=== PATIENT | female | born 1960 | race Caucasian/White ===

== ENCOUNTER 2017-06-19 00:15 | Inpatient (IN) | payer BC, SELFPAY ==
[2017-06-19] VITALS (19 sets, daily range): BP systolic 136–157; BP diastolic 69–103; PULSE 84–105; RESP 16–22; TEMP 36.6–37.3; O2SAT 89–98; BMI 26.1; BMI 29.7
--- NOTE | 2017-06-19 00:22 | RAD_ITS ---
XR Chest 2 Views INDICATION: COUGH T SOB COMPARISON: December 27, 2016 TECHNIQUE: Portable chest x-ray FINDINGS: Art size and pulmonary vascularity are within normal limits, stable compared to the prior study. Lungs are mildly hyperinflated with coarsened interstitial markings. Bibasilar atelectasis/scarring has slightly increased compared to the prior study. No evidence of pleural effusion. RAD/Chest PA and Lateral IMPRESSION: COPD/emphysema with increased bibasal atelectasis or scarring. at 0051 Reported and signed by: Altagracia Benoit MD Electronically Signed: Altagracia Benoit MD at 23:49 EDT Tel , Service support ,
--- NOTE | 2017-06-19 01:05 | ED.DCSUM_ITS ---
- ER Visit Summary Date of Service: 06/19/17 Chief Complaint: Shortness of breath and wheezing History of Present Illness: The patient is a 57 F 3 of asthma and hypertension. States she had URI symptoms beginning on Monday. Is progressively had worsening shortness of breath and wheezing. No chest pain. No fever. No hemoptysis. No cardiac history. No history of or risk factors for DVT or PE. No hemoptysis. She is currently on prednisone 40 mg a day for the last 3 days. Physical Examination: Middle-aged female vital signs are stable except pulse ox is 89% on 2 L she is hypoxic. HEENT exam unremarkable. TMs normal. Moist wheeze membranes. Neck nontender no lymphadenopathy. Lungs inspiratory expiratory wheezing throughout prolonged expiratory phase. Cough consistent with bronchitis. Exacerbation of asthma. Heart regular rate and rhythm no murmur. Abdomen soft nontender normal bowel sounds no peritoneal signs. Moving all 4 extremities. Calves nontender, no edema or cords. Neurologically she is awake and alert without focal deficits. She is in mild respiratory distress. Test Results: Two-view chest x-ray read by myself the radiologist shows bibasilar atelectasis and chronic changes but no acute process. No infiltrate. Normal cardiac silhouette. BMP unremarkable. Emergency Department Course and Treatment: Patient will be treated with IV Solu- Medrol, DuoNeb and albuterol aerosols and reassess. If she continues to remain hypoxic she will need admission. She did have a prior admission for a similar episode in December 2016. Treatment Plan: Cruz exam after Solu-Medrol of the multiple albuterol and DuoNeb aerosols. Patient is doing better but still wheezing. Still prolonged expiratory phase and we take her off her oxygen her pulse ox drops below 90% sitting in bed. She will need admitted for further aerosols and steroid therapy. I very spoken to Dr. Ahumada the hospitalist is in the ER evaluate the patient is time for admission. Disposition: Admission Impression: Acute viral bronchitis Acute exacerbation of asthma with hypoxia This note was generated with [employer] dictation software. It may contain incorrect words, spelling, and punctuation that were not noted in review of the chart prior to signing ED Disposition - Plan for ED Patient: Chief Complaint: Shortness of Breath Referrals: Jacques Staton DO [Primary Care Provider] -
[2017-06-19] MEDS: Albuterol 2.5 MG/3 ML VIAL.NEB. INHALATION ×2 (01:13)
[2017-06-19] MEDS: MethylPREDNISolone 125 MG/2 ML Vial IV (01:33)
[2017-06-19 01:49] LABS: Absolute Lymphocyte Count 1.34 X10^3/ul (0.83-4.51); Absolute Neutrophil Count 6.3 X10^3/uL (2.0-7.7); Basophil# 0.04 X10^3/uL; Basophil% 0.4 % (0-1); Eosinophil# 0.03 X10^3/uL; Eosinophils% 0.3 % (0-5); Hemoglobin 14.7 g/dl (12.0-15.0); Lymphocyte # 1.34 X10^3/ul (4.0); Mean Corp Hgb Conc 33.4 g/gl (32-36); Mean Corpuscular Volume 89.8 fL (81-99); Mean Platelet Vol. 9.8 fl (6.2-12.0); Monocyte# 1.19 X10^3/uL; Monocyte% 13.3 % (0-10); Neutrophil # 6.29 X10^3/uL (2.7-7.7); Neutrophil % 70.7 % (47-70); Platelet Count 254 K/mm3 (150-450); RBC Distribution Width CV 13.5 % (11.6-14.6); RBC Distribution Width SD 44.3 fl (35.1-43.9); White Blood Count 8.9 K/mm3 (4.4-11.0)
[2017-06-19 01:51] LABS: POSITIVE COUNT NO; POSITIVE DIFFERENTIAL NO; POSITIVE MORPHOLOGY NO
[2017-06-19 02:06] LABS: Anion Gap 11 (5-15); BUN 12 mg/dL (7-18); BUN/Creat Ratio 16.4 RATIO (10-20); Calcium,Total 8.9 mg/dL (8.5-10.1); Chloride 102 mmol/L (98-107); Creatinine, Serum 0.73 mg/dL (0.55-1.02); EST Glomerular Filtration Rate 87 mL/min (>60); Est Glom Filt Rate - Afr Amer 105 mL/min (>60); Estimated Creatinine Clearance 72.54 ml/min; Glucose 108 mg/dL (74-106); Potassium 3.5 mmol/L (3.5-5.1); Sodium Level 140 mmol/L (136-145)
--- NOTE | 2017-06-19 02:49 | HP.PCM_ITS ---
Problem List (1) Asthma exacerbation Status: Acute (2) Acute respiratory failure Status: Acute (3) Asthma Status: Acute (4) Hypokalemia Status: Acute (5) Hypertension Status: Chronic History of Present Illness Date of Admission: 06/19/17 Chief Complaint: Asthma exacerbation The patient is a 57 year old female w/ h/o asthma, tobacco abuse, and HTN admitted for asthma exacerbation. She has been feeling ill since Monday. There are several people at work who are sick the flu. She has been having worsening SOB and productive cough. The intensity and frequency of the cough are worsening. Sputum quantity also increased in the last few days. Her PCP gave her steroid since Monday. However, despite being on steroid, she is unable to do her ADLs. Her SOB is so severe that she required oxygen while in the ED to maintain her saturation. She is admitted for further workup. Past Medical History Past Medical History (Chronic Problems): Chronic Problems Hypertension (Chronic) Allergies Barbiturates Allergy (Verified 06/19/17 00:18) Other Home Medications: Ambulatory Orders Medication Instructions Recorded Aspirin [Aspirin, Baby] 81 mg PO DAILY@0800 05/01/14 Hydrochlorothiazide [Hctz] 12.5 mg PO DAILY 05/01/14 Lisinopril [Zestril] 30 mg PO DAILY 05/01/14 Loratadine [Claritin] 10 mg PO DAILY 05/01/14 Albuterol Inhaler [Ventolin Hfa] 1 - 2 puff INHALATION Q4H PRN PRN 05/02/14 #1 inhaler Albuterol Aerosols [Ventolin 2.5 mg INHALATION Q6HWA.RT 07/02/16 Aerosols] Budesonide/Formoterol 160/4.5 2 puff INHALATION BID 07/02/16 [Symbicort 160/4.5 Mcg Inhaler (SP)] Dicyclomine HCl 20 mg PO TID 12/27/16 Ipratropium/Albuterol Respimat 1 puff INHALATION 4X/DAY 12/27/16 [Combivent Respimat Inhal [place]] Montelukast Sodium [Singulair] 10 mg PO DAILY 12/27/16 Prednisone 40 mg PO DAILY #30 tablet 12/29/16 Cholecalciferol (Vitamin D3) 2,000 unit PO DAILY 06/19/17 [Vitamin D3] Surgical History: - - C-sections cholecystectomy tonsillectomy Psychiatric History: No pertinent psych hx 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 Smoking Status: Former smoker - *Family History Paternal History Items: Heart Disease Review of Systems Constitutional: Denies: Chills, Fever, Weight Change HEENT: Denies: Head Aches, Sinus Congestion, Sinus Drainage Cardiovascular: Denies: Chest Pain, Palpitations Respiratory: Denies: Cough, Shortness of breath at rest, Sputum production Gastrointestinal: Denies: Abdominal Pain, Nausea, Vomiting Genitourinary: Denies: Dysuria Musculoskeletal: Denies: Joint Pain, Joint Tenderness Skin: Denies: Rash, Wounds Neurological: Denies: Numbness, Tingling, Focal weakness Psychiatric: Denies: Anxiety, Depression, Homicidal Ideations, Suicidal Ideations Hematologic/ Lymphatic: Denies: Easy Bruising, Easy Bleeding VTE Information - Inpt Only VTE Present on Admission: No VTE Mechan Device Prophylaxis: SCD's VTE Pharm Prophylaxis ordered?: Yes Patient Problems: Active and Suspected Problems Asthma exacerbation (Acute) Acute respiratory failure (Acute) - Physical Exam General: Alert, Oriented x3, Cooperative HEENT: Atraumatic, PERRLA, EOMI, Normocephalic Neck: Supple, No JVD, Negative Carotid Bruits Lungs: Diminished, Short of Breath, Wheezes Cardiovascular: Regular rate, No murmurs Abdomen: Bowel Sounds Present, Soft, Non Tender Extremities: No edema, Capillary Refill Less than 3 Seconds Skin: No rashes, No breakdown Musculoskeletal: No Tenderness to Palpation of Joints or Extremities Neurological: Cranial nerves II-XII grossly intact Psych/Mental Status: Normal Affect, Appropriate Vital Signs Temp Pulse Resp BP Pulse Ox 99.2 F H 90 18 137/84 H 95 06/19/17 02:13 06/19/17 02:13 06/19/17 02:13 06/19/17 02:13 06/19/17 02:13 Oxygen Flow Rate (L/min) 2 Oxygen Delivery Method Room Air Weight: 68.946 kg Body Mass Index (BMI) 26.1 Laboratory Tests Past 24 Hrs 06/19/17 06/19/17 01:35 01:35 WBC 8.9 RBC 4.90 Hgb 14.7 Hct 44.0 MCV 89.8 MCH 30.0 MCHC 33.4 RDW 13.5 RDW Differential 44.3 H Plt Count 254 MPV 9.8 Immature Gran % (Auto) 0.300 Neut % (Auto) 70.7 H Lymph % (Auto) 15.0 L [place] % (Auto) 13.3 H Eos % (Auto) 0.3 Baso % (Auto) 0.4 Absolute Neuts (auto) 6.3 Absolute Lymphs (auto) 1.34 Total Counted Not Reportable Sodium 140 Potassium 3.5 Chloride 102 Carbon Dioxide 27.0 Anion Gap 11 BUN 12 Creatinine 0.73 Estim Creat Clear Calc 72.54 Est GFR (MDRD) Af Amer 105 Est GFR (MDRD) Non-Af 87 BUN/Creatinine Ratio 16.4 Glucose 108 H Calcium 8.9 Assessment/Plan Active and Suspected Problems Asthma exacerbation (Acute) Acute respiratory failure (Acute) 57 year old female w/ h/o asthma, tobacco abuse, and HTN admitted for asthma exacerbation. 1) Asthma exacerbation: Probably secondary to viral etiology. Cultures pending. No e/o acute bacterial infection, no leukocytosis, no infiltrate on xray, no fever, no chill, etcs. Will start steroid and bronchodilators ATC. Will consider antibiotic if worsening. C/w oxygen. 2) Acute hypoxic respiratory failure: Most likely secondary to asthma / COPD exacerbation. Will consider ABG if worsening. C/w oxygen. Monitor. 3) HTN: Resume home meds. Monitor. 4) Prophylaxis: SCD / heparin.
[2017-06-19] MEDS: 0.9% Normal Saline 1,000 ML 100 ML IV ×2 (03:30→14:19)
[2017-06-19] MEDS: Ipratropium/Albuterol Sulfate 3 ML AMPUL.NEB INHALATION ×5 (03:50→22:31)
[2017-06-19 06:18] LABS: Absolute Lymphocyte Count 0.41 X10^3/ul (0.83-4.51); Absolute Neutrophil Count 8.4 X10^3/uL (2.0-7.7); Basophil# 0.02 X10^3/uL; Basophil% 0.2 % (0-1); Differential Indicated SCAN CRITERIA MET; Hematocrit 44.4 % (37-47); Hemoglobin 14.7 g/dl (12.0-15.0); Lymphocyte # 0.41 X10^3/ul (4.0); Lymphocyte % 4.5 % (19-41); Mean Corp Hgb Conc 33.1 g/gl (32-36); Mean Corpuscular Hgb 29.9 pg (27.0-32.0); Mean Corpuscular Volume 90.4 fL (81-99); Mean Platelet Vol. 9.8 fl (6.2-12.0); Monocyte# 0.32 X10^3/uL; Monocyte% 3.5 % (0-10); Neutrophil # 8.38 X10^3/uL (2.7-7.7); Neutrophil % 91.5 % (47-70); POSITIVE COUNT NO; POSITIVE DIFFERENTIAL YES; POSITIVE MORPHOLOGY NO; Platelet Count 253 K/mm3 (150-450); RBC Distribution Width CV 13.6 % (11.6-14.6); RBC Distribution Width SD 44.8 fl (35.1-43.9); Red Blood Count 4.91 M/mm3 (4.2-5.4); White Blood Count 9.2 K/mm3 (4.4-11.0)
[2017-06-19 06:32] LABS: ALB/GLOB Ratio 1.1 RATIO (0.9-2.4); AST(SGOT) 20 U/L (15-37); Alanine Aminotransfer ALT/SGPT 34 U/L (13-56); Albumin, Serum 3.6 g/dL (3.2-5.0); Alkaline Phosphatase 80 U/L (45-117); Anion Gap 8 (5-15); BUN 11 mg/dL (7-18); BUN/Creat Ratio 13.8 RATIO (10-20); Calcium,Total 9.2 mg/dL (8.5-10.1); Chloride 103 mmol/L (98-107); EST Glomerular Filtration Rate 79 mL/min (>60); Est Glom Filt Rate - Afr Amer 95 mL/min (>60); Estimated Creatinine Clearance 82.16 ml/min; Globulin 3.4 g/dL (2.2-4.2); Glucose 153 mg/dL (74-106); Potassium 3.9 mmol/L (3.5-5.1); Sodium Level 138 mmol/L (136-145)
[2017-06-19] MEDS: Dicyclomine 10 MG Capsule 20 MG PO ×3 (06:32→22:26)
[2017-06-19] MEDS: 0.9% NaCl Peripheral Flush Adult/Peds IV (06:33)
[2017-06-19 06:56] LABS: Differential Comment SCANNED
[2017-06-19] MEDS: Aspirin 81 MG TAB.CHEW PO (09:09)
[2017-06-19] MEDS: Montelukast 10 MG Tablet PO (09:11)
[2017-06-19] MEDS: HYDROCHLOROTHIAZIDE 12.5 MG CAPSULE PO (09:11)
[2017-06-19] MEDS: Loratadine 10 MG Tablet PO (09:11)
[2017-06-19] MEDS: Lisinopril 10 MG Tablet 30 MG PO (09:12)
--- NOTE | 2017-06-19 09:17 | PCM.PN.HOSP ---
Patient Problems: Active and Suspected Problems Asthma exacerbation (Acute) Subjective: Patient is a 57-year-old lady with history of mild persistent asthma presented with progressive shortness of breath and assessment of acute asthma exacerbation was made admitted to regular nursing floor for further management Objective: GENERAL: cooperative HEENT: Clear conjunctiva, NECK; supple, normal thyroid, CHEST: Diminished is to auscultation with bilateral wheezing HEART: Regular S1 S2, no audible murmurs ABDOMEN: soft, non-tender, normoactive bowel sounds, RECTAL: deferred EXTREMITIES: No edema, no clubbing, no cyanosis. PARTS FINISHER: Awake, no lateralizing signs. SKIN: No lesions no erythema, Vitals/I&O's: Vital Signs Temp Pulse Resp BP Pulse Ox 98.6 F 89 18 146/91 H 95 06/19/17 03:21 06/19/17 06:57 06/19/17 06:57 06/19/17 03:21 06/19/17 06:57 Oxygen Flow Rate (L/min) 3 Oxygen Delivery Method Nasal Cannula Weight: 67.9 kg Body Mass Index (BMI) 29.7 Intake and Output for Last 24 Hours 06/17/17 06/18/17 06/19/17 22:59 23:59 23:59 Intake Total 331 / 331 Output Total 100 / 100 Balance 231 / 231 Microbiology Past 72 Hours 06/19/17 03:50 Mucosa - Nose Influenza Types A,B Direct FA (ALTAF) - Final Laboratory Results 06/19/17 05:34: WBC 9.2, RBC 4.91, Hgb 14.7, Hct 44.4, MCV 90.4, MCH 29.9, MCHC 33.1, RDW 13.6, RDW Differential 44.8 H, Plt Count 253, MPV 9.8, Immature Gran % (Auto) 0.300, Neut % (Auto) 91.5 H, Lymph % (Auto) 4.5 L, [place] % (Auto) 3.5, Eos % (Auto) 0.0, Baso % (Auto) 0.2, Absolute Neuts (auto) 8.4 H, Absolute Lymphs (auto) 0.41 L, Total Counted Not Reportable, Differential Comment SCANNED 06/19/17 05:34: Sodium 138, Potassium 3.9, Chloride 103, Carbon Dioxide 27.0, Anion Gap 8, BUN 11, Creatinine 0.80, Estim Creat Clear Calc 82.16, Est GFR (MDRD) Af Amer 95, Est GFR (MDRD) Non-Af 79, BUN/Creatinine Ratio 13.8, Glucose 153 H, Calcium 9.2, Total Bilirubin 0.30, AST 20, ALT 34, Alkaline Phosphatase 80, Total Protein 7.0, Albumin 3.6, Globulin 3.4, Albumin/Globulin Ratio 1.1 Current Medications Albuterol/Ipratropium (Duoneb) 3 ml INHALATION Q4H.RT [facility] Last Admin: 06/19/17 06:57 Dose: 3 ml Aspirin (Aspirin, Baby) 81 mg PO DAILY@0800 [facility] Last Admin: 06/19/17 09:09 Dose: 81 mg Cholecalciferol (Vitamin D) 2,000 unit PO DAILY [facility] Last Admin: 06/19/17 09:11 Dose: 2,000 unit Dicyclomine HCl (Bentyl) 20 mg PO TID [facility] Last Admin: 06/19/17 09:09 Dose: 20 mg Heparin Sodium (Porcine) (Heparin Na) 5,000 unit SC Q8 [facility] Last Admin: 06/19/17 06:33 Dose: 5,000 units Hydrochlorothiazide (Hydrochlorothiazide) 12.5 mg PO DAILY [facility] Last Admin: 06/19/17 09:11 Dose: 12.5 mg Sodium Chloride () 1,000 mls @ 100 mls/hr IV .Q10H [facility] Last Admin: 06/19/17 03:30 Dose: 100 mls/hr Lisinopril (Zestril) 30 mg PO DAILY [facility] Last Admin: 06/19/17 09:12 Dose: 30 mg Loratadine (Claritin) 10 mg PO DAILY [facility] Last Admin: 06/19/17 09:11 Dose: 10 mg Methylprednisolone (Solu-Medrol) 40 mg IV Q8 [facility] Stop: 06/20/17 06:01 Last Admin: 06/19/17 06:33 Dose: 40 mg Montelukast Sodium (Singulair) 10 mg PO DAILY [facility] Last Admin: 06/19/17 09:11 Dose: 10 mg Prednisone (Prednisone) 40 mg PO DAILY@0800 [facility] Sodium Chloride () 5 - 30 ml IV UD PRN PRN Reason: SALINE FLUSH Last Admin: 06/19/17 06:33 Dose: 10 ml Assessment/Plan Active and Suspected Problems Asthma exacerbation (Acute) Patient is a 57-year-old lady with history of mild persistent asthma presented with progressive shortness of breath and assessment of acute asthma exacerbation was made admitted to regular nursing floor for further management 1. Acute respiratory insufficiency secondary to acute asthma exacerbation patient has been admitted to regular nursing floor managed with bronchodilator treatment in addition to systemic steroid. Was also placed on supplemental oxygen titrated to keep oxygen saturation greater than 90. Patient is followed by a book author at [facility] plan is for her to follow-up with her when she is discharged 2. Allergic rhinitis 3. Hypertension-blood pressure controlled, home medications continued with dose adjustment as needed 4. Acute hypoxic respiratory failure ruled out 5. DVT prophylaxis SC heparin Code Visit Procedures: Other Procedure - See Report
--- NOTE | 2017-06-19 09:24 | PN_ITS ---
Patient Problems: Active and Suspected Problems Asthma exacerbation (Acute) Subjective: Patient is a 57-year-old lady with history of mild persistent asthma presented with progressive shortness of breath and assessment of acute asthma exacerbation was made admitted to regular nursing floor for further management Objective: GENERAL: cooperative HEENT: Clear conjunctiva, NECK; supple, normal thyroid, CHEST: Diminished is to auscultation with bilateral wheezing HEART: Regular S1 S2, no audible murmurs ABDOMEN: soft, non-tender, normoactive bowel sounds, RECTAL: deferred EXTREMITIES: No edema, no clubbing, no cyanosis. MORTAR WORKER: Awake, no lateralizing signs. SKIN: No lesions no erythema, Vitals/I&O's: Vital Signs Temp Pulse Resp BP Pulse Ox 98.6 F 89 18 146/91 H 95 06/19/17 03:21 06/19/17 06:57 06/19/17 06:57 06/19/17 03:21 06/19/17 06:57 Oxygen Flow Rate (L/min) 3 Oxygen Delivery Method Nasal Cannula Weight: 67.9 kg Body Mass Index (BMI) 29.7 Intake and Output for Last 24 Hours 06/17/17 06/18/17 06/19/17 22:59 23:59 23:59 Intake Total 331 / 331 Output Total 100 / 100 Balance 231 / 231 Microbiology Past 72 Hours 06/19/17 03:50 Mucosa - Nose Influenza Types A,B Direct FA (ALTAF) - Final Laboratory Results 06/19/17 05:34: WBC 9.2, RBC 4.91, Hgb 14.7, Hct 44.4, MCV 90.4, MCH 29.9, MCHC 33.1, RDW 13.6, RDW Differential 44.8 H, Plt Count 253, MPV 9.8, Immature Gran % (Auto) 0.300, Neut % (Auto) 91.5 H, Lymph % (Auto) 4.5 L, [place] % (Auto) 3.5, Eos % (Auto) 0.0, Baso % (Auto) 0.2, Absolute Neuts (auto) 8.4 H, Absolute Lymphs (auto) 0.41 L, Total Counted Not Reportable, Differential Comment SCANNED 06/19/17 05:34: Sodium 138, Potassium 3.9, Chloride 103, Carbon Dioxide 27.0, Anion Gap 8, BUN 11, Creatinine 0.80, Estim Creat Clear Calc 82.16, Est GFR ( MDRD) Af Amer 95, Est GFR (MDRD) Non-Af 79, BUN/Creatinine Ratio 13.8, Glucose 153 H, Calcium 9.2, Total Bilirubin 0.30, AST 20, ALT 34, Alkaline Phosphatase 80, Total Protein 7.0, Albumin 3.6, Globulin 3.4, Albumin/Globulin Ratio 1.1 Current Medications Albuterol/Ipratropium (Duoneb) 3 ml INHALATION Q4H.RT [facility] Last Admin: 06/19/17 06:57 Dose: 3 ml Aspirin (Aspirin, Baby) 81 mg PO DAILY@0800 [facility] Last Admin: 06/19/17 09:09 Dose: 81 mg Cholecalciferol (Vitamin D) 2,000 unit PO DAILY [facility] Last Admin: 06/19/17 09:11 Dose: 2,000 unit Dicyclomine HCl (Bentyl) 20 mg PO TID [facility] Last Admin: 06/19/17 09:09 Dose: 20 mg Heparin Sodium (Porcine) (Heparin Na) 5,000 unit SC Q8 [facility] Last Admin: 06/19/17 06:33 Dose: 5,000 units Hydrochlorothiazide (Hydrochlorothiazide) 12.5 mg PO DAILY [facility] Last Admin: 06/19/17 09:11 Dose: 12.5 mg Sodium Chloride () 1,000 mls @ 100 mls/hr IV .Q10H [facility] Last Admin: 06/19/17 03:30 Dose: 100 mls/hr Lisinopril (Zestril) 30 mg PO DAILY [facility] Last Admin: 06/19/17 09:12 Dose: 30 mg Loratadine (Claritin) 10 mg PO DAILY [facility] Last Admin: 06/19/17 09:11 Dose: 10 mg Methylprednisolone (Solu-Medrol) 40 mg IV Q8 [facility] Stop: 06/20/17 06:01 Last Admin: 06/19/17 06:33 Dose: 40 mg Montelukast Sodium (Singulair) 10 mg PO DAILY [facility] Last Admin: 06/19/17 09:11 Dose: 10 mg Prednisone (Prednisone) 40 mg PO DAILY@0800 [facility] Sodium Chloride () 5 - 30 ml IV UD PRN PRN Reason: SALINE FLUSH Last Admin: 06/19/17 06:33 Dose: 10 ml Assessment/Plan Active and Suspected Problems Asthma exacerbation (Acute) Patient is a 57-year-old lady with history of mild persistent asthma presented with progressive shortness of breath and assessment of acute asthma exacerbation was made admitted to regular nursing floor for further management 1. Acute respiratory insufficiency secondary to acute asthma exacerbation patient has been admitted to regular nursing floor managed with bronchodilator treatment in addition to systemic steroid. Was also placed on supplemental oxygen titrated to keep oxygen saturation greater than 90. Patient is followed by a leather heel breaster at [facility] plan is for her to follow-up with her when she is discharged 2. Allergic rhinitis 3. Hypertension-blood pressure controlled, home medications continued with dose adjustment as needed 4. Acute hypoxic respiratory failure ruled out 5. DVT prophylaxis SC heparin Code Visit Procedures: Other Procedure - See Report
--- NOTE | 2017-06-19 09:46 | CASEMGMT ---
ESCOBAR MATA Face to Face with patient for initial transition planning/care coordination assessment. ESCOBAR MATA introduced self and role at [facility]. Patient sitting in chair, alert and oriented, family at bedside. Patient willing to participate in assessment and is able to answer all questions appropriately. Care providers, pharmacy, and demographics verified. See link attached. Patient wishes to discharge home, denies need for home health at this time. ESCOBAR MATA discussed with patient the need for follow-up with senior teradata developer and encouraged patient to schedule appt with Dr. Armstrong. Patient voiced understanding. Patient states she has no further needs or concerns at this time. CM to follow for discharge planning needs that may arise. Disposition Plan: Patient to discharge home with family support and follow-up plans in place.
[2017-06-19] MEDS: Ibuprofen 400 MG Tablet PO (17:48)
[2017-06-20] VITALS (19 sets, daily range): BP systolic 123–157; BP diastolic 73–85; PULSE 84–105; RESP 16–20; TEMP 36.6–36.8; O2SAT 96–98
[2017-06-20] MEDS: Ipratropium/Albuterol Sulfate 3 ML AMPUL.NEB INHALATION ×7 (02:45→23:18)
[2017-06-20] MEDS: 0.9% Normal Saline 1,000 ML 100 ML IV (02:56)
[2017-06-20] MEDS: Dicyclomine 10 MG Capsule 20 MG PO ×3 (06:34→22:53)
[2017-06-20] MEDS: Aspirin 81 MG TAB.CHEW PO (08:01)
[2017-06-20] MEDS: Ibuprofen 400 MG Tablet PO (08:14)
--- NOTE | 2017-06-20 09:49 | CT_ITS ---
STUDY: CT CHEST WITHOUT CONTRAST REASON FOR EXAM: Female, 57 years old. Wheezing. RADIATION DOSAGE (If Supplied By Facility): CTDIvol = ( 13.91 ) mGy, DLP = ( 490.11 ) mGycm TECHNIQUE: Transaxial imaging was performed without the administration of intravenous contrast material. Multiplanar coronal and sagittal images were reformatted. Individualized dose optimization techniques were used for this CT. COMPARISON: None. FINDINGS: Cardiac monitoring leads are present. There is hyperinflation of the lungs consistent with chronic obstructive lung disease (COPD). There are large lucencies within both upper lobes that is probably related to severe centrilobular emphysema. There is a left lower lobe pulmonary nodule measuring approximately 6.6 mm. There is bilateral basilar dependent atelectasis. There is groundglass nodularity in right middle lobe measuring 4.5 mm in greatest dimension. There is some reticulonodular interstitial thickening visible within the right lower lobe. There is no demonstrated pleural abnormality. Normal heart and pericardium. There are calcifications of the coronary arteries. There is a prominent precarinal node measuring 1.7 x 1.1 x 0.9 cm in size. Normal hilar regions. Normal unenhanced pulmonary arteries. There is atherosclerotic tortuosity of the aortic arch and descending thoracic aorta. Maximum transverse dimension of ascending thoracic aorta measures 2.9 cm. There are multi-level degenerative changes of the thoracic spine. There is increased thoracic kyphosis. There is no demonstrated abnormality of the visualized upper abdomen. CT/Chest without Contrast IMPRESSION: 1. Left lower lobe pulmonary nodule. Suggest follow-up as per Fleischner's criteria. 2. Moderately severe COPD. 3. Nonspecific mediastinal lymphadenopathy. Electronically Signed: Jyoti Rogers MD at 10:46 EDT , Service support ,
--- NOTE | 2017-06-20 09:53 | PCM.PN.HOSP ---
Patient Problems: Active and Suspected Problems Asthma exacerbation (Acute) Subjective: Patient seen remains significantly dyspneic at rest. Patient was started on doxycycline p.o. prednisone changed to IV Solu-Medrol ordered CT of the chest for subsequent evaluation Objective: GENERAL: cooperative dyspneic at rest HEENT: Clear conjunctiva, NECK; supple, normal thyroid, CHEST: Diminished is to auscultation with bilateral wheezing HEART: Regular S1 S2, no audible murmurs ABDOMEN: soft, non-tender, normoactive bowel sounds, RECTAL: deferred EXTREMITIES: No edema, no clubbing, no cyanosis. BROOM MAKER: Awake, no lateralizing signs. SKIN: No lesions no erythema, Vitals/I&O's: Vital Signs Temp Pulse Resp BP Pulse Ox 98.0 F 91 18 141/74 H 96 06/20/17 08:04 06/20/17 08:04 06/20/17 08:04 06/20/17 08:04 06/20/17 08:04 Oxygen Flow Rate (L/min) 1 Oxygen Delivery Method Nasal Cannula Weight: 67.9 kg Body Mass Index (BMI) 29.7 Intake and Output for Last 24 Hours 06/18/17 06/19/17 06/20/17 23:59 23:59 23:59 Intake Total 331 / 331 Output Total 100 / 100 Balance 231 / 231 Microbiology Past 72 Hours 06/19/17 04:00 Sputum, Expectorated/Coughed Gram Stain - Final 06/19/17 04:00 Sputum, Expectorated/Coughed Respiratory Culture - Preliminary 06/19/17 03:50 Mucosa - Nose Influenza Types A,B Direct FA (ALTAF) - Final Current Medications Albuterol/Ipratropium (Duoneb) 3 ml INHALATION Q4H.RT [facility] Last Admin: 06/20/17 07:17 Dose: 3 ml Aspirin (Aspirin, Baby) 81 mg PO DAILY@0800 [facility] Last Admin: 06/20/17 08:01 Dose: 81 mg Cholecalciferol (Vitamin D) 2,000 unit PO DAILY [facility] Last Admin: 06/19/17 09:11 Dose: 2,000 unit Dicyclomine HCl (Bentyl) 20 mg PO TID [facility] Last Admin: 06/20/17 06:34 Dose: 20 mg Doxycycline Monohydrate (Doxycycline) 100 mg PO BID [facility] Heparin Sodium (Porcine) (Heparin Na) 5,000 unit SC Q8 [facility] Last Admin: 06/20/17 06:34 Dose: 5,000 units Hydrochlorothiazide (Hydrochlorothiazide) 12.5 mg PO DAILY [facility] Last Admin: 06/19/17 09:11 Dose: 12.5 mg Ibuprofen (Motrin) 400 mg PO Q6H PRN PRN PRN Reason: MILD PAIN (1-3/10) Last Admin: 06/20/17 08:14 Dose: 400 mg Lisinopril (Zestril) 30 mg PO DAILY [facility] Last Admin: 06/19/17 09:12 Dose: 30 mg Loratadine (Claritin) 10 mg PO DAILY [facility] Last Admin: 06/19/17 09:11 Dose: 10 mg Methylprednisolone (Solu-Medrol) 40 mg IV Q8 [facility] Montelukast Sodium (Singulair) 10 mg PO DAILY [facility] Last Admin: 06/19/17 09:11 Dose: 10 mg Sodium Chloride () 5 - 30 ml IV UD PRN PRN Reason: SALINE FLUSH Last Admin: 06/19/17 06:33 Dose: 10 ml Assessment/Plan Active and Suspected Problems Asthma exacerbation (Acute) Patient is a 57-year-old lady with history of mild persistent asthma presented with progressive shortness of breath and assessment of acute asthma exacerbation was made admitted to regular nursing floor for further management 1. Acute respiratory insufficiency secondary to acute asthma exacerbation patient has been admitted to regular nursing floor managed with bronchodilator treatment in addition to systemic steroid. Was also placed on supplemental oxygen titrated to keep oxygen saturation greater than 90. Patient is followed by a lockstitch topstitcher at [facility] plan is for her to follow-up with her when she is discharged 2. Allergic rhinitis 3. Hypertension-blood pressure controlled, home medications continued with dose adjustment as needed 4. Acute hypoxic respiratory failure ruled out 5. DVT prophylaxis SC heparin Code Visit Inpatient E&M: 35422 Subs Hosp L3
--- NOTE | 2017-06-20 09:56 | PN_ITS ---
Patient Problems: Active and Suspected Problems Asthma exacerbation (Acute) Subjective: Patient seen remains significantly dyspneic at rest. Patient was started on doxycycline p.o. prednisone changed to IV Solu-Medrol ordered CT of the chest for subsequent evaluation Objective: GENERAL: cooperative dyspneic at rest HEENT: Clear conjunctiva, NECK; supple, normal thyroid, CHEST: Diminished is to auscultation with bilateral wheezing HEART: Regular S1 S2, no audible murmurs ABDOMEN: soft, non-tender, normoactive bowel sounds, RECTAL: deferred EXTREMITIES: No edema, no clubbing, no cyanosis. HISTOLOGY MANAGER: Awake, no lateralizing signs. SKIN: No lesions no erythema, Vitals/I&O's: Vital Signs Temp Pulse Resp BP Pulse Ox 98.0 F 91 18 141/74 H 96 06/20/17 08:04 06/20/17 08:04 06/20/17 08:04 06/20/17 08:04 06/20/17 08:04 Oxygen Flow Rate (L/min) 1 Oxygen Delivery Method Nasal Cannula Weight: 67.9 kg Body Mass Index (BMI) 29.7 Intake and Output for Last 24 Hours 06/18/17 06/19/17 06/20/17 23:59 23:59 23:59 Intake Total 331 / 331 Output Total 100 / 100 Balance 231 / 231 Microbiology Past 72 Hours 06/19/17 04:00 Sputum, Expectorated/Coughed Gram Stain - Final 06/19/17 04:00 Sputum, Expectorated/Coughed Respiratory Culture - Preliminary 06/19/17 03:50 Mucosa - Nose Influenza Types A,B Direct FA (ALTAF) - Final Current Medications Albuterol/Ipratropium (Duoneb) 3 ml INHALATION Q4H.RT [facility] Last Admin: 06/20/17 07:17 Dose: 3 ml Aspirin (Aspirin, Baby) 81 mg PO DAILY@0800 [facility] Last Admin: 06/20/17 08:01 Dose: 81 mg Cholecalciferol (Vitamin D) 2,000 unit PO DAILY [facility] Last Admin: 06/19/17 09:11 Dose: 2,000 unit Dicyclomine HCl (Bentyl) 20 mg PO TID [facility] Last Admin: 06/20/17 06:34 Dose: 20 mg Doxycycline Monohydrate (Doxycycline) 100 mg PO BID [facility] Heparin Sodium (Porcine) (Heparin Na) 5,000 unit SC Q8 [facility] Last Admin: 06/20/17 06:34 Dose: 5,000 units Hydrochlorothiazide (Hydrochlorothiazide) 12.5 mg PO DAILY [facility] Last Admin: 06/19/17 09:11 Dose: 12.5 mg Ibuprofen (Motrin) 400 mg PO Q6H PRN PRN PRN Reason: MILD PAIN (1-3/10) Last Admin: 06/20/17 08:14 Dose: 400 mg Lisinopril (Zestril) 30 mg PO DAILY [facility] Last Admin: 06/19/17 09:12 Dose: 30 mg Loratadine (Claritin) 10 mg PO DAILY [facility] Last Admin: 06/19/17 09:11 Dose: 10 mg Methylprednisolone (Solu-Medrol) 40 mg IV Q8 [facility] Montelukast Sodium (Singulair) 10 mg PO DAILY [facility] Last Admin: 06/19/17 09:11 Dose: 10 mg Sodium Chloride () 5 - 30 ml IV UD PRN PRN Reason: SALINE FLUSH Last Admin: 06/19/17 06:33 Dose: 10 ml Assessment/Plan Active and Suspected Problems Asthma exacerbation (Acute) Patient is a 57-year-old lady with history of mild persistent asthma presented with progressive shortness of breath and assessment of acute asthma exacerbation was made admitted to regular nursing floor for further management 1. Acute respiratory insufficiency secondary to acute asthma exacerbation patient has been admitted to regular nursing floor managed with bronchodilator treatment in addition to systemic steroid. Was also placed on supplemental oxygen titrated to keep oxygen saturation greater than 90. Patient is followed by a scientific research associate at [facility] plan is for her to follow-up with her when she is discharged 2. Allergic rhinitis 3. Hypertension-blood pressure controlled, home medications continued with dose adjustment as needed 4. Acute hypoxic respiratory failure ruled out 5. DVT prophylaxis SC heparin Code Visit Inpatient E&M: 74995 Subs Hosp L3
[2017-06-20] MEDS: Loratadine 10 MG Tablet PO (10:56)
[2017-06-20] MEDS: Lisinopril 10 MG Tablet 30 MG PO (10:56)
[2017-06-20] MEDS: HYDROCHLOROTHIAZIDE 12.5 MG CAPSULE PO (10:56)
[2017-06-20] MEDS: Montelukast 10 MG Tablet PO (10:56)
[2017-06-20] MEDS: Doxycycline 100 MG CAPSULE PO ×2 (13:13→22:46)
[2017-06-20] MEDS: 0.9% NaCl Peripheral Flush Adult/Peds IV ×2 (13:13→22:46)
[2017-06-20] MEDS: ALPRAZolam 0.25 MG Tablet PO ×2 (15:52→23:54)
[2017-06-21] VITALS (19 sets, daily range): BP systolic 135–179; BP diastolic 76–112; PULSE 86–103; RESP 18–24; TEMP 36.4–37.1; O2SAT 84–97
[2017-06-21] MEDS: Ipratropium/Albuterol Sulfate 3 ML AMPUL.NEB INHALATION ×6 (02:43→23:40)
[2017-06-21] MEDS: Dicyclomine 10 MG Capsule 20 MG PO ×3 (05:36→22:19)
[2017-06-21] MEDS: 0.9% NaCl Peripheral Flush Adult/Peds IV ×3 (05:37→22:19)
--- NOTE | 2017-06-21 08:21 | PCM.CONS.GEN ---
Problem List (1) Acute respiratory failure with hypoxia Status: Acute (2) Hypertension Status: Chronic Reason for Consult Date of Consultation: 06/21/17 Reason for Consultation: COPD History of Present Illness: The patient is a 57 year old F with past medical history as below, presented to the emergency room on 06/19/17 with complaints of progressive shortness of breath and wheezing. Patient had URI symptoms starting on Monday. She went to her primary care physician and was placed on 40 mg of prednisone, which she had been taking for 3 days. She felt slightly better, then became more short of breath, even at rest. In the emergency room, patient was hypoxic at 89% on 2 L. Blood pressure 157/103, pulse 99, respirations 18. She was unable to tolerate any activity. Her oxygen requirements increased to 3 L. The patient was admitted for further evaluation and management of presumed asthma exacerbation. She has not had a leukocytosis or fever. She denies any fever or chills at home. She does have somewhat of an increase in her sputum production, clear to yellow. Her cough has been persistent and she has been intermittently wheezing. Her home inhaler regimen includes Symbicort BID, Combivent every 4-5 hours, and PRN albuterol nebulizer and/or inhaler. She reports rare use of her albuterol unless she is sick. Typically, patient does not have trouble with her breathing and does not have a cough. She denies night sweats or hemoptysis. Patient quit smoking after her last admission to the hospital for asthma exacerbation in December 2016 for which she was hospitalized here at [facility]. She has a [id number] history. She has seen Dr. Brewer, ENT in the past and had nasal surgery 2 years ago. She also had a barium swallow May 2014 that showed a small sliding hiatal hernia with gastroesophageal reflux. Patient reports she saw a chronic disease manager and had an EGD as well, which showed esophageal spasms in addition to the hernia. She was placed on Bentyl and omeprazole. Her symptoms have been relatively controlled, except recently she has had more reflux with eating unless she stays completely upright. Patient also had a stress test in April 2014 which was reportedly normal, she had an estimated EF of 77%. She denies any chest pain. Patient was treated with IV steroids and bronchodilators, and was transitioned to Prednisone until she was changed back to Solu-Medrol on 3/13 secondary to persistent dyspnea at rest. She was started on doxycycline and a chest CT was obtained, which showed a left lower lobe pulmonary nodule measuring 6.6 mm, groundglass nodularity in right middle lobe measuring 4.5 mm, moderately severe COPD, and nonspecific mediastinal lymphadenopathy. There was also a large lucencies in both upper lobes, probably related to severe centrilobular emphysema. Patient denies any previous chest imaging except x-rays. She follows with Dr. Armstrong at the [facility]. She last saw him in the spring 2016. Patient states she was actually scheduled to see him this past November, but their office canceled. She was then scheduled to see him a few months ago but they again canceled her appointment. Initial PFTs were done approximately 2 years ago, the patient was told she had asthma. She did have repeat pulmonary function tests in the spring 2016 and is unsure of those results. Past Medical History Past Medical History (Chronic Problems): Chronic Problems Hypertension (Chronic) Allergies Barbiturates Adverse Reaction (Verified 06/19/17 03:44) Other seizure Home Medications: Ambulatory Orders Medication Instructions Recorded Aspirin [Aspirin, Baby] 81 mg PO DAILY@0800 05/01/14 Hydrochlorothiazide [Hctz] 25 mg PO DAILY 05/01/14 Lisinopril [Zestril] 30 mg PO DAILY 05/01/14 Loratadine [Claritin] 10 mg PO DAILY 05/01/14 Albuterol Inhaler [Ventolin Hfa] 1 - 2 puff INHALATION Q4H PRN PRN 05/02/14 #1 inhaler Albuterol Aerosols [Ventolin 2.5 mg INHALATION Q6HWA.RT 07/02/16 Aerosols] Budesonide/Formoterol 160/4.5 2 puff INHALATION BID 07/02/16 [Symbicort 160/4.5 Mcg Inhaler (SP)] Dicyclomine HCl 20 mg PO TID 12/27/16 Ipratropium/Albuterol Respimat 1 puff INHALATION 4X/DAY 12/27/16 [Combivent Respimat Inhal [place]] Montelukast Sodium [Singulair] 10 mg PO DAILY 12/27/16 Prednisone 40 mg PO DAILY #30 tablet 12/29/16 Cholecalciferol (Vitamin D3) 2,000 unit PO DAILY 06/19/17 [Vitamin D3] Fluoxetine [Prozac] 20 mg PO QHS 06/19/17 Omeprazole [Prilosec] 20 mg PO DAILY 06/19/17 Surgical History: - - C-sections cholecystectomy tonsillectomy Psychiatric History: 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 Denies: Anorexia, Chills, Fever, Night Sweats, Malaise, Weakness, Weight Change Eyes: Denies: Vision Change HEENT: Reports: Head Aches, Nasal Congestion, Post Nasal Drip, Sinus Congestion, - - problem with swallowing textured food. Denies: Difficulty Swallowing, Dysphasia, Nasal bleeding, Sinus Drainage Cardiovascular: Reports: Chest Tightness, Orthopnea. Denies: Chest Pain, Chest Pressure, Light Headedness, Palpitations, Paroxysmal Noc. Dyspnea, Syncope Respiratory: Reports: Cough, Shortness of breath at rest, Shortness of breath upon exertion, Sputum production, Wheezing. Denies: Hemoptysis, Pleuritic Pain Gastrointestinal: Reports: Dyspepsia. Denies: Abdominal Pain, Constipation, Diarrhea, Hematemesis, Hematochezia, Nausea, Melena, Vomiting Genitourinary: Denies: Dysuria, Frequency, Hematuria, Retention Gynecological: Denies: Breast symptoms Musculoskeletal: Denies: Back Pain, Muscle pain, Neck Pain Skin: Denies: Pruritis, Rash, Skin Changes Neurological: Denies: Balance problems, Change in Speech, Confusion, Difficulty swallowing, Focal weakness, Numbness, Tingling, Tremor, Seizures Psychiatric: Denies: Anxiety, Depression Endocrine: Denies: Change in Body Habitus, Polydipsia, Polyuria Hematologic/ Lymphatic: Denies: Adenopathy, Anemia, Easy Bruising, Easy Bleeding, Hx of blood clot Patient Problems: Active and Suspected Problems Acute respiratory failure with hypoxia (Acute) Asthma exacerbation (Acute) Subjective: The patient was seen and examined. Her is at the bedside. She has conversational dyspnea and reports a very poor activity tolerance. She is maintaining appropriate saturations on 2 L of oxygen at this time. A room air pulse ox was completed at rest and she was 84%. She complains of intermittent wheezing. She feels improved from yesterday. Objective: Clinical Impression(s) from Imaging Studies Chest X-Ray 06/19/17 00:22 IMPRESSION: COPD/emphysema with increased bibasal atelectasis or scarring. at 0051 Reported and signed by: Altagracia Benoit MD Electronically Signed: Altagracia Benoit MD at 23:49 EDT Tel , Service support , Chest CT 06/20/17 09:49 IMPRESSION: 1. Left lower lobe pulmonary nodule. Suggest follow-up as per Fleischner's criteria. 2. Moderately severe COPD. 3. Nonspecific mediastinal lymphadenopathy. Electronically Signed: Jyoti Rogers MD at 10:46 EDT , Service support , - Physical Exam General: Alert, Oriented x3, Cooperative, No apparent distress, Well developed, Well nourished, - - Conversational dyspnea HEENT: Atraumatic, PERRLA, Normocephalic Oral: Moist Mucosa, No Gingival or Mucosal Lesions/ Ulcerations Neck: Supple, Negative Carotid Bruits, No Nodes, Trachea Midline Lungs: - - Diminished with expiratory wheeze, no rhonchi or rales. No accessory muscle use or tachypnea, symmetric expansion. Cardiovascular: Regular rate, Regular Rhythm, Normal S1, Normal S2, No murmurs, No rub noted, No Gallop Abdomen: Bowel Sounds Present, Soft, Non Tender, Non-Distended, No Hepato-splenomegaly Extremities: No clubbing, No cyanosis, No edema, Peripheral Pulses Normal Skin: No rashes, No breakdown Musculoskeletal: No Tenderness to Palpation of Joints or Extremities, - - mild kyphosis Lymphatic: No Cervical, Supraclavicular, or Inguinal Adenopathy Neurological: Cranial nerves II-XII grossly intact, Neuro grossly intact, Motor Exam 5/5 strength throughout Psych/Mental Status: Alert and oriented to time, place, person, mood and affect Vital Signs Temp Pulse Resp BP Pulse Ox 98.8 F 97 20 H 141/76 H 95 06/21/17 08:00 06/21/17 08:00 06/21/17 08:00 06/21/17 08:00 06/21/17 08:00 Oxygen Flow Rate (L/min) 2 Oxygen Delivery Method Nasal Cannula Weight: 149 lb 11.102 oz Body Mass Index (BMI) 29.7 Intake and Output for Last 24 Hours 06/19/17 06/20/17 06/21/17 23:59 23:59 23:59 Intake Total 331 / 331 1602 / 1602 200 / 200 Output Total 100 / 100 750 / 750 Balance 231 / 231 852 / 852 200 / 200 Microbiology Past 72 Hours 06/19/17 05:34 Blood Culture - Preliminary Blood Culture (Wb) - Anticubital Right No growth in 48 hours. 06/19/17 04:00 Gram Stain - Final Sputum, Expectorated/Coughed Respiratory Culture - Final 06/19/17 03:50 Influenza Types A,B Direct FA (ALTAF) - Final Mucosa - Nose Assessment/Plan Active and Suspected Problems Acute respiratory failure with hypoxia (Acute) Asthma exacerbation (Acute) RECOMMENDATIONS 1. Wean oxygen supplementation to keep saturations 88-92%. 2. Encourage incentive spirometer and Acapella 3. Increase activity as tolerated 4. Continue bronchodilators, add as needed albuterol 5. Obtain respiratory panel 6. Obtain medical records from [facility] pulmonology, Dr. Armstrong 7. Ambulatory pulse ox prior to consideration for discharge 8. Please make follow-up appointment in the pulmonary clinic with [facility] in 2 weeks after discharge IMPRESSIONS 1. Acute hypoxic respiratory failure/presumed asthma and COPD Patient still requiring 2-3 L of oxygen supplementation, no previous home requirements. Sputum and blood culture were negative. Respiratory panel was ordered. She did have recent multiple sick contacts at work and could have a viral etiology causing worsening breathing. She reportedly has asthma per PFTs 2 years ago at [facility], awaiting official records, which were requested. She denies a history of COPD. Chest CT on 06/20 demonstrated a left lower lobe pulmonary nodule measuring 6.6 mm, nonspecific mediastinal lymphadenopathy, and moderately severe COPD. There was also atelectasis and a groundglass nodularity in the right middle lobe measuring 4.5 mm. She does have interstitial thickening. The patient denies any previous CAT scans to compare. She would need a follow up CT in 3 months with these findings. Patient has been maintained on Symbicort, Combivent, and albuterol at home, previously taking Qvar. She also takes Singulair and Claritin. Patient has a hiatal hernia which could be aggravating her asthma, she is on Bentyl and omeprazole at home. Attempt to wean oxygen to keep saturations 88-92%. Encourage incentive spirometer and Acapella and increase activity as tolerated. Patient may require home oxygen temporarily. Would add PRN Albuterol, lungs are very tight with wheezing. She wishes to transfer her pulmonary care to [facility] upon discharge. We have requested her records from [facility]. She can follow-up 2 weeks from discharge, at which time repeat pulmonary function test can be ordered and hopefully patient can be optimized. 2. Hiatal hernia/hypertension/history of tobacco abuse in remission Complicates care, management, recovery, and prognosis. Patient quit smoking in December 2016, [id number] history. Encouraged ongoing cessation. Continue home medications as indicated. Thank you for the opportunity to participate in this patient's care, please do not hesitate contact us with any further questions or concerns. This note was generated with [employer] software. It may contain incorrect words, spelling, and punctuation that were not noted in checking the note before signing.
--- NOTE | 2017-06-21 08:31 | CON.PCM_ITS ---
Problem List (1) Acute respiratory failure with hypoxia Status: Acute (2) Hypertension Status: Chronic Reason for Consult Date of Consultation: 06/21/17 Reason for Consultation: COPD History of Present Illness: The patient is a 57 year old F with past medical history as below, presented to the emergency room on 06/19/17 with complaints of progressive shortness of breath and wheezing. Patient had URI symptoms starting on Monday. She went to her primary care physician and was placed on 40 mg of prednisone, which she had been taking for 3 days. She felt slightly better, then became more short of breath, even at rest. In the emergency room, patient was hypoxic at 89% on 2 L. Blood pressure 157/103, pulse 99, respirations 18. She was unable to tolerate any activity. Her oxygen requirements increased to 3 L. The patient was admitted for further evaluation and management of presumed asthma exacerbation. She has not had a leukocytosis or fever. She denies any fever or chills at home. She does have somewhat of an increase in her sputum production, clear to yellow. Her cough has been persistent and she has been intermittently wheezing. Her home inhaler regimen includes Symbicort BID, Combivent every 4-5 hours, and PRN albuterol nebulizer and/or inhaler. She reports rare use of her albuterol unless she is sick. Typically, patient does not have trouble with her breathing and does not have a cough. She denies night sweats or hemoptysis. Patient quit smoking after her last admission to the hospital for asthma exacerbation in December 2016 for which she was hospitalized here at [facility]. She has a 20-[id number]-dgxr history. She has seen Dr. Brewer, ENT in the past and had nasal surgery 2 years ago. She also had a barium swallow May 2014 that showed a small sliding hiatal hernia with gastroesophageal reflux. Patient reports she saw a rehabilitation case coordinator and had an EGD as well, which showed esophageal spasms in addition to the hernia. She was placed on Bentyl and omeprazole. Her symptoms have been relatively controlled, except recently she has had more reflux with eating unless she stays completely upright. Patient also had a stress test in April 2014 which was reportedly normal, she had an estimated EF of 77%. She denies any chest pain. Patient was treated with IV steroids and bronchodilators, and was transitioned to Prednisone until she was changed back to Solu-Medrol on 3/13 secondary to persistent dyspnea at rest. She was started on doxycycline and a chest CT was obtained, which showed a left lower lobe pulmonary nodule measuring 6.6 mm, groundglass nodularity in right middle lobe measuring 4.5 mm, moderately severe COPD, and nonspecific mediastinal lymphadenopathy. There was also a large lucencies in both upper lobes, probably related to severe centrilobular emphysema. Patient denies any previous chest imaging except x-rays. She follows with Dr. Armstrong at the [facility]. She last saw him in the spring 2016. Patient states she was actually scheduled to see him this past November, but their office canceled. She was then scheduled to see him a few months ago but they again canceled her appointment. Initial PFTs were done approximately 2 years ago, the patient was told she had asthma. She did have repeat pulmonary function tests in the spring 2016 and is unsure of those results. Past Medical History Past Medical History (Chronic Problems): Chronic Problems Hypertension (Chronic) Allergies Barbiturates Adverse Reaction (Verified 06/19/17 03:44) Other seizure Home Medications: Ambulatory Orders Medication Instructions Recorded Aspirin [Aspirin, Baby] 81 mg PO DAILY@0800 05/01/14 Hydrochlorothiazide [Hctz] 25 mg PO DAILY 05/01/14 Lisinopril [Zestril] 30 mg PO DAILY 05/01/14 Loratadine [Claritin] 10 mg PO DAILY 05/01/14 Albuterol Inhaler [Ventolin Hfa] 1 - 2 puff INHALATION Q4H PRN PRN 05/02/14 #1 inhaler Albuterol Aerosols [Ventolin 2.5 mg INHALATION Q6HWA.RT 07/02/16 Aerosols] Budesonide/Formoterol 160/4.5 2 puff INHALATION BID 07/02/16 [Symbicort 160/4.5 Mcg Inhaler (SP)] Dicyclomine HCl 20 mg PO TID 12/27/16 Ipratropium/Albuterol Respimat 1 puff INHALATION 4X/DAY 12/27/16 [Combivent Respimat Inhal [place]] Montelukast Sodium [Singulair] 10 mg PO DAILY 12/27/16 Prednisone 40 mg PO DAILY #30 tablet 12/29/16 Cholecalciferol (Vitamin D3) 2,000 unit PO DAILY 06/19/17 [Vitamin D3] Fluoxetine [Prozac] 20 mg PO QHS 06/19/17 Omeprazole [Prilosec] 20 mg PO DAILY 06/19/17 Surgical History: - - C-sections cholecystectomy tonsillectomy Psychiatric History: No pertinent psych hx 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 Denies: Anorexia, Chills, Fever, Night Sweats , Malaise, Weakness, Weight Change Eyes: Denies: Vision Change HEENT: Reports: Head Aches, Nasal Congestion, Post Nasal Drip, Sinus Congestion , - - problem with swallowing textured food. Denies: Difficulty Swallowing, Dysphasia, Nasal bleeding, Sinus Drainage Cardiovascular: Reports: Chest Tightness, Orthopnea. Denies: Chest Pain, Chest Pressure, Light Headedness, Palpitations, Paroxysmal Noc. Dyspnea, Syncope Respiratory: Reports: Cough, Shortness of breath at rest, Shortness of breath upon exertion, Sputum production, Wheezing. Denies: Hemoptysis, Pleuritic Pain Gastrointestinal: Reports: Dyspepsia. Denies: Abdominal Pain, Constipation, Diarrhea, Hematemesis, Hematochezia, Nausea, Melena, Vomiting Genitourinary: Denies: Dysuria, Frequency, Hematuria, Retention Gynecological: Denies: Breast symptoms Musculoskeletal: Denies: Back Pain, Muscle pain, Neck Pain Skin: Denies: Pruritis, Rash, Skin Changes Neurological: Denies: Balance problems, Change in Speech, Confusion, Difficulty swallowing, Focal weakness, Numbness, Tingling, Tremor, Seizures Psychiatric: Denies: Anxiety, Depression Endocrine: Denies: Change in Body Habitus, Polydipsia, Polyuria Hematologic/ Lymphatic: Denies: Adenopathy, Anemia, Easy Bruising, Easy Bleeding , Hx of blood clot Patient Problems: Active and Suspected Problems Acute respiratory failure with hypoxia (Acute) Asthma exacerbation (Acute) Subjective: The patient was seen and examined. Her is at the bedside. She has conversational dyspnea and reports a very poor activity tolerance. She is maintaining appropriate saturations on 2 L of oxygen at this time. A room air pulse ox was completed at rest and she was 84%. She complains of intermittent wheezing. She feels improved from yesterday. Objective: Clinical Impression(s) from Imaging Studies Chest X-Ray 06/19/17 00:22 IMPRESSION: COPD/emphysema with increased bibasal atelectasis or scarring. at 0051 Reported and signed by: Altagracia Benoit MD Electronically Signed: Altagracia Benoit MD at 23:49 EDT Tel , Service support , Chest CT 06/20/17 09:49 IMPRESSION: 1. Left lower lobe pulmonary nodule. Suggest follow-up as per Fleischner's criteria. 2. Moderately severe COPD. 3. Nonspecific mediastinal lymphadenopathy. Electronically Signed: Jyoti Rogers MD at 10:46 EDT , Service support , - Physical Exam General: Alert, Oriented x3, Cooperative, No apparent distress, Well developed, Well nourished, - - Conversational dyspnea HEENT: Atraumatic, PERRLA, Normocephalic Oral: Moist Mucosa, No Gingival or Mucosal Lesions/ Ulcerations Neck: Supple, Negative Carotid Bruits, No Nodes, Trachea Midline Lungs: - - Diminished with expiratory wheeze, no rhonchi or rales. No accessory muscle use or tachypnea, symmetric expansion. Cardiovascular: Regular rate, Regular Rhythm, Normal S1, Normal S2, No murmurs, No rub noted, No Gallop Abdomen: Bowel Sounds Present, Soft, Non Tender, Non-Distended, No Hepato- splenomegaly Extremities: No clubbing, No cyanosis, No edema, Peripheral Pulses Normal Skin: No rashes, No breakdown Musculoskeletal: No Tenderness to Palpation of Joints or Extremities, - - mild kyphosis Lymphatic: No Cervical, Supraclavicular, or Inguinal Adenopathy Neurological: Cranial nerves II-XII grossly intact, Neuro grossly intact, Motor Exam 5/5 strength throughout Psych/Mental Status: Alert and oriented to time, place, person, mood and affect Vital Signs Temp Pulse Resp BP Pulse Ox 98.8 F 97 20 H 141/76 H 95 06/21/17 08:00 06/21/17 08:00 06/21/17 08:00 06/21/17 08:00 06/21/17 08:00 Oxygen Flow Rate (L/min) 2 Oxygen Delivery Method Nasal Cannula Weight: 149 lb 11.102 oz Body Mass Index (BMI) 29.7 Intake and Output for Last 24 Hours 06/19/17 06/20/17 06/21/17 23:59 23:59 23:59 Intake Total 331 / 331 1602 / 1602 200 / 200 Output Total 100 / 100 750 / 750 Balance 231 / 231 852 / 852 200 / 200 Microbiology Past 72 Hours 06/19/17 05:34 Blood Culture - Preliminary Blood Culture (Wb) - Anticubital Right No growth in 48 hours. 06/19/17 04:00 Gram Stain - Final Sputum, Expectorated/Coughed Respiratory Culture - Final 06/19/17 03:50 Influenza Types A,B Direct FA (ALTAF) - Final Mucosa - Nose Assessment/Plan Active and Suspected Problems Acute respiratory failure with hypoxia (Acute) Asthma exacerbation (Acute) RECOMMENDATIONS 1. Wean oxygen supplementation to keep saturations 88-92%. 2. Encourage incentive spirometer and Acapella 3. Increase activity as tolerated 4. Continue bronchodilators, add as needed albuterol 5. Obtain respiratory panel 6. Obtain medical records from [facility] pulmonology, Dr. Armstrong 7. Ambulatory pulse ox prior to consideration for discharge 8. Please make follow-up appointment in the pulmonary clinic with CELL PREPARER in 2 weeks after discharge IMPRESSIONS 1. Acute hypoxic respiratory failure/presumed asthma and COPD Patient still requiring 2-3 L of oxygen supplementation, no previous home requirements. Sputum and blood culture were negative. Respiratory panel was ordered. She did have recent multiple sick contacts at work and could have a viral etiology causing worsening breathing. She reportedly has asthma per PFTs 2 years ago at [facility], awaiting official records, which were requested. She denies a history of COPD. Chest CT on 06/20 demonstrated a left lower lobe pulmonary nodule measuring 6.6 mm, nonspecific mediastinal lymphadenopathy, and moderately severe COPD. There was also atelectasis and a groundglass nodularity in the right middle lobe measuring 4.5 mm. She does have interstitial thickening. The patient denies any previous CAT scans to compare. She would need a follow up CT in 3 months with these findings. Patient has been maintained on Symbicort, Combivent, and albuterol at home, previously taking Qvar. She also takes Singulair and Claritin. Patient has a hiatal hernia which could be aggravating her asthma, she is on Bentyl and omeprazole at home. Attempt to wean oxygen to keep saturations 88-92%. Encourage incentive spirometer and Acapella and increase activity as tolerated. Patient may require home oxygen temporarily. Would add PRN Albuterol, lungs are very tight with wheezing. She wishes to transfer her pulmonary care to [facility] upon discharge. We have requested her records from [facility]. She can follow-up 2 weeks from discharge, at which time repeat pulmonary function test can be ordered and hopefully patient can be optimized. 2. Hiatal hernia/hypertension/history of tobacco abuse in remission Complicates care, management, recovery, and prognosis. Patient quit smoking in December 2016, [id number] history. Encouraged ongoing cessation. Continue home medications as indicated. Thank you for the opportunity to participate in this patient's care, please do not hesitate contact us with any further questions or concerns. This note was generated with zkipsteration software. It may contain incorrect words, spelling, and punctuation that were not noted in checking the note before signing.
--- NOTE | 2017-06-21 09:22 | PCM.PN.HOSP ---
Patient Problems: Active and Suspected Problems Acute respiratory failure with hypoxia (Acute) Asthma exacerbation (Acute) Subjective: When seen breathing somewhat better however she desaturated with ambulation with oxygen saturation dropping to the low 80s. Objective: GENERAL: cooperative dyspneic at rest HEENT: Clear conjunctiva, NECK; supple, normal thyroid, CHEST: Diminished is to auscultation with bilateral wheezing HEART: Regular S1 S2, no audible murmurs ABDOMEN: soft, non-tender, normoactive bowel sounds, RECTAL: deferred EXTREMITIES: No edema, no clubbing, no cyanosis. OPERATING ROOM MANAGER: Awake, no lateralizing signs. SKIN: No lesions no erythema, Vitals/I&O's: Vital Signs Temp Pulse Resp BP Pulse Ox 98.8 F 97 20 H 141/76 H 95 06/21/17 08:00 06/21/17 08:00 06/21/17 08:00 06/21/17 08:00 06/21/17 08:00 Oxygen Flow Rate (L/min) 2 Oxygen Delivery Method Nasal Cannula Weight: 67.9 kg Body Mass Index (BMI) 29.7 Intake and Output for Last 24 Hours 06/19/17 06/20/17 06/21/17 23:59 23:59 23:59 Intake Total 331 / 331 1602 / 1602 200 / 200 Output Total 100 / 100 750 / 750 Balance 231 / 231 852 / 852 200 / 200 Microbiology Past 72 Hours 06/19/17 05:34 Blood Culture (Wb) - Anticubital Right Blood Culture - Preliminary No growth in 48 hours. 06/19/17 04:00 Sputum, Expectorated/Coughed Gram Stain - Final 06/19/17 04:00 Sputum, Expectorated/Coughed Respiratory Culture - Final 06/19/17 03:50 Mucosa - Nose Influenza Types A,B Direct FA (ALTAF) - Final Current Medications Acetaminophen (Tylenol) 650 mg PO Q4H PRN PRN PRN Reason: fever, pain Albuterol/Ipratropium (Duoneb) 3 ml INHALATION Q4H.RT FIONA Last Admin: 06/21/17 07:10 Dose: 3 ml Alprazolam (Xanax) 0.25 mg PO TID PRN PRN PRN Reason: ANXIETY Last Admin: 06/20/17 23:54 Dose: 0.25 mg Aspirin (Aspirin, Baby) 81 mg PO DAILY@0800 [facility] Last Admin: 06/20/17 08:01 Dose: 81 mg Cholecalciferol (Vitamin D) 2,000 unit PO DAILY [facility] Last Admin: 06/20/17 10:56 Dose: 2,000 unit Dicyclomine HCl (Bentyl) 20 mg PO TID [facility] Last Admin: 06/21/17 05:36 Dose: 20 mg Doxycycline Monohydrate (Doxycycline) 100 mg PO BID [facility] Last Admin: 06/20/17 22:46 Dose: 100 mg Heparin Sodium (Porcine) (Heparin Na) 5,000 unit SC Q8 [facility] Last Admin: 06/21/17 05:36 Dose: 5,000 units Hydrochlorothiazide (Hydrochlorothiazide) 12.5 mg PO DAILY [facility] Last Admin: 06/20/17 10:56 Dose: 12.5 mg Ibuprofen (Motrin) 400 mg PO Q6H PRN PRN PRN Reason: MILD PAIN (1-3/10) Last Admin: 06/20/17 08:14 Dose: 400 mg Lisinopril (Zestril) 30 mg PO DAILY [facility] Last Admin: 06/20/17 10:56 Dose: 30 mg Loratadine (Claritin) 10 mg PO DAILY [facility] Last Admin: 06/20/17 10:56 Dose: 10 mg Methylprednisolone (Solu-Medrol) 40 mg IV Q8 [facility] Last Admin: 06/21/17 05:36 Dose: 40 mg Montelukast Sodium (Singulair) 10 mg PO DAILY [facility] Last Admin: 06/20/17 10:56 Dose: 10 mg Sodium Chloride () 5 - 30 ml IV UD PRN PRN Reason: SALINE FLUSH Last Admin: 06/21/17 05:37 Dose: 10 ml Assessment/Plan Active and Suspected Problems Acute respiratory failure with hypoxia (Acute) Asthma exacerbation (Acute) Patient is a 57-year-old lady with history of mild persistent asthma presented with progressive shortness of breath and assessment of acute asthma exacerbation was made admitted to regular nursing floor for further management 1. Acute hypoxic respiratory failure (as evidenced by oxygen saturation dropping to 84, tachycardia and tachypnea) secondary to acute asthma/COPD exacerbation patient has been admitted to regular nursing floor managed with bronchodilator treatment in addition to systemic steroid. Was also placed on supplemental oxygen titrated to keep oxygen saturation greater than 90. Patient is followed by a washroom operator at [facility] plan is for her to follow-up with her when she is discharged consultation was placed to pulmonary medicine in view of persistent bronchospasm with hypoxia 2. Allergic rhinitis 3. Hypertension-blood pressure controlled, home medications continued with dose adjustment as needed 4. Left lower lobe pulmonary nodule: Patient informed of results instructed to follow-up with her primary washroom operator last PCP for repeat imaging in 3-6 months 5 . DVT prophylaxis SC heparin Clinical Impression(s) from Imaging Studies Chest X-Ray 06/19/17 00:22 IMPRESSION: COPD/emphysema with increased bibasal atelectasis or scarring. at 0051 Reported and signed by: Altagracia Benoit MD Electronically Signed: Altagracia Benoit MD at 23:49 EDT Tel , Service support , Chest CT 06/20/17 09:49 IMPRESSION: 1. Left lower lobe pulmonary nodule. Suggest follow-up as per Fleischner's criteria. 2. Moderately severe COPD. 3. Nonspecific mediastinal lymphadenopathy. Electronically Signed: Jyoti Rogers MD at 10:46 EDT , Service support , Code Visit Inpatient E&M: 92861 Subs Hosp L2
--- NOTE | 2017-06-21 09:26 | PN_ITS ---
Patient Problems: Active and Suspected Problems Acute respiratory failure with hypoxia (Acute) Asthma exacerbation (Acute) Subjective: When seen breathing somewhat better however she desaturated with ambulation with oxygen saturation dropping to the low 80s. Objective: GENERAL: cooperative dyspneic at rest HEENT: Clear conjunctiva, NECK; supple, normal thyroid, CHEST: Diminished is to auscultation with bilateral wheezing HEART: Regular S1 S2, no audible murmurs ABDOMEN: soft, non-tender, normoactive bowel sounds, RECTAL: deferred EXTREMITIES: No edema, no clubbing, no cyanosis. SPARE PERSON: Awake, no lateralizing signs. SKIN: No lesions no erythema, Vitals/I&O's: Vital Signs Temp Pulse Resp BP Pulse Ox 98.8 F 97 20 H 141/76 H 95 06/21/17 08:00 06/21/17 08:00 06/21/17 08:00 06/21/17 08:00 06/21/17 08:00 Oxygen Flow Rate (L/min) 2 Oxygen Delivery Method Nasal Cannula Weight: 67.9 kg Body Mass Index (BMI) 29.7 Intake and Output for Last 24 Hours 06/19/17 06/20/17 06/21/17 23:59 23:59 23:59 Intake Total 331 / 331 1602 / 1602 200 / 200 Output Total 100 / 100 750 / 750 Balance 231 / 231 852 / 852 200 / 200 Microbiology Past 72 Hours 06/19/17 05:34 Blood Culture (Wb) - Anticubital Right Blood Culture - Preliminary No growth in 48 hours. 06/19/17 04:00 Sputum, Expectorated/Coughed Gram Stain - Final 06/19/17 04:00 Sputum, Expectorated/Coughed Respiratory Culture - Final 06/19/17 03:50 Mucosa - Nose Influenza Types A,B Direct FA (ALTAF) - Final Current Medications Acetaminophen (Tylenol) 650 mg PO Q4H PRN PRN PRN Reason: fever, pain Albuterol/Ipratropium (Duoneb) 3 ml INHALATION Q4H.RT FIONA Last Admin: 06/21/17 07:10 Dose: 3 ml Alprazolam (Xanax) 0.25 mg PO TID PRN PRN PRN Reason: ANXIETY Last Admin: 06/20/17 23:54 Dose: 0.25 mg Aspirin (Aspirin, Baby) 81 mg PO DAILY@0800 [facility] Last Admin: 06/20/17 08:01 Dose: 81 mg Cholecalciferol (Vitamin D) 2,000 unit PO DAILY [facility] Last Admin: 06/20/17 10:56 Dose: 2,000 unit Dicyclomine HCl (Bentyl) 20 mg PO TID [facility] Last Admin: 06/21/17 05:36 Dose: 20 mg Doxycycline Monohydrate (Doxycycline) 100 mg PO BID [facility] Last Admin: 06/20/17 22:46 Dose: 100 mg Heparin Sodium (Porcine) (Heparin Na) 5,000 unit SC Q8 [facility] Last Admin: 06/21/17 05:36 Dose: 5,000 units Hydrochlorothiazide (Hydrochlorothiazide) 12.5 mg PO DAILY [facility] Last Admin: 06/20/17 10:56 Dose: 12.5 mg Ibuprofen (Motrin) 400 mg PO Q6H PRN PRN PRN Reason: MILD PAIN (1-3/10) Last Admin: 06/20/17 08:14 Dose: 400 mg Lisinopril (Zestril) 30 mg PO DAILY [facility] Last Admin: 06/20/17 10:56 Dose: 30 mg Loratadine (Claritin) 10 mg PO DAILY [facility] Last Admin: 06/20/17 10:56 Dose: 10 mg Methylprednisolone (Solu-Medrol) 40 mg IV Q8 [facility] Last Admin: 06/21/17 05:36 Dose: 40 mg Montelukast Sodium (Singulair) 10 mg PO DAILY [facility] Last Admin: 06/20/17 10:56 Dose: 10 mg Sodium Chloride () 5 - 30 ml IV UD PRN PRN Reason: SALINE FLUSH Last Admin: 06/21/17 05:37 Dose: 10 ml Assessment/Plan Active and Suspected Problems Acute respiratory failure with hypoxia (Acute) Asthma exacerbation (Acute) Patient is a 57-year-old lady with history of mild persistent asthma presented with progressive shortness of breath and assessment of acute asthma exacerbation was made admitted to regular nursing floor for further management 1. Acute hypoxic respiratory failure (as evidenced by oxygen saturation dropping to 84, tachycardia and tachypnea) secondary to acute asthma/COPD exacerbation patient has been admitted to regular nursing floor managed with bronchodilator treatment in addition to systemic steroid. Was also placed on supplemental oxygen titrated to keep oxygen saturation greater than 90. Patient is followed by a railroad dispatcher at [facility] plan is for her to follow-up with her when she is discharged consultation was placed to pulmonary medicine in view of persistent bronchospasm with hypoxia 2. Allergic rhinitis 3. Hypertension-blood pressure controlled, home medications continued with dose adjustment as needed 4. Left lower lobe pulmonary nodule: Patient informed of results instructed to follow-up with her primary railroad dispatcher last PCP for repeat imaging in 3-6 months 5 . DVT prophylaxis SC heparin Clinical Impression(s) from Imaging Studies Chest X-Ray 06/19/17 00:22 IMPRESSION: COPD/emphysema with increased bibasal atelectasis or scarring. at 0051 Reported and signed by: Altagracia Benoit MD Electronically Signed: Altagracia Benoit MD at 23:49 EDT Tel , Service support , Chest CT 06/20/17 09:49 IMPRESSION: 1. Left lower lobe pulmonary nodule. Suggest follow-up as per Fleischner's criteria. 2. Moderately severe COPD. 3. Nonspecific mediastinal lymphadenopathy. Electronically Signed: Jyoti Rogers MD at 10:46 EDT , Service support , Code Visit Inpatient E&M: 88371 Subs Hosp L2
[2017-06-21] MEDS: Aspirin 81 MG TAB.CHEW PO (09:57)
[2017-06-21] MEDS: Loratadine 10 MG Tablet PO (09:57)
[2017-06-21] MEDS: Lisinopril 10 MG Tablet 30 MG PO (09:58)
[2017-06-21] MEDS: Montelukast 10 MG Tablet PO (09:58)
[2017-06-21] MEDS: Doxycycline 100 MG CAPSULE PO (09:59)
[2017-06-21] MEDS: HYDROCHLOROTHIAZIDE 12.5 MG CAPSULE PO (10:05)
[2017-06-21] MEDS: ALPRAZolam 0.25 MG Tablet PO (22:19)
[2017-06-22] VITALS (8 sets, daily range): BP systolic 119–152; BP diastolic 71–91; PULSE 86–100; RESP 16–18; TEMP 36.6–36.8; O2SAT 87–97
[2017-06-22] MEDS: Ipratropium/Albuterol Sulfate 3 ML AMPUL.NEB INHALATION ×3 (03:30→10:39)
[2017-06-22] MEDS: Dicyclomine 10 MG Capsule 20 MG PO (05:50)
[2017-06-22] MEDS: 0.9% NaCl Peripheral Flush Adult/Peds IV (05:50)
[2017-06-22] MEDS: Montelukast 10 MG Tablet PO (08:32)
[2017-06-22] MEDS: Loratadine 10 MG Tablet PO (08:32)
[2017-06-22] MEDS: HYDROCHLOROTHIAZIDE 12.5 MG CAPSULE PO (08:32)
[2017-06-22] MEDS: Lisinopril 10 MG Tablet 30 MG PO (08:33)
[2017-06-22] MEDS: Aspirin 81 MG TAB.CHEW PO (08:33)
--- NOTE | 2017-06-22 08:44 | PCM.PROGNOTE ---
Patient Problems: Active and Suspected Problems Acute respiratory failure with hypoxia (Acute) Asthma exacerbation (Acute) Subjective: The patient was seen and examined. She is sitting up in the chair in no acute distress. Her daughter is at the bedside. She denies any coughing or significant wheezing. She remains dyspneic on exertion, however this is somewhat improved. Objective: No new lab work or imaging to review. Influenza screening was negative as well as sputum culture. Blood culture showing no growth in 48 hours. Respiratory panel was positive for human metapneumovirus. - Physical Exam General: Alert, Oriented x3, Cooperative, No apparent distress, - - no conversational dyspnea HEENT: Atraumatic, Normocephalic Oral: Moist Mucosa Neck: Supple, No Nodes, Trachea Midline Lungs: - - Diminished with minimal rhonchi, wheeze upon forced expiration. Cardiovascular: Regular rate, Regular Rhythm, Normal S1, Normal S2, No murmurs, No rub noted, No Gallop Abdomen: Bowel Sounds Present, Soft, Non Tender, Non-Distended Extremities: No clubbing, No cyanosis, No edema, Capillary Refill Less than 3 Seconds Skin: No rashes, No breakdown Musculoskeletal: No Tenderness to Palpation of Joints or Extremities Lymphatic: No Cervical, Supraclavicular, or Inguinal Adenopathy Neurological: Neuro grossly intact Psych/Mental Status: Alert and oriented to time, place, person, mood and affect Vital Signs Temp Pulse Resp BP Pulse Ox 98.2 F 94 18 119/71 97 06/22/17 03:10 06/22/17 04:00 06/22/17 03:30 06/22/17 03:10 06/22/17 03:10 Oxygen Flow Rate (L/min) [ 2 AMBULATION with Oxygen] Oxygen Flow Rate (L/min) 1 Oxygen Delivery Method Nasal Cannula Weight: 149 lb 11.102 oz Body Mass Index (BMI) 29.7 Intake and Output for Last 24 Hours 06/20/17 06/21/17 06/22/17 23:59 23:59 23:59 Intake Total 1602 / 1602 1100 / 1100 200 / 200 Output Total 750 / 750 Balance 852 / 852 1100 / 1100 200 / 200 Microbiology Past 72 Hours 06/21/17 09:45 Respiratory Panel (PCR) - Final Mucosa - Nasopharyngeal Human [place] 06/19/17 05:34 Blood Culture - Preliminary Blood Culture (Wb) - Anticubital Right No growth in 48 hours. 06/19/17 04:00 Gram Stain - Final Sputum, Expectorated/Coughed Respiratory Culture - Final Assessment/Plan Active and Suspected Problems Acute respiratory failure with hypoxia (Acute) Asthma exacerbation (Acute) RECOMMENDATIONS 1. Wean oxygen supplementation to keep saturations 88-92%. 2. Encourage incentive spirometer and Acapella 3. Increase activity as tolerated 4. Continue bronchodilators, as needed albuterol 5. Obtain medical records from [facility] pulmonology, Dr. Armstrong 6. Ambulatory pulse ox prior to consideration for discharge 7. Please make follow-up appointment in the pulmonary clinic with [facility] in 2 weeks after discharge 8. Okay to discharge from pulmonary standpoint IMPRESSIONS 1. Acute hypoxic respiratory failure/presumed asthma and COPD Patient still requiring 2-3 L of oxygen supplementation, no previous home requirements. Sputum and blood culture were negative. Respiratory panel was ordered. She did have recent multiple sick contacts at work and could have a viral etiology causing worsening breathing. She reportedly has asthma per PFTs 2 years ago at [facility], awaiting official records, which were requested. She denies a history of COPD. Chest CT on 06/20 demonstrated a left lower lobe pulmonary nodule measuring 6.6 mm, nonspecific mediastinal lymphadenopathy, and moderately severe COPD. There was also atelectasis and a groundglass nodularity in the right middle lobe measuring 4.5 mm. She does have interstitial thickening. The patient denies any previous CAT scans to compare. She would need a follow up CT in 3 months with these findings. Patient has been maintained on Symbicort, Combivent, and albuterol at home, previously taking Qvar. She also takes Singulair and Claritin. Patient has a hiatal hernia which could be aggravating her asthma, she is on Bentyl and omeprazole at home. Attempt to wean oxygen to keep saturations 88-92%. Encourage incentive spirometer and Acapella and increase activity as tolerated. Patient may require home oxygen temporarily. Would add PRN Albuterol, lungs are very tight with wheezing. She wishes to transfer her pulmonary care to [facility] upon discharge. We have requested her records from [facility]. She can follow-up 2 weeks from discharge, at which time repeat pulmonary function test can be ordered and hopefully patient can be optimized. 2. Hiatal hernia/hypertension/history of tobacco abuse in remission Complicates care, management, recovery, and prognosis. Patient quit smoking in December 2016, [id number] history. Encouraged ongoing cessation. Continue home medications as indicated. Thank you for the opportunity to participate in this patient's care, please do not hesitate contact us with any further questions or concerns. This note was generated with [employer] dictation software. It may contain incorrect words, spelling, and punctuation that were not noted in checking the note before signing.
--- NOTE | 2017-06-22 10:26 | PCM.DC ---
- Discharge Diagnoses Current Active Problems: Current Active and Chronic Problems Acute respiratory failure with hypoxia (Acute) Asthma exacerbation (Acute) You will use the following diet at home:: No restrictions Your food should be the consistency of: Regular Discharge Activity: May not drive while taking narcotic pain medications. Allergies/Adverse Reactions: Allergies Barbiturates Adverse Reaction (Verified 06/19/17 03:44) Other seizure Medications to take at Discharge Aspirin [Aspirin, Baby] 81 mg PO DAILY@0800 05/01/14 Hydrochlorothiazide [Hctz] 25 mg PO DAILY 05/01/14 Lisinopril [Zestril] 30 mg PO DAILY 05/01/14 Loratadine [Claritin] 10 mg PO DAILY 05/01/14 Albuterol Inhaler [Ventolin Hfa] 1 - 2 puff INHALATION Q4H PRN PRN #1 inhaler 05/02/14 Albuterol Aerosols [Ventolin Aerosols] 2.5 mg INHALATION Q6HWA.RT 07/02/16 Budesonide/Formoterol 160/4.5 [Symbicort 160/4.5 Mcg Inhaler (SP)] 2 puff INHALATION BID 07/02/16 Dicyclomine HCl 20 mg PO TID 12/27/16 Montelukast Sodium [Singulair] 10 mg PO DAILY 12/27/16 Cholecalciferol (Vitamin D3) [Vitamin D3] 2,000 unit PO DAILY 06/19/17 Fluoxetine [Prozac] 20 mg PO QHS 06/19/17 Omeprazole [Prilosec] 20 mg PO DAILY 06/19/17 ALPRAZolam [Xanax] 0.25 mg PO TID PRN PRN #20 tab 06/22/17 Prednisone 40 mg PO DAILY #30 tab 06/22/17 The following prescriptions were given: ALPRAZolam [Xanax] 0.25 mg PO TID PRN PRN #20 tab PRN Reason: ANXIETY Prednisone 40 mg PO DAILY #30 tab Primary Care Physician: Jacques Staton DO [Primary Care Provider] - Please follow up with your Primary Care Physician in: inn 5-7 days Please Follow Up With: Ciro Norwood DO When: in 1-2 weeks Proposed Discharge Date: 06/22/17
--- NOTE | 2017-06-22 10:28 | PCM.WORK.EX ---
Work/School Excuse Work/School Excuse for:: Patient Please excuse this person from:: Work From: 06/19/17 through: 06/28/17 Restrictions: Light Duty
--- NOTE | 2017-06-22 10:29 | PCM.DC.SUM ---
Discharge Date and Diagnosis - Problem List Patient Problems: Active and Suspected Problems Acute respiratory failure with hypoxia (Acute) Asthma exacerbation (Acute) Date of Admission: 06/19/17 Date of Discharge: 06/22/17 - Primary Discharge Diagnosis Active and Suspected Problems Acute respiratory failure with hypoxia (Acute) Asthma exacerbation (Acute) - Secondary Discharge Diagnosis Chronic Problems Hypertension (Chronic) Hospital Course and Treatment Imaging Results: Clinical Impression(s) from Imaging Studies Chest X-Ray 06/19/17 00:22 IMPRESSION: COPD/emphysema with increased bibasal atelectasis or scarring. at 0051 Reported and signed by: Altagracia Benoit MD Electronically Signed: Altagracia Benoit MD at 23:49 EDT Tel , Service support , Chest CT 06/20/17 09:49 IMPRESSION: 1. Left lower lobe pulmonary nodule. Suggest follow-up as per Fleischner's criteria. 2. Moderately severe COPD. 3. Nonspecific mediastinal lymphadenopathy. Electronically Signed: Jyoti Rogers MD at 10:46 EDT , Service support , Microbiology 06/21/17 09:45 Mucosa - Nasopharyngeal Respiratory Panel (PCR) - Final Human [place] 06/19/17 05:34 Blood Culture (Wb) - Anticubital Right Blood Culture - Preliminary No growth in 48 hours. 06/19/17 04:00 Sputum, Expectorated/Coughed Gram Stain - Final 06/19/17 04:00 Sputum, Expectorated/Coughed Respiratory Culture - Final 06/19/17 03:50 Mucosa - Nose Influenza Types A,B Direct FA (ALTAF) - Final Operations: None Summary of Care Provided: Patient is a 57-year-old lady with history of mild persistent asthma presented with progressive shortness of breath and assessment of acute asthma exacerbation was made admitted to regular nursing floor for further management 1. Acute hypoxic respiratory failure (as evidenced by oxygen saturation dropping to 84, tachycardia and tachypnea) secondary to acute asthma/COPD exacerbation precipitated by human Xiao virus. Patient has been admitted to regular nursing floor managed with bronchodilator treatment in addition to systemic steroid. Was also placed on supplemental oxygen titrated to keep oxygen saturation greater than 90. Consultation was placed to pulmonary medicine in view of persistent bronchospasm with hypoxia and was assessed for home oxygen for which she did qualify the patient requires home oxygen with portability since she is mobile inside the home and in the community. 2. Allergic rhinitis 3. Hypertension-blood pressure controlled, home medications continued with dose adjustment as needed 4. Left lower lobe pulmonary nodule: Patient informed of results instructed to follow-up with her primary collections associate last PCP for repeat imaging in 3-6 months 5 . DVT prophylaxis SC heparin Discharge Diet: No Restrictions Discharge Activity: May not drive while taking narcotic pain medications. Home Medications: Medications to take at Discharge Aspirin [Aspirin, Baby] 81 mg PO DAILY@0800 05/01/14 Hydrochlorothiazide [Hctz] 25 mg PO DAILY 05/01/14 Lisinopril [Zestril] 30 mg PO DAILY 05/01/14 Loratadine [Claritin] 10 mg PO DAILY 05/01/14 Albuterol Inhaler [Ventolin Hfa] 1 - 2 puff INHALATION Q4H PRN PRN #1 inhaler 05/02/14 Albuterol Aerosols [Ventolin Aerosols] 2.5 mg INHALATION Q6HWA.RT 07/02/16 Budesonide/Formoterol 160/4.5 [Symbicort 160/4.5 Mcg Inhaler (SP)] 2 puff INHALATION BID 07/02/16 Dicyclomine HCl 20 mg PO TID 12/27/16 Montelukast Sodium [Singulair] 10 mg PO DAILY 12/27/16 Cholecalciferol (Vitamin D3) [Vitamin D3] 2,000 unit PO DAILY 06/19/17 Fluoxetine [Prozac] 20 mg PO QHS 06/19/17 Omeprazole [Prilosec] 20 mg PO DAILY 06/19/17 ALPRAZolam [Xanax] 0.25 mg PO TID PRN PRN #20 tab 06/22/17 Prednisone 40 mg PO DAILY #30 tab 06/22/17 Following Prescrptions Were Given to Patient: ALPRAZolam [Xanax] 0.25 mg PO TID PRN PRN #20 tab PRN Reason: ANXIETY Prednisone 40 mg PO DAILY #30 tab Primary Care Physician: Jacques Staton DO [Primary Care Provider] - Please follow up with your Primary Care Physician in: inn 5-7 days Please Follow Up With: Ciro Norwood DO When: in 1-2 weeks Disposition: Home Minutes spent on discharge:: 40 Patient Condition:: Stable Meaningful Use Info Meaningful Use Diagnoses (Choose all that apply): None applicable Code Visit Inpatient E&M: 71472 Subs Hosp L3
--- NOTE | 2017-06-22 10:32 | DS.PCM_ITS ---
Discharge Date and Diagnosis - Problem List Patient Problems: Active and Suspected Problems Acute respiratory failure with hypoxia (Acute) Asthma exacerbation (Acute) Date of Admission: 06/19/17 Date of Discharge: 06/22/17 - Primary Discharge Diagnosis Active and Suspected Problems Acute respiratory failure with hypoxia (Acute) Asthma exacerbation (Acute) - Secondary Discharge Diagnosis Chronic Problems Hypertension (Chronic) Hospital Course and Treatment Imaging Results: Clinical Impression(s) from Imaging Studies Chest X-Ray 06/19/17 00:22 IMPRESSION: COPD/emphysema with increased bibasal atelectasis or scarring. at 0051 Reported and signed by: Altagracia Benoit MD Electronically Signed: Altagracia Benoit MD at 23:49 EDT Tel , Service support , Chest CT 06/20/17 09:49 IMPRESSION: 1. Left lower lobe pulmonary nodule. Suggest follow-up as per Fleischner's criteria. 2. Moderately severe COPD. 3. Nonspecific mediastinal lymphadenopathy. Electronically Signed: Jyoti Rogers MD at 10:46 EDT , Service support , Microbiology 06/21/17 09:45 Mucosa - Nasopharyngeal Respiratory Panel (PCR) - Final Human [place] 06/19/17 05:34 Blood Culture (Wb) - Anticubital Right Blood Culture - Preliminary No growth in 48 hours. 06/19/17 04:00 Sputum, Expectorated/Coughed Gram Stain - Final 06/19/17 04:00 Sputum, Expectorated/Coughed Respiratory Culture - Final 06/19/17 03:50 Mucosa - Nose Influenza Types A,B Direct FA (ALTAF) - Final Operations: None Summary of Care Provided: Patient is a 57-year-old lady with history of mild persistent asthma presented with progressive shortness of breath and assessment of acute asthma exacerbation was made admitted to regular nursing floor for further management 1. Acute hypoxic respiratory failure (as evidenced by oxygen saturation dropping to 84, tachycardia and tachypnea) secondary to acute asthma/COPD exacerbation precipitated by human Xiao virus. Patient has been admitted to regular nursing floor managed with bronchodilator treatment in addition to systemic steroid. Was also placed on supplemental oxygen titrated to keep oxygen saturation greater than 90. Consultation was placed to pulmonary medicine in view of persistent bronchospasm with hypoxia and was assessed for home oxygen for which she did qualify the patient requires home oxygen with portability since she is mobile inside the home and in the community. 2. Allergic rhinitis 3. Hypertension-blood pressure controlled, home medications continued with dose adjustment as needed 4. Left lower lobe pulmonary nodule: Patient informed of results instructed to follow-up with her primary scientific informatics leader last PCP for repeat imaging in 3-6 months 5 . DVT prophylaxis SC heparin Discharge Diet: No Restrictions Discharge Activity: May not drive while taking narcotic pain medications. Home Medications: Medications to take at Discharge Aspirin [Aspirin, Baby] 81 mg PO DAILY@0800 05/01/14 Hydrochlorothiazide [Hctz] 25 mg PO DAILY 05/01/14 Lisinopril [Zestril] 30 mg PO DAILY 05/01/14 Loratadine [Claritin] 10 mg PO DAILY 05/01/14 Albuterol Inhaler [Ventolin Hfa] 1 - 2 puff INHALATION Q4H PRN PRN #1 inhaler Albuterol Aerosols [Ventolin Aerosols] 2.5 mg INHALATION Q6HWA.RT 07/02/16 Budesonide/Formoterol 160/4.5 [Symbicort 160/4.5 Mcg Inhaler (SP)] 2 puff INHALATION BID 07/02/16 Dicyclomine HCl 20 mg PO TID 12/27/16 Montelukast Sodium [Singulair] 10 mg PO DAILY 12/27/16 Cholecalciferol (Vitamin D3) [Vitamin D3] 2,000 unit PO DAILY 06/19/17 Fluoxetine [Prozac] 20 mg PO QHS 06/19/17 Omeprazole [Prilosec] 20 mg PO DAILY 06/19/17 ALPRAZolam [Xanax] 0.25 mg PO TID PRN PRN #20 tab 06/22/17 Prednisone 40 mg PO DAILY #30 tab 06/22/17 Following Prescrptions Were Given to Patient: ALPRAZolam [Xanax] 0.25 mg PO TID PRN PRN #20 tab PRN Reason: ANXIETY Prednisone 40 mg PO DAILY #30 tab Primary Care Physician: Jacques Staton DO [Primary Care Provider] - Please follow up with your Primary Care Physician in: inn 5-7 days Please Follow Up With: Ciro Norwood DO When: in 1-2 weeks Disposition: Home Minutes spent on discharge:: 40 Patient Condition:: Stable Meaningful Use Info Meaningful Use Diagnoses (Choose all that apply): None applicable Code Visit Inpatient E&M: 96034 Subs Hosp L3
--- NOTE | 2017-06-22 10:40 | CASEMGMT ---
ESCOBAR MATA received update from nursing that patient qualifies for home oxygen. Patient's preferred DME is [facility]. ESCOBAR MATA obtained script from physician and referral was sent to [facility] requesting portable tank be delivered to hospital. ESCOBAR MATA updated patient and will continue to follow this patient and plan for a safe discharge.
--- NOTE | 2017-06-22 13:40 | CASEMGMT ---
ESCOBAR MATA received update from nurse that patient and family not satified with home portable oxygen tank. ESCOBAR MATA spoke with patient and family. Patient and family are requesting conserving portable tank. ESCOBAR MATA received updated script for conserving home portable oxygen. ESCOBAR MATA called [facility] and updated on new script for conserving portable oxygen. Jad at [facility] stated that RT from [facility] would need to evaluate patient to see if they qualify for conserving device and RT would be back 06/23 and could evaluate patient at home. ESCOBAR MATA updated patient and family regarding need to be evaluated for conserving device.
== END 2017-06-22 13:56 | disposition home or self-care (01) | DRG 189 ==
LOC: ED 00:51 → MS3 02:44
PROVIDERS: Admitting Provider Internal Medicine; Emergency Provider Emergency Medicine; Family Provider Student in an Organized Health Care Education/Training Program; PCP Student in an Organized Health Care Education/Training Program; Visit Provider Internal Medicine
DX: J96.01 Acute respiratory failure with hypoxia (principal); J44.1 Chronic obstructive pulmonary disease with (acute) exacerbation; J45.31 Mild persistent asthma with (acute) exacerbation; I10 Essential (primary) hypertension; R91.1 Solitary pulmonary nodule; Z87.891 Personal history of nicotine dependence; B97.81 Human metapneumovirus as the cause of diseases classified elsewhere
CPT/HCPCS: 36415; 71046; 71250; 80048; 80053; 85025; 87040; 87070; 87205; 87633; 87804; 94640; 94667; 94668; 97802; 99282; J7030; A4216

== ENCOUNTER → 2017-07-12 09:00 | Outpatient (CLI) | payer BC, SELFPAY ==
[2017-07-12 09:42] VITALS: PULSE 102; PULSE 103; PULSE 104; PULSE 81; PULSE 84; PULSE 94; PULSE 97; PULSE 99; O2SAT 84; O2SAT 89; O2SAT 90; O2SAT 91; O2SAT 92; O2SAT 98
--- NOTE | 2017-07-12 10:57 | WT_ITS ---
PSN 6 Minute Walk Test - 6 Minute Walk Test 6 Minute Walk Test: 6 Minute Walk Test PSN:6-Minute Walk Test Start: 07/12/17 09: 41 Freq: Status: Active Protocol: RESP.6MINW Document 07/12/17 09:42 MARIELLE (Rec: 07/12/17 09:44 MARIELLE [id number]) 6 Minute Walk Test Date Performed 07/12/17 Time Performed 09:15 Height 4 ft 11.5 in Weight: 68.039 kg Weight in Pounds 150.[address]: Elenita Lozano Assistive device used: None Pre-test Oxygen Delivery Method Room Air Pulse Ox (%) 92 Pulse Rate (60-100 beats/min) 84 Dyspnea Pamela Scale (0-10) 0.5 Exertion Pamela Scale (6-20) 6 1st minute Oxygen Delivery Method Room Air Pulse Ox (%) 89 Pulse Rate (60-100 beats/min) 97 2nd minute Oxygen Delivery Method Room Air Pulse Ox (%) 84 Pulse Rate (60-100 beats/min) 102 H 3rd minute Oxygen Flow Rate (L/min) (L/min) 2 Oxygen Delivery Method Nasal Cannula Pulse Ox (%) 91 Pulse Rate (60-100 beats/min) 94 4th minute Oxygen Flow Rate (L/min) (L/min) 2 Oxygen Delivery Method Nasal Cannula Pulse Ox (%) 90 Pulse Rate (60-100 beats/min) 99 5th minute Oxygen Flow Rate (L/min) (L/min) 2 Oxygen Delivery Method Nasal Cannula Pulse Ox (%) 90 Pulse Rate (60-100 beats/min) 103 H 6th minute Oxygen Flow Rate (L/min) (L/min) 2 Oxygen Delivery Method Nasal Cannula Pulse Ox (%) 90 Pulse Rate (60-100 beats/min) 104 H Dyspnea Pamela Scale (0-10) 2 Exertion Pamela Scale (6-20) 13 Post-test Oxygen Flow Rate (L/min) (L/min) 2 Oxygen Delivery Method Nasal Cannula Pulse Ox (%) 98 Pulse Rate (60-100 beats/min) 81 Full Laps Walked 16 Partial Lap, Number of Tiles Walked 6 Total Distance Walked (ft) 950 - Interpretation Interpretation: The patient was able to ambulate 950 feet over the course of 6 minutes with no assistive devices or breaks. The patient did have a lower resting oxygen level of 92%. Patient desaturated to 84% in the second minute. 2 L/min of oxygen was applied with improvement to 95%. The patient was unable to complete the testing without complication. These findings are consistent with a respiratory limitation to exercise tolerance. - Recommendations Recommendations: The patient requires no supplemental oxygen at rest, but should be using 2 L/ min nasal cannula oxygen with any exertion.
== END ==
PROVIDERS: Family Provider Student in an Organized Health Care Education/Training Program; PCP Student in an Organized Health Care Education/Training Program; Visit Provider Nurse Practitioner Acute Care
DX: J96.00 Acute respiratory failure, unspecified whether with hypoxia or hypercapnia (principal)
CPT/HCPCS: 94618

== ENCOUNTER → 2017-07-19 19:58 | Outpatient (CLI) | payer BC, SELFPAY | PROVIDERS: Family Provider Student in an Organized Health Care Education/Training Program; PCP Student in an Organized Health Care Education/Training Program; Visit Provider Nurse Practitioner Acute Care | DX: G47.19 Other hypersomnia (principal) | CPT/HCPCS: 95810 ==

== ENCOUNTER → 2017-08-07 07:46 | Outpatient (CLI) | payer BC, SELFPAY ==
--- NOTE | 2017-08-08 10:26 | PFTCOMP ---
COMPLETE PULMONARY FUNCTION TEST INTERPRETATION Brief HPI: Patient is a 57 year old female, currently under the care of Dr. Norwood, who presents to [facility] for complete pulmonary function tests secondary to diagnosis of asthma. Respiratory therapist reports good effort and reproducible results. Interpretation: Forced expiration spirometry shows a severe large airways obstructive ventilatory defect with an FEV1 of 39% predicted. There is a significant bronchodilator response in FVC and FEV1 by ATS criteria. Spirograms are of good quality and plateau slowly, indicating slowly emptying areas of the lungs. The respiratory flow volume loop shows decreased expiratory flow rates at all lung volumes consistent with airway obstruction. Lung volumes by body plethysmography show an elevated total lung capacity at 5.28 L, 132% predicted. FRC and RV are elevated out of proportion. Lung volume measurements are consistent with hyperinflation and air-trapping. Diffusion capacity by carbon monoxide is decreased at 35% predicted. The airway resistance is elevated. No previous pulmonary function tests were available for review. Impression: Partially reversible severe large airways obstructive ventilatory defect with a symmetric reduction diffusing capacity resulting in air trapping with hyperinflation.
== END ==
PROVIDERS: Family Provider Student in an Organized Health Care Education/Training Program; PCP Student in an Organized Health Care Education/Training Program; Visit Provider Nurse Practitioner Acute Care
DX: J45.909 Unspecified asthma, uncomplicated (principal)
CPT/HCPCS: 94060; 94726; 94729

== ENCOUNTER → 2017-08-15 20:00 | Outpatient (CLI) | payer BC, SELFPAY | PROVIDERS: Family Provider Student in an Organized Health Care Education/Training Program; PCP Student in an Organized Health Care Education/Training Program; Visit Provider Nurse Practitioner Acute Care | DX: G47.33 Obstructive sleep apnea (adult) (pediatric) (principal) | CPT/HCPCS: 95811 ==

== ENCOUNTER → 2017-10-02 07:36 | Outpatient (CLI) | payer BC, SELFPAY ==
--- NOTE | 2017-10-02 07:38 | CT_ITS ---
STUDY: CT CHEST WITH CONTRAST REASON FOR EXAM: Female, 57 years old. History of lung nodule. RADIATION DOSAGE (If Supplied By Facility): CTDIvol = ( 10.42 ) mGy, DLP = ( 368.88 ) mGycm TECHNIQUE: Transaxial imaging was performed following intravenous administration of 100 ml of Isovue 300 contrast material. Multiplanar coronal and sagittal images were reformatted. Individualized dose optimization techniques were used for this CT. COMPARISON: Comparison is made with prior study dated June 20, 2017. FINDINGS: Diffuse emphysematous changes with cystic formation involving both lungs more prominent in the upper lobes. Stable appearance of the noncalcified 6.4 mm nodule in the peripheral aspect of the left lower lobe as seen on image #78. Stable appearance of the 7.6 mm noncalcified nodule in the anterior aspect of the left lower lobe adjacent to the major fissure. This is seen on axial image #60. Stable mild degree of increased markings in the right middle lobe suggestive of scarring. There is no demonstrated pleural abnormality. Normal heart and pericardium. Normal mediastinum. Normal hilar regions. Normal enhanced pulmonary arteries. There is atherosclerotic tortuosity of the aortic arch and descending thoracic aorta. There are multi-level degenerative changes of the thoracic spine. Increased thoracic kyphosis. There is no demonstrated abnormality of the visualized upper abdomen. CT/Chest WITH Contrast IMPRESSION: Hyperinflation and diffuse emphysematous changes worse in the upper lobes. Stable appearance of the small left pulmonary nodules. Electronically Signed: Yobany Wood MD at 15:16 EDT Tel [phone], Service support ,
== END ==
PROVIDERS: Family Provider Student in an Organized Health Care Education/Training Program; PCP Student in an Organized Health Care Education/Training Program; Visit Provider Nurse Practitioner Acute Care
DX: R91.1 Solitary pulmonary nodule (principal)
CPT/HCPCS: 71260; Q9967

== ENCOUNTER 2017-10-12 06:46 | Outpatient (RCR) | payer BC, SELFPAY | END 2017-11-07 23:59 | LOC: PR 06:46 | PROVIDERS: Family Provider Student in an Organized Health Care Education/Training Program; PCP Student in an Organized Health Care Education/Training Program; Visit Provider Internal Medicine Critical Care Medicine | DX: J44.9 Chronic obstructive pulmonary disease, unspecified (principal) | CPT/HCPCS: 97150; G0424 ==

== ENCOUNTER 2017-10-25 20:12 | Emergency (ER) | payer BC, SELFPAY ==
[2017-10-25 20:13] VITALS: BP 132/99; PULSE 82; RESP 14; TEMP 36.8; O2SAT 95; BMI 30.9
[2017-10-25 20:55] VITALS: BP 132/80; PULSE 80; RESP 14; O2SAT 99
--- NOTE | 2017-10-25 21:05 | RAD_ITS ---
STUDY: X-RAY - LEFT WRIST REASON FOR EXAM: Female, 57 years old. Trauma TECHNIQUE: 3 view(s) of the wrist were obtained. COMPARISON: None. FINDINGS: Normal visualized distal radius. There appears to be an old unfused ulnar styloid process fracture. Normal radiocarpal articulation. Normal distal radioulnar articulation. Normal carpal bones. There is widening of the scapholunate joint possibly due to injury to the interosseous ligament. This may be better assessed with MRI if clinically warranted Positive ulnar variance of uncertain clinical significance Normal carpometacarpal articulation of the thumb. Normal second through fifth carpometacarpal articulations. Normal visualized metacarpal bones. The soft tissue structures are unremarkable. RAD/Wrist min 3 Views IMPRESSION: No evidence for acute fracture or subluxation Widening of the scapholunate joint possibly due to ligamentous injury. MRI would be helpful for further evaluation if indicated Electronically Signed: Tera Hawk MD at 22:10 EDT , Service support ,
--- NOTE | 2017-10-25 21:25 | RAD_ITS ---
STUDY: X-RAY - LEFT ANKLE REASON FOR EXAM: Female, 57 years old. Trauma TECHNIQUE: 3 view(s) of the ankle. COMPARISON: None. FINDINGS: Normal visualized distal tibia and fibula. Normal medial and lateral malleoli. Normal tibiotalar articulation and ankle mortise. Normal visualized talus and calcaneus. The visualized subtalar, talonavicular, calcaneocuboid and tarsal articulations are normal. Mild soft tissue swelling overlying the lateral malleolus RAD/Ankle min 3 Views IMPRESSION: Mild lateral malleolus sprain. No evidence for acute fracture Electronically Signed: Tera Hawk MD at 22:08 EDT , Service support ,
--- NOTE | 2017-10-25 22:56 | ED.VISSUMM ---
- ER Visit Summary Date of Service: 10/25/17 Chief Complaint: Fall History of Present Illness: The patient is a 57 F who was standing on a small stool reaching over her kitchen sink when she lost her balance and fell, injuring her left ankle and left wrist. Patient denies head injury. She is right-hand dominant. She is not on anticoagulants. Physical Examination: Vital signs are unremarkable. Patient sitting upright in bed no acute distress. Head neck examination was no external sign of trauma. No C-spine tenderness. Heart is regular rate and rhythm. Lung sounds are clear. Abdomen is soft and nontender. Left upper extremity examination reveals mild tenderness diffusely throughout the left wrist. She has increased pain with wrist extension. She is normal cap refill and sensation. There is no tenderness at the elbow or shoulder. Left lower extremity examination reveals mild edema and ecchymosis of the lateral malleolus. There is no tenderness of the proximal fibula. She has strong pulses and normal sensation. She has good range of motion. Test Results: Left ankle x-rays reveal mild left lateral malleolus sprain. Left wrist reveals no acute fracture or subluxation. There is widening of the scapholunate joint which possibly represents ligamentous injury. Emergency Department Course and Treatment: Test results were discussed with the patient. Left wrist is placed in a Ortho-Glass AP splint. She will follow with orthopedics. Left ankle is placed in an Aircast. Treatment Plan: [] Disposition: Discharge Impression: 1. Mechanical fall 2. Left ankle sprain 3. Left wrist sprain This note was generated with [employer] dictation software. It may contain incorrect words, spelling, and punctuation that were not noted in review of the chart prior to signing ED Disposition - Plan for ED Patient: Disposition: Home or Assisted Living Chief Complaint: Fall Instructions: ED Sprain Ankle W X Ray, ED Mechanical Fall, ED Sprain Wrist Referrals: Jacques Staton DO [Primary Care Provider] - Oneal Kan DO [STAFF PHYSICIAN] - 5-7 Days Additional Instructions: Your wrist xray showed mild widening between 2 bones in your wrist. This could indicate a ligament injury. Follow-up with orthopedics as discussed.
--- NOTE | 2017-10-25 23:00 | DCINST.ED_ITS ---
ED Disposition - Plan for ED Patient: Disposition: Home or Assisted Living Chief Complaint: Fall Instructions: ED Mechanical Fall, ED Sprain Ankle W X Ray, ED Sprain Wrist Referrals: Jacques Staton DO [Primary Care Provider] - Oneal Kan DO [STAFF PHYSICIAN] - 5-7 Days Additional Instructions: Your wrist xray showed mild widening between 2 bones in your wrist. This could indicate a ligament injury. Follow-up with orthopedics as discussed.
[2017-10-25 23:04] VITALS: BP 136/80; PULSE 85; RESP 14; O2SAT 98
== END 2017-10-25 23:12 | disposition home or self-care (01) ==
PROVIDERS: Emergency Provider Emergency Medicine; Family Provider Student in an Organized Health Care Education/Training Program; PCP Student in an Organized Health Care Education/Training Program
DX: S93.402A Sprain of unspecified ligament of left ankle, initial encounter (principal); S63.502A Unspecified sprain of left wrist, initial encounter; W17.89XA Other fall from one level to another, initial encounter; Y93.9 Activity, unspecified; Y92.000 Kitchen of unspecified non-institutional (private) residence as the place of occurrence of the external cause; J44.9 Chronic obstructive pulmonary disease, unspecified; I10 Essential (primary) hypertension; G47.33 Obstructive sleep apnea (adult) (pediatric); Z90.49 Acquired absence of other specified parts of digestive tract; Z87.891 Personal history of nicotine dependence; Z79.82 Long term (current) use of aspirin; Z79.899 Other long term (current) drug therapy
CPT/HCPCS: 29125; 73110; 73610; 99283

== ENCOUNTER 2017-12-08 08:00 | Outpatient (RCR) | payer BC, SELFPAY ==
--- NOTE | 2017-11-13 12:57 | PCM.PR.HP ---
History of Present Illness Arrival date:: 11/13/17 Arrival time:: 12:57 Date of Referral:: 10/03/17 Date of Evaluation: 11/13/17 Referring Physician: DR. JUSTIN NORWOOD Primary Diagnosis: COPD GOLD III: severe History of Present Illness: The patient is a 57 yr old female patient who presents to pulmonary rehab today under the care of Dr. Justin Norwood. The patinet is currently on a stable inhaler regimen including symbicort, spireva, and an as needed albuterol inhaler. mMRC Breathless Scale: When is the patient short of breath? Y/N Grade: Description of Breathlessness: 0 I only get breathless with strenuous exercise. 1 I get short of breath when hurrying on level ground or walking up a slight hill. 2 On level ground, I walk slower than people of the same age because of breathless, or have to stop for breath when walking at my own pace. 3 I stop for breath after walking 100 yards or after a few minutes on level ground. 4 I am too breathless to leave the house or I am breathless when dressing. Respiratory Problems: Yes: Fatigue, Wheezing, Able to Speak in Full Sentences, Dyspnea with Activity, Dyspnea Lying Down Flat No: Retain Secretions, Limited Range of Motion, Chest Pain, Dizziness, Ankle Swelling, Hoarseness, Anxiety, Dyspnea at Rest, Cough with Secretions Home Medications: Home Medications Aspirin [Aspirin, Baby] 81 mg PO DAILY@0800 05/01/14 Hydrochlorothiazide [Hctz] 25 mg PO DAILY 05/01/14 Lisinopril [Zestril] 30 mg PO DAILY 05/01/14 Loratadine [Claritin] 10 mg PO DAILY 05/01/14 Albuterol Inhaler [Ventolin Hfa] 1 - 2 puff INHALATION Q4H PRN PRN #1 inhaler 05/02/14 Albuterol Aerosols [Ventolin Aerosols] 2.5 mg INHALATION Q6HWA.RT 07/02/16 Budesonide/Formoterol 160/4.5 [Symbicort 160/4.5 Mcg Inhaler (SP)] 2 puff INHALATION BID 07/02/16 Dicyclomine HCl 20 mg PO TID 12/27/16 Montelukast Sodium [Singulair] 10 mg PO DAILY 12/27/16 Cholecalciferol (Vitamin D3) [Vitamin D3] 2,000 unit PO DAILY 06/19/17 Fluoxetine [Prozac] 20 mg PO QHS 06/19/17 Omeprazole [Prilosec] 20 mg PO DAILY 06/19/17 ALPRAZolam [Xanax] 0.25 mg PO TID PRN PRN #20 tab 06/22/17 potassium chloride PO QDAY 08/16/17 tiotropium bromide 2.5 mcg/actuation mist for inhalation 2 puff INHALATION QDAY #1 ea 08/16/17 Handicap Placcard #1 [id number] 10/03/17 Allergies/Adverse Reactions: Allergies Barbiturates Adverse Reaction (Verified 10/25/17 20:16) Other - spine contracts seizure - Secretions Cough:: No Hx of Sleep Apnea: Yes Do you snore loudly (louder than talking or can be heard through closed doors)?: Yes - Patient is compliant with nocturnal CPAP therapy. Do you often feel tired/ fatigued/ sleepy during daytime?: Yes Has anyone observed you stop breathing during sleep?: No History of Hypertension (for STOP score): Yes STOP Results: Positive Medical Utilization Do you use a peak flow meter at home?: No Do you use a spacer device with your inhalers?: Yes Number of hospital visits in the last year?: 2 - related to COPD hypoxia/respiratory failure Number of emergency room visits in the last year?: 4 - in the last year Do you see your physician on a regular schedule?: Yes How often?: Dr Norwood 6 mo; PCP 3-6 mo Advanced Directives - Advanced Directives Power of Marine Engineer Cpvec: No Living Will: No Advance Directives Information Provided: Yes Advance Directives on File: No DNR Order?:: No - MOLST See MOLST form: No Past Medical History Medical History: Past Medical History (Last Reviewed 10/03/17 @ 07:39 by Jackie Lynne) Acute respiratory failure with hypoxia (Acute) J96.01 Asthma exacerbation (Acute) J45.901 Acute respiratory failure (Acute) J96.00 Requires 2 L/min on exertion Asthma (Acute) J45.909 Hypokalemia (Acute) E87.6 Chest pain (Acute) R07.9 Hypertension (Chronic) I10 Surgical History: Past Surgical History (Last Reviewed 10/03/17 @ 07:39 by Jackie Lynne) History of section (Resolved) Z98.891 History of cholecystectomy (Resolved) Z90.49 Family History: Family History (Last Reviewed 10/03/17 @ 07:39 by Jackie Lynne) Father Diabetes Heart disease Sister Breast cancer - Current/ Previous Services Pulmonary Rehab:: No Social History - Smoking History Smoking Status: Former smoker Years Smokin Packs Smoked per Day: 1 Hx Smoking Cessation Date: 2016 Hx Tobacco Use: Yes Hx Smoking Exposure: Yes - smokes - Alcohol Use Alcohol Usage: No - Substance Abuse Hx Substance Use: No - Occupation Occupation (List type of work in comments):: Employed Hours worked per day:: 8 - 40-48 hours - Hobbies, Recreation, Social Activities Hobbies: Sewing, Exercise - bicycle riding trails of [place] but with slinted left wrist that is on hold., Other - crafts, grandchildren activities, cooking, Recreational Activities: I am able to engage in all my recreational activities Functioning ADL/IADL - Current Ability Current Ability: Independent Self-Care (e.g.,grooming, dressing, & bathing), Independent Ambulation, Independent Transfer, Independent Household tasks (e.g., light meal prep, laundry, shopping) - Pt Functioning Prior to Problem Prior Functioning: Self-Care (e.g.,grooming, dressing, & bathing): Independent, Ambulation: Independent, Transfer: Independent, Household tasks (e.g., light meal prep, laundry, shopping): Independent Social Environment - Status Marital Status: - Current Living Arrangements Living Environment:: Family, Spouse - Children How many children do you have?: 3 Do any of your children live nearby?: Yes - Dru, Smith, one out of state - Safety Do you feel safe in your surroundings?: Yes - Assistance Do you need any assistance at home?: none Review of Systems Review of Systems: Right click = Denies (Slash). Left click = Reports (Sun'Aq) Respiratory: Reports: SOB upon Exertion, Wheezing - few mild upper lobe wheezes, Appetite, Normal - gained some weight since quit smoking., Dizziness/Lightheadedness, Fatigue - all the time. Denies: Cough, Sputum production, Sexual changes Is Patient Pain Free?: Yes Pain Location: none Risk Factor Assessment - Chief Complaint Chief Complaint: Patient is a 57 year old female of Dr. Justin Norwood who presents to pulmonary rehab today for her COPD and enrollment in the pulmonary rehab program. - Vital Signs Temperature: 98.7 F Pulse Rate: 76 Pulse Rhythm: Regular Respiratory Rate: 16 Blood Pressure: 122/80 Nailbeds:: pink - Diabetes Nutrition Referral for Diabetes: No - Obesity Height: 5 ft Weight:: 154 lb Weight in Pounds: 154.0 lbs Weight Source: Standing Scale Body Mass Index (BMI): 30.0 Nutritional Referral for Obesity: Yes - Patient could benefit from a strucutred weight loss program - Physical Activity Physical Inactivity: None - Risk Stratification Risk Guidelines: Lowest Risk: Risk Factor for Smoking, Risk Factor for Dyslipidemia, Risk Factor for Diabetes, Risk Factor for Hypertension, Risk Factor for Sedentary Lifestyle, Risk Factor for Depression, Highest Risk: Risk Factor for Obesity - For Smoking Smoking Risk Guidelines: Smoking Low Risk: None or quit greater than 6 months ago. Smoking Moderate Risk: Smoker or quit 6 months or less ago. Smoking High Risk: Smoker - For Dyslipidemia Dyslipidemia Risk Guidelines: Low Risk: Moderate Risk: High Risk: 15-25% fat 25.1-29% fat >/= 30% fat. <7% sat fat 7-9% sat fat >9% sat fat. <150 mg chol 150-299 mg chol >/= 300 mg chol. LDL <100 LDL 100-129 LDL >/= 130. Chol/HDL ratio <5.0 Chol/HDL ratio 5.0-6.0 Chol/HDL ratio >6.0. Triglycerides <100 Triglycerides 100-149 Triglycerides >/= 150 - For Diabetes Mellitus Diabetes Risk Guidelines: Diabetes Low Risk: HgA1c <6.5% and/or FBG <120. Diabetes Moderate Risk: HgA1c 6.6-7.9% and/or FBG 120-180. Diabetes High Risk: HgA1c >/= 8% and/or FBG >180 - For Obesity/Overweight Obesity/Overweight Risk Guidelines: Obesity Low Risk: BMI <25.0. Obesity Moderate Risk: BMI 25-29.9. Obesity High Risk: BMI >/= 30.0 - For Hypertension Hypertension Risk Guidelines: Hypertension Low Risk: Systolic <120 and Diastolic <80. Hypertension Moderate Risk: Systolic 120-139 and Diastolic 80-89. Hypertension High Risk: Systolic >/= 140 and Diastolic >/= 90 - For Sedentary Lifestyle Sedentary Lifestyle Risk Guidelines: Sedentary Lifestyle Low Risk: >/= 1,500 kcal/week. Sedentary Lifestyle Moderate Risk: 700-1,499 kcal/week. Sedentary Lifestyle High Risk: < 700 kcal/week - For Depression Depression Risk Guidelines: Depression Low Risk: Not clinically depressed. Depression Moderate Risk: Mildly depressed. Depression High Risk: Clinically depressed Motivation - Motivation to Participate On a scale of 1 to 10, how prepared are you to commit to attending program?: 10 - What do you see as barriers to successfully being able to complete the program?: work What do you see as the benefits of succesfully completing the program? In other words, what do you hope to get out of participating in the program?: learn exercise, safety exercise, breathing properly, increased activity exe Are there issues you are dealing with that will interfere with completing the program?: none Do you have a spouse or signficant other, family or friends who will help support you to complete the program?: yes Diagnostic Data Review - 6 Minute Walk Test 6 Minute Walk Test: 950ft 6 min with Spo2 84% room air. - Pulmonary Function Test FEV1:: 0.85 FVC:: 2.24 FEV1/FVC%:: 38 Gold Classification: GOLD class III(severe COPD)with FEV1/FVC<70, 30%</=FEV1< 50% predicted
--- NOTE | 2017-11-13 13:02 | PR.HP_ITS ---
History of Present Illness Arrival date:: 11/13/17 Arrival time:: 12:57 Date of Referral:: 10/03/17 Date of Evaluation: 11/13/17 Referring Physician: DR. JUSTIN NORWOOD Primary Diagnosis: COPD GOLD III: severe History of Present Illness: The patient is a 57 yr old female patient who presents to pulmonary rehab today under the care of Dr. Justin Norwood. The patinet is currently on a stable inhaler regimen including symbicort, spireva, and an as needed albuterol inhaler. mMRC Breathless Scale: When is the patient short of breath? Y/N Grade: Description of Breathlessness: 0 I only get breathless with strenuous exercise. 1 I get short of breath when hurrying on level ground or walking up a slight hill. 2 On level ground, I walk slower than people of the same age because of breathless, or have to stop for breath when walking at my own pace. 3 I stop for breath after walking 100 yards or after a few minutes on level ground. 4 I am too breathless to leave the house or I am breathless when dressing. Respiratory Problems: Yes: Fatigue, Wheezing, Able to Speak in Full Sentences, Dyspnea with Activity, Dyspnea Lying Down Flat No: Retain Secretions, Limited Range of Motion, Chest Pain, Dizziness, Ankle Swelling, Hoarseness, Anxiety, Dyspnea at Rest, Cough with Secretions Home Medications: Home Medications Aspirin [Aspirin, Baby] 81 mg PO DAILY@0800 05/01/14 Hydrochlorothiazide [Hctz] 25 mg PO DAILY 05/01/14 Lisinopril [Zestril] 30 mg PO DAILY 05/01/14 Loratadine [Claritin] 10 mg PO DAILY 05/01/14 Albuterol Inhaler [Ventolin Hfa] 1 - 2 puff INHALATION Q4H PRN PRN #1 inhaler Albuterol Aerosols [Ventolin Aerosols] 2.5 mg INHALATION Q6HWA.RT 07/02/16 Budesonide/Formoterol 160/4.5 [Symbicort 160/4.5 Mcg Inhaler (SP)] 2 puff INHALATION BID 07/02/16 Dicyclomine HCl 20 mg PO TID 12/27/16 Montelukast Sodium [Singulair] 10 mg PO DAILY 12/27/16 Cholecalciferol (Vitamin D3) [Vitamin D3] 2,000 unit PO DAILY 06/19/17 Fluoxetine [Prozac] 20 mg PO QHS 06/19/17 Omeprazole [Prilosec] 20 mg PO DAILY 06/19/17 ALPRAZolam [Xanax] 0.25 mg PO TID PRN PRN #20 tab 06/22/17 potassium chloride PO QDAY 08/16/17 tiotropium bromide 2.5 mcg/actuation mist for inhalation 2 puff INHALATION QDAY #1 ea 08/16/17 Handicap Placcard #1 [id number] 10/03/17 Allergies/Adverse Reactions: Allergies Barbiturates Adverse Reaction (Verified 10/25/17 20:16) Other - spine contracts seizure - Secretions Cough:: No Hx of Sleep Apnea: Yes Do you snore loudly (louder than talking or can be heard through closed doors)? : Yes - Patient is compliant with nocturnal CPAP therapy. Do you often feel tired/ fatigued/ sleepy during daytime?: Yes Has anyone observed you stop breathing during sleep?: No History of Hypertension (for STOP score): Yes STOP Results: Positive Medical Utilization Do you use a peak flow meter at home?: No Do you use a spacer device with your inhalers?: Yes Number of hospital visits in the last year?: 2 - related to COPD hypoxia/ respiratory failure Number of emergency room visits in the last year?: 4 - in the last year Do you see your physician on a regular schedule?: Yes How often?: Dr Norwood 6 mo; PCP 3-6 mo Advanced Directives - Advanced Directives Power of Oliving Machine Operator: No Living Will: No Advance Directives Information Provided: Yes Advance Directives on File: No DNR Order?:: No - MOLST See MOLST form: No Past Medical History Medical History: Past Medical History (Last Reviewed 10/03/17 @ 07:39 by Jackie Lynne) Acute respiratory failure with hypoxia (Acute) J96.01 Asthma exacerbation (Acute) J45.901 Acute respiratory failure (Acute) J96.00 Requires 2 L/min on exertion Asthma (Acute) J45.909 Hypokalemia (Acute) E87.6 Chest pain (Acute) R07.9 Hypertension (Chronic) I10 Surgical History: Past Surgical History (Last Reviewed 10/03/17 @ 07:39 by Jackie Lynne) History of section (Resolved) Z98.891 History of cholecystectomy (Resolved) Z90.49 Family History: Family History (Last Reviewed 10/03/17 @ 07:39 by Jackie Lynne) Father Diabetes Heart disease Sister Breast cancer - Current/ Previous Services Pulmonary Rehab:: No Social History - Smoking History Smoking Status: Former smoker Years Smokin Packs Smoked per Day: 1 Hx Smoking Cessation Date: 2016 Hx Tobacco Use: Yes Hx Smoking Exposure: Yes - smokes - Alcohol Use Alcohol Usage: No - Substance Abuse Hx Substance Use: No - Occupation Occupation (List type of work in comments):: Employed Hours worked per day:: 8 - 40-48 hours - Hobbies, Recreation, Social Activities Hobbies: Sewing, Exercise - bicycle riding trails of [place] but with slinted left wrist that is on hold., Other - crafts, grandchildren activities, cooking, Recreational Activities: I am able to engage in all my recreational activities Functioning ADL/IADL - Current Ability Current Ability: Independent Self-Care (e.g.,grooming, dressing, & bathing), Independent Ambulation, Independent Transfer, Independent Household tasks (e.g. , light meal prep, laundry, shopping) - Pt Functioning Prior to Problem Prior Functioning: Self-Care (e.g.,grooming, dressing, & bathing): Independent, Ambulation: Independent, Transfer: Independent, Household tasks (e.g., light meal prep, laundry, shopping): Independent Social Environment - Status Marital Status: - Current Living Arrangements Living Environment:: Family, Spouse - Children How many children do you have?: 3 Do any of your children live nearby?: Yes - Dru, [place], one out of state - Safety Do you feel safe in your surroundings?: Yes - Assistance Do you need any assistance at home?: none Review of Systems Review of Systems: Right click = Denies (Slash). Left click = Reports (Kenaitze) Respiratory: Reports: SOB upon Exertion, Wheezing - few mild upper lobe wheezes , Appetite, Normal - gained some weight since quit smoking., Dizziness/ Lightheadedness, Fatigue - all the time. Denies: Cough, Sputum production, Sexual changes Is Patient Pain Free?: Yes Pain Location: none Risk Factor Assessment - Chief Complaint Chief Complaint: Patient is a 57 year old female of Dr. Justin Norwood who presents to pulmonary rehab today for her COPD and enrollment in the pulmonary rehab program. - Vital Signs Temperature: 98.7 F Pulse Rate: 76 Pulse Rhythm: Regular Respiratory Rate: 16 Blood Pressure: 122/80 Nailbeds:: pink - Diabetes Nutrition Referral for Diabetes: No - Obesity Height: 5 ft Weight:: 154 lb Weight in Pounds: 154.0 lbs Weight Source: Standing Scale Body Mass Index (BMI): 30.0 Nutritional Referral for Obesity: Yes - Patient could benefit from a strucutred weight loss program - Physical Activity Physical Inactivity: None - Risk Stratification Risk Guidelines: Lowest Risk: Risk Factor for Smoking, Risk Factor for Dyslipidemia, Risk Factor for Diabetes, Risk Factor for Hypertension, Risk Factor for Sedentary Lifestyle, Risk Factor for Depression, Highest Risk: Risk Factor for Obesity - For Smoking Smoking Risk Guidelines: Smoking Low Risk: None or quit greater than 6 months ago. Smoking Moderate Risk: Smoker or quit 6 months or less ago. Smoking High Risk: Smoker - For Dyslipidemia Dyslipidemia Risk Guidelines: Low Risk: Moderate Risk: High Risk: 15-25% fat 25.1-29% fat >/= 30% fat. <7% sat fat 7-9% sat fat >9% sat fat. <150 mg chol 150-299 mg chol >/= 300 mg chol. LDL <100 LDL 100-129 LDL >/= 130. Chol/HDL ratio <5.0 Chol/HDL ratio 5.0-6.0 Chol/HDL ratio >6.0. Triglycerides <100 Triglycerides 100-149 Triglycerides >/= 150 - For Diabetes Mellitus Diabetes Risk Guidelines: Diabetes Low Risk: HgA1c <6.5% and/or FBG <120. Diabetes Moderate Risk: HgA1c 6.6-7.9% and/or FBG 120-180. Diabetes High Risk: HgA1c >/= 8% and/or FBG >180 - For Obesity/Overweight Obesity/Overweight Risk Guidelines: Obesity Low Risk: BMI <25.0. Obesity Moderate Risk: BMI 25-29.9. Obesity High Risk: BMI >/= 30.0 - For Hypertension Hypertension Risk Guidelines: Hypertension Low Risk: Systolic <120 and Diastolic <80. Hypertension Moderate Risk: Systolic 120-139 and Diastolic 80-89. Hypertension High Risk: Systolic >/= 140 and Diastolic >/= 90 - For Sedentary Lifestyle Sedentary Lifestyle Risk Guidelines: Sedentary Lifestyle Low Risk: >/= 1 ,500 kcal/week. Sedentary Lifestyle Moderate Risk: 700-1,499 kcal/week. Sedentary Lifestyle High Risk: < 700 kcal/week - For Depression Depression Risk Guidelines: Depression Low Risk: Not clinically depressed. Depression Moderate Risk: Mildly depressed. Depression High Risk: Clinically depressed Motivation - Motivation to Participate On a scale of 1 to 10, how prepared are you to commit to attending program?: 10 - What do you see as barriers to successfully being able to complete the program? : work What do you see as the benefits of succesfully completing the program? In other words, what do you hope to get out of participating in the program?: learn exercise, safety exercise, breathing properly, increased activity exe Are there issues you are dealing with that will interfere with completing the program?: none Do you have a spouse or signficant other, family or friends who will help support you to complete the program?: yes Diagnostic Data Review - 6 Minute Walk Test 6 Minute Walk Test: 950ft 6 min with Spo2 84% room air. - Pulmonary Function Test FEV1:: 0.85 FVC:: 2.24 FEV1/FVC%:: 38 Gold Classification: GOLD class III(severe COPD)with FEV1/FVC<70, 30%</=FEV1< 50 % predicted
--- NOTE | 2017-11-13 13:06 | PR.ITP_ITS ---
General Information - General Information Admitting Diagnosis: COPD, BEHZAD Gold Classification:: GOLD 3: Severe Oxygen: 2 liters with exertion/activity - PFT FEV1:: 0.85 FVC:: 2.24 FEV1/FVC%:: 38 - Education/Goals Barriers to Learning: Vision Impairment Individual Counseling: Initial Assessment: Dyspnea control techniques at rest, activity, and ADLs, Exacerbation prevention & management, O2, Rx, system, safety , ADL management and pacing, Nutrition & weight management Patient Goals: Breathe better: Initial Assessment, Increase endurance/stamina: Initial Assessment, Return to recreation/hobby: Initial Assessment, Improve diet and nutrition: Initial Assessment, Improve weight: Initial Assessment Exercise - Initial Assessment - Visit Date of Eval: 11/13/17 - Established ITP today; patient is not starting CA until 12/04/2017 due to prescheduled vacation w/family. - Problem/Goals Problems: No regular exercise Goals:: Aerobic exercise 30-60 mins x 9 weeks, Resistance: 2-3x/weekly - Exercise Prescription Mode:: Treadmill, Airdyne, NuStep Frequency (x/week): 3 Duration:: 30 MET LEVEL:: 2.5 HR (bpm):: 121 - 113-121 THRR Exercise Progression: as tolerated per program protocol 0.5METs - Plan Plan and Plan to Review:: Benefits of exercise, Core components of exercise, How to measure dyspnea level, How to monitor dyspnea level, Exercise intensity, Exercise safety guideline, Home exercise guidelines, Pamela: 3-4/11-13 Disease Management - Initial - Problems/Goals-Hypoxemia Hypoxemia Problems:: Hypoxemia, Poor knowledge of O2 use/safety Hypoxemia Goals:: Hypoxemia managed, Using O2 as Rx's safely - Problems/Goals-Medications Medication Goals: Adherence to prescribed medications - Problems/Goals-Bronchial Hygiene Bronchial Hygiene Goals:: Pt demonstrates effective cough, effective secretion clearance., Pt describes signs and symptoms of infection. - Initial Assessment SpO2:: 94 - on room air at rest FiO2:: 21 Does pt report taking home meds as prescribed?: Yes Medications: Yes MDI, Yes DPI, Yes Spacer Patient Reports:: No cough - Plans Hypoxemia Plan:: Monitor SpO2 rest & with exercise, Train appropriate O2 use at rest, Train appropriate O2 use with exercise, Train O2 safety & systems Reviewed prescribed medications:: Purpose, Schedule, Side effects, Importance of compliance Instruct correct technique/timing & care:: MDI, Return demo use of inhaler Bronchial Hygiene Plan: Controlled cough, Vibratory PEP device, Hydration, When to call MD, Signs/symptoms to report: Psychosocial - Initial Assess - Problems/Goals Problems: Impaired Q.O.L. Psychosocial Goals: Improved Q.O.L. - Psychosocial Test Depression:: Impaired QOL Referred to MD for counseling:: No - Plan Reviewed screening results: Yes Instructions given regarding:: Benefits of exercise, Relaxation techniques, Training in coping strategies Stress management: On meds currently - patient takes Xanax 0.5mg as preventative med for anxiety episodes. Tobacco - Initial Assessment - Program Goals Tobacco Program Goals: Complete smoking cessation. Attend education classes. Improve Knowledge Test score - Stage of Change Stages of Change:: Action - Learning Barriers Learning Barriers: Vision, Ready to Learn - Family Support Do you have family support?: Yes - Tobacco Use Tobacco Use: Non-smoker Do you use smokeless tobacco?: No - Intervention Smoking Cessation Referral:: No Individual Education/Counseling:: No Education Schedule Given:: Yes - Education Gave Education Materials For:: Pulmonary Disease, Risk Factors, Breathing Techniques, Medical Compliance, Pulmonary A&P, Exacerbation Signs & Symptoms, Stress & Relaxation Nutrition/Wt Mgmt - Initial - Problems/Goals Problems: Overweight - Weight Management Knowledge Deficit Management of:: Overweight Admit Height:: 5 ft Admit Weight:: 154 lb Admit BMI:: 30.0 - Diabetes Diabetes:: No Insulin: No Do you monitor your blood sugar at home?: No - Intervention Referral to dietitian:: Yes - Patient could benefit from structured weight loss program. Referral to Diabetic Clinic:: No Will attend diet classes:: Yes - Plan Nutrition Plan: Yes Weight control education class:, Yes Education re: Need for ongoing weight monitoring Patient Health Questionnaire Initial Assessment 1. Little interest or pleasure in doing things: Not at all 2. Feeling down, depressed, or hopeless: Several days 3. Trouble falling or staying asleep, or sleeping too much: Nearly every day 4. Feeling tired or having little energy: Nearly every day 5. Poor appetite or overeating: Nearly every day 6. Feeling bad about yourself -- or that you are a failure or have let yourself or your family down: Not at all 7. Trouble concentrating on things, such as reading the newspaper or watching television: Not at all 8. Moving or speaking so slowly that other people could have noticed. Or the opposite - being so fidgety or restless that you have been moving around a lot more than usual: Not at all 9. Thoughts that you would be better off , or of hurting yourself in some way: Not at all How difficult have these problems made it for you to do your work, take care of things at home, or get along with other people?: Somewhat difficult Total Score: 10 COPD Knowledge Test Initial COPD is a lung disease that:: Makes it hard to breathe & gets worse over time In the [place] the term COPD describes 2 main lung conditions:: Emphysema & chronic bronchitis The most common lung irritant that causes COPD is:: Cigarette smoke Common signs and symptoms of COPD include:: A racing heartbeat If you have COPD, what steps can you take?: All of the above Swelling of the ankles is common in COPD:: False Fatigue [tiredness] is common in COPD:: True Wheezing is common in COPD:: True Crushing chest pain is common in COPD:: False Rapid weight loss is common in COPD:: False Breathlessness is a normal response to exercise: False Exercise should be avoided if it makes you short of breath: False All bronchodilators act within 10 minutes: False A spacer device increases the medication to the lungs: True Annual flu vaccine is recommended for pts w/lung disease: True COPD Knowledge Test Total Score:: 13 COPD Assessment Test [CAT] - Questions Never cough = 0, Cough all the time = 5: 1 No phlegm = 0, Chest full of phlegm = 5: 0 No chest tightness = 0, Chest very tight = 5: 0 No breathless w/exertion = 0, Very breathless w/exertion = 5: 5 No limitations w/activity = 0, Very limited w/activity = 5: 2 Confident leaving home = 0, Not at all confident = 5: 0 Sleep soundly = 0, Don't sleep soundly = 5: 5 Lots of energy = 0, No energy at all = 5: 4 Total CAT score:: 17 Self-Efficacy Initial Assessment We would like to know how confident you are in doing certain activities. Please select your confidence level for:: Select your confidence level for the following using the scale 1-10 where 1 is not at all confident and 10 is totally confident. Your score is the average of all 6 responses. Fatigue: How confident are you that you can keep the fatigue caused by your disease from interfering with the things you want to do? Select Number: 4 Physical Discomfort or Pain: How confident are you that you can keep the physical discomfort or pain of your disease from interfering with the things you want to do? Select Number: 4 Emotional Distress: How confident are you that you can keep the emotional distress caused by your disease from interfering with the things you want to do? Select Number: 4 Other Symptoms or Health Problems: How confident are you that you can keep other symptoms or health problems from interfering with the things you want to do? Select Number: 4 Different Tasks and Activities: How confident are you that you can do the different tasks and activities needed to manage your health condition so as to reduce your need to see a doctor? Select Number: 3 Medication: How confident are you that you can do things other than just taking medication to reduce how much your illness affects your everyday life? Select Number: 7 Total Score:: 4 Nutrition Survey - Nutrition Survey Instructions Scoring Instructions: Scoring is as follows: Yes = 1 points. No = 0 point. Patient score that is >/=12 is considered to be at potential nutritional risk and could benefit from a referral to a registered dietitian. - Nutrition Survey Initial Have you lost >10 lbs over the past 2 months without trying?: No Are you following a special diet at home for diabetes, low fat, or low salt?: No Are you interested in meeting with a dietitian for help understanding your diet? : No Do you eat less than 3 meals a day?: Yes Do you eat fatty meats (jerry, sausage, ribs, etc), fried foods, desserts, large amounts of salad dressings, margarine, butter, or cheese most days?: Yes Do you have food allergies? [Enter types in comment field]: No Do you eat in restaurants more than 3 times a week?: No Do you season food with salt, seasoning salt, or garlic salt?: Yes Do you used canned, boxed, frozen meals, or soups, seasoning packets?: No Total Score:: 3
[2017-11-13 13:30] VITALS: BP 122/80; PULSE 76; RESP 16; TEMP 37.1
[2017-11-13 14:11] VITALS: O2SAT 94
--- NOTE | 2017-11-13 14:20 | PCM.PR.DAT ---
Dates of Coverage Times for Dates Of Coverage; All dates of coverage are for physician supervision/medical technologist clinical for during the times of 08:00 AM through 4:30 PM. Effective Dec 09, 2012 our hours will be changing to 8:00 to 4:30 on Monday, Monday and Monday. First Date of the Month: 12/04/17 - eval done 11/13/2017 Last Date of the Month: 12/08/17
== END 2017-12-08 23:59 ==
LOC: PR 08:00
PROVIDERS: Family Provider Student in an Organized Health Care Education/Training Program; PCP Student in an Organized Health Care Education/Training Program; Visit Provider Internal Medicine Critical Care Medicine
DX: J44.9 Chronic obstructive pulmonary disease, unspecified (principal)
CPT/HCPCS: 97150; G0424

== ENCOUNTER 2017-12-18 08:34 | Outpatient (RCR) | payer BC, SELFPAY | END 2018-01-07 23:59 | LOC: NS 08:34 | PROVIDERS: Family Provider Student in an Organized Health Care Education/Training Program; PCP Student in an Organized Health Care Education/Training Program; Visit Provider Internal Medicine Critical Care Medicine | DX: E11.9 Type 2 diabetes mellitus without complications (principal); E66.9 Obesity, unspecified; G47.33 Obstructive sleep apnea (adult) (pediatric); Z68.22 Body mass index [BMI] 22.0-22.9, adult; J44.9 Chronic obstructive pulmonary disease, unspecified; Z71.3 Dietary counseling and surveillance | CPT/HCPCS: 97802 ==

== ENCOUNTER 2018-01-05 08:00 | Outpatient (RCR) | payer BC, SELFPAY ==
[2017-12-09 00:27] VITALS: BP 122/80; PULSE 76; RESP 16; TEMP 37.1
--- NOTE | 2018-01-02 11:57 | PR.DATECOV_ITS ---
Dates of Coverage Times for Dates Of Coverage; All dates of coverage are for physician supervision/medical language specialist for during the times of 08:00 AM through 4:30 PM. Effective Dec 09, 2012 our hours will be changing to 8:00 to 4:30 on Monday, Monday and Monday. First Date of the Month: 01/08/18 Last Date of the Month: 02/07/18
--- NOTE | 2018-01-02 11:57 | PCM.PR.TP ---
Exercise - 30-Day Assessment - Exercise Prescription Mode:: Treadmill, Rower, Airdyne, NuStep, Arm Ergometer Frequency (x/week): 3 Duration:: 30 Aerobic Exercise [30-60 min 3-7x/week]:: Progressing Target heart rate: 113-121 Max HR 114 Pamela-12 MET Level:: 3.5 - Home Exercise Home Exercise:: Yes Frequency:: daily Disease Management - 30-Day - Hypoxemia Reassessment: Demonstrates knowledge of O2 Rx at rest, Demonstrates knowledge of O2 Rx with exercise, Using O2 as prescribed, Has home O2 as prescribed, Uses port O2 as prescribed - Medications Medication list reviewed:: Yes Taking medications 100% of the time:: Met Medication reassessment: Yes Pt demonstrates correct technique timing for MDI, Yes Pt demonstrates correct technique timing for DPI, Yes Pt demonstrates correct technique timing for NEB, Yes Pt demonstrates correct technique timing for spacer - uses MDI /spacer correctly - Bronchial Hygiene Bronchial Hygiene Plan: Yes Pt demonstrates correctly for effective cough - improved techniques, Yes Pt demo correct for device - returned use of PEP therapy device, Yes Pt demo correct for hand hygiene, Yes Pt demo correct for verbalize when to call MD - verbalizes sign symptoms of exacerbation Psychosocial - 30-Day - Assessment Reassessment: Management of stress & depression, Practicing interventions, Demonstrate coping strategies, COPD assessment w/ CAT, Geriatric depression screening, Self efficacy score Tobacco - 30-Day Assessment - Program Goals Tobacco Program Goals: Complete smoking cessation. Attend education classes. Improve Knowledge Test score - Stage of Change Stages of Change:: Action - Learning Barriers Learning Barriers: Participates in education - Family Support Do you have family support?: Yes - Tobacco Use Tobacco Use: Non-smoker Do you use smokeless tobacco?: No - Intervention Education Schedule Given:: Yes - Education Gave Education Materials For:: Pulmonary Disease, Risk Factors, Breathing Techniques, Medical Compliance, Pulmonary A&P, Exacerbation Signs & Symptoms, Stress & Relaxation Nutrition/Wt Mgmt - 30-Day - Weight Management Weight Assessment:: Wt loss 1-2 lbs per week Weight:: 155 lb - down 4 pounds Weight Goals Progress:: Progressing Patient Health Questionnaire 30-Day Re-eval Assessment 1. Little interest or pleasure in doing things: Not at all 2. Feeling down, depressed, or hopeless: Not at all 3. Trouble falling or staying asleep, or sleeping too much: Not at all 4. Feeling tired or having little energy: Not at all 5. Poor appetite or overeating: Not at all 6. Feeling bad about yourself -- or that you are a failure or have let yourself or your family down: Not at all 7. Trouble concentrating on things, such as reading the newspaper or watching television: Not at all 8. Moving or speaking so slowly that other people could have noticed. Or the opposite - being so fidgety or restless that you have been moving around a lot more than usual: Not at all 9. Thoughts that you would be better off , or of hurting yourself in some way: Not at all How difficult have these problems made it for you to do your work, take care of things at home, or get along with other people?: Not difficult at all Total Score: 0 COPD Assessment Test [CAT] - Questions Never cough = 0, Cough all the time = 5: 2 No phlegm = 0, Chest full of phlegm = 5: 1 No chest tightness = 0, Chest very tight = 5: 0 No breathless w/exertion = 0, Very breathless w/exertion = 5: 2 No limitations w/activity = 0, Very limited w/activity = 5: 2 Confident leaving home = 0, Not at all confident = 5: 1 Sleep soundly = 0, Don't sleep soundly = 5: 2 Lots of energy = 0, No energy at all = 5: 1 Total CAT score:: 11 Self-Efficacy 30-Day Re-eval Assessment We would like to know how confident you are in doing certain activities. Please select your confidence level for:: Select your confidence level for the following using the scale 1-10 where 1 is not at all confident and 10 is totally confident. Your score is the average of all 6 responses. Fatigue: How confident are you that you can keep the fatigue caused by your disease from interfering with the things you want to do? Select Number: 9 Physical Discomfort or Pain: How confident are you that you can keep the physical discomfort or pain of your disease from interfering with the things you want to do? Select Number: 9 Emotional Distress: How confident are you that you can keep the emotional distress caused by your disease from interfering with the things you want to do? Select Number: 8 Other Symptoms or Health Problems: How confident are you that you can keep other symptoms or health problems from interfering with the things you want to do? Select Number: 9 Different Tasks and Activities: How confident are you that you can do the different tasks and activities needed to manage your health condition so as to reduce your need to see a doctor? Select Number: 10 Medication: How confident are you that you can do things other than just taking medication to reduce how much your illness affects your everyday life? Select Number: 10 Total Score:: 9
== END 2018-01-07 23:59 ==
LOC: PR 08:00
PROVIDERS: Family Provider Student in an Organized Health Care Education/Training Program; PCP Student in an Organized Health Care Education/Training Program; Visit Provider Internal Medicine Critical Care Medicine
DX: J44.9 Chronic obstructive pulmonary disease, unspecified (principal)
CPT/HCPCS: 97150; G0424

== ENCOUNTER 2018-01-10 08:09 | Outpatient (RCR) | payer BC, SELFPAY | END 2018-01-10 23:59 | LOC: NS 08:09 | PROVIDERS: Family Provider Student in an Organized Health Care Education/Training Program; PCP Student in an Organized Health Care Education/Training Program; Visit Provider Internal Medicine Critical Care Medicine | DX: E11.9 Type 2 diabetes mellitus without complications (principal); E66.9 Obesity, unspecified; G47.33 Obstructive sleep apnea (adult) (pediatric); Z68.22 Body mass index [BMI] 22.0-22.9, adult; J44.9 Chronic obstructive pulmonary disease, unspecified; Z71.3 Dietary counseling and surveillance | CPT/HCPCS: 97803 ==

== ENCOUNTER 2018-01-12 08:00 | Outpatient (RCR) | payer BC, SELFPAY ==
[2018-01-08 00:26] VITALS: BP 122/80; PULSE 76; RESP 16; TEMP 37.1
--- NOTE | 2018-02-02 11:45 | PCM.PR.TP ---
Exercise - 60-Day Assessment - Current Level Mode:: Treadmill, Airdyne, NuStep Frequency (x/week): 3 - Patient has been absent since 01/12/2018 due to wrist surgery Duration:: 35 Aerobic Exercise [30-60 min 3-7x/week]:: Progressing Target heart rate: 113-121 Pamela-12 MET Level:: 4 - Home Exercise Home Exercise:: No Disease Management - 60-Day - Hypoxemia Reassessment: Demonstrates knowledge of O2 Rx at rest, Demonstrates knowledge of O2 Rx with exercise, Using O2 as prescribed, Has home O2 as prescribed, Uses port O2 as prescribed - Medications Medication list reviewed:: Yes Taking medications 100% of the time:: Met Medication reassessment: Yes Pt demonstrates correct technique timing for MDI, Yes Pt demonstrates correct technique timing for DPI, Yes Pt demonstrates correct technique timing for NEB - Bronchial Hygiene Bronchial Hygiene Plan: Yes Pt demonstrates correctly for effective cough, Yes Pt demo correct for improved hydration, Yes Pt demo correct for hand hygiene, Yes Pt demo correct for verbalize when to call MD Psychosocial - 60-Day - Assessment Depression reassess: Management of stress: Progressing, Management of depression: Progressing, Practicing interventions: Progressing Tobacco - 60-Day Assessment - Program Goals Tobacco Program Goals: Complete smoking cessation. Attend education classes. Improve Knowledge Test score - Stage of Change Stages of Change:: Action - Learning Barriers Learning Barriers: Participates in education - Family Support Do you have family support?: Yes - Tobacco Use Tobacco Use: Non-smoker Do you use smokeless tobacco?: No - Intervention Smoking Cessation Referral:: No Individual Education/Counseling:: No Education Schedule Given:: Yes - Education Gave Education Materials For:: Pulmonary Disease, Risk Factors, Breathing Techniques, Medical Compliance, Pulmonary A&P, Exacerbation Signs & Symptoms, Stress & Relaxation Nutrition/Wt Mgmt - 60-Day - Weight Management Weight:: 155 lb Weight Goals Progress:: Progressing Patient Health Questionnaire 60-Day Re-eval Assessment 1. Little interest or pleasure in doing things: Not at all 2. Feeling down, depressed, or hopeless: Not at all 3. Trouble falling or staying asleep, or sleeping too much: Not at all 4. Feeling tired or having little energy: Not at all 5. Poor appetite or overeating: Not at all 6. Feeling bad about yourself -- or that you are a failure or have let yourself or your family down: Not at all 7. Trouble concentrating on things, such as reading the newspaper or watching television: Not at all 8. Moving or speaking so slowly that other people could have noticed. Or the opposite - being so fidgety or restless that you have been moving around a lot more than usual: Not at all 9. Thoughts that you would be better off , or of hurting yourself in some way: Not at all Total Score: 0 COPD Assessment Test [CAT] - Questions Never cough = 0, Cough all the time = 5: 3 No phlegm = 0, Chest full of phlegm = 5: 2 No chest tightness = 0, Chest very tight = 5: 2 No breathless w/exertion = 0, Very breathless w/exertion = 5: 3 No limitations w/activity = 0, Very limited w/activity = 5: 2 Confident leaving home = 0, Not at all confident = 5: 2 Sleep soundly = 0, Don't sleep soundly = 5: 3 Lots of energy = 0, No energy at all = 5: 2 Total CAT score:: 19 Self-Efficacy 60-Day Re-eval Assessment We would like to know how confident you are in doing certain activities. Please select your confidence level for:: Select your confidence level for the following using the scale 1-10 where 1 is not at all confident and 10 is totally confident. Your score is the average of all 6 responses. Fatigue: How confident are you that you can keep the fatigue caused by your disease from interfering with the things you want to do? Select Number: 9 Physical Discomfort or Pain: How confident are you that you can keep the physical discomfort or pain of your disease from interfering with the things you want to do? Select Number: 8 Emotional Distress: How confident are you that you can keep the emotional distress caused by your disease from interfering with the things you want to do? Select Number: 9 Other Symptoms or Health Problems: How confident are you that you can keep other symptoms or health problems from interfering with the things you want to do? Select Number: 8 Different Tasks and Activities: How confident are you that you can do the different tasks and activities needed to manage your health condition so as to reduce your need to see a doctor? Select Number: 8 Medication: How confident are you that you can do things other than just taking medication to reduce how much your illness affects your everyday life? Select Number: 7 Total Score:: 8
--- NOTE | 2018-02-02 11:50 | PR.DATECOV_ITS ---
Dates of Coverage Times for Dates Of Coverage; All dates of coverage are for physician supervision/medical consultant for during the times of 08:00 AM through 4:30 PM. Effective Dec 09, 2012 our hours will be changing to 8:00 to 4:30 on Monday, Monday and Monday. First Date of the Month: 02/08/18 Last Date of the Month: 03/09/18
== END 2018-02-07 23:59 ==
LOC: PR 08:00
PROVIDERS: Family Provider Student in an Organized Health Care Education/Training Program; PCP Student in an Organized Health Care Education/Training Program; Referring Provider Internal Medicine Critical Care Medicine; Visit Provider Internal Medicine Critical Care Medicine
DX: J44.9 Chronic obstructive pulmonary disease, unspecified (principal)
CPT/HCPCS: 97150; G0424

== ENCOUNTER 2018-02-09 08:29 | Outpatient (RCR) | payer BC, SELFPAY ==
[2018-02-08 00:34] VITALS: BP 122/80; PULSE 76; RESP 16; TEMP 37.1
--- NOTE | 2018-02-26 09:06 | PCM.PR.TP ---
Exercise - 90-Day Assessment - Exercise Prescription Frequency (x/week): 0 Duration:: 0 Aerobic Exercise [30-60 min 3-7x/week]:: Not progressing - Patient last attended session was 01/12/2018. She was to be off for 2-weeks for wrist surgery, but has not returned to [facility] since. The patient has had no communication with [facility].
--- NOTE | 2018-02-26 09:12 | PR.ITP_ITS ---
Exercise - 90-Day Assessment - Exercise Prescription Frequency (x/week): 0 Duration:: 0 Aerobic Exercise [30-60 min 3-7x/week]:: Not progressing - Patient last attended session was 01/12/2018. She was to be off for 2-weeks for wrist surgery, but has not returned to [facility] since. The patient has had no communication with [facility].
== END 2018-03-09 23:59 ==
LOC: PR 08:29
PROVIDERS: Family Provider Student in an Organized Health Care Education/Training Program; PCP Student in an Organized Health Care Education/Training Program; Referring Provider Internal Medicine Critical Care Medicine; Visit Provider Internal Medicine Critical Care Medicine
DX: J44.9 Chronic obstructive pulmonary disease, unspecified (principal)

== ENCOUNTER 2018-03-15 15:00 | Outpatient (RCR) | payer BC, SELFPAY ==
--- NOTE | 2018-02-22 11:08 | HP.OTEVAL_ITS ---
Patient's Visit Information MATTHEW BTULER is a 57 year old F, referred to Occupational Therapy by JUSTIN CHI, with a diagnosis of Displaced fx of distal end of radius. Date of Evaluation: 02/21/18 Occupational Therapist: Aretha Davila, KELVIN/Goldie, CHT - Subjective Subjective: patient arrives and states that she had a wrist fracture that occured in the middle of October. [facility] recommended that pt. have an MRI, which indicated that pt. had several fx tendon. Pt. had sx on the forearm, several bones metacarpal bones (replaced with cadaver bones) were removed and a plate was placed in the forearm for stability. Pt. also had carpal tunnel release during the same sx to prevent numbness and tingling. Pt. originally wore a cast and then switched to a soft cast for increased comfort, which pt. wore today. pt. reports that she still has some numbess and tingling at the tips of fingers and dorsal aspect of wrist and shaking of the forearm when pt. tightens mm of the forearm. - Pain L wrist 4 Pain Intensity Range: 4, 5, 6, 7 - Objective Objective/Observation: swelling in the forearm - ROM Forearm: supination: 0/45 of L hand, R WNL Wrist: 15/15 of L hand, R WNL ROM Comments: ROM of L fingers. 4th. MP: 0/63. PIP: 0/100. DIP: 0/69. 5th. MP:0/71. PIP: 0/93. DIP: 0/80. pain in the fingers and dorsal aspect of the hand when measuring ROM - Strength Central Office Operator: 50# in R and 10# in L Lateral Pinch: 16# in R and 5# in L Tripod Pinch: 18# in R and 6# in L Strength Comments: pain in fingers and dorsal aspect of forearm - Edema Other: swelling in forearm and wrist area - Sensation Sensation Comments: decreased sensation, numbess feeling to dorsal aspect of hand, pt. able to feel 4.74 on dorsal aspect of hand near the scarred area over the wrist in L forearm - DASH-Disabilities of Arm, Shoulder& Hand DASH Sum: 71 - Goals Goal:: Patient will increase overall kettle coordinator strength by 20 lbs. by completing strengthening exercises and stretches in order to complete BADL?s and IADL?s. Patient will improve lateral and tripod grasps by 5 lbs. by completing strengthening and stretching exercises in order to complete BADL?s and IADL?s. Goal:: Patient will increase ROM in L hand in order to make a full composite fist by completing strengthening and stretching exercises in order to complete BADL?s and IADL?s. Patient will increase forearm supination by 10 degrees by completeing strengthening and stretching exercises in order to complete BADL's and IADL's. Patient will increase wrist ROM by 15 degrees by completing strengthening and stretching exercises in order to complete BADL's and IADL's. Goal:: Patient will have decreased swelling and report overall decrease in pain of <5 in order to complete BADL?s and IADL?s. Goal:: Patient will demo improved sensation and be able to detect normal sensation of 2.83 monofilament to be able to complete BADL's and IADL's with increased I. Goal:: Patient will report scar/skin care management for decreased scar tissue and increased skin health for increased I with BADL's and IADL's. - Rehabilitation General Assessment: Patient presents with displaced fx of distal end of radius with malunion, tear of L scapholunate lig, S/P carpal tunnel release. These conditions are causing pt. to present with decreased strength, ROM, increased pain, numbess and tingling, decreased sensation, and decreased ability to functionally complete BADL's and IADL's. Pt. will benefit from OT services 2- 3x/wk for 6-8 wks. Today pt. was educated about exercises that can be completed at home, edema management and skin care. Rehabilitation Potential: Good - Anticipated Interventions Anticipated Interventions: A/AAROM/PROM, Strengthening, Triggerpoint Release, Sensory Retraining, Modalities, Joint Protection/Energy Conservation, Ergonomic Education, ADL Training, Home Program - Visit Plan Frequency: 2-3x /Week Duration: 6-8 wks. TEXT: Thank you for the opportunity to evaluate your patient. For Medicare and Medicare HMO plans, please review the plan of care and approve it. It will need to be FAXED BACK to us at [phone] for Medicare purposes. Please let me know if there are questions or concerns regarding this plan of care. Physician Signature: Date:
--- NOTE | 2018-05-08 11:38 | HP.OTDCNRP_ITS ---
HP - Discharge Summary - Patient Information MATTHEW BUTLER was seen in my office for initial evaluation on 02/21/18. The following Plan of Care was established for this patient: Initial Frequency: 2-3x /Week Initial Duration: 6-8 wks. Plan: wound care. ROM. paraffin when wound is healed - Anticipated Interventions Anticipated Interventions: A/AAROM/PROM, Strengthening, Triggerpoint Release, Sensory Retraining, Modalities, Joint Protection/Energy Conservation, Ergonomic Education, ADL Training, Home Program This patient was last seen in our office 03/15/18. Pertinent comments regarding their Occupational therapy will appear below: pt. made good progress throughout POC. pt. ROM increased and pain/swelling decreased. pt. reported decreased difficulty with BADL's and IADL's. pt. reporte d that she is doing good and at this time wants to cancel the rest of her appts. pt. reported no further concerns at this time. pt. d/c at this time with HEP. At this point I will be discontinuing this patient from occupational therapy. I would be happy to see this patient again in the future if found appropriate by the physician. Thank you! Aretha Davila, OTR/L, CHT
== END 2018-03-15 19:00 | disposition home or self-care (01) ==
LOC: OT 15:00
PROVIDERS: Family Provider Student in an Organized Health Care Education/Training Program; PCP Student in an Organized Health Care Education/Training Program
DX: S52.502P Unspecified fracture of the lower end of left radius, subsequent encounter for closed fracture with malunion (principal); S63.8X2D Sprain of other part of left wrist and hand, subsequent encounter; G56.02 Carpal tunnel syndrome, left upper limb; Z98.890 Other specified postprocedural states
CPT/HCPCS: 97110; 97140; 97166; 97530

== ENCOUNTER → 2018-03-27 06:44 | Outpatient (CLI) | payer BC, SELFPAY ==
--- NOTE | 2018-03-27 06:46 | CT_ITS ---
STUDY: CT CHEST WITH CONTRAST REASON FOR EXAM: Female, 57 years old. Follow-up for pulmonary nodule. Previous smoker. Hypertension. RADIATION DOSAGE (If Supplied By Facility): CTDIvol = ( 13.09 ) mGy, DLP = ( 580.51 ) mGycm TECHNIQUE: Transaxial imaging was performed following intravenous administration of 100 ml of Isovue 250 contrast material. Multiplanar coronal and sagittal images were reformatted. Individualized dose optimization techniques were used for this CT. COMPARISON: Comparison is made with prior study dated October 02, 2017. FINDINGS: Stable small bilateral benign appearing axillary lymph nodes. Diffuse emphysematous changes involving both lungs with cystic changes in the upper lobes worse on the right side. This is unchanged. Stable 6.5 mm noncalcified nodule in the peripheral lateral aspect of the left lower lobe as seen on axial image #80. Stable 7.7 mm noncalcified nodule in the anterior aspect of the left lower lobe adjacent to the left major fissure. This is seen on axial image #62. No new nodular densities seen. Mild degree of increased markings with areas of confluence in the anterior medial aspect of the right middle lobe suggestive of scarring. There is no demonstrated pleural abnormality. Normal heart and pericardium. Normal mediastinum. Normal hilar regions. Normal enhanced pulmonary arteries. There is atherosclerotic tortuosity of the aortic arch and descending thoracic aorta. There are multi-level degenerative changes of the thoracic spine. There is no demonstrated abnormality of the visualized upper abdomen. CT/Chest WITH Contrast IMPRESSION: Stable examination. A 12 month follow-up examination is recommended. Diffuse emphysematous changes. Electronically Signed: Yobany Wood MD at 14:57 EST Tel [phone], Service support ,
--- OUTSIDE RECORDS SUMMARY | 2018-06-28 11:23 | XMS RPT_ITS ---
:1960 Author Organization OHIP Support Name Relationship Address Phone Jeremy Butler Unavailable Unavailable + NIRU BENITES Unavailable . + [place] [address] USHA BROS RUBBER Unavailable [address] + [place] [address] JEREMY BUTLER Unavailable [phone] + [place] [address] DELMIS, NIRU Unavailable Unavailable + [place] [address] USHA BROS RUBBER Unavailable [address] + [place] [address] JEREMY BUTLER Unavailable [address] + [place] [address] Jeremy Butler Unavailable Unavailable + BENITES, NIRU Unavailable Unavailable + [place] [address] USHA BROS RUBBER Unavailable [address] + [place] [address] JEREMY BUTLER Unavailable [address] + [place] [address] BENITES, NIRU Unavailable Unavailable + [place] [address] USHA BROS RUBBER Unavailable [address] + [place] [address] JEREMY BUTLER Unavailable [address] + [place] [address] BENITES, NIRU Unavailable Unavailable + [place] [address] USHA BROS RUBBER Unavailable [address] + [place] [address] YERIAN, JEREMY Unavailable [address] + [place] [address] Yerian, Jeremy Unavailable Unavailable + BENITES, NIRU Unavailable Unavailable + [place] [address] USHA BROS RUBBER Unavailable [address] + [place] [address] YERIAN, JEREMY Unavailable [address] + [place] [address] Yerian, Jeremy Unavailable Unavailable + Yerian, Jeremy Unavailable Unavailable + Yerian, Jeremy Unavailable Unavailable + BENITES, NIRU Unavailable Unavailable + [place] [address] USHA BROS RUBBER Unavailable [address] + [place] [address] YERIMATHEW, JEREMY Unavailable [address] + [place] [address] BENITES, NIRU Unavailable Unavailable + [place] [address] USHA BROS RUBBER Unavailable [address] + [place] [address] YERIAN, JEREMY Unavailable [address] + [place] [address] BENITES, NIRU Unavailable Unavailable + [place] [address] USHA BROS RUBBER Unavailable [address] + [place] [address] YERIAN, JEREMY Unavailable [address] + [place] [address] Yerian, Jeremy Unavailable Unavailable + BENITES, NIRU Unavailable Unavailable + [place] [address] USHA BROS RUBBER Unavailable [address] + [place] [address] YERIMATHEW, JEREMY Unavailable [address] + [place] [address] BENITES, NIRU Unavailable Unavailable + [place] [address] USHA BROS RUBBER Unavailable [address] + [place] [address] ULYSSES BUTLERPH Unavailable [address] + [place] [address] BENITES, NIRU Unavailable Unavailable + [place] [address] USHA BROS RUBBER Unavailable [address] + [place] [address] CARRIE JEREMY Unavailable [address] + [place] [address] BENITES, NIRU Unavailable Unavailable + [place] [address] USHA BROS RUBBER Unavailable [address] + [place] [address] ULYSSES BUTLERPH Unavailable [address] + [place] [address] BENITES, NIRU Unavailable . + [place] [address] USHA BROS RUBBER Unavailable [address] + [place] [address] JEREMY BUTLER Unavailable [address] + [place] [address] BENITES, NIRU Unavailable . + [place] [address] USHA BROS RUBBER Unavailable [address] + [place] [address] JEREMY BUTLER Unavailable [address] + [place] [address] BENITES, NIRU Unavailable . + [place] [address] USHA BROS RUBBER Unavailable [address] + [place] [address] CARRIE JEREMY Unavailable [address] + [place] [address] BENITES, NIRU Unavailable . + [place] [address] USHA BROS RUBBER Unavailable [address] + [place] [address] YERIMATHEW JEREMY Unavailable [address] + [place] [address] DELMIS NIRU Unavailable . + [place] [address] USHA BROS RUBBER Unavailable [address] + [place] [address] YECOCO JEREMY Unavailable [address] + [place] [address] BENITES, NIRU Unavailable Unavailable + [place] [address] USHA BROS RUBBER Unavailable [address] + [place] [address] CARRIE JEREMY Unavailable [address] + [place] [address] USHA BROS RUBBER Unavailable [address] + [place] [address] CARRIE JEREMY Unavailable [address] + [place] [address] USHA BROS RUBBER Unavailable [address] + [place] [address] Carrie Jeremy Unavailable . + [place] [address] USHA BROS RUBBER Unavailable [address] + [place] [address] Leonierimathew Jeremy Unavailable [address] + [place] [address] USHA BROS RUBBER Unavailable [address] + [place] [address] YECOCO JEREMY Unavailable [address] + [place] [address] USHA BROS RUBBER Unavailable [address] + [place] [address] LEONIERIMATHEW JEREMY Unavailable [address] + [place] [address] USHA BROS RUBBER Unavailable [address] + [place] [address] Carrie Jeremy Unavailable . + [place] [address] USHA BROS RUBBER Unavailable [address] + [place] [address] CARRIE JEREMY Unavailable [address] + [place] [address] USHA BROS RUBBER Unavailable [address] + [place] [address] CARRIE JEREMY Unavailable [address] + [place] [address] USHA BROS RUBBER Unavailable [address] + [place] [address] CARRIE JEREMY Unavailable [address] + [place] [address] USHA BROS RUBBER Unavailable [address] + [place] [address] ULYSSES BUTLERPH Unavailable [address] + [place] [address] USHA BROS RUBBER Unavailable [address] + [place] [address] CARRIE JEREMY Unavailable [address] + [place] [address] USHA BROS RUBBER Unavailable [address] + [place] [address] CARRIE JEREMY Unavailable [address] + [place] [address] USHA BROS RUBBER Unavailable [address] + [place] [address] CARRIE JEREMY Unavailable [address] + [place] [address] Care Team Providers Name Role Phone JACQUES STATON Attending Unavailable ALETHA CLAYTON (PA) Attending Unavailable JACQUES STATON Referring Unavailable JACQUES STATON Attending Unavailable JACQUES STATON Referring Unavailable Justin Pimentel Attending Unavailable PROVIDER, UNKNOWN Referring Unavailable PROVIDER, UNKNOWN Primary Care Unavailable Justin Pimentel Attending Unavailable PROVIDER, UNKNOWN Referring Unavailable PROVIDER, UNKNOWN Primary Care Unavailable Justin Pimentel Attending Unavailable PROVIDER, UNKNOWN Referring Unavailable PROVIDER, UNKNOWN Primary Care Unavailable JUSTIN PIMENTEL J Attending Unavailable PROVIDER, UNKNOWN Referring Unavailable Staton, Jacques Primary Care Unavailable Alee Enamorado Attending Unavailable PROVIDER, UNKNOWN Referring Unavailable Staton, Jacques Primary Care Unavailable Justin Pimentel Attending Unavailable PROVIDER, UNKNOWN Referring Unavailable PROVIDER, UNKNOWN Primary Care Unavailable Justin Pimentel Attending Unavailable PROVIDER, UNKNOWN Referring Unavailable PROVIDER, UNKNOWN Primary Care Unavailable Justin Acosta D.O. Attending Unavailable Justin Acosta D.O. Referring Unavailable Staton, Jacques Primary Care Unavailable Elenita Lozano Attending Unavailable Staton, Jacques Referring Unavailable Staton, Jacques Primary Care Unavailable Zita, Alexys Admitting Unavailable Phil Sagastume Attending Unavailable Justin Acosta D.O. Consulting Unavailable Zita, Alexys Admitting Unavailable Staton, Jacques Primary Care Unavailable Zita, Alexys Consulting Unavailable Latoya Lyman Attending Unavailable Zita, Alexys Admitting Unavailable Phil Sagastume Attending Unavailable Staton, Jacques Primary Care Unavailable Phil Sagastume Consulting Unavailable Zita, Alexys Admitting Unavailable Phil Sagastume Attending Unavailable Staton, Jacques Primary Care Unavailable Justin Acosta D.O. Consulting Unavailable Phil Sagastume Consulting Unavailable Zita, Alexys Admitting Unavailable Germaine Ford PROSPECTING OBSERVER-C Attending Unavailable Staton, Jacques Primary Care Unavailable Justin Acosta D.O. Consulting Unavailable Phil Sagastume Consulting Unavailable Zita, Alexys Admitting Unavailable Justin Acosta D.O. Attending Unavailable Staton, Jacques Primary Care Unavailable Justin Acosta D.O. Consulting Unavailable Phil Sagastume Consulting Unavailable Zita, Alexys Admitting Unavailable Phil Sagastume Attending Unavailable Staton, Jacques Primary Care Unavailable Justin Acosta D.O. Consulting Unavailable Phil Sagastume Consulting Unavailable Zita, Alexys Admitting Unavailable Germaine Ford PROSPECTING OBSERVER-C Attending Unavailable Staton, Jacques Primary Care Unavailable Justin Acosta D.O. Consulting Unavailable Phil Sagastume Consulting Unavailable Zita, Alexys Admitting Unavailable Justin Acosta D.O. Attending Unavailable Staton, Jacques Primary Care Unavailable Justin Acosta D.O. Consulting Unavailable Phil Sagastume Consulting Unavailable Elenita Lozano Attending Unavailable Staton, Jacques Referring Unavailable Staton, Jacques Primary Care Unavailable Elenita Lozano Attending Unavailable Blake, Elenita Referring Unavailable Staton, Jacques Primary Care Unavailable Lozano, Elenita Attending Unavailable Staton, Dakota Primary Care Unavailable Bryant Deal Attending Unavailable Lozano, Elenita Referring Unavailable Lozano, Elenita Attending Unavailable Lozano, Elenita Referring Unavailable Staton, Dakota Primary Care Unavailable Lozano, Elenita Attending Unavailable Staton, Dakota Primary Care Unavailable Lozano, Elenita Attending Unavailable Staton, Jacques Referring Unavailable Say, Bryant Attending Unavailable Lozano, Elenita Referring Unavailable Lozano, Elenita Attending Unavailable Lozano, Elenita Referring Unavailable Staton, Dakota Primary Care Unavailable Justin Brown, D.O. Attending Unavailable Staton, Jacques Referring Unavailable Justin Brown, D.O. Attending Unavailable Staton, Dakota Primary Care Unavailable Justin Brown, D.O. Referring Unavailable Staton, Dakota Primary Care Unavailable Quita Braswell Attending Unavailable Justin Brown, D.O. Attending Unavailable Justin Brown, D.O. Referring Unavailable Staton, Dakota Primary Care Unavailable Justin Brown, D.O. Attending Unavailable Justin Brown, D.O. Referring Unavailable Staton, Dakota Primary Care Unavailable Justin Brown, D.O. Attending Unavailable Staton, Dakota Primary Care Unavailable Justin Brown, D.O. Attending Unavailable Justin Brown, D.O. Referring Unavailable Staton, Dakota Primary Care Unavailable Justin Brown, D.O. Attending Unavailable Staton, Dakota Primary Care Unavailable Justin Brown, D.O. Attending Unavailable Justin Brown, D.O. Referring Unavailable Staton, Dakota Primary Care Unavailable Justin Brown, D.O. Attending Unavailable Staton, Dakota Primary Care Unavailable FELIX MCCARTNEY Attending Unavailable Staton, Dakota Primary Care Unavailable FELIX MCCARTNEY Consulting Unavailable Justin Brown, D.O. Attending Unavailable Justin Brown, D.O. Referring Unavailable Staton, Dakota Primary Care Unavailable PROBLEMS PROBLEMS DATE TYPE CONDITION / CODE ATTENDING STATUS SOURCE 03/16/2018 Unknown E11.9 - Type 2 Usama Do [place] diabetes mellitus D.O. Community without Hospital complications / Repository E11.9(ICD-10) 03/15/2018 Unknown S52.502P - FELIX MCCARTNEY Active [facility]specified Community fracture of the Hospital lower end of left Repository radius, subsequent encounter for closed fracture with malunion / S52.502P(ICD-10) 03/08/2018 Admitting Unsp physl fx low Justin Pimentel [facility] Diagnosis end rad, l arm, System subs for fx w routn Repository heal / S59.202D(ICD-10) 03/10/2018 Unknown J44.9 - Chronic Justin Acosta, Active [place] obstructive D.O. Community pulmonary disease, [facility] unspecified / Repository J44.9(ICD-10) 02/06/2018 Admitting Oth disrd of bone McGreal, [facility] Diagnosis density and Alee System structure, other Repository site / M85.88(ICD-10) 01/23/2018 Admitting Essential (primary) Justin Pimentel [facility] Diagnosis hypertension / System I10(ICD-10) Repository 01/23/2018 Admitting Chronic obstructive Margarito, Justin [facility] Diagnosis pulmonary disease, System unspecified / Repository J44.9(ICD-10) 01/23/2018 Admitting Gastro-esophageal Margarito, Justin [facility] Diagnosis reflux disease System without esophagitis Repository / K21.9(ICD-10) 01/23/2018 Admitting Anxiety disorder, Margarito, Justin [facility] Diagnosis unspecified / System F41.9(ICD-10) Repository 01/23/2018 Admitting Major depressive Margarito, Justin [facility] Diagnosis disorder, single System episode, Repository unspecified / F32.9(ICD-10) 01/23/2018 Admitting Unsp fx the lower Margarito, Justin [facility] Diagnosis end left rad, subs System for clos fx w Repository malunion / S52.502P(ICD-10) 01/23/2018 Admitting Post-traumatic Margarito, 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, System left wrist / Repository M19.132(ICD-10) 01/23/2018 Admitting Carpal tunnel Margarito, Justin [facility] Diagnosis syndrome, left System upper limb / Repository G56.02(ICD-10) 01/23/2018 Admitting Other instability, Margarito, Justin [facility] Diagnosis left wrist / System M25.332(ICD-10) Repository 01/23/2018 Admitting Obstructive sleep Margarito, Justin [facility] Diagnosis apnea (adult) System (pediatric) / Repository G47.33(ICD-10) 01/23/2018 Admitting Obesity, Margarito, Justin [facility] Diagnosis unspecified / System E66.9(ICD-10) Repository 01/23/2018 Admitting Body mass index Justin Pimentel [facility] Diagnosis (BMI) 30.0-30.9, System adult / Repository Z68.30(ICD-10) 01/23/2018 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 / System Z79.82(ICD-10) Repository 01/23/2018 Admitting Acquired absence of Justin Pimentel [facility] Diagnosis other specified System parts of digestive Repository tract / Z90.49(ICD-10) 01/23/2018 Admitting Acquired absence of Justin 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[facility] Diagnosis both cervix and System uterus / Repository Z90.710(ICD-10) 01/23/2018 Admitting Allergy status to Justin Pimentel [facility] Diagnosis oth drug/meds/biol System subst status / Repository Z88.8(ICD-10) 01/23/2018 Admitting Personal history of Justin Pimentel [facility] Diagnosis nicotine dependence System / Z87.891(ICD-10) Repository 01/16/2018 Admitting Encounter for other Justin Pimentel [facility] Diagnosis preprocedural System examination / Repository Z01.818(ICD-10) 01/16/2018 Admitting Other specified Justin Pimentel [facility] Diagnosis sprain of left System wrist, initial Repository encounter / S63.592A(ICD-10) 10/03/2017 Unknown R91.1 - Solitary Justin Brown, Active [place] pulmonary nodule / D.O. Community R91.1(ICD-10) Hospital Repository 08/15/2017 Unknown G47.33 - Lozano, Active [place] Obstructive sleep Elenita Community apnea (adult) Hospital (pediatric) / Repository G47.33(ICD-10) 08/16/2017 Unknown J45.909 - Bryant Deal Active [place] Unspecified asthma, Community uncomplicated / Hospital J45.909(ICD-10) Repository 07/31/2017 Unknown G47.19 - Other Lozano, Active [place] hypersomnia / Elenita Community G47.19(ICD-10) Hospital Repository 07/06/2017 Unknown J96.00 - Acute Lozano, Active [facility] respiratory [facility], Hospital unspecified whether Repository with hypoxia or hypercapnia / J96.00(ICD-10) PROCEDURES PROCEDURES No Procedure Records FoundRESULTS RESULTS PULMONARY VISIT REPORT Observed: 03/29/2018 Status: F Source: [place] 9:05 AM [facility] [place] REPOSITORY [facility] [place] [address] [place] [address] OFFICE VISIT Date of Service: 03/29/18 MR#: [id number] Acct: [id number] Name: MATTHEW BUTLER Rep #: [id number] : 1960 Provider: Elenita Lozano Age/Sex: 57/F Location: [facility].PMW Status: Signed Assessment AND Plan 1. Stage 3 severe COPD by GOLD classification J44.9 Plan Does not appear to be an exacerbation of COPD today. No need for prednisone or antibiotic. Continue current maintenance medication. No additional testing at this time. Contact the office for any new or worsening symptoms. An acute visit and typically be arranged within 1-2 days. Follow-up in 6 mos. 2. Severe persistent asthma without complication J45.50 Plan No signs of exacerbation of asthma today. No change in maintenance medications. No additional testing at this time. Contact the office with any signs of new or worsening symptoms. Follow-up in 6 mos. 3. BEHZAD (obstructive sleep apnea) G47.33 Plan Patient is using and benefiting from Pap therapy. No indication for titration study at this time. Continue to encourage weight loss. Contact the office for any new or worsening symptoms in the meantime. Follow-up in 6 mos. 4. Lung nodule < 6cm on CT R91.1 Plan Stable imaging, follow-up with Dr. Acosta in 6 months. Plan to repeat CT in at least one year, Dr. Acosta may decide to repeat sooner at his 6-month follow-up. Plan Detail Other Medications Refilled: tiotropium bromide 2.5 mcg/actuation (Spiriva Respimat) 2 puffs Inhalation QDAY 3 ea 3RF administer at approximately the same time(s) each day Additional Comments The patient states that she is overall quite pleased with the improvements that she has made. She states that she has gotten her life back. Follow Up 6 Months (DMB) HPI 6 M FU: Chief Complaint: Shortness of breath on exertion HPI Comments Details: This is a 57 year old F, here to follow up for sleep apnea, chronic respiratory failure and severe asthma. She has not Been seen in the ED or urgent care for any respiratory illnesses since her last office visit. She has not required any antibiotics or prednisone for any breathing problems. She is compliant with Symbicort 2 puffs twice daily. She reports rinsing her mouth out or taken a drink after each use. She denies any medication side effects such as sore throat or thrush. She is also compliant with Spiriva daily, requesting a refill. She continues compliance with Claritin and Singulair also. She does not need to use her oxygen as frequently, continues to check her oxygen saturations randomly. She does report checking them sometimes at rest as well as on exertion. At times her oxygen saturation is below 89% and she does require some supplemental oxygen temporarily. She reports that it is less frequently at this point. She could continues to use the oxygen bleed into her CPAP. Currently she only experiences shortness of breath on exertion. She denies any shortness of breath at rest or with conversation. She denies any cough, sputum production or hemoptysis. She denies any wheezing, chest tightness, chest pain or palpitations. She has not expands any fever, chills or body aches. She states that her annual influenza vaccination is current. Current use of pressure support therapy is on average of 8- 1/2 hours per night with current settings of 9 cmH2O. MATTHEW denies any daytime somnolence, dry mouth in the morning, nocturia, snoring through the mask, morning headaches or difficulty with mask leaks. MATTHEW reports feeling rested in the morning and is benefitting from current therapy. Compliance report was reviewed and shows 100% compliance, AHI is controlled at an average of 2.8 events per hour and leaks appear to be an occasional issue with the patient states it is time for a new cushion. 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 Vendor: [employer] Accompanied by: Self Is patient in pain?: No Allergies Barbiturates Adverse Reaction (Verified 03/29/18 07:27) Other - spine contracts Medications Aspirin [Aspirin, Baby] 81 mg PO DAILY@0800 05/01/14 [History Confirmed 03/29/18] Hydrochlorothiazide [Hctz] 25 mg PO DAILY 05/01/14 [History Confirmed 03/29/18] Lisinopril [Zestril] 30 mg PO DAILY 05/01/14 [History Confirmed 03/29/18] Loratadine [Claritin] 10 mg PO DAILY 05/01/14 [History Confirmed 03/29/18] Albuterol Inhaler [Ventolin Hfa] 1 - 2 puff INHALATION Q4H PRN PRN #1 inhaler 05/02/14 [Rx Confirmed 03/29/18] Albuterol Aerosols [Ventolin Aerosols] 2.5 mg INHALATION Q6HWA.RT 07/02/16 [History Confirmed 03/29/18] Budesonide/Formoterol 160/4.5 [Symbicort 160/4.5 Mcg Inhaler (SP)] 2 puff INHALATION BID 07/02/16 [History Confirmed 03/29/18] Dicyclomine HCl 20 mg PO TID 12/27/16 [History Confirmed 03/29/18] Montelukast Sodium [Singulair] 10 mg PO DAILY 12/27/16 [History Confirmed 03/29/18] Cholecalciferol (Vitamin D3) [Vitamin D3] 2,000 unit PO DAILY 06/19/17 [History Confirmed 03/29/18] Fluoxetine [Prozac] 20 mg PO QHS 06/19/17 [History Confirmed 03/29/18] Omeprazole [Prilosec] 20 mg PO DAILY 06/19/17 [History Confirmed 03/29/18] ALPRAZolam [Xanax] 0.25 mg PO TID PRN PRN #20 tab 06/22/17 [Rx Confirmed 03/29/18] potassium chloride PO QDAY 08/16/17 [History Confirmed 03/29/18] Handicap Placcard #1 [id number] 10/03/17 [Rx Confirmed 03/29/18] tiotropium bromide 2.5 mcg/actuation mist for inhalation 2 puff INHALATION QDAY #3 ea 03/29/18 [Rx Confirmed 03/29/18] PFSH Medical History Acute respiratory failure with hypoxia (Acute) Asthma exacerbation (Acute) Acute respiratory failure (Acute) Asthma (Acute) Hypokalemia (Acute) Chest pain (Acute) Hypertension (Chronic) Surgical History History of section (Resolved) History of cholecystectomy (Resolved) L wrist surgery (Resolved) Family History Father Diabetes Heart disease Sister Breast cancer Social History Smoking Status: Former smoker quit date: 04/10/16 pack-years: 30 how long ago did patient quit smokin, 1pk/day second hand exposure: Yes alcohol intake: never substance use type: does not use Review of Systems Const CONSTITUTIONAL: Negative anorexia, body ache, chills, daytime sleepiness, fever(s), night sweats, oral thrush, stops breathing during sleep, weight loss, sleeping in chair, fatigue, weight loss, weight gain, frequent colds, seasonal allergies, other, headache(s) or orthopnea EETM Ear Nose Throat Mouth: Positive hearing normal; negative hard of hearing, hoarseness, dry mouth in morning, change in vision, itchy eyes, eye pain, swallowing Difficulty, ear pain, nose bleed, headache(s), mouth pain, nasal congestion, nasal discharge, post nasal drip, sinus pain, sinus pressure, sore throat or other Cardio Cardiovascular: Negative chest pain, chest pain at rest, chest pain with activity, irregular heart rhythm, edema, shortness of breath when lying down, palpitations, murmur or other Resp Respiratory: Positive as per HPI, shortness of breath shortness of breath: Positive with activity and inhalers; negative pain with cough, wheezing, chest congestion, cough, chest tightness, pain on inspiration, increase use of rescue inhalers, snoring, apnea or other Gastro Gastrointestional: Negative bloody stools, change in appetite, difficulty swallowing, reflux, hematemesis, melena stool, loose stool, constipation or other Genitourinary: Negative blood in urine, nocturia, pain with urination or other Musc Musculoskeletal: Negative body pain, back pain, neck pain or other Skin/Breast Skin/Breast: Negative dry skin, itching, rash, unusual bruising, breast lump or other Neuro Neurological: Negative restless legs, confusion, weakness or other Psych Psychocological: Negative abnormal sleep pattern, anxiety, thoughts of hurting self/others, hopelessness or other Lymph Lymphatic: Negative easy bleeding, easy bruising, swollen lymph nodes or other Exam Const Constitutional: Positive conversant, cooperative, in no acute respiratory distress, healthy appearing, well developed, well nourished and good hygiene Head Head: Positive normocephalic and atraumatic; negative cyanosis of lips/distal nose Eyes Eye: Positive clear conjunctiva; negative nystagmus or scleral abnormality Ears Ear: Positive hearing normal and external ears normal; negative hard of hearing Nose Nose: Positive external nose normal and no nasal discharge; negative epistaxis Mouth Mouth: Positive oral mucosae normal, no lesions, good dentition and posterior oropharynx is adequate; negative post nasal drip, malodorous breath or oral thrush present Mallampati Score: II: Mallampati Score Neck Neck: Positive normal visual inspection, full ROM and trachea midline; negative lymphadenopathy, JVD or tender Chest Wall Chest: Positive normal inspection of the chest and symmetric chest movement; negative increased A/P diameter Resp lung sounds: Positive clear to auscultation, diminished, normal expiratory time and normal respiratory effort; negative wheezes, rhonchi, rales, dullness to percussion or wheeze present on forced exhalation Cardio Cardiac: Positive regular rate, regular rhythm, S1 normal and S2 normal; negative murmur GI GI: Positive normal to inspection; negative distended Genitourinary: Positive deferred Musc Musculoskeletal: Positive steady gait and ROM normal; negative kyphosis or scoliosis Skin Pulmonary Skin Exam: Positive intact; negative rash Pulses Pulse: Yes pulses normal x4 extremities Extremities Extremities: Yes capillary refill normal, No clubbing, No cyanosis, No edema Neuro Neurologic: Yes conversant, Yes no focal neuro deficits, Yes normal concentration, Yes understands questions, Yes cooperative, Yes normal cognition, Yes normal coordination, No tremor Lymph Lymphatic: No lymphadenopathy, No tenderness, No cervical adenopathy Psych Appearance: Positive grossly normal, eye contact and well kempt Mental Status: Positive mental status grossly normal Mood: Positive congruent mood Affect: Positive normal affect Coding Level of Care Code Off vis,est,level 3 Diagnoses Stage 3 severe COPD by GOLD classification J44.9 Severe persistent asthma without complication J45.50 Asthma severity: severe Asthma complication type: uncomplicated Asthma persistence: persistent BEHZAD (obstructive sleep apnea) G47.33 Lung nodule < 6cm on CT R91.1 03/29/18 0905 <Electronically signed by Elenita PURVIS> Date Elenita PURVIS Cosigner Signature: Date (if applicable) CC: Jacques Gonzalez DO CHEST WITH CONTRAST Observed: 03/27/2018 Status: F Source: DRU 6:46 AM [facility] [place] REPOSITORY [facility] Imaging Services [address] [place] [id number] Chest WITH Contrast MR#: [id number] Acct: [id number] Name: MATTHEW BUTLER Rep #: [id number] : 1960 F 57 From: Yobany Wood MD PCP: Jacques Gonzalez DO Status: REG CLI Study: Chest WITH Contrast Date of Exam: 03/27/18 Exam# [id number] Ordering Dr: Justin Acosta DO STUDY: CT CHEST WITH CONTRAST REASON FOR EXAM: Female, 57 years old. Follow-up for pulmonary nodule. Previous smoker. Hypertension. RADIATION DOSAGE (If Supplied By Facility): CTDIvol = ( 13.09 ) mGy, DLP = ( 580.51 ) mGycm TECHNIQUE: Transaxial imaging was performed following intravenous administration of 100 ml of Isovue 250 contrast material. Multiplanar coronal and sagittal images were reformatted. Individualized dose optimization techniques were used for this CT. COMPARISON: Comparison is made with prior study dated October 02, 2017. FINDINGS: Stable small bilateral benign appearing axillary lymph nodes. Diffuse emphysematous changes involving both lungs with cystic changes in the upper lobes worse on the right side. This is unchanged. Stable 6.5 mm noncalcified nodule in the peripheral lateral aspect of the left lower lobe as seen on axial image #80. Stable 7.7 mm noncalcified nodule in the anterior aspect of the left lower lobe adjacent to the left major fissure. This is seen on axial image #62. No new nodular densities seen. Mild degree of increased markings with areas of confluence in the anterior medial aspect of the right middle lobe suggestive of scarring. There is no demonstrated pleural abnormality. Normal heart and pericardium. Normal mediastinum. Normal hilar regions. Normal enhanced pulmonary arteries. There is atherosclerotic tortuosity of the aortic arch and descending thoracic aorta. There are multi-level degenerative changes of the thoracic spine. There is no demonstrated abnormality of the visualized upper abdomen. CT/Chest WITH Contrast IMPRESSION: Stable examination. A 12 month follow-up examination is recommended. Diffuse emphysematous changes. Electronically Signed: Yobany Wood MD at 14:57 EST Tel [phone], Service support , CC: Justin Acosta D.O.; Jacques Gonzalez DO Photographer Model: Signed CR WRIST COMPLETE 3 Observed: 03/08/2018 Status: F Source: [facility] VIEWS LEFT 8:43 AM SYSTEM REPOSITORY Patient Name: MATTHEW BUTLER Diagnostic Radiology Exam Date/Time 03/08/2018 08:25:00 EST Exam CR Wrist Complete 3 Views Left Ordering Physician MD MARGARITO, JUSTIN Chappell Accession Number [id number] CPT4 Codes 50619 () Reason For Exam fracture Report Left wrist: 03/08/2018. CLINICAL INFORMATION: Follow-up fracture. FINDINGS: Three views of left wrist were compared to the prior study 02/06/2018. The overlying plaster cast is been removed. An orthopedic plate and screw device is stabilizing a healing fracture of the distal radial diaphysis. The overall position and alignment of the fracture fragments is reasonable. There has been resection of the first carpal row. Report Dictated on Workstation: [id number] Final Dictating Physician: MD STREET RISA Signed Date and Time: 03/08/2018 8:44 am Signed by: MD STREET RISA Transcribed Date and Time: 03/08/2018 8:45 [place] - INDIVIDUAL Observed: 03/07/2018 Status: F Source: DRU TREATMENT PLAN 5:22 PM [facility] [place] REPOSITORY [facility] Pulmonary Rehab Reports [address] [place] [address] [place] - Individual Treatment Plan MR#: [id number] Acct: [id number] Name: MATTHEW BUTLER Rep #: [id number] : 1960 57 From: Ramiro Aguilar CRT, RCP, BS PCP: Jacques Gonzalez, Exercise - 90-Day Assessment - Exercise Prescription Frequency (x/week): 0 Duration:: 0 Aerobic Exercise [30-60 min 3-7x/week]:: Not progressing - Patient last attended session was 01/12/2018. She was to be off for 2-weeks for wrist surgery, but has not returned to [place] since. The patient has had no communication with [place]. 02/26/18 0912 <Electronically signed by Ramiro Aguilar CRT, RCP, BS> Date Ramiro Aguilar CRT, RCP, BS Outcome assessment reviewed. Exercise plan approved as documented. Treatment plan and goals support patient needs/abilities. Continue with current plan. I certify the patient demonstrates improvement and remains willing and capable of participation. the patient continues to benefit from pulmonary services/training. The patient may continue at current intensity, endurance and modality and progress per protocol. 03/07/18 1722<Electronically signed by Oscar Rios MD> Cosigner Signature: Date Oscar Rios MD CC: Signed OT GENERAL EVALUATION Observed: 02/27/2018 Status: F Source: DRU 9:18 AM [facility] [place] REPOSITORY [facility] Occupational Therapy [facility] [address] [place] [address]. [address] [place] [address] Fax REHABILITATION SERVICES INITIAL EVALUATION MR#: [id number] Acct: [id number] Name: MATTHEW BUTLER Rep #: [id number] : 1960 57 From: Aretha CORTEZ CHT Referring Dr.: Status: REG R Insurance: [facility] Date: SELF PAY INSURANCE Patient's Visit Information MATTHEW BUTLER is a 57 year old F, referred to Occupational Therapy by JUSTIN PIMENTEL, with a diagnosis of Displaced fx of distal end of radius. Date of Evaluation: 02/21/18 Occupational Therapist: DANA Tubbs CHT - Subjective Subjective: patient arrives and states that she had a wrist fracture that occured in the middle of October. [facility] recommended that pt. have an MRI, which indicated that pt. had several fx tendon. Pt. had sx on the forearm, several bones metacarpal bones (replaced with cadaver bones) were removed and a plate was placed in the forearm for stability. Pt. also had carpal tunnel release during the same sx to prevent numbness and tingling. Pt. originally wore a cast and then switched to a soft cast for increased comfort, which pt. wore today. pt. reports that she still has some numbess and tingling at the tips of fingers and dorsal aspect of wrist and shaking of the forearm when pt. tightens mm of the forearm. - Pain L wrist 4 Pain Intensity Range: 4, 5, 6, 7 - Objective Objective/Observation: swelling in the forearm - ROM Forearm: supination: 0/45 of L hand, R WNL Wrist: 15/15 of L hand, R WNL ROM Comments: ROM of L fingers. 4th. MP: 0/63. PIP: 0/100. DIP: 0/69. 5th. MP:0/71. PIP: 0/93. DIP: 0/80. pain in the fingers and dorsal aspect of the hand when measuring ROM - Strength E Marketing Specialist: 50# in R and 10# in L Lateral Pinch: 16# in R and 5# in L Tripod Pinch: 18# in R and 6# in L Strength Comments: pain in fingers and dorsal aspect of forearm - Edema Other: swelling in forearm and wrist area - Sensation Sensation Comments: decreased sensation, numbess feeling to dorsal aspect of hand, pt. 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 by completing strengthening exercises and stretches in order to complete BADL s and IADL s. Patient will improve lateral and tripod grasps by 5 lbs. by completing strengthening and stretching exercises in order to complete BADL s and IADL s. Goal:: Patient will increase ROM in L hand in order to make a full composite fist by completing strengthening and stretching exercises in order to complete BADL s and IADL s. Patient will increase forearm supination by 10 degrees by completeing strengthening and stretching exercises in order to complete BADL's and IADL's. Patient will increase wrist ROM by 15 degrees by completing strengthening and stretching exercises in order to complete BADL's and IADL's. Goal:: Patient will have decreased swelling and report overall decrease in pain of <5 in order to complete BADL s and IADL s. Goal:: Patient will demo improved sensation and be able to detect normal sensation of 2.83 monofilament to be able to complete BADL's and IADL's with increased I. Goal:: Patient will report scar/skin care management for decreased scar tissue and increased skin health for increased I with BADL's and IADL's. - Rehabilitation General Assessment: Patient presents with displaced fx of distal end of radius with malunion, tear of L scapholunate lig, S/P carpal tunnel release. These conditions are causing pt. to present with decreased strength, ROM, increased pain, numbess and tingling, decreased sensation, and decreased ability to functionally complete BADL's and IADL's. Pt. will benefit from OT services 2-3x/wk for 6-8 wks. Today pt. was educated about exercises that can be completed at home, edema management and skin care. Rehabilitation Potential: Good - Anticipated Interventions Anticipated Interventions: A/AAROM/PROM, Strengthening, Triggerpoint Release, Sensory Retraining, Modalities, Joint Protection/Energy Conservation, Ergonomic Education, ADL Training, Home Program - Visit Plan Frequency: 2-3x /Week Duration: 6-8 wks. TEXT: Thank you for the opportunity to evaluate your patient. For Medicare and Medicare HMO plans, please review the plan of care and approve it. It will need to be FAXED BACK to us at [phone] for Medicare purposes. Please let me know if there are questions or concerns regarding this plan of care. Physician Signature: Date: <Electronically signed by Aretha CORTEZ CHT> 02/27/18917 CC: Jacques Gonzalez DO [place] Signed For Medicare only, by signing this I certify the plan of care. Physicians Signature Date [place] - INDIVIDUAL Observed: 02/12/2018 Status: F Source: [place] TREATMENT PLAN 6:47 PM [facility] [place] REPOSITORY [facility] Pulmonary Rehab Reports [address] [place] [address] NE - Individual Treatment Plan MR#: [id number] Acct: [id number] Name: MATTHEW BUTLER Goldie Rep #: [id number] : 1960 57 From: Ramiro Aguilar MOTOR GENERATOR SET OPERATOR, STERNMAN, BS PCP: Jacques Gonzalez DO Exercise - 60-Day Assessment - Current Level Mode:: Treadmill, Airdyne, NuStep Frequency (x/week): 3 - Patient has been absent since 01/12/2018 due to wrist surgery Duration:: 35 Aerobic Exercise [30-60 min 3-7x/week]:: Progressing Target heart rate: 113-121 Pamela-12 MET Level:: 4 - Home Exercise Home Exercise:: No Disease Management - 60-Day - Hypoxemia Reassessment: Demonstrates knowledge of O2 Rx at rest, Demonstrates knowledge of O2 Rx with exercise, Using O2 as prescribed, Has home O2 as prescribed, Uses port O2 as prescribed - Medications Medication list reviewed:: Yes Taking medications 100% of the time:: Met Medication reassessment: Yes Pt demonstrates correct technique timing for MDI, Yes Pt demonstrates correct technique timing for DPI, Yes Pt demonstrates correct technique timing for NEB - Bronchial Hygiene Bronchial Hygiene Plan: Yes Pt demonstrates correctly for effective cough, Yes Pt demo correct for improved hydration, Yes Pt demo correct for hand hygiene, Yes Pt demo correct for verbalize when to call MD Psychosocial - 60-Day - Assessment Depression reassess: Management of stress: Progressing, Management of depression: Progressing, Practicing interventions: Progressing Tobacco - 60-Day Assessment - Program Goals Tobacco Program Goals: Complete smoking cessation. Attend education classes. Improve Knowledge Test score - Stage of Change Stages of Change:: Action - Learning Barriers Learning Barriers: Participates in education - Family Support Do you have family support?: Yes - Tobacco Use Tobacco Use: Non-smoker Do you use smokeless tobacco?: No - Intervention Smoking Cessation Referral:: No Individual Education/Counseling:: No Education Schedule Given:: Yes - Education Gave Education Materials For:: Pulmonary Disease, Risk Factors, Breathing Techniques, Medical Compliance, Pulmonary A AND P, Exacerbation Signs AND Symptoms, Stress AND Relaxation Nutrition/Wt Mgmt - 60-Day - Weight Management Weight:: 155 lb Weight Goals Progress:: Progressing Patient Health Questionnaire 60-Day Re-eval Assessment 1. Little interest or pleasure in doing things: Not at all 2. Feeling down, depressed, or hopeless: Not at all 3. Trouble falling or staying asleep, or sleeping too much: Not at all 4. Feeling tired or having little energy: Not at all 5. Poor appetite or overeating: Not at all 6. Feeling bad about yourself -- or that you are a failure or have let yourself or your family down: Not at all 7. Trouble concentrating on things, such as reading the newspaper or watching television: Not at all 8. Moving or speaking so slowly that other people could have noticed. Or the opposite - being so fidgety or restless that you have been moving around a lot more than usual: Not at all 9. Thoughts that you would be better off , or of hurting yourself in some way: Not at all Total Score: 0 COPD Assessment Test [CAT] - Questions Never cough = 0, Cough all the time = 5: 3 No phlegm = 0, Chest full of phlegm = 5: 2 No chest tightness = 0, Chest very tight = 5: 2 No breathless w/exertion = 0, Very breathless w/exertion = 5: 3 No limitations w/activity = 0, Very limited w/activity = 5: 2 Confident leaving home = 0, Not at all confident = 5: 2 Sleep soundly = 0, Don't sleep soundly = 5: 3 Lots of energy = 0, No energy at all = 5: 2 Total CAT score:: 19 Self-Efficacy 60-Day Re-eval Assessment We would like to know how confident you are in doing certain activities. Please select your confidence level for:: Select your confidence level for the following using the scale 1-10 where 1 is not at all confident and 10 is totally confident. Your score is the average of all 6 responses. Fatigue: How confident are you that you can keep the fatigue caused by your disease from interfering with the things you want to do? Select Number: 9 Physical Discomfort or Pain: How confident are you that you can keep the physical discomfort or pain of your disease from interfering with the things you want to do? Select Number: 8 Emotional Distress: How confident are you that you can keep the emotional distress caused by your disease from interfering with the things you want to do? Select Number: 9 Other Symptoms or Health Problems: How confident are you that you can keep other symptoms or health problems from interfering with the things you want to do? Select Number: 8 Different Tasks and Activities: How confident are you that you can do the different tasks and activities needed to manage your health condition so as to reduce your need to see a doctor? Select Number: 8 Medication: How confident are you that you can do things other than just taking medication to reduce how much your illness affects your everyday life? Select Number: 7 Total Score:: 8 02/02/18 1148 <Electronically signed by Ramiro Aguilar CRT, RCP, BS> Date Ramiro Aguilar CRT, RCP, BS Outcome assessment reviewed. Exercise plan approved as documented. Treatment plan and goals support patient needs/abilities. Continue with current plan. I certify the patient demonstrates improvement and remains willing and capable of participation. the patient continues to benefit from pulmonary services/training. The patient may continue at current intensity, endurance and modality and progress per protocol. 02/12/18 184<Electronically signed by Quincy Gil MD> Cosigner Signature: Date Quincy Gil MD CC: Signed CR WRIST COMPLETE 3 Observed: 02/06/2018 Status: F Source: [employer] LEFT 10:38 AM SYSTEM REPOSITORY Patient Name: MATTHEW BUTLER Diagnostic Radiology Exam Date/Time 02/06/2018 09:29:27 EDT Exam CR Wrist Complete 3 Views Left Ordering Physician ROSITA ENAMORADO, ALEE Mcneill Accession Number [id number] CPT4 Codes 95990 () Reason For Exam PAIN Report CLINICAL INFORMATION: Chronic left wrist pain. Prior surgery. Left wrist, three views: PA, oblique and lateral views obtained with the patient in a plaster splint which obscures some bone detail are compared to the examination of 01/04/2018. Since the prior examination, the patient is undergone resection of the proximal carpal row including the entire scaphoid. There are dorsal medial and dorsal lateral orthopedic plates with multiple transfixing screws related to the distal radius. There is proximal migration of the distal carpal row with the capitate nearly abutting the articular surface of the radius. There is no evidence of acute fracture or dislocation. The remaining carpal bones are in anatomic alignment. There is periarticular osteopenia most likely related to postsurgical hyperemia and/or relative disuse. A remote nonunited fracture of the ulnar styloid is redemonstrated. IMPRESSION: 1. Postsurgical changes as detailed. 2. Periarticular osteopenia most likely related to postsurgical hyperemia and/or relative disuse. 3. No evidence of other significant radiographic abnormality. Report Dictated on Workstation: [employer] Final Dictated: 02/06/2018 10:38 am Dictating Physician: MD BENAVIDES HARLAN Signed Date and Time: 02/06/2018 10:44 am Signed by: MD BENAVIDES HARLAN Transcribed Date and Time: 02/06/2018 10:38 [place] - INDIVIDUAL Observed: 01/30/2018 Status: F Source: DRU TREATMENT PLAN 1:30 PM [facility] [place] REPOSITORY [facility] Pulmonary Rehab Reports [address] [place] [address] [place] - Individual Treatment Plan MR#: [id number] Acct: [id number] Name: MATTHEW BUTLER Rep #: [id number] : 1960 57 From: Ramiro Aguilar MOTOR GENERATOR SET OPERATOR, STERNMAN, BS PCP: Jacques Gonzalez DO Exercise - 30-Day Assessment - Exercise Prescription Mode:: Treadmill, Rower, Airdyne, NuStep, Arm Ergometer Frequency (x/week): 3 Duration:: 30 Aerobic Exercise [30-60 min 3-7x/week]:: Progressing Target heart rate: 113-121 Max HR 114 Pamela-12 MET Level:: 3.5 - Home Exercise Home Exercise:: Yes Frequency:: daily Disease Management - 30-Day - Hypoxemia Reassessment: Demonstrates knowledge of O2 Rx at rest, Demonstrates knowledge of O2 Rx with exercise, Using O2 as prescribed, Has home O2 as prescribed, Uses port O2 as prescribed - Medications Medication list reviewed:: Yes Taking medications 100% of the time:: Met Medication reassessment: Yes Pt demonstrates correct technique timing for MDI, Yes Pt demonstrates correct technique timing for DPI, Yes Pt demonstrates correct technique timing for NEB, Yes Pt demonstrates correct technique timing for spacer - uses MDI /spacer correctly - Bronchial Hygiene Bronchial Hygiene Plan: Yes Pt demonstrates correctly for effective cough - improved techniques, Yes Pt demo correct for device - returned use of PEP therapy device, Yes Pt demo correct for hand hygiene, Yes Pt demo correct for verbalize when to call MD - verbalizes sign symptoms of exacerbation Psychosocial - 30-Day - Assessment Reassessment: Management of stress AND depression, Practicing interventions, Demonstrate coping strategies, COPD assessment w/ CAT, Geriatric depression screening, Self efficacy score Tobacco - 30-Day Assessment - Program Goals Tobacco Program Goals: Complete smoking cessation. Attend education classes. Improve Knowledge Test score - Stage of Change Stages of Change:: Action - Learning Barriers Learning Barriers: Participates in education - Family Support Do you have family support?: Yes - Tobacco Use Tobacco Use: Non-smoker Do you use smokeless tobacco?: No - Intervention Education Schedule Given:: Yes - Education Gave Education Materials For:: Pulmonary Disease, Risk Factors, Breathing Techniques, Medical Compliance, Pulmonary A AND P, Exacerbation Signs AND Symptoms, Stress AND Relaxation Nutrition/Wt Mgmt - 30-Day - Weight Management Weight Assessment:: Wt loss 1-2 lbs per week Weight:: 155 lb - down 4 pounds Weight Goals Progress:: Progressing Patient Health Questionnaire 30-Day Re-eval Assessment 1. Little interest or pleasure in doing things: Not at all 2. Feeling down, depressed, or hopeless: Not at all 3. Trouble falling or staying asleep, or sleeping too much: Not at all 4. Feeling tired or having little energy: Not at all 5. Poor appetite or overeating: Not at all 6. Feeling bad about yourself -- or that you are a failure or have let yourself or your family down: Not at all 7. Trouble concentrating on things, such as reading the newspaper or watching television: Not at all 8. Moving or speaking so slowly that other people could have noticed. Or the opposite - being so fidgety or restless that you have been moving around a lot more than usual: Not at all 9. Thoughts that you would be better off , or of hurting yourself in some way: Not at all How difficult have these problems made it for you to do your work, take care of things at home, or get along with other people?: Not difficult at all Total Score: 0 COPD Assessment Test [CAT] - Questions Never cough = 0, Cough all the time = 5: 2 No phlegm = 0, Chest full of phlegm = 5: 1 No chest tightness = 0, Chest very tight = 5: 0 No breathless w/exertion = 0, Very breathless w/exertion = 5: 2 No limitations w/activity = 0, Very limited w/activity = 5: 2 Confident leaving home = 0, Not at all confident = 5: 1 Sleep soundly = 0, Don't sleep soundly = 5: 2 Lots of energy = 0, No energy at all = 5: 1 Total CAT score:: 11 Self-Efficacy 30-Day Re-eval Assessment We would like to know how confident you are in doing certain activities. Please select your confidence level for:: Select your confidence level for the following using the scale 1-10 where 1 is not at all confident and 10 is totally confident. Your score is the average of all 6 responses. Fatigue: How confident are you that you can keep the fatigue caused by your disease from interfering with the things you want to do? Select Number: 9 Physical Discomfort or Pain: How confident are you that you can keep the physical discomfort or pain of your disease from interfering with the things you want to do? Select Number: 9 Emotional Distress: How confident are you that you can keep the emotional distress caused by your disease from interfering with the things you want to do? Select Number: 8 Other Symptoms or Health Problems: How confident are you that you can keep other symptoms or health problems from interfering with the things you want to do? Select Number: 9 Different Tasks and Activities: How confident are you that you can do the different tasks and activities needed to manage your health condition so as to reduce your need to see a doctor? Select Number: 10 Medication: How confident are you that you can do things other than just taking medication to reduce how much your illness affects your everyday life? Select Number: 10 Total Score:: 9 01/02/18 1202 <Electronically signed by Ramiro Aguilar CRT, RCP, BS> Date Ramiro Aguilar CRT, RCP, BS Outcome assessment reviewed. Exercise plan approved as documented. Treatment plan and goals support patient needs/abilities. Continue with current plan. I certify the patient demonstrates improvement and remains willing and capable of participation. the patient continues to benefit from pulmonary services/training. The patient may continue at current intensity, endurance and modality and progress per protocol. 01/30/18 7280<Electronically signed by Oscar Rios MD> Cosigner Signature: Date Oscar Rios MD CC: Signed HEMOGRAM Collected: 01/16/2018 Status: F Source: [place] [facility] 11:58 AM SYSTEM REPOSITORY TYPE CODE TESTS RESULT OUT OF RANGE REFERENCE UNITS LAB IWBC 3.6-10.7 10*3/uL WBC Normal 9.8 LAB RBC 3.80-5.20 10*6/uL RBC Normal 4.43 LAB HGB 11.7-16.0 g/dL Normal Hemoglobin 13.7 LAB HCT 35.0-47.0 % Normal Hematocrit 39.5 LAB MCV 79.0-98.0 fL MCV Normal 89.4 LAB MCH 26.0-34.0 pg MCH Normal 31.0 LAB MCHC 32.0-36.0 % MCHC Normal 34.7 LAB RDW 11.5-14.5 % RDW Normal 13.2 LAB PLT 140-440 10*3/uL Platelet Normal 302 LAB MPV 7.4-10.4 fL MPV Normal 8.1 Performed By: #### HEMOG, CMP3 #### [employer] [facility] [address] [place] [address] COMP METABOLIC PANEL Collected: 01/16/2018 Status: F Source: [place] [facility] 11:58 AM SYSTEM REPOSITORY TYPE CODE TESTS RESULT OUT OF RANGE REFERENCE UNITS LAB NA3 137-145 mmol/L Low Sodium 134 LAB K3 3.5-5.1 mmol/L Normal Potassium 3.7 LAB CL3 98-107 mmol/L Chloride Normal 99 LAB CO23 22-30 mmol/L Carbon Normal Dioxide 27 LAB ANIN3 NA Anion Gap 9 LAB GLUC3 70-100 mg/dL Glucose Normal 88 LAB BUN3 7-20 mg/dL Urea Normal Nitrogen 14 LAB CRET3 0.52-1.25 mg/dL Normal Creatinine 0.65 LAB GF3BR >60 mL/min eGFR > 60.0 LAB GF3WR >60 mL/min eGFR OTHER > 60.0 Result Comment: Source- MDRD equation with creatinine calibration to IDMS(NKDEP) eGFR not recommended for drug dose adjustment LAB CA3 8.4-10.4 mg/dL Calcium Normal 9.6 LAB ALB3 3.5-5.0 g/dL Albumin, Serum Normal 4.4 LAB TP3 6.3-8.2 g/dL Total Protein Normal 6.6 LAB BILT3 0.2-1.3 mg/dL Normal Bilirubin,Total 0.4 LAB ALKP3 38-126 U/L Alkaline Normal Phosphatase 65 LAB ALT3 13-69 U/L ALT (SGPT) Normal 46 LAB AST3 15-46 U/L AST (SGOT) Normal 24 Performed By: #### HEMOG, CMP3 #### [facility] [address] [place] [address] CR WRIST COMPLETE 3 Observed: 01/04/2018 Status: F Source: [place] [facility] VIEWS LEFT 8:37 AM SYSTEM REPOSITORY Patient Name: MATTHEW BUTLER Diagnostic Radiology Exam Date/Time 01/04/2018 08:35:00 EDT Exam CR Wrist Complete 3 Views Left Ordering Physician MD MARGARITO, JUSTIN Chappell Accession Number [id number] CPT4 Codes 16907 () Reason For Exam left wrist pain Report Clinical indications: Left wrist pain FINDINGS: Three views are submitted. There are no prior studies for comparison. Bone mineralization is osteopenic. No acute fracture or dislocation is identified. There is evidence of either a remote ulnar styloid fracture or congenital lack of fusion of the ossification center with the distal ulna. There is also a adjacent bony mony along the ulnar margin which could represent evidence of a remote avulsion fracture. The radiocarpal articulation is significantly narrowed. There is no bony sclerosis or osteophyte formation. Intercarpal relationships are generally well preserved. Except as noted above, joint spaces and surfaces appear intact. IMPRESSION: There is some minimal narrowing of the radiocarpal articulation which could represent underlying osteoarthritis. No acute bony abnormality is observed. Osteopenia. Report Dictated on Final Dictating Physician: MD LOPEZ RUSSELL Signed Date and Time: 01/04/2018 8:41 am Signed by: MD LOPEZ RUSSELL Transcribed Date and Time: 01/04/2018 9:12 NE - HISTORY AND Observed: 11/13/2017 Status: F Source: [place] PH[facility] 6:47 PM [facility] [place] REPOSITORY [facility] Pulmonary Rehab Reports [address] [place] [address] NE - History AND Physical MR#: [id number] Acct: [id number] Name: MATTHEW BUTLER Rep #: [id number] : 1960 57 From: Ramiro Aguilar MOTOR GENERATOR SET OPERATOR, STERNMAN, BS PCP: Jacques Gonzalez DO History of Present Illness Arrival date:: 11/13/17 Arrival time:: 12:57 Date of Referral:: 10/03/17 Date of Evaluation: 11/13/17 Referring Physician: DR. JUSTIN ACOSTA Primary Diagnosis: COPD GOLD III: severe History of Present Illness: The patient is a 57 yr old female patient who presents to pulmonary rehab today under the care of Dr. Justin Acosta. The patinet is currently on a stable inhaler regimen including symbicort, spireva, and an as needed albuterol inhaler. mMRC Breathless Scale: When is the patient short of breath? Y/N Grade: Description of Breathlessness: Respiratory Problems: Yes: Fatigue, Wheezing, Able to Speak in Full Sentences, Dyspnea with Activity, Dyspnea Lying Down Flat No: Retain Secretions, Limited Range of Motion, Chest Pain, Dizziness, Ankle Swelling, Hoarseness, Anxiety, Dyspnea at Rest, Cough with Secretions Home Medications: Home Medications Aspirin [Aspirin, Baby] 81 mg PO DAILY@0800 05/01/14 Hydrochlorothiazide [Hctz] 25 mg PO DAILY 05/01/14 Lisinopril [Zestril] 30 mg PO DAILY 05/01/14 Loratadine [Claritin] 10 mg PO DAILY 05/01/14 Albuterol Inhaler [Ventolin Hfa] 1 - 2 puff INHALATION Q4H PRN PRN #1 inhaler 05/02/14 Albuterol Aerosols [Ventolin Aerosols] 2.5 mg INHALATION Q6HWA.RT 07/02/16 Budesonide/Formoterol 160/4.5 [Symbicort 160/4.5 Mcg Inhaler (SP)] 2 puff INHALATION BID 07/02/16 Dicyclomine HCl 20 mg PO TID 12/27/16 Montelukast Sodium [Singulair] 10 mg PO DAILY 12/27/16 Cholecalciferol (Vitamin D3) [Vitamin D3] 2,000 unit PO DAILY 06/19/17 Fluoxetine [Prozac] 20 mg PO QHS 06/19/17 Omeprazole [Prilosec] 20 mg PO DAILY 06/19/17 ALPRAZolam [Xanax] 0.25 mg PO TID PRN PRN #20 tab 06/22/17 potassium chloride PO QDAY 08/16/17 tiotropium bromide 2.5 mcg/actuation mist for inhalation 2 puff INHALATION QDAY #1 ea 08/16/17 Handicap Placcard #1 [id number] 10/03/17 Allergies/Adverse Reactions: Allergies Barbiturates Adverse Reaction (Verified 10/25/17 20:16) Other - spine contracts seizure - Secretions Cough:: No Hx of Sleep Apnea: Yes Do you snore loudly (louder than talking or can be heard through closed doors)?: Yes - Patient is compliant with nocturnal CPAP therapy. Do you often feel tired/ fatigued/ sleepy during daytime?: Yes Has anyone observed you stop breathing during sleep?: No History of Hypertension (for STOP score): Yes STOP Results: Positive Medical Utilization Do you use a peak flow meter at home?: No Do you use a spacer device with your inhalers?: Yes Number of hospital visits in the last year?: 2 - related to COPD hypoxia/respiratory failure Number of emergency room visits in the last year?: 4 - in the last year Do you see your physician on a regular schedule?: Yes How often?: Dr Acosta 6 mo; PCP 3-6 mo Advanced Directives - Advanced Directives Power of Pattern Marking Supervisor: No Living Will: No Advance Directives Information Provided: Yes Advance Directives on File: No DNR Order?:: No - MOLST See MOLST form: No Past Medical History Medical History: Past Medical History (Last Reviewed 10/03/17 @ 07:39 by Jackie Lynne) Acute respiratory failure with hypoxia (Acute) J96.01 Asthma exacerbation (Acute) J45.901 Acute respiratory failure (Acute) J96.00 Requires 2 L/min on exertion Asthma (Acute) J45.909 Hypokalemia (Acute) E87.6 Chest pain (Acute) R07.9 Hypertension (Chronic) I10 Surgical History: Past Surgical History (Last Reviewed 10/03/17 @ 07:39 by Jackie Lynne) History of section (Resolved) Z98.891 History of cholecystectomy (Resolved) Z90.49 Family History: Family History (Last Reviewed 10/03/17 @ 07:39 by Jackie Lynne) Father Diabetes Heart disease Sister Breast cancer - Current/ Previous Services Pulmonary Rehab:: No Social History - Smoking History Smoking Status: Former smoker Years Smokin Packs Smoked per Day: 1 Hx Smoking Cessation Date: 2016 Hx Tobacco Use: Yes Hx Smoking Exposure: Yes - smokes - Alcohol Use Alcohol Usage: No - Substance Abuse Hx Substance Use: No - Occupation Occupation (List type of work in comments):: Employed Hours worked per day:: 8 - 40-48 hours - Hobbies, Recreation, Social Activities Hobbies: Sewing, Exercise - bicycle riding trails of [place] but with slinted left wrist that is on hold., Other - crafts, grandchildren activities, cooking, Recreational Activities: I am able to engage in all my recreational activities Functioning ADL/IADL - Current Ability Current Ability: Independent Self-Care (e.g.,grooming, dressing, AND bathing), Independent Ambulation, Independent Transfer, Independent Household tasks (e.g., light meal prep, laundry, shopping) - Pt Functioning Prior to Problem Prior Functioning: Self-Care (e.g.,grooming, dressing, AND bathing): Independent, Ambulation: Independent, Transfer: Independent, Household tasks (e.g., light meal prep, laundry, shopping): Independent Social Environment - Status Marital Status: - Current Living Arrangements Living Environment:: Family, Spouse - Children How many children do you have?: 3 Do any of your children live nearby?: Yes - Dru, [place], one out of state - Safety Do you feel safe in your surroundings?: Yes - Assistance Do you need any assistance at home?: none Review of Systems Review of Systems: Right click = Denies ([place]). Left click = Reports ([place]) Respiratory: Reports: SOB upon Exertion, Wheezing - few mild upper lobe wheezes, Appetite, Normal - gained some weight since quit smoking., Dizziness/Lightheadedness, Fatigue - all the time. Denies: Cough, Sputum production, Sexual changes Is Patient Pain Free?: Yes Pain Location: none Risk Factor Assessment - Chief Complaint Chief Complaint: Patient is a 57 year old female of Dr. Justin Acosta who presents to pulmonary rehab today for her COPD and enrollment in the pulmonary rehab program. - Vital Signs Temperature: 98.7 F Pulse Rate: 76 Pulse Rhythm: Regular Respiratory Rate: 16 Blood Pressure: 122/80 Nailbeds:: pink - Diabetes Nutrition Referral for Diabetes: No - Obesity Height: 5 ft Weight:: 154 lb Weight in Pounds: 154.0 lbs Weight Source: Standing Scale Body Mass Index (BMI): 30.0 Nutritional Referral for Obesity: Yes - Patient could benefit from a strucutred weight loss program - Physical Activity Physical Inactivity: None - Risk Stratification Risk Guidelines: Lowest Risk: Risk Factor for Smoking, Risk Factor for Dyslipidemia, Risk Factor for Diabetes, Risk Factor for Hypertension, Risk Factor for Sedentary Lifestyle, Risk Factor for Depression, Highest Risk: Risk Factor for Obesity - For Smoking Smoking Risk Guidelines: Smoking Low Risk: None or quit greater than 6 months ago. Smoking Moderate Risk: Smoker or quit 6 months or less ago. Smoking High Risk: Smoker - For Dyslipidemia Dyslipidemia Risk Guidelines: Low Risk: Moderate Risk: High Risk: 15-25% fat 25.1-29% fat >/= 30% fat. <7% sat fat 7-9% sat fat >9% sat fat. <150 mg chol 150-299 mg chol >/= 300 mg chol. LDL <100 LDL 100-129 LDL >/= 130. Chol/HDL ratio <5.0 Chol/HDL ratio 5.0-6.0 Chol/HDL ratio >6.0. Triglycerides <100 Triglycerides 100-149 Triglycerides >/= 150 - For Diabetes Mellitus Diabetes Risk Guidelines: Diabetes Low Risk: HgA1c <6.5% and/or FBG <120. Diabetes Moderate Risk: HgA1c 6.6-7.9% and/or FBG 120- 180. Diabetes High Risk: HgA1c >/= 8% and/or FBG >180 - For Obesity/Overweight Obesity/Overweight Risk Guidelines: Obesity Low Risk: BMI <25.0. Obesity Moderate Risk: BMI 25-29.9. Obesity High Risk: BMI >/= 30.0 - For Hypertension Hypertension Risk Guidelines: Hypertension Low Risk: Systolic <120 and Diastolic <80. Hypertension Moderate Risk: Systolic 120-139 and Diastolic 80-89. Hypertension High Risk: Systolic >/= 140 and Diastolic >/= 90 - For Sedentary Lifestyle Sedentary Lifestyle Risk Guidelines: Sedentary Lifestyle Low Risk: >/= 1,500 kcal/week. Sedentary Lifestyle Moderate Risk: 700-1,499 kcal/week. Sedentary Lifestyle High Risk: < 700 kcal/week - For Depression Depression Risk Guidelines: Depression Low Risk: Not clinically depressed. Depression Moderate Risk: Mildly depressed. Depression High Risk: Clinically depressed Motivation - Motivation to Participate On a scale of 1 to 10, how prepared are you to commit to attending program?: 10 - What do you see as barriers to successfully being able to complete the program?: work What do you see as the benefits of succesfully completing the program? In other words, what do you hope to get out of participating in the program?: learn exercise, safety exercise, breathing properly, increased activity exe Are there issues you are dealing with that will interfere with completing the program?: none Do you have a spouse or signficant other, family or friends who will help support you to complete the program?: yes Diagnostic Data Review - 6 Minute Walk Test 6 Minute Walk Test: 950ft 6 min with Spo2 84% room air. - Pulmonary Function Test FEV1:: 0.85 FVC:: 2.24 FEV1/FVC%:: 38 Gold Classification: GOLD class III(severe COPD)with FEV1/FVC<70, 30%</=FEV1< 50% predicted 11/13/17 1331 <Electronically signed by Ramiro Aguilar CRT, RCP, BS> Date Ramiro Aguilar CRT, RCP, BS Outcome assessment reviewed. Exercise plan approved as documented. Treatment plan and goals support patient needs/abilities. Continue with current plan. I certify the patient demonstrates improvement and remains willing and capable of participation. the patient continues to benefit from pulmonary services/training. The patient may continue at current intensity, endurance and modality and progress per protocol. 11/13/17 7007<Electronically signed by Quincy Gil MD> Cosigner Signature: Date Quincy Gil MD CC: Signed [place] - INDIVIDUAL Observed: 11/13/2017 Status: F Source: [place] TREATMENT PLAN 6:47 PM [facility] [place] REPOSITORY [facility] Pulmonary Rehab Reports [address] [place] [address] NE - Individual Treatment Plan MR#: [id number] Acct: [id number] Name: MATTHEW BUTLER Rep #: [id number] : 1960 57 From: Ramiro Aguilar MOTOR GENERATOR SET OPERATOR, STERNMAN, BS PCP: Jacques Gonzalez DO General Information - General Information Admitting Diagnosis: COPD, BEHZAD Gold Classification:: GOLD 3: Severe Oxygen: 2 liters with exertion/activity - PFT FEV1:: 0.85 FVC:: 2.24 FEV1/FVC%:: 38 - Education/Goals Barriers to Learning: Vision Impairment Individual Counseling: Initial Assessment: Dyspnea control techniques at rest, activity, and ADLs, Exacerbation prevention AND management, O2, Rx, system, safety, ADL management and pacing, Nutrition AND weight management Patient Goals: Breathe better: Initial Assessment, Increase endurance/stamina: Initial Assessment, Return to recreation/hobby: Initial Assessment, Improve diet and nutrition: Initial Assessment, Improve weight: Initial Assessment Exercise - Initial Assessment - Visit Date of Eval: 11/13/17 - Established ITP today; patient is not starting NE until 12/04/2017 due to prescheduled vacation w/family. - Problem/Goals Problems: No regular exercise Goals:: Aerobic exercise 30-60 mins x 9 weeks, Resistance: 2-3x/weekly - Exercise Prescription Mode:: Treadmill, Airdyne, NuStep Frequency (x/week): 3 Duration:: 30 MET LEVEL:: 2.5 HR (bpm):: 121 - 113-121 THRR Exercise Progression: as tolerated per program protocol 0.5METs - Plan Plan and Plan to Review:: Benefits of exercise, Core components of exercise, How to measure dyspnea level, How to monitor dyspnea level, Exercise intensity, Exercise safety guideline, Home exercise guidelines, Pamela: 3-4/11-13 Disease Management - Initial - Problems/Goals-Hypoxemia Hypoxemia Problems:: Hypoxemia, Poor knowledge of O2 use/safety Hypoxemia Goals:: Hypoxemia managed, Using O2 as Rx's safely - Problems/Goals-Medications Medication Goals: Adherence to prescribed medications - Problems/Goals-Bronchial Hygiene Bronchial Hygiene Goals:: Pt demonstrates effective cough, effective secretion clearance., Pt describes signs and symptoms of infection. - Initial Assessment SpO2:: 94 - on room air at rest FiO2:: 21 Does pt report taking home meds as prescribed?: Yes Medications: Yes MDI, Yes DPI, Yes Spacer Patient Reports:: No cough - Plans Hypoxemia Plan:: Monitor SpO2 rest AND with exercise, Train appropriate O2 use at rest, Train appropriate O2 use with exercise, Train O2 safety AND systems Reviewed prescribed medications:: Purpose, Schedule, Side effects, Importance of compliance Instruct correct technique/timing AND care:: MDI, Return demo use of inhaler Bronchial Hygiene Plan: Controlled cough, Vibratory PEP device, Hydration, When to call MD, Signs/symptoms to report: Psychosocial - Initial Assess - Problems/Goals Problems: Impaired Q.O.L. Psychosocial Goals: Improved Q.O.L. - Psychosocial Test Depression:: Impaired QOL Referred to MD for counseling:: No - Plan Reviewed screening results: Yes Instructions given regarding:: Benefits of exercise, Relaxation techniques, Training in coping strategies Stress management: On meds currently - patient takes Xanax 0.5mg as preventative med for anxiety episodes. Tobacco - Initial Assessment - Program Goals Tobacco Program Goals: Complete smoking cessation. Attend education classes. Improve Knowledge Test score - Stage of Change Stages of Change:: Action - Learning Barriers Learning Barriers: Vision, Ready to Learn - Family Support Do you have family support?: Yes - Tobacco Use Tobacco Use: Non-smoker Do you use smokeless tobacco?: No - Intervention Smoking Cessation Referral:: No Individual Education/Counseling:: No Education Schedule Given:: Yes - Education Gave Education Materials For:: Pulmonary Disease, Risk Factors, Breathing Techniques, Medical Compliance, Pulmonary A AND P, Exacerbation Signs AND Symptoms, Stress AND Relaxation Nutrition/Wt Mgmt - Initial - Problems/Goals Problems: Overweight - Weight Management Knowledge Deficit Management of:: Overweight Admit Height:: 5 ft Admit Weight:: 154 lb Admit BMI:: 30.0 - Diabetes Diabetes:: No Insulin: No Do you monitor your blood sugar at home?: No - Intervention Referral to dietitian:: Yes - Patient could benefit from structured weight loss program. Referral to Diabetic Clinic:: No Will attend diet classes:: Yes - Plan Nutrition Plan: Yes Weight control education class:, Yes Education re: Need for ongoing weight monitoring Patient Health Questionnaire Initial Assessment 1. Little interest or pleasure in doing things: Not at all 2. Feeling down, depressed, or hopeless: Several days 3. Trouble falling or staying asleep, or sleeping too much: Nearly every day 4. Feeling tired or having little energy: Nearly every day 5. Poor appetite or overeating: Nearly every day 6. Feeling bad about yourself -- or that you are a failure or have let yourself or your family down: Not at all 7. Trouble concentrating on things, such as reading the newspaper or watching television: Not at all 8. Moving or speaking so slowly that other people could have noticed. Or the opposite - being so fidgety or restless that you have been moving around a lot more than usual: Not at all 9. Thoughts that you would be better off , or of hurting yourself in some way: Not at all How difficult have these problems made it for you to do your work, take care of things at home, or get along with other people?: Somewhat difficult Total Score: 10 COPD Knowledge Test Initial COPD is a lung disease that:: Makes it hard to breathe AND gets worse over time In the [place] the term COPD describes 2 main lung conditions:: Emphysema AND chronic bronchitis The most common lung irritant that causes COPD is:: Cigarette smoke Common signs and symptoms of COPD include:: A racing heartbeat If you have COPD, what steps can you take?: All of the above Swelling of the ankles is common in COPD:: False Fatigue [tiredness] is common in COPD:: True Wheezing is common in COPD:: True Crushing chest pain is common in COPD:: False Rapid weight loss is common in COPD:: False Breathlessness is a normal response to exercise: False Exercise should be avoided if it makes you short of breath: False All bronchodilators act within 10 minutes: False A spacer device increases the medication to the lungs: True Annual flu vaccine is recommended for pts w/lung disease: True COPD Knowledge Test Total Score:: 13 COPD Assessment Test [CAT] - Questions Never cough = 0, Cough all the time = 5: 1 No phlegm = 0, Chest full of phlegm = 5: 0 No chest tightness = 0, Chest very tight = 5: 0 No breathless w/exertion = 0, Very breathless w/exertion = 5: 5 No limitations w/activity = 0, Very limited w/activity = 5: 2 Confident leaving home = 0, Not at all confident = 5: 0 Sleep soundly = 0, Don't sleep soundly = 5: 5 Lots of energy = 0, No energy at all = 5: 4 Total CAT score:: 17 Self-Efficacy Initial Assessment We would like to know how confident you are in doing certain activities. Please select your confidence level for:: Select your confidence level for the following using the scale 1-10 where 1 is not at all confident and 10 is totally confident. Your score is the average of all 6 responses. Fatigue: How confident are you that you can keep the fatigue caused by your disease from interfering with the things you want to do? Select Number: 4 Physical Discomfort or Pain: How confident are you that you can keep the physical discomfort or pain of your disease from interfering with the things you want to do? Select Number: 4 Emotional Distress: How confident are you that you can keep the emotional distress caused by your disease from interfering with the things you want to do? Select Number: 4 Other Symptoms or Health Problems: How confident are you that you can keep other symptoms or health problems from interfering with the things you want to do? Select Number: 4 Different Tasks and Activities: How confident are you that you can do the different tasks and activities needed to manage your health condition so as to reduce your need to see a doctor? Select Number: 3 Medication: How confident are you that you can do things other than just taking medication to reduce how much your illness affects your everyday life? Select Number: 7 Total Score:: 4 Nutrition Survey - Nutrition Survey Instructions Scoring Instructions: Scoring is as follows: Yes = 1 points. No = 0 point. Patient score that is >/=12 is considered to be at potential nutritional risk and could benefit from a referral to a registered dietitian. - Nutrition Survey Initial Have you lost >10 lbs over the past 2 months without trying?: No Are you following a special diet at home for diabetes, low fat, or low salt?: No Are you interested in meeting with a dietitian for help understanding your diet?: No Do you eat less than 3 meals a day?: Yes Do you eat fatty meats (jerry, sausage, ribs, etc), fried foods, desserts, large amounts of salad dressings, margarine, butter, or cheese most days?: Yes Do you have food allergies? [Enter types in comment field]: No Do you eat in restaurants more than 3 times a week?: No Do you season food with salt, seasoning salt, or garlic salt?: Yes Do you used canned, boxed, frozen meals, or soups, seasoning packets?: No Total Score:: 3 11/13/17 1412 <Electronically signed by Ramiro Aguilar CRT, RCP, SAM> Date Ramiro Aguilar CRT, RCP, SAM Outcome assessment reviewed. Exercise plan approved as documented. Treatment plan and goals support patient needs/abilities. Continue with current plan. I certify the patient demonstrates improvement and remains willing and capable of participation. the patient continues to benefit from pulmonary services/training. The patient may continue at current intensity, endurance and modality and progress per protocol. 11/13/17 0467<Electronically signed by Quincy Gil MD> Cosigner Signature: Date Quincy Gil MD CC: Signed EMERGENCY DEPARTMENT Observed: 10/26/2017 Status: F Source: [place] SUMMARY 10:32 AM [facility] [place] REPOSITORY [facility] Medical Records Department [address] [facility] [place] [address] Emergency Department Summary 10/25/17 2256 MR#: [id number] Acct: [id number] Name: MATTHEW BUTLER Rep #: [id number] : 1960 57 From: Quita Braswell MD PCP: Jacques Gonzalez DO Status: DEP ER - ER Visit Summary Date of Service: 10/25/17 Chief Complaint: Fall History of Present Illness: The patient is a 57 F who was standing on a small stool reaching over her kitchen sink when she lost her balance and fell, injuring her left ankle and left wrist. Patient denies head injury. She is right-hand dominant. She is not on anticoagulants. Physical Examination: Vital signs are unremarkable. Patient sitting upright in bed no acute distress. Head neck examination was no external sign of trauma. No C-spine tenderness. Heart is regular rate and rhythm. Lung sounds are clear. Abdomen is soft and nontender. Left upper extremity examination reveals mild tenderness diffusely throughout the left wrist. She has increased pain with wrist extension. She is normal cap refill and sensation. There is no tenderness at the elbow or shoulder. Left lower extremity examination reveals mild edema and ecchymosis of the lateral malleolus. There is no tenderness of the proximal fibula. She has strong pulses and normal sensation. She has good range of motion. Test Results: Left ankle x-rays reveal mild left lateral malleolus sprain. Left wrist reveals no acute fracture or subluxation. There is widening of the scapholunate joint which possibly represents ligamentous injury. Emergency Department Course and Treatment: Test results were discussed with the patient. Left wrist is placed in a Ortho-Glass AP splint. She will follow with orthopedics. Left ankle is placed in an Aircast. Treatment Plan: [] Disposition: Discharge Impression: 1. Mechanical fall 2. Left ankle sprain 3. Left wrist sprain This note was generated with ecomom dictation software. It may contain incorrect words, spelling, and punctuation that were not noted in review of the chart prior to signing ED Disposition - Plan for ED Patient: Disposition: Home or Assisted Living Chief Complaint: Fall Instructions: ED Sprain Ankle W X Ray, ED Mechanical Fall, ED Sprain Wrist Referrals: Jacques Staton DO [Primary Care Provider] - Oneal Kan DO [STAFF PHYSICIAN] - 5-7 Days Additional Instructions: Your wrist xray showed mild widening between 2 bones in your wrist. This could indicate a ligament injury. Follow-up with orthopedics as discussed. What to do if you have Problems For any increased pain, shortness of breath, bleeding, nausea or vomiting, chest pain, or any unexpected problems, contact your Primary Care Provider. Call [facility] ([phone]) or report to the closest Emergency Room. Call 911 if necessary. 10/26/17 1032 <Electronically signed by Quita Braswell MD> Date Quita Braswell MD Cosigner Signature (If Indicated): Date CC: Jacques Gonzalez DO DISCHARGE INSTRUCTION Observed: 10/25/2017 Status: F Source: DRU 11:00 PM [facility] REPOSITORY [facility] Medical Records Department [address] [place] [address] Discharge Instruction 10/25/17 2257 MR#: [id number] Acct: [id number] Name: MATTHEW BUTLER Rep #: [id number] : 1960 57 From: Quita Braswell MD PCP: Jacques Gonzalez DO Status: REG ER ED Disposition - Plan for ED Patient: Disposition: Home or Assisted Living Chief Complaint: Fall Instructions: ED Mechanical Fall, ED Sprain Ankle W X Ray, ED Sprain Wrist Referrals: Jacques Staton DO [Primary Care Provider] - Oneal Kan DO [STAFF PHYSICIAN] - 5-7 Days Additional Instructions: Your wrist xray showed mild widening between 2 bones in your wrist. This could indicate a ligament injury. Follow-up with orthopedics as discussed. What to do if you have Problems For any increased pain, shortness of breath, bleeding, nausea or vomiting, chest pain, or any unexpected problems, contact your Primary Care Provider. Call [facility] ([phone]) or report to the closest Emergency Room. Call 911 if necessary. 10/25/17 2300 <Electronically signed by Quita Braswell MD> Date Quita Braswell MD Cosigner Signature (If Indicated): Date CC: Jacques Gonzalez DO ANKLE MIN 3 VIEWS Observed: 10/25/2017 Status: F Source: DRU 9:06 PM [facility] REPOSITORY [facility] Imaging Services [address] [place] [address] Ankle min 3 Views MR#: [id number] Acct: [id number] Name: MATTHEW BUTLER Rep #: [id number] : 1960 F 57 From: Tera Hawk MD PCP: Jacques Gonzalez DO Status: REG ER Study: Ankle min 3 Views Date of Exam: 10/25/17 Exam# [id number] Ordering Dr: Quita Braswell MD STUDY: X-RAY - LEFT ANKLE REASON FOR EXAM: Female, 57 years old. Trauma TECHNIQUE: 3 view(s) of the ankle. COMPARISON: None. FINDINGS: Normal visualized distal tibia and fibula. Normal medial and lateral malleoli. Normal tibiotalar articulation and ankle mortise. Normal visualized talus and calcaneus. The visualized subtalar, talonavicular, calcaneocuboid and tarsal articulations are normal. Mild soft tissue swelling overlying the lateral malleolus RAD/Ankle min 3 Views IMPRESSION: Mild lateral malleolus sprain. No evidence for acute fracture Electronically Signed: Tera Hawk MD at 22:08 EDT , Service support , CC: Quita Braswell MD; Jacques Gonzalez DO Photographer Model: Signed WRIST MIN 3 VIEWS Observed: 10/25/2017 Status: F Source: DRU 9:06 PM [facility] REPOSITORY [facility] Imaging Services [address] [place] [address] Wrist min 3 Views MR#: [id number] Acct: [id number] Name: MATTHEW BUTLER Rep #: [id number] : 1960 F 57 From: Tera Hawk MD PCP: Jacques Gonzalez DO Status: REG ER Study: Wrist min 3 Views Date of Exam: 10/25/17 Exam# [id number] Ordering Dr: Quita Braswell MD STUDY: X-RAY - LEFT WRIST REASON FOR EXAM: Female, 57 years old. Trauma TECHNIQUE: 3 view(s) of the wrist were obtained. COMPARISON: None. FINDINGS: Normal visualized distal radius. There appears to be an old unfused ulnar styloid process fracture. Normal radiocarpal articulation. Normal distal radioulnar articulation. Normal carpal bones. There is widening of the scapholunate joint possibly due to injury to the interosseous ligament. This may be better assessed with MRI if clinically warranted Positive ulnar variance of uncertain clinical significance Normal carpometacarpal articulation of the thumb. Normal second through fifth carpometacarpal articulations. Normal visualized metacarpal bones. The soft tissue structures are unremarkable. RAD/Wrist min 3 Views IMPRESSION: No evidence for acute fracture or subluxation Widening of the scapholunate joint possibly due to ligamentous injury. MRI would be helpful for further evaluation if indicated Electronically Signed: Tera Hawk MD at 22:10 EDT , Service support , CC: Quita Braswell MD; Jacques Gonzalez DO Photographer Model: Signed PROGRESS Observed: 10/04/2017 Status: COMPLETED Source: [place] 6:44 PM [facility] [place] REPOSITORY O ID: [id number] Author: Jacques Staton Service: (none) Author Type: Physician Type: Progress Notes Filed: 10/04/2017 8:13 PM Note Text: CC: Matthew Butler is a 57 year old female who presents to the office for 3 months follow up HPI: Seen in office 3 months ago,at that time: Hospitalized recently for shortness of breath and cough, feeling fatigued. Diagnosed with acute COPD exacerbation, treated with IV solumedrol and Duonebs, sent home with oxygen therapy. Overall she is feeling much better. She is going to be seeing Dr. Acosta/Say upcoming for pulmonary care to help with management and symptoms. Has been using oxygen therapy at night time which helps. She denies current cough or fevers. Spo2 today in office is 98% on RA ? She had CT chest while hospitalized which shows severe COPD changes. She is taking her Symbicort and albuterol and Singulair as well as immunotherapy. ? Still with intermittent hoarseness Currently BEHZAD, having some air leak with nasal pillow, is going to be trying another full face mask per [employer]/sleep specialist, is using oxygen with CPAP as well as humidification at night. COPD, severe, FEV1 49%, is using the Symbicort as well as Spiriva inhalers regularly, is working on getting insurance to approve Pulmonary rehabilitation as well. Is using oxygen as needed Pulmonary nodules, had repeat CT chest, showed that the 2- 3 pulmonary nodules are stable and unchanged. PAST MEDICAL HISTORY Diagnosis Date - Allergic rhinitis due to other allergen - Allergic rhinitis due to other allergen jhonny. August - Mar - Anxiety disorder in conditions classified elsewhere - BILIARY DYSKINESIA 08/06/2007 - COPD (chronic obstructive pulmonary disease) (HCC) - Environmental allergies sees [facility] - Essential hypertension, benign - GERD (gastroesophageal reflux disease) 05/13/14 seen on esophagram - Hiatal hernia 05/13/14 seen on esophagram - Hypoglycemia, unspecified no syncopal events: gets shaky/ dizzy if hasn't eaten - Impaired fasting glucose 07/2015 - Primary localized osteoarthrosis, other specified sites affects knees: degenerative disease confirmed per x-ray 05/1999 - Routine gynecological examination 01/14/2009 (none -- just does mammogram yearly) - Snoring - Spasm of esophagus 05/2014 Dr. Alberto, EGD 2014 - UMBILICAL HERNIA W/O GANGRENE/OBSTRUCTION 08/06/2007 PAST SURGICAL HISTORY Procedure Laterality Date - DELIVERY ONLY 1977 , low cervical - DELIVERY ONLY 1980 , low cervical - COLONOSCOP W/ OR W/O [facility] SPEC 04/16/2014 Colonoscopy-tubular adenoma - EGD W/O OR W/BRUSH/WASH 05/30/14 EGD - ENDOSC BALLOON SINUPLASTY Bilateral 09/29/2015 [facility] office. - LAP CHOLECYSTECT/CHOLANGIOGRAPHY 08/13/07 with supraumbilical ventral hernia repair - LIGATE FALLOPIAN TUBE 08/10 Tubal ligation - PAST SURGICAL HISTORY OF 1970 Repair left arm/wrist fracture - REMOVAL ADENOIDS,PRIMARY,<12 Y/O 1972 Adenoidectomy - REMOVAL OF TONSILS,<12 Y/O 1972 Tonsillectomy - RHINOPLASTY 09/29/15 - TOTAL ABDOM HYSTERECTOMY 08/10 LASHANDA: ovaries remain; for polyps, no cancer - TOTAL ABDOM HYSTERECTOMY 08/30/2015 Current Outpatient Prescriptions: potassium acetate tiotropium bromide (SPIRIVA RESPIMAT) 2.5 mcg/actuation mist Inhale as instructed. SYRINGE WITH NEEDLE, 1 ML (ALLERGY SYRINGE MISC) 2 Doses once each week. dicyclomine (BENTYL) 20 mg tablet TAKE ONE TABLET BY MOUTH THREE TIMES DAILY lisinopril (ZESTRIL,PRINIVIL) 30 mg tablet Take 1 tablet by mouth once daily. montelukast (SINGULAIR) 10 mg tablet Take 10 mg by mouth daily at bedtime. Cholecalciferol, Vitamin D3, (VITAMIN D-3) 2,000 unit cap Take by mouth once daily. FLUoxetine (PROZAC) 20 mg capsule Take 1 capsule by mouth once daily. budesonide-formoterol (SYMBICORT) 160-4.5 mcg/actuation inhaler Inhale 2 Puffs as instructed twice daily. hydroCHLOROthiazide (HYDRODIURIL, ESIDRIX) 25 mg tablet Take 1 tablet by mouth once daily. albuterol HFA (PROAIR HFA) 90 mcg/actuation inhaler Inhale 1-2 Puffs as instructed every 4 hours as needed for Wheezing/Shortness of Breath. Nebulizer NEBULIZER FOR HOME USE. DX: COPD omeprazole (PRILOSEC) 20 mg capsule Take 1 capsule by mouth daily before breakfast. 1/2 hr before meal. loratadine (CLARITIN) 10 mg tablet Take 1 tablet by mouth once daily as needed. FOR ALLERGY SYMPTOMS ASPIRIN 81 MG CHEWABLE TAB Take one(1) tablet daily. nystatin (MYCOSTATIN) 100,000 unit/mL suspension 1tsp swish in mouth for several minutes, then swallow (or expectorate) 4 times daily until gone. ALPRAZolam (XANAX) 0.25 mg tablet Take 1 tablet by mouth as needed. ipratropium-albuterol (COMBIVENT RESPIMAT) 20-100 mcg/actuation mist Inhale 1 Puff as instructed four times daily as needed. ipratropium-albuterol (COMBIVENT RESPIMAT) 20-100 mcg/actuation mist Inhale 1 Puff as instructed four times daily as needed (Shortness of breath, wheezing.). ipratropium-albuterol (DUONEB) 0.5 mg-3 mg(2.5 mg base)/3 mL nebu Inhale 3 mL as instructed every 6 hours as needed. ipratropium-albuterol (DUONEB) 0.5 mg-3 mg(2.5 mg base)/3 mL nebu Inhale 3 mL as instructed every 6 hours as needed. No current facility-administered medications for this visit. ALLERGIES Allergen Reactions - Chantix [Vareniclin* Mental Status Change, Vomiting Temporarily not thinking straight, after cessation of 2 months of Rx. - Barbituates [Other] Unsure exactly what medication was taken, it was one of her mom's meds for bipolar disorder, had a severe reaction involving neck stiffness, sounds consistent with dystonia, mom was on haldol, stelazine, others at the time. Social History Marital status: Spouse name: Jeremy Years of education: GED Number of children: 3 Occupational History Occupation Employer Comment [employer] Social History Main Topics Smoking status: Former Smoker Packs/day: 1.00 Years: 28.00 Types: Cigarettes Start date: 08/23/1974 Quit date: 12/20/2016 Smokeless tobacco: Never Used Comment: 0.5- 0.75 PPD: 08/11/16 TGO Alcohol use: No Drug use: No Sexual activity: Yes Partners with: Male control/protection: Surgical Comment: LASHANDA Other Topics Concern No BLOOD TRANSFUSIONS No CAFFEINE Yes Comment:4-6 cups/day OCCUPATIONAL EXPOSURE No HOBBY HAZARD No SLEEP CONCERN No STRESS CONCERN Yes WEIGHT CONCERN No DIET No BACK CARE No EXERCISE Yes BIKE HELMET No SEAT BELT No SELF EXAMS No Social History 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 Uvula midline. Neck: No LAD, no thyromegaly, no meningismus. CV: RRR, no murmur, normal s1s2 Lungs: diffusely diminished with prolonged exhalation phase, no w/r/r or distress, No edema legs. Normal peripheral pulses Skin: No rashes, lesions, or wounds on exposed skin. ASSESSMENT/PLAN: 1. Essential hypertension, benign - ICD9: 401.1, ICD10: I10 (primary diagnosis) - good control - Continue current medication(s) - Recommended regular aerobic exercise. - Recommend home blood pressure monitoring, to bring results in on next visit - Goal of BP <130/80 2. Thrush - ICD9: 112.0, ICD10: B37.0 - rx prn as below, secondary to inhaled corticosteroid use, no active symptoms - NYSTATIN 100,000 UNIT/ML ORAL SUSPENSION 3. Stage 3 severe COPD by GOLD classification (HCC) - ICD9: 496, ICD10: J44.9 - f/u with [employer], needs to start Pulmonary rehab 4. BEHZAD (obstructive sleep apnea) - ICD9: 327.23, ICD10: G47.33 - f/u with sleep medicine, trying another mask due to air leak currently Jacques Staton DO Return if no improvement. Follow up with Jacques Staton DO. Discussed risks, benefits, alternatives, and potential side effects of medications. Patient/Guardian expressed understanding and agreed with the plan. See patient instructions. Jacques Staton DO [address] [place] [address] CNOV Observed: 10/04/2017 Status: COMPLETED Source: [place] 5:20 PM [facility] REPOSITORY Office Visit (FAMPWS) MATTHEW BUTLER ([id number]) 1960 F NFR Date Time Provider Department 10/04/17 5:20 PM JACQUES STATON FAMPWS During your visit today, we recorded the following information about you: Temperature Pulse Respiration Blood pressure 98.5 degrees 80/minute 20/minute 128/86 Weight 70.3 kg Jacques Staton, 10/04/2017 6:02 PM Signed AYR nasal saline gel at bedtime or during day as needed up nose for dryness Jacques Staton, DO 10/04/2017 8:13 PM Signed CC: Matthew Butler is a 57 year old female who presents to the office for 3 months follow up HPI: Seen in office 3 months ago,at that time: Hospitalized recently for shortness of breath and cough, feeling fatigued. Diagnosed with acute COPD exacerbation, treated with IV solumedrol and Duonebs, sent home with oxygen therapy. Overall she is feeling much better. She is going to be seeing Dr. Acosta/Say upcoming for pulmonary care to help with management and symptoms. Has been using oxygen therapy at night time which helps. She denies current cough or fevers. Spo2 today in office is 98% on RA ? She had CT chest while hospitalized which shows severe COPD changes. She is taking her Symbicort and albuterol and Singulair as well as immunotherapy. ? Still with intermittent hoarseness Currently BEHZAD, having some air leak with nasal pillow, is going to be trying another full face mask per [employer] Developer/sleep specialist, is using oxygen with CPAP as well as humidification at night. COPD, severe, FEV1 49%, is using the Symbicort as well as Spiriva inhalers regularly, is working on getting insurance to approve Pulmonary rehabilitation as well. Is using oxygen as needed Pulmonary nodules, had repeat CT chest, showed that the 2- 3 pulmonary nodules are stable and unchanged. PAST MEDICAL HISTORY Diagnosis Date - Allergic rhinitis due to other allergen - Allergic rhinitis due to other allergen jhonny. August - Mar - Anxiety disorder in conditions classified elsewhere - BILIARY DYSKINESIA 08/06/2007 - COPD (chronic obstructive pulmonary disease) (HCC) - Environmental allergies sees [facility] - Essential hypertension, benign - GERD (gastroesophageal reflux disease) 05/13/14 seen on esophagram - Hiatal hernia 05/13/14 seen on esophagram - Hypoglycemia, unspecified no syncopal events: gets shaky/ dizzy if hasn't eaten - Impaired fasting glucose 07/2015 - Primary localized osteoarthrosis, other specified sites affects knees: degenerative disease confirmed per x-ray 05/1999 - Routine gynecological examination 01/14/2009 (none -- just does mammogram yearly) - Snoring - Spasm of esophagus 05/2014 Dr. Alberto, EGD 2014 - UMBILICAL HERNIA W/O GANGRENE/OBSTRUCTION 08/06/2007 PAST SURGICAL HISTORY Procedure Laterality Date - DELIVERY ONLY 1977 , low cervical - DELIVERY ONLY 1980 , low cervical - COLONOSCOP W/ OR W/O [facility] SPEC 04/16/2014 Colonoscopy-tubular adenoma - EGD W/O OR W/BRUSH/WASH 05/30/14 EGD - ENDOSC BALLOON SINUPLASTY Bilateral 09/29/2015 [facility] office. - LAP CHOLECYSTECT/CHOLANGIOGRAPHY 08/13/07 with supraumbilical ventral hernia repair - LIGATE FALLOPIAN TUBE 08/10 Tubal ligation - PAST SURGICAL HISTORY OF 1970 Repair left arm/wrist fracture - REMOVAL ADENOIDS,PRIMARY,<12 Y/O 1972 Adenoidectomy - REMOVAL OF TONSILS,<12 Y/O 1972 Tonsillectomy - RHINOPLASTY 09/29/15 - TOTAL ABDOM HYSTERECTOMY 08/10 LASHANDA: ovaries remain; for polyps, no cancer - TOTAL ABDOM HYSTERECTOMY 08/30/2015 Current Outpatient Prescriptions: potassium acetate tiotropium bromide (SPIRIVA RESPIMAT) 2.5 mcg/actuation mist Inhale as instructed. SYRINGE WITH NEEDLE, 1 ML (ALLERGY SYRINGE MISC) 2 Doses once each week. dicyclomine (BENTYL) 20 mg tablet TAKE ONE TABLET BY MOUTH THREE TIMES DAILY lisinopril (ZESTRIL,PRINIVIL) 30 mg tablet Take 1 tablet by mouth once daily. montelukast (SINGULAIR) 10 mg tablet Take 10 mg by mouth daily at bedtime. Cholecalciferol, Vitamin D3, (VITAMIN D-3) 2,000 unit cap Take by mouth once daily. FLUoxetine (PROZAC) 20 mg capsule Take 1 capsule by mouth once daily. budesonide-formoterol (SYMBICORT) 160-4.5 mcg/actuation inhaler Inhale 2 Puffs as instructed twice daily. hydroCHLOROthiazide (HYDRODIURIL, ESIDRIX) 25 mg tablet Take 1 tablet by mouth once daily. albuterol HFA (PROAIR HFA) 90 mcg/actuation inhaler Inhale 1-2 Puffs as instructed every 4 hours as needed for Wheezing/Shortness of Breath. Nebulizer NEBULIZER FOR HOME USE. DX: COPD omeprazole (PRILOSEC) 20 mg capsule Take 1 capsule by mouth daily before breakfast. 1/2 hr before meal. loratadine (CLARITIN) 10 mg tablet Take 1 tablet by mouth once daily as needed. FOR ALLERGY SYMPTOMS ASPIRIN 81 MG CHEWABLE TAB Take one(1) tablet daily. nystatin (MYCOSTATIN) 100,000 unit/mL suspension 1tsp swish in mouth for several minutes, then swallow (or expectorate) 4 times daily until gone. ALPRAZolam (XANAX) 0.25 mg tablet Take 1 tablet by mouth as needed. ipratropium-albuterol (COMBIVENT RESPIMAT) 20-100 mcg/actuation mist Inhale 1 Puff as instructed four times daily as needed. ipratropium-albuterol (COMBIVENT RESPIMAT) 20-100 mcg/actuation mist Inhale 1 Puff as instructed four times daily as needed (Shortness of breath, wheezing.). ipratropium-albuterol (DUONEB) 0.5 mg-3 mg(2.5 mg base)/3 mL nebu Inhale 3 mL as instructed every 6 hours as needed. ipratropium-albuterol (DUONEB) 0.5 mg-3 mg(2.5 mg base)/3 mL nebu Inhale 3 mL as instructed every 6 hours as needed. No current facility-administered medications for this visit. ALLERGIES Allergen Reactions - Chantix [Vareniclin* Mental Status Change, Vomiting Temporarily not thinking straight, after cessation of 2 months of Rx. - Barbituates [Other] Unsure exactly what medication was taken, it was one of her mom's meds for bipolar disorder, had a severe reaction involving neck stiffness, sounds consistent with dystonia, mom was on haldol, stelazine, others at the time. Social History Marital status: Spouse name: Jeremy Years of education: GED Number of children: 3 Occupational History Occupation Employer Comment [employer] Social History Main Topics Smoking status: Former Smoker Packs/day: 1.00 Years: 28.00 Types: Cigarettes Start date: 08/23/1974 Quit date: 12/20/2016 Smokeless tobacco: Never Used Comment: 0.5- 0.75 PPD: 08/11/16 TGO Alcohol use: No Drug use: No Sexual activity: Yes Partners with: Male control/protection: Surgical Comment: LASHANDA Other Topics Concern No BLOOD TRANSFUSIONS No CAFFEINE Yes Comment:4-6 cups/day OCCUPATIONAL EXPOSURE No HOBBY HAZARD No SLEEP CONCERN No STRESS CONCERN Yes WEIGHT CONCERN No DIET No BACK CARE No EXERCISE Yes BIKE HELMET No SEAT BELT No SELF EXAMS No Social History 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 Uvula midline. Neck: No LAD, no thyromegaly, no meningismus. CV: RRR, no murmur, normal s1s2 Lungs: diffusely diminished with prolonged exhalation phase, no w/r/r or distress, No edema legs. Normal peripheral pulses Skin: No rashes, lesions, or wounds on exposed skin. ASSESSMENT/PLAN: 1. Essential hypertension, benign - ICD9: 401.1, ICD10: I10 (primary diagnosis) - good control - Continue current medication(s) - Recommended regular aerobic exercise. - Recommend home blood pressure monitoring, to bring results in on next visit - Goal of BP <130/80 2. Thrush - ICD9: 112.0, ICD10: B37.0 - rx prn as below, secondary to inhaled corticosteroid use, no active symptoms - NYSTATIN 100,000 UNIT/ML ORAL SUSPENSION 3. Stage 3 severe COPD by GOLD classification (HCC) - ICD9: 496, ICD10: J44.9 - f/u with [facility] [employer], needs to start Pulmonary rehab 4. BEHZAD (obstructive sleep apnea) - ICD9: 327.23, ICD10: G47.33 - f/u with sleep medicine, trying another mask due to air leak currently Jacques Staton DO Return if no improvement. Follow up with Jacques Staton DO. Discussed risks, benefits, alternatives, and potential side effects of medications. Patient/Guardian expressed understanding and agreed with the plan. See patient instructions. Jacques Staton DO [address] [place] [address] Referring Provider: JACQUES STATON [[id number]] Allergies As of Date: 10/04/2017 Noted Allergy Reaction CHANTIX (VARENICLINE) 03/16/2012 1 - Mental Status Change 11 - Vomiting Comments: Temporarily not thinking straight, after cessation of 2 months of Rx. barbituates [Other] 08/20/2005 Comments: Unsure exactly what medication was taken, it was one of her mom's meds for bipolar disorder, had a severe reaction involving neck stiffness, sounds consistent with dystonia, mom was on haldol, stelazine, others at the time. Date Reviewed: 10/04/2017 Reviewed by: Vy Mueller LPN - Fully Assessed Reason for Visit: Follow Up [171] Cmt: 3 months Primary Visit Diagnosis:Essential hypertension, benign [I10] Other Visit Diagnoses:Thrush [B37.0] Stage 3 severe COPD by GOLD classification (HCC) [J44.9] BEHZAD (obstructive sleep apnea) [G47.33] Order(s):nystatin (MYCOSTATIN) 100,000 unit/mL [id number] swish in mouth for several minutes, then swallow (or expectorate) 4 times daily until gone.Disp: 200 mLRfl: 0 Prescriptions as of 10/04/2017 Sig: POTASSIUM ACETATE TIOTROPIUM BROMIDE 2.5 MCG/AC* Inhale as instructed. ALLERGY SYRINGE MISC 2 Doses once each week. DICYCLOMINE 20 MG TABLET TAKE ONE TABLET BY MOUTH THRE* LISINOPRIL 30 MG TABLET Take 1 tablet by mouth once d* MONTELUKAST 10 MG TABLET Take 10 mg by mouth daily at * CHOLECALCIFEROL (VITAMIN D3) * Take by mouth once daily. FLUOXETINE 20 MG CAPSULE Take 1 capsule by mouth once * BUDESONIDE-FORMOTEROL HFA 160* Inhale 2 Puffs as instructed * HYDROCHLOROTHIAZIDE 25 MG TAB* Take 1 tablet by mouth once d* ALBUTEROL SULFATE HFA 90 MCG/* Inhale 1-2 Puffs as instructe* COMPOUNDED PRESCRIPTION NEBULIZER FOR HOME USE. DX: * OMEPRAZOLE 20 MG CAPSULE,SARBJIT* Take 1 capsule by mouth daily* LORATADINE 10 MG TABLET Take 1 tablet by mouth once d* ASPIRIN 81 MG CHEWABLE TABLET Take one(1) tablet daily. NYSTATIN 100,000 UNIT/ML ORAL* 1tsp swish in mouth for sever* ALPRAZOLAM 0.25 MG TABLET Take 1 tablet by mouth as nee* IPRATROPIUM 20 MCG-ALBUTEROL * Inhale 1 Puff as instructed f* IPRATROPIUM 20 MCG-ALBUTEROL * Inhale 1 Puff as instructed f* IPRATROPIUM-ALBUTEROL 0.5 MG-* Inhale 3 mL as instructed david* IPRATROPIUM-ALBUTEROL 0.5 MG-* Inhale 3 mL as instructed david* Problem List As Of Date 10/04/2017 Noted Resolved Essential hypertension, benign [I10] INVALID FOR* Primary localized osteoarthrosis, other specifi* More... Allergic rhinitis due to other allergen [J30.89] 06/07/2017 More... 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 Routine gynecological examination [Z01.419] INVALID FOR*06/07/2017 Class: Chronic More... Hyperlipidemia [E78.5] INVALID FOR* More... Dysphagia, unspecified(787.20) [R13.10] INVALID FOR*05/30/2014 Spasm of esophagus [K22.4] Asthma, late onset [J45.909] INVALID FOR* Gastroesophageal reflux disease without esophag*INVALID FOR* Impaired fasting glucose [R73.01] INVALID FOR* COPD (chronic obstructive pulmonary disease) (H* Hoarseness [R49.0] INVALID FOR* History of tobacco abuse [Z87.891] INVALID FOR* Stage 3 severe COPD by GOLD classification (HCC*INVALID FOR* BEHZAD (obstructive sleep apnea) [G47.33] INVALID FOR* Other instructions from your clinician: AYR nasal saline gel at bedtime or during day as needed up nose for dryness Prescriptions ordered this encounter Disp Refills Start End NYSTATIN 100,000 UNIT/ML ORAL SUSPEN* 200 * 0 10/04/2017 Class: Print RX Sitsp swish in mouth for several minutes, then swallow (or expectorate) 4 times daily until gone. Medications Discontinued During This Encounter nystatin (MYCOSTATIN) 100,000 unit/m* 200 * 0 07/10/2017 10/04/2017 Sitsp swish in mouth for several minutes, then swallow (or expectorate) 4 times daily until gone. Disc: Reason for discontinue is not on file. Encounter Status:Closed by JACQUES STATON DO on 10/04/17 PULMONARY VISIT REPORT Observed: 10/03/2017 Status: F Source: [place] 8:35 AM [facility] [place] REPOSITORY [facility] [address] [place] [address] OFFICE VISIT Date of Service: 10/03/17 MR#: [id number] Acct: [id number] Name: MATTHEW BUTLER Rep #: [id number] : 1960 Provider: Justin Acosta D.O. Age/Sex: 57/F Location: [facility].PMW Status: Signed Assessment AND Plan 1. Stage 3 severe COPD by GOLD classification J44.9 FEV1 49% of predicted Plan The patient is on a stable inhaler regimen including Symbicort, Spiriva and as needed albuterol. This will be continued without change. An order has been placed for enrollment in pulmonary rehabilitation. 2. BEHZAD (obstructive sleep apnea) G47.33 Plan I emphasized to the patient the importance of compliance with the use of nocturnal CPAP therapy. She states that she will make strides towards improving her compliance overall. She does appear to be benefiting clinically from the use of CPAP therapy, which will be continued at a pressure setting of 9 cm of water. 3. Chronic hypoxemic respiratory failure J96.11 Plan The patient has been encouraged to continue to utilize 2 L/min of supplemental oxygen with exertion. Recommend repeating 6 minute walk test in 6-12 months. 4. Pulmonary nodule R91.1 Plan The patient's pulmonary nodules appear to be stable on repeat chest imaging. Recommend repeat follow-up chest CT in 6 months, prior to her follow-up office visit with us. Fleishner society recommendations: *nonsolid, ground glass, or partially solid nodules may require longer follow up to exclude indolent adenocarcinoma. Low Risk: (minimal or absent smoking): < 4 mm: No follow up needed >4-6 mm: CT at 12 months, if no change then no further follow up needed >6-8 mm: Initial CT at 6-12 months, then 18-24 months if no change >8 mm: CT at 3, 9, and 24 months, consider dynamic contrast CT, PET, or bx High Risk: < 4 mm: CT at 12 months, if no change then no follow up needed >4-6 mm: initial CT at 6-12 months, then 18-24 months if no change >6-8 mm: CT at 3-6 months, then at 9-12 months, then at 24 months if no change >8 mm: CT at 3, 9, and 24 months, consider dynamic contrast CT, PET, or bx Orders Orders: Plan Detail Other Medications New: Follow Up 6 Months (CSM) HPI HPI Comments Details: The patient is a 57-year-old female who presents to the clinic today for a routine scheduled follow-up office visit. If you recall, the patient has a history of COPD and BEHZAD. Pulmonary function testing completed in July 2017 revealed evidence of a partially reversible severe large airways obstructive ventilatory defect with hyperinflation, air trapping and reduction in diffusing capacity. She does have a 2 L/min supplemental oxygen requirement at her baseline. Patient underwent a titration polysomnogram in August 2017, for which was recommended that she be placed on CPAP therapy with a pressure support of 9 cm of water with a 1 L supplemental oxygen bleed in. The patient's compliance report was personally reviewed at today's office visit. Over the last 30 days, she has demonstrated 67% compliance. She is currently utilizing her CPAP on average 7.5 hours on the days used. She has a residual AHI noted to be 3.2. Significant air leaks were noted on most nights. Today, the patient reports overall stability in her breathing quality. She has remained compliant with the use of Symbicort, Spiriva and as needed albuterol. She is currently utilizing her rescue inhaler on average 2 times per week. Patient does have a [id number] smoking history, having quit completely in December 2016. She has baseline shortness of breath with exertion, along with occasional wheezing. She denies the presence of chest tightness. Although she reports no significant cough complaints, she does report the presence of sneezing, rhinorrhea and nasal congestion. She is currently following with ENT, where she receives immunotherapy. The patient is interested in pulmonary rehabilitation referral, along with a handicap placard. She has been compliant with the use of her supplemental oxygen at 2 L/min via nasal cannula with exertion. She is currently utilizing nasal pillows with her CPAP machine and receives her equipment through [employer]. She does note occasional air leaks along with nasal passage dryness/irritation. Despite this, she reports subjective improvement in her sleep quality. Specifically, she reports feeling more rested upon awakening in the morning and less daytime hypersomnolence. Her weight has been stable. She denies chest pain, dizziness or lightheadedness. Intake Vital Signs10/03/17 Height 5 ft 10/03/17 Weight: 154 lb Intake Visit Reasons: 3 M FU Chief Complaint: sob, cough Customer Account Technician Required: No DME Vendor: [employer] Accompanied by: Is patient in pain?: No Allergies Barbiturates Adverse Reaction (Verified 10/03/17 07:47) Other - spine contracts Medications Aspirin [Aspirin, Baby] 81 mg PO DAILY@0800 05/01/14 [History Confirmed 10/03/17] Hydrochlorothiazide [Hctz] 25 mg PO DAILY 05/01/14 [History Confirmed 10/03/17] Lisinopril [Zestril] 30 mg PO DAILY 05/01/14 [History Confirmed 10/03/17] Loratadine [Claritin] 10 mg PO DAILY 05/01/14 [History Confirmed 10/03/17] Albuterol Inhaler [Ventolin Hfa] 1 - 2 puff INHALATION Q4H PRN PRN #1 inhaler 05/02/14 [Rx Confirmed 10/03/17] Albuterol Aerosols [Ventolin Aerosols] 2.5 mg INHALATION Q6HWA.RT 07/02/16 [History Confirmed 10/03/17] Budesonide/Formoterol 160/4.5 [Symbicort 160/4.5 Mcg Inhaler (SP)] 2 puff INHALATION BID 07/02/16 [History Confirmed 10/03/17] Dicyclomine HCl 20 mg PO TID 12/27/16 [History Confirmed 10/03/17] Montelukast Sodium [Singulair] 10 mg PO DAILY 12/27/16 [History Confirmed 10/03/17] Cholecalciferol (Vitamin D3) [Vitamin D3] 2,000 unit PO DAILY 06/19/17 [History Confirmed 10/03/17] Fluoxetine [Prozac] 20 mg PO QHS 06/19/17 [History Confirmed 10/03/17] Omeprazole [Prilosec] 20 mg PO DAILY 06/19/17 [History Confirmed 10/03/17] ALPRAZolam [Xanax] 0.25 mg PO TID PRN PRN #20 tab 06/22/17 [Rx Confirmed 10/03/17] potassium chloride PO QDAY 08/16/17 [History Confirmed 10/03/17] tiotropium bromide 2.5 mcg/actuation mist for inhalation 2 puff INHALATION QDAY #1 ea 08/16/17 [Rx Confirmed 10/03/17] Handicap Placcard #1 [id number] 10/03/17 [Rx Confirmed 10/03/17] PFS Medical History Acute respiratory failure with hypoxia (Acute) Asthma exacerbation (Acute) Acute respiratory failure (Acute) Asthma (Acute) Hypokalemia (Acute) Chest pain (Acute) Hypertension (Chronic) Surgical History History of section (Resolved) History of cholecystectomy (Resolved) Family History Father Diabetes Heart disease Sister Breast cancer Social History Smoking Status: Former smoker how long ago did patient quit smokin, 1pk/day second hand exposure: Yes alcohol intake: never substance use type: does not use Review of Systems Const CONSTITUTIONAL: Negative anorexia, body ache, chills, daytime sleepiness, fever(s), night sweats, oral thrush, stops breathing during sleep, weight loss, sleeping in chair, fatigue, weight loss, weight gain, frequent colds, seasonal allergies, other, headache(s) or orthopnea EETM Ear Nose Throat Mouth: Positive hearing normal and nasal discharge; negative hard of hearing, hoarseness, dry mouth in morning, change in vision, itchy eyes, eye pain, swallowing Difficulty, ear pain, nose bleed, headache(s), mouth pain, nasal congestion, post nasal drip, sinus pain, sinus pressure, sore throat or other Cardio Cardiovascular: Negative chest pain, chest pain at rest, chest pain with activity, irregular heart rhythm, edema, shortness of breath when lying down, palpitations, murmur or other Resp Respiratory: Positive as per HPI, shortness of breath shortness of breath: Positive with activity, wheezing and inhalers; negative pain with cough, chest congestion, cough, chest tightness, pain on inspiration, increase use of rescue inhalers, snoring, apnea or other Gastro Gastrointestional: Negative bloody stools, change in appetite, difficulty swallowing, reflux, hematemesis, melena stool, loose stool, constipation or other Genitourinary: Negative blood in urine, nocturia, pain with urination or other Musc Musculoskeletal: Negative body pain, back pain, neck pain or other Skin/Breast Skin/Breast: Negative dry skin, itching, rash, unusual bruising, breast lump or other Neuro Neurological: Negative restless legs, confusion, weakness or other Psych Psychocological: Negative abnormal sleep pattern, anxiety, thoughts of hurting self/others, hopelessness or other Lymph Lymphatic: Negative easy bleeding, easy bruising, swollen lymph nodes or other Exam Const Constitutional: Positive conversant, cooperative, in no acute respiratory distress, well developed, well nourished and good hygiene Head Head: Positive normocephalic and atraumatic; negative cyanosis of lips/distal nose Eyes Eye: Positive clear conjunctiva; negative nystagmus or scleral abnormality Ears Ear: Positive hearing normal and external ears normal; negative hard of hearing Nose Nose: Positive external nose normal; negative epistaxis Mouth Mouth: Positive oral mucosae normal and posterior oropharynx is adequate; negative no lesions or post nasal drip Mallampati Score: II: Mallampati Score Neck Neck: Positive normal visual inspection and trachea midline; negative lymphadenopathy Chest Wall Chest: Positive symmetric chest movement Normal AP diameter. Resp lung sounds: Positive diminished diminished: Positive bialteral and normal expiratory time; negative wheezes, rhonchi or rales Cardio Cardiac: Positive regular rate, regular rhythm, S1 normal and S2 normal; negative rub, gallop or murmur GI GI: Positive normal bowel sounds Soft without distention Genitourinary: Positive deferred Musc Musculoskeletal: Positive steady gait Skin Pulmonary Skin Exam: Positive intact; negative lesion, ulcers, dermal atrophy or rash Pulses Pulse: Yes Pedal pulses present: Extremities Extremities: No clubbing, No cyanosis, No edema Neuro Neurologic: Yes conversant, Yes no focal neuro deficits, Yes cooperative Lymph Lymphatic: No lymphadenopathy Psych Appearance: Positive grossly normal Mental Status: Positive mental status grossly normal Mood: Positive congruent mood Affect: Positive normal affect Coding Level of Care Code Off vis,est,level 4 Diagnoses Stage 3 severe COPD by GOLD classification J44.9 BEHZAD (obstructive sleep apnea) G47.33 Chronic hypoxemic respiratory failure J96.11 Pulmonary nodule R91.1 10/03/17 0835 <Electronically signed by Justin Acosta DO> Date Justin Acosta DO Cosigner Signature: Date (if applicable) CC: Jacques Gonzalez DO CHEST WITH CONTRAST Observed: 10/02/2017 Status: F Source: [place] 7:38 AM [facility] [place] REPOSITORY [facility] Imaging Services [address] [place] [address] Chest WITH Contrast MR#: [id number] Acct: [id number] Name: CARRIEMATTHEW Goldie Rep #: [id number] : 1960 F 57 From: Yobany Wood MD PCP: Jacques Gonzalez DO Status: REG CLI Study: Chest WITH Contrast Date of Exam: 10/02/17 Exam# [id number] Ordering Dr: Elenita Lozano PROSPECTING OBSERVER-Aaliyah STUDY: CT CHEST WITH CONTRAST REASON FOR EXAM: Female, 57 years old. History of lung nodule. RADIATION DOSAGE (If Supplied By Facility): CTDIvol = ( 10.42 ) mGy, DLP = ( 368.88 ) mGycm TECHNIQUE: Transaxial imaging was performed following intravenous administration of 100 ml of Isovue 300 contrast material. Multiplanar coronal and sagittal images were reformatted. Individualized dose optimization techniques were used for this CT. COMPARISON: Comparison is made with prior study dated June 20, 2017. FINDINGS: Diffuse emphysematous changes with cystic formation involving both lungs more prominent in the upper lobes. Stable appearance of the noncalcified 6.4 mm nodule in the peripheral aspect of the left lower lobe as seen on image #78. Stable appearance of the 7.6 mm noncalcified nodule in the anterior aspect of the left lower lobe adjacent to the major fissure. This is seen on axial image #60. Stable mild degree of increased markings in the right middle lobe suggestive of scarring. There is no demonstrated pleural abnormality. Normal heart and pericardium. Normal mediastinum. Normal hilar regions. Normal enhanced pulmonary arteries. There is atherosclerotic tortuosity of the aortic arch and descending thoracic aorta. There are multi-level degenerative changes of the thoracic spine. Increased thoracic kyphosis. There is no demonstrated abnormality of the visualized upper abdomen. CT/Chest WITH Contrast IMPRESSION: Hyperinflation and diffuse emphysematous changes worse in the upper lobes. Stable appearance of the small left pulmonary nodules. Electronically Signed: Yobany Wood MD at 15:16 EDT Tel [phone], Service support , CC: Elenita Lozano; Jacques Gonzalez DO Photographer Model: Signed PULMONARY VISIT REPORT Observed: 08/18/2017 Status: F Source: [place] 10:37 AM [facility] [place] REPOSITORY [facility] of [address] [place] [address] OFFICE VISIT Date of Service: 08/16/17 MR#: [id number] Acct: [id number] Name: MATTHEW BUTLER Rep #: [id number] : 1960 Provider: Elenita Lozano Age/Sex: 57/F Location: [facility] [place].PMW Status: Signed Assessment AND Plan 1. Stage 3 severe COPD by GOLD classification J44.9 Status Acute FEV1 49% of predicted Plan Deteriorated. Not in exacerbation today, however does require additional medications. Will start on Spiriva Respimat. The patient is familiar with the Respimat delivery system, she was provided with a sample of Spiriva. First dose was taken in the office today. Continue Singulair, Claritin, Flonase and Symbicort. Will obtain additional testing to look for possible asthma/COPD overlap syndrome, given that her last PFT shows partially reversible. Today we will obtain a Rast test, IgE, CBC with an Aspergillus antibodies. We reviewed will discussed the test results at a previously scheduled routine follow-up. His pulmonary rehab would be appropriate, will request to Dr. Acosta order since. 2. BEHZAD (obstructive sleep apnea) G47.33 Status Acute Plan Titration study was completed last night, test results pending. Once I have received recommendations we will set up therapy with DME of her choice. Follow-up with Dr. Acosta as previously scheduled. She has been encouraged to contact the office if she has any difficulty acclimating to the device or pressure. She does report that she tolerated the pressure support and asked very well during the titration study. Initial goal will be 4 hours nightly, overall goal will be that she wears the device any time spent sleeping. 3. Acute respiratory failure J96.00 Status Acute Requires 2 L/min on exertion Plan Continue to monitor pulse ox at home with portable pulse oximeter. Recent pulmonary stress test indicates that the patient has safe oxygen saturations at rest, however on exertion requires 2 L/min. She has been encouraged to continue to utilize supplemental oxygen as needed to maintain saturations 89-92%. She conveys understanding. We will re-assess this in approximately 3-6 months to see if treating BEHZAD has any impact on her DLCO, and therefore her requirement for oxygen. Plan Detail Other Orders Orders: Other Medications New: tiotropium bromide 2.5 mcg/actuation (Spiriva Respimat) admini2 puffs Inhalation QDAY ster at approximately the same time(s) each day HPI 1 M FU: Chief Complaint: Shortness of breath on exertion HPI Comments Details: This patient presents to the office today for follow- up on her COPD, and to review recent test results. She is ambulatory, currently on room air and she is accompanied today by her . She has not been seen in the ED or urgent care since her last office visit. She has not required prescription antibiotics or prednisone for any breathing problems. She continues compliance with her Symbicort, 2 puffs twice daily. She reports rinsing her mouth out after each use. She denies any medication side effects such as sore throat or thrush. She is using her DuoNeb by nebulizer routinely every morning, occasionally she uses it as a rescue throughout the day. She occasionally uses her albuterol HFA rescue inhaler. She has not tried any ihyd-fcg-[id number] medications. She continues to experience shortness of breath on exertion, this has not worsened. She becomes short of breath with walking briskly, completing activities of daily living is going, or walking up one flight of steps. She reports that she feels the same as she did at her last visit. She does report that she gets fatigued easily, exertion calms easily. She has occasional wheezing and chest tightness. Her albuterol or DuoNeb relieve her of the chest tightness and wheezing. Currently, she denies any cough, sputum production or hemoptysis. She denies any chest pain or palpitations. She has not experienced any fever, chills or body aches. See complete review of systems. She is having at least 1-3 episodes of nocturia nightly. She feels fatigued upon arising in the morning, does not feel rested. She is taking daily naps. She did complete her titration study recently. Alpha-1 genotype MM. Complete pulmonary function test completed on July 2017, showing a partially reversible severe large airway obstructive ventilatory defect with revision and air trapping. 3, FEV1 49% of predicted, FEV1/FVC, TLC 132%, RV 2% and DLCO 35% pulmonary stress test completed on July 12, 2017 she was able to ambulate 150 feet reports that she has not required oxygen at rest, but does require 2 L/min nasal cannula. He does not drink plenty of 1128-50.8 events per hour, decreased to Seferino to sleep. It is more to severe obstructive apnea, and a CPAP titration study is recommended. A CPAP titration study was completed last night. Intake Vital Signs08/16/17 Height 5 ft 08/16/17 Weight: 151 lb Intake Visit Reasons: 1 M FU Chief Complaint: sob, cough Customer Account Technician Required: No Accompanied by: Is patient in pain?: No Allergies Barbiturates Adverse Reaction (Verified 08/16/17 07:52) Other - spine contracts Medications Aspirin [Aspirin, Baby] 81 mg PO DAILY@0800 05/01/14 [History Confirmed 08/16/17] Hydrochlorothiazide [Hctz] 25 mg PO DAILY 05/01/14 [History Confirmed 08/16/17] Lisinopril [Zestril] 30 mg PO DAILY 05/01/14 [History Confirmed 08/16/17] Loratadine [Claritin] 10 mg PO DAILY 05/01/14 [History Confirmed 08/16/17] Albuterol Inhaler [Ventolin Hfa] 1 - 2 puff INHALATION Q4H PRN PRN #1 inhaler 05/02/14 [Rx Confirmed 08/16/17] Albuterol Aerosols [Ventolin Aerosols] 2.5 mg INHALATION Q6HWA.RT 07/02/16 [History Confirmed 08/16/17] Budesonide/Formoterol 160/4.5 [Symbicort 160/4.5 Mcg Inhaler (SP)] 2 puff INHALATION BID 07/02/16 [History Confirmed 08/16/17] Dicyclomine HCl 20 mg PO TID 12/27/16 [History Confirmed 08/16/17] Montelukast Sodium [Singulair] 10 mg PO DAILY 12/27/16 [History Confirmed 08/16/17] Cholecalciferol (Vitamin D3) [Vitamin D3] 2,000 unit PO DAILY 06/19/17 [History Confirmed 08/16/17] Fluoxetine [Prozac] 20 mg PO QHS 06/19/17 [History Confirmed 08/16/17] Omeprazole [Prilosec] 20 mg PO DAILY 06/19/17 [History Confirmed 08/16/17] ALPRAZolam [Xanax] 0.25 mg PO TID PRN PRN #20 tab 06/22/17 [Rx Confirmed 08/16/17] ipratropium-albuterol 0.5 mg-3 mg(2.5 mg base)/3 mL nebulization soln 3 ml INHALATION Q6H PRN 08/16/17 [History Confirmed 08/16/17] potassium chloride PO QDAY 08/16/17 [History Confirmed 08/16/17] tiotropium bromide 2.5 mcg/actuation mist for inhalation 2 puff INHALATION QDAY #1 ea 08/16/17 [Rx Confirmed 08/16/17] [facility] Medical History Acute respiratory failure with hypoxia (Acute) Asthma exacerbation (Acute) Acute respiratory failure (Ruled-out) Asthma (Acute) Hypokalemia (Acute) Chest pain (Acute) Hypertension (Chronic) Surgical History History of section (Resolved) History of cholecystectomy (Resolved) Family History Father Diabetes Heart disease Sister Breast cancer Social History Smoking Status: Former smoker how long ago did patient quit smokin, 1pk/day second hand exposure: Yes alcohol intake: never substance use type: does not use FEV1% FEV1%: 49 Review of Systems Const CONSTITUTIONAL: Positive fatigue; negative anorexia, body ache, chills, daytime sleepiness, fever(s), night sweats, oral thrush, stops breathing during sleep, weight loss, sleeping in chair, weight loss, weight gain, frequent colds, seasonal allergies, other, headache(s) or orthopnea EETM Ear Nose Throat Mouth: Positive hearing normal; negative hard of hearing, hoarseness, dry mouth in morning, change in vision, itchy eyes, eye pain, swallowing Difficulty, ear pain, nose bleed, headache(s), mouth pain, nasal congestion, nasal discharge, post nasal drip, sinus pain, sinus pressure, sore throat or other Cardio Cardiovascular: Negative chest pain, chest pain at rest, chest pain with activity, irregular heart rhythm, edema, shortness of breath when lying down, palpitations, murmur or other Resp Respiratory: Positive as per HPI, shortness of breath shortness of breath: Positive with activity and inhalers; negative pain with cough, wheezing, chest congestion, cough, chest tightness, pain on inspiration, increase use of rescue inhalers, snoring, apnea or other Gastro Gastrointestional: Negative bloody stools, change in appetite, difficulty swallowing, reflux, hematemesis, melena stool, loose stool, constipation or other Genitourinary: Positive nocturia; negative blood in urine, pain with urination or other Musc Musculoskeletal: Negative body pain, back pain, neck pain or other Skin/Breast Skin/Breast: Negative dry skin, itching, rash, unusual bruising, breast lump or other Neuro Neurological: Negative restless legs, confusion, weakness or other Psych Psychocological: Negative abnormal sleep pattern, anxiety, thoughts of hurting self/others, hopelessness or other Lymph Lymphatic: Negative easy bleeding, easy bruising, swollen lymph nodes or other Exam Const Constitutional: Positive conversant, cooperative, in no acute respiratory distress, healthy appearing, well developed, well nourished, good hygiene and dyspenic Head Head: Positive normocephalic and atraumatic; negative cyanosis of lips/distal nose Eyes Eye: Positive clear conjunctiva and nystagmus; negative scleral abnormality Ears Ear: Positive hearing normal and external ears normal; negative hard of hearing Nose Nose: Positive external nose normal and no nasal discharge; negative epistaxis Mouth Mouth: Positive oral mucosae normal, no lesions, good dentition and posterior oropharynx is adequate; negative post nasal drip, malodorous breath or oral thrush present Mallampati Score: II: Mallampati Score Neck Neck: Positive normal visual inspection, full ROM and trachea midline; negative lymphadenopathy, JVD or tender Chest Wall Chest: Positive normal inspection of the chest and symmetric chest movement; negative increased A/P diameter Resp lung sounds: Positive diminished, normal expiratory time and normal respiratory effort; negative wheezes, rhonchi, rales, dullness to percussion or wheeze present on forced exhalation Cardio Cardiac: Positive regular rate, regular rhythm, S1 normal and S2 normal; negative murmur GI GI: Positive normal to inspection and normal bowel sounds; negative distended Genitourinary: Positive deferred Musc Musculoskeletal: Positive steady gait, ROM normal and kyphosis; negative scoliosis Skin Pulmonary Skin Exam: Positive intact; negative rash, lesion, ulcers, erythema, scaly or dermal atrophy Pulses Pulse: Yes pulses normal x4 extremities Extremities Extremities: No edema, Yes capillary refill normal, No clubbing, No cyanosis, No stasis dermatitis Neuro Neurologic: Yes conversant, Yes no focal neuro deficits, Yes cooperative, Yes normal cognition, Yes normal coordination, Yes normal concentration, Yes understands questions, No tremor Lymph Lymphatic: No lymphadenopathy, No tenderness, No cervical adenopathy, No axillary adenopathy Psych Appearance: Positive grossly normal, eye contact and well kempt Mental Status: Positive mental status grossly normal Mood: Positive congruent mood Affect: Positive normal affect Coding Level of Care Code Off vis,est,level 4 Diagnoses Stage 3 severe COPD by GOLD classification J44.9 BEHZAD (obstructive sleep apnea) G47.33 Acute respiratory failure J96.00 08/18/17 1037 <Electronically signed by Elenita PURVIS> Date Elenita GAC Cosigner Signature: Date (if applicable) CC: Jacques Gonzalez DO PULMONARY FUNCTION Observed: 08/08/2017 Status: F Source: [place] REPORT COMP 10:28 AM [facility] [place] REPOSITORY [facility] Pulmonary Services/Neurology [address] [place] [address] MR#: [id number] Acct: [id number] Name: MATTHEW BUTLER Rep #: [id number] : 1960 57 From: Bryant Deal MD Referring Dr: Elenita Lozano NP Status: REG CLI Ordering Dr: Date: Location: [facility] Sex: F C COMPLETE PULMONARY FUNCTION TEST INTERPRETATION Brief HPI: Patient is a 57 year old female, currently under the care of Dr. Acosta, who presents to [facility] for complete pulmonary function tests secondary to diagnosis of asthma. Respiratory therapist reports good effort and reproducible results. Interpretation: Forced expiration spirometry shows a severe large airways obstructive ventilatory defect with an FEV1 of 39% predicted. There is a significant bronchodilator response in FVC and FEV1 by ATS criteria. Spirograms are of good quality and plateau slowly, indicating slowly emptying areas of the lungs. The respiratory flow volume loop shows decreased expiratory flow rates at all lung volumes consistent with airway obstruction. Lung volumes by body plethysmography show an elevated total lung capacity at 5.28 L, 132% predicted. FRC and RV are elevated out of proportion. Lung volume measurements are consistent with hyperinflation and air-trapping. Diffusion capacity by carbon monoxide is decreased at 35% predicted. The airway resistance is elevated. No previous pulmonary function tests were available for review. Impression: Partially reversible severe large airways obstructive ventilatory defect with a symmetric reduction diffusing capacity resulting in air trapping with hyperinflation. 08/08/17 1028 <Electronically signed by Bryant Deal MD> Date Bryant Deal MD CC: Bryant Deal MD; Elenita Lozano; Jacques Gonzalez DO Date Dictated: 08/08/17 1026 Date Transcribed: 08/08/17 1026 Photographer Model: CHICA Signed PROGRESS Observed: 07/27/2017 Status: COMPLETED Source: [place] 3:19 PM [facility] REPOSITORY HNO ID: [id number] Author: Aletha Clayton (Pa) Service: (none) Author Type: Physician Automated Cutting Machine Operator Type: Progress Notes Filed: 07/27/2017 4:29 PM Note Text: HISTORY AND PHYSICAL Matthew Amezcua Carrie 1960 REFERRING PHYSICIAN: Jacques Staton DO CHIEF COMPLAINT: consultation for colonoscopy HPI: The patient is a 57 year old female referred for endoscopy. Matthew notes a personal history of an adenomatous colon polyp and is due for 3-year follow-up colonoscopy. She denies any change in bowel habits, weight changes, blood in stools, black tarry stools or abdominal pain. Denies family history of colon cancer. The patient notes a previous history of reflux and esophageal spasms and has undergone prior upper endoscopy. She notes her reflux symptoms are currently well controlled with medication and notes no upper GI complaints currently. The patient is being seen by me today at the request of Dr. Staton for my opinion and advice regarding screening colonoscopy. Patient was recently hospitalized for a COPD exacerbation. She notes she has issues with both asthma and COPD. She is gradually feeling improved since her hospitalization but is still using supplemental oxygen at night and occasionally during the day as well. She notes she saw Dr. Acosta while in the hospital. She just completed a sleep study and states she has pulmonary function testing coming up and then will follow up with Dr. Acosta. Other medical history is significant for hypertension, hyperlipidemia and history of tobacco use. She denies problems with sedation in the past. PAST MEDICAL HISTORY Diagnosis Date - Allergic rhinitis due to other allergen - Allergic rhinitis due to other allergen jhonny. August - Mar - Anxiety disorder in conditions classified elsewhere - BILIARY DYSKINESIA 08/06/2007 - COPD (chronic obstructive pulmonary disease) (HCC) - Environmental allergies sees [facility] - Essential hypertension, benign - GERD (gastroesophageal reflux disease) 05/13/14 seen on esophagram - Hiatal hernia 05/13/14 seen on esophagram - Hypoglycemia, unspecified no syncopal events: gets shaky/ dizzy if hasn't eaten - Impaired fasting glucose 07/2015 - Primary localized osteoarthrosis, other specified sites affects knees: degenerative disease confirmed per x-ray 05/1999 - Routine gynecological examination 01/14/2009 (none -- just does mammogram yearly) - Snoring - Spasm of esophagus 05/2014 Dr. Alberto, EGD 2014 - UMBILICAL HERNIA W/O GANGRENE/OBSTRUCTION 08/06/2007 PAST SURGICAL HISTORY Procedure Laterality Date - DELIVERY ONLY 1977 , low cervical - DELIVERY ONLY 1980 , low cervical - COLONOSCOP W/ OR W/O BRSH SPEC 04/16/2014 Colonoscopy-tubular adenoma - EGD W/O OR W/BRUSH/WASH 05/30/14 EGD - ENDOSC BALLOON SINUPLASTY Bilateral 09/29/2015 [facility] office. - LAP CHOLECYSTECT/CHOLANGIOGRAPHY 08/13/07 with supraumbilical ventral hernia repair - LIGATE FALLOPIAN TUBE 08/10 Tubal ligation - PAST SURGICAL HISTORY OF 1970 Repair left arm/wrist fracture - REMOVAL ADENOIDS,PRIMARY,<12 Y/O 1972 Adenoidectomy - REMOVAL OF TONSILS,<12 Y/O 1972 Tonsillectomy - RHINOPLASTY 09/29/15 - TOTAL ABDOM HYSTERECTOMY 08/10 LASHANDA: ovaries remain; for polyps, no cancer - TOTAL ABDOM HYSTERECTOMY 08/30/2015 Current Outpatient Prescriptions: ALPRAZolam (XANAX) 0.25 mg tablet Take 1 tablet by mouth as needed. SYRINGE WITH NEEDLE, 1 ML (ALLERGY SYRINGE MISC) 2 Doses once each week. dicyclomine (BENTYL) 20 mg tablet TAKE ONE TABLET BY MOUTH THREE TIMES DAILY lisinopril (ZESTRIL,PRINIVIL) 30 mg tablet Take 1 tablet by mouth once daily. montelukast (SINGULAIR) 10 mg tablet Take 10 mg by mouth daily at bedtime. Cholecalciferol, Vitamin D3, (VITAMIN D-3) 2,000 unit cap Take by mouth once daily. FLUoxetine (PROZAC) 20 mg capsule Take 1 capsule by mouth once daily. budesonide-formoterol (SYMBICORT) 160-4.5 mcg/actuation inhaler Inhale 2 Puffs as instructed twice daily. hydroCHLOROthiazide (HYDRODIURIL, ESIDRIX) 25 mg tablet Take 1 tablet by mouth once daily. albuterol HFA (PROAIR HFA) 90 mcg/actuation inhaler Inhale 1-2 Puffs as instructed every 4 hours as needed for Wheezing/Shortness of Breath. ipratropium-albuterol (DUONEB) 0.5 mg-3 mg(2.5 mg base)/3 mL nebu Inhale 3 mL as instructed every 6 hours as needed. Nebulizer NEBULIZER FOR HOME USE. DX: COPD omeprazole (PRILOSEC) 20 mg capsule Take 1 capsule by mouth daily before breakfast. 1/2 hr before meal. loratadine (CLARITIN) 10 mg tablet Take 1 tablet by mouth once daily as needed. FOR ALLERGY SYMPTOMS ASPIRIN 81 MG CHEWABLE TAB Take one(1) tablet daily. nystatin (MYCOSTATIN) 100,000 unit/mL suspension 1tsp swish in mouth for several minutes, then swallow (or expectorate) 4 times daily until gone. ipratropium-albuterol (COMBIVENT RESPIMAT) 20-100 mcg/actuation mist Inhale 1 Puff as instructed four times daily as needed. ipratropium-albuterol (COMBIVENT RESPIMAT) 20-100 mcg/actuation mist Inhale 1 Puff as instructed four times daily as needed (Shortness of breath, wheezing.). ipratropium-albuterol (DUONEB) 0.5 mg-3 mg(2.5 mg base)/3 mL nebu Inhale 3 mL as instructed every 6 hours as needed. No current facility-administered medications for this visit. ALLERGIES: Chantix [Varenicline]; Barbituates [Other] PERSONAL HISTORY: Social History Marital status: Spouse name: Jeremy Years of education: GED Number of children: 3 Occupational History Occupation Employer Comment [employer] Social History Main Topics Smoking status: Former Smoker Packs/day: 1.00 Years: 28.00 Types: Cigarettes Start date: 08/23/1974 Quit date: 12/20/2016 Smokeless status: Never Used Comment: 0.5- 0.75 PPD: 08/11/16 TGO Alcohol use: No Drug use: No Sexual activity: Yes Partners with: Male control/protection: Surgical Comment: LASHANDA Other Topics Concern No BLOOD TRANSFUSIONS No CAFFEINE Yes Comment:4-6 cups/day OCCUPATIONAL EXPOSURE No HOBBY HAZARD No SLEEP CONCERN No STRESS CONCERN Yes WEIGHT CONCERN No DIET No BACK CARE No EXERCISE Yes BIKE HELMET No SEAT BELT No SELF EXAMS No Social History Narrative 1976 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 FAMILY HISTORY: FAMILY HISTORY Problem Relation Age of Onset - Psychiatry Mother bipolar disease: age 62 (accidental) - Emphysema Mother smoker - Stroke Mother - Diabetes Mother glucose intolerance - Diabetes Father dx age 30's, age 62 of complications - Stroke Father - Breast Cancer Sister intraductal carcinoma diagnosed age 36 - Psychiatry Brother bipolar - Psychiatry Brother bipolar - Psychiatry Brother bipolar - None Daughter - None Daughter - None Son REVIEW OF SYMPTOMS: The review of systems data was entered by the nurse and reviewed by wa Nursing Notes: Teresa Marcelo LPN 07/26/2017 4:02 PM Signed REVIEW OF SYSTEMS: General: The patient NOTES fatigue, denies weight loss, NOTES weight gain, denies feeling hot, and denies feelings of cold. Eyes: The patient denies glaucoma, denies eye injury/surgery, wears glasses or contacts. Ear/Nose/Throat: The patient NOTES allergies, denies hayfever, denies ear infections, and denies bloody noses. Cardiovascular: The patient denies chest pain, denies heart disease, NOTES high blood pressure,denies cardiac stent, denies prior heart attack, denies irregular heart beat, denies high cholesterol, denies poor circulation, denies heart failure, other cardiac issues, denies claudication, denies cold feet, denies peripheral arterial stent. Respiratory: The patient denies tuberculosis, denies pneumonia, denies frequent cough, denies pulmonary embolism, NOTES shortness of breath, and denies coughing up blood. Gastrointestinal: The patient NOTES difficulty swallowing, NOTES acid reflux, denies ulcers, denies vomiting, denies jaundice/hepatitis, NOTES gallbladder problems, denies black or tarry stools, NOTES hemorrhoids, denies bleeding from rectum, denies diverticulitis, denies constipation, denies diarrhea, denies loss of stool control, and denies hernias. Kidney/Bladder: The patient denies kidney stones, denies urine infections, and denies bloody urine. Skin: The patient denies a history of skin cancer, denies bleeding/changing moles, and denies a history of skin rash. Neurologic: The patient denies a history of epilepsy/convulsions, denies headaches, denies head/spinal injuries, and denies stroke/TIA. Psychiatric: The patient denies psychiatric medications, denies depression, and denies voices, denies substance abuse. Endocrine: The patient denies thyroid disorders, denies diabetes, and denies hormonal problems. Hematologic: The patient NOTES a history of bruising, denies bleeding, and denies anemia, denies blood clots. Infections: The patient denies a history of measles and mumps, denies rheumatic fever, and denies sexually transmitted diseases. Musculoskeletal: The patient denies back pain/injury, denies back problems, denies sciatica, denies knee/foot trouble, NOTES arthritis, or denies gout. When was patient's last Mammogram screening? 2016 Last Colonoscopy: none Teresa Clayton PA-C PHYSICAL EXAMINATION: General: The patient is 57 year old female, well nourished, well hydrated in no acute distress. The patient is oriented to time, place, and person. VITALS: Blood pressure 138/82, pulse 84, height 151.1 cm (4' 11.5), weight 68.5 kg (151 lb). Body mass index is 29.99 kg/(m2). HEENT: Normal cephalic, ataumatic, pupils are equally round, sclera are anicteric, mucous membranes are moist, oropharynx is clear. Neck has no masses, asymmetry or lymphadenopathy. Respiratory: Clear to auscultation and percussion. Normal respiratory excursion and pattern. Cardiac: Examination is regular rate and rhythm. Abdominal exam: Soft, nontender, with no palpable masses. No hepatosplenomegaly. No palpable hernias. Rectal exam: exam deferred Extremities: no clubbing, cyanosis or edema. No adenopathy. Other: LABORATORY VALUES: As Noted RADIOLOGIC STUDIES: As Noted Assessment IMPRESSION: encounter for screening colonoscopy, history of polyps. Recent hospitalization for COPD exacerbation and still using oxygen-recommend waiting until after pulmonology testing and follow-up appt PLAN: Based on patient's recent hospitalization for pulmonary issues, would defer elective colonoscopy until after follow-up with telecommunications repairer so that we can ensure medical maximization and obtain clearance prior to the procedure. The patient is agreeable to this plan. We discussed the risks and benefits of the planned endoscopy. I have informed the patient that complications can occur including failure to complete the endoscopy and perforation. The patient had the opportunity to ask questions concerning the planned endoscopy. My staff has also explained the procedure to the patient in understandable terms and has given the patient printed material concerning the procedure. The patient freely consents to surgery. I plan to use golytely bowel preparation for endoscopy I plan for monitored anesthetic care. Diagnoses: (Z86.010) Personal history of colonic polyps (primary encounter diagnosis) (J44.1, J45.901) Asthma with COPD with exacerbation (HCC) My findings have been communicated to Dr. Jacques Staton DO via shared medical record. This note will be forwarded to Dr. Jacques Staton DO. Patient has upcoming follow-up with pulmonology. She has been instructed to contact our tax senior associate after this appointment and a request for clearance will be faxed to pulmonology office at that time I spent 30 minutes in the visit, with more than 50% of the total [id number] time of the visit in counseling / coordination of care. ROSITA Armando Observed: 07/26/2017 Status: COMPLETED Source: [place] 3:30 PM [facility] REPOSITORY Office Visit (GENSWS) MATTHEW BUTLER ([id number]) 1960 F NFR Date Time Provider Department 07/26/17 3:30 PM ALETHA CLAYTON (PA) During your visit today, we recorded the following information about you: Pulse Blood pressure Weight Height 84/minute 138/82 68.5 kg 1.511 m Teresa Marcelo LPN 07/26/2017 4:02 PM Signed REVIEW OF SYSTEMS: General: The patient NOTES fatigue, denies weight loss, NOTES weight gain, denies feeling hot, and denies feelings of cold. Eyes: The patient denies glaucoma, denies eye injury/surgery, wears glasses or contacts. Ear/Nose/Throat: The patient NOTES allergies, denies hayfever, denies ear infections, and denies bloody noses. Cardiovascular: The patient denies chest pain, denies heart disease, NOTES high blood pressure,denies cardiac stent, denies prior heart attack, denies irregular heart beat, denies high cholesterol, denies poor circulation, denies heart failure, other cardiac issues, denies claudication, denies cold feet, denies peripheral arterial stent. Respiratory: The patient denies tuberculosis, denies pneumonia, denies frequent cough, denies pulmonary embolism, NOTES shortness of breath, and denies coughing up blood. Gastrointestinal: The patient NOTES difficulty swallowing, NOTES acid reflux, denies ulcers, denies vomiting, denies jaundice/hepatitis, NOTES gallbladder problems, denies black or tarry stools, NOTES hemorrhoids, denies bleeding from rectum, denies diverticulitis, denies constipation, denies diarrhea, denies loss of stool control, and denies hernias. Kidney/Bladder: The patient denies kidney stones, denies urine infections, and denies bloody urine. Skin: The patient denies a history of skin cancer, denies bleeding/changing moles, and denies a history of skin rash. Neurologic: The patient denies a history of epilepsy/convulsions, denies headaches, denies head/spinal injuries, and denies stroke/TIA. Psychiatric: The patient denies psychiatric medications, denies depression, and denies voices, denies substance abuse. Endocrine: The patient denies thyroid disorders, denies diabetes, and denies hormonal problems. Hematologic: The patient NOTES a history of bruising, denies bleeding, and denies anemia, denies blood clots. Infections: The patient denies a history of measles and mumps, denies rheumatic fever, and denies sexually transmitted diseases. Musculoskeletal: The patient denies back pain/injury, denies back problems, denies sciatica, denies knee/foot trouble, NOTES arthritis, or denies gout. When was patient's last Mammogram screening? 2015 Last Colonoscopy: none Teresa Clayton PA-C 07/27/2017 4:29 PM Signed HISTORY AND PHYSICAL Matthew Iniguezcoco 1960 REFERRING PHYSICIAN: Jacques Staton DO CHIEF COMPLAINT: consultation for colonoscopy HPI: The patient is a 57 year old female referred for endoscopy. Matthew notes a personal history of an adenomatous colon polyp and is due for 3-year follow-up colonoscopy. She denies any change in bowel habits, weight changes, blood in stools, black tarry stools or abdominal pain. Denies family history of colon cancer. The patient notes a previous history of reflux and esophageal spasms and has undergone prior upper endoscopy. She notes her reflux symptoms are currently well controlled with medication and notes no upper GI complaints currently. The patient is being seen by me today at the request of Dr. Staton for my opinion and advice regarding screening colonoscopy. Patient was recently hospitalized for a COPD exacerbation. She notes she has issues with both asthma and COPD. She is gradually feeling improved since her hospitalization but is still using supplemental oxygen at night and occasionally during the day as well. She notes she saw Dr. Acosta while in the hospital. She just completed a sleep study and states she has pulmonary function testing coming up and then will follow up with Dr. Acosta. Other medical history is significant for hypertension, hyperlipidemia and history of tobacco use. She denies problems with sedation in the past. PAST MEDICAL HISTORY Diagnosis Date - Allergic rhinitis due to other allergen - Allergic rhinitis due to other allergen jhonny. August - Mar - Anxiety disorder in conditions classified elsewhere - BILIARY DYSKINESIA 08/06/2007 - COPD (chronic obstructive pulmonary disease) (HCC) - Environmental allergies sees [facility] - Essential hypertension, benign - GERD (gastroesophageal reflux disease) 05/13/14 seen on esophagram - Hiatal hernia 05/13/14 seen on esophagram - Hypoglycemia, unspecified no syncopal events: gets shaky/ dizzy if hasn't eaten - Impaired fasting glucose 07/2015 - Primary localized osteoarthrosis, other specified sites affects knees: degenerative disease confirmed per x-ray 05/1999 - Routine gynecological examination 01/14/2009 (none -- just does mammogram yearly) - Snoring - Spasm of esophagus 05/2014 Dr. Alberto, EGD 2014 - UMBILICAL HERNIA W/O GANGRENE/OBSTRUCTION 08/06/2007 PAST SURGICAL HISTORY Procedure Laterality Date - DELIVERY ONLY 1977 , low cervical - DELIVERY ONLY 1980 , low cervical - COLONOSCOP W/ OR W/O BRSH SPEC 04/16/2014 Colonoscopy-tubular adenoma - EGD W/O OR W/BRUSH/WASH 05/30/14 EGD - ENDOSC BALLOON SINUPLASTY Bilateral 09/29/2015 [facility] office. - LAP CHOLECYSTECT/CHOLANGIOGRAPHY 08/13/07 with supraumbilical ventral hernia repair - LIGATE FALLOPIAN TUBE 08/10 Tubal ligation - PAST SURGICAL HISTORY OF 1970 Repair left arm/wrist fracture - REMOVAL ADENOIDS,PRIMARY,ANDlt;12 Y/O 1972 Adenoidectomy - REMOVAL OF TONSILS,ANDlt;12 Y/O 1972 Tonsillectomy - RHINOPLASTY 09/29/15 - TOTAL ABDOM HYSTERECTOMY 08/10 LASHANDA: ovaries remain; for polyps, no cancer - TOTAL ABDOM HYSTERECTOMY 08/30/2015 Current Outpatient Prescriptions: ALPRAZolam (XANAX) 0.25 mg tablet Take 1 tablet by mouth as needed. SYRINGE WITH NEEDLE, 1 ML (ALLERGY SYRINGE MISC) 2 Doses once each week. dicyclomine (BENTYL) 20 mg tablet TAKE ONE TABLET BY MOUTH THREE TIMES DAILY lisinopril (ZESTRIL,PRINIVIL) 30 mg tablet Take 1 tablet by mouth once daily. montelukast (SINGULAIR) 10 mg tablet Take 10 mg by mouth daily at bedtime. Cholecalciferol, Vitamin D3, (VITAMIN D-3) 2,000 unit cap Take by mouth once daily. FLUoxetine (PROZAC) 20 mg capsule Take 1 capsule by mouth once daily. budesonide-formoterol (SYMBICORT) 160-4.5 mcg/actuation inhaler Inhale 2 Puffs as instructed twice daily. hydroCHLOROthiazide (HYDRODIURIL, ESIDRIX) 25 mg tablet Take 1 tablet by mouth once daily. albuterol HFA (PROAIR HFA) 90 mcg/actuation inhaler Inhale 1-2 Puffs as instructed every 4 hours as needed for Wheezing/Shortness of Breath. ipratropium-albuterol (DUONEB) 0.5 mg-3 mg(2.5 mg base)/3 mL nebu Inhale 3 mL as instructed every 6 hours as needed. Nebulizer NEBULIZER FOR HOME USE. DX: COPD omeprazole (PRILOSEC) 20 mg capsule Take 1 capsule by mouth daily before breakfast. 1/2 hr before meal. loratadine (CLARITIN) 10 mg tablet Take 1 tablet by mouth once daily as needed. FOR ALLERGY SYMPTOMS ASPIRIN 81 MG CHEWABLE TAB Take one(1) tablet daily. nystatin (MYCOSTATIN) 100,000 unit/mL suspension 1tsp swish in mouth for several minutes, then swallow (or expectorate) 4 times daily until gone. ipratropium-albuterol (COMBIVENT RESPIMAT) 20-100 mcg/actuation mist Inhale 1 Puff as instructed four times daily as needed. ipratropium-albuterol (COMBIVENT RESPIMAT) 20-100 mcg/actuation mist Inhale 1 Puff as instructed four times daily as needed (Shortness of breath, wheezing.). ipratropium-albuterol (DUONEB) 0.5 mg-3 mg(2.5 mg base)/3 mL nebu Inhale 3 mL as instructed every 6 hours as needed. No current facility-administered medications for this visit. ALLERGIES: Chantix [Varenicline]; Barbituates [Other] PERSONAL HISTORY: Social History Marital status: Spouse name: Jeremy Years of education: GED Number of children: 3 Occupational History Occupation Employer Comment [employer]* Social History Main Topics Smoking status: Former Smoker Packs/day: 1.00 Years: 28.00 Types: Cigarettes Start date: 08/23/1974 Quit date: 12/20/2016 Smokeless status: Never Used Comment: 0.5- 0.75 PPD: 08/11/16 TGO Alcohol use: No Drug use: No Sexual activity: Yes Partners with: Male control/protection: Surgical Comment: LASHANDA Other Topics Concern No BLOOD TRANSFUSIONS No CAFFEINE Yes Comment:4-6 cups/day OCCUPATIONAL EXPOSURE No HOBBY HAZARD No SLEEP CONCERN No STRESS CONCERN Yes WEIGHT CONCERN No DIET No BACK CARE No EXERCISE Yes BIKE HELMET No SEAT BELT No SELF EXAMS No Social History Narrative 1976 works [employer]: [employer] FAMILY HISTORY: FAMILY HISTORY Problem Relation Age of Onset - Psychiatry Mother bipolar disease: age 62 (accidental) - Emphysema Mother smoker - Stroke Mother - Diabetes Mother glucose intolerance - Diabetes Father dx age 30's, age 62 of complications - Stroke Father - Breast Cancer Sister intraductal carcinoma diagnosed age 36 - Psychiatry Brother bipolar - Psychiatry Brother bipolar - Psychiatry Brother bipolar - None Daughter - None Daughter - None Son REVIEW OF SYMPTOMS: The review of systems data was entered by the nurse and reviewed by me Nursing Notes: Teresa Marcelo LPN 07/26/2017 4:02 PM Signed REVIEW OF SYSTEMS: General: The patient NOTES fatigue, denies weight loss, NOTES weight gain, denies feeling hot, and denies feelings of cold. Eyes: The patient denies glaucoma, denies eye injury/surgery, wears glasses or contacts. Ear/Nose/Throat: The patient NOTES allergies, denies hayfever, denies ear infections, and denies bloody noses. Cardiovascular: The patient denies chest pain, denies heart disease, NOTES high blood pressure,denies cardiac stent, denies prior heart attack, denies irregular heart beat, denies high cholesterol, denies poor circulation, denies heart failure, other cardiac issues, denies claudication, denies cold feet, denies peripheral arterial stent. Respiratory: The patient denies tuberculosis, denies pneumonia, denies frequent cough, denies pulmonary embolism, NOTES shortness of breath, and denies coughing up blood. Gastrointestinal: The patient NOTES difficulty swallowing, NOTES acid reflux, denies ulcers, denies vomiting, denies jaundice/hepatitis, NOTES gallbladder problems, denies black or tarry stools, NOTES hemorrhoids, denies bleeding from rectum, denies diverticulitis, denies constipation, denies diarrhea, denies loss of stool control, and denies hernias. Kidney/Bladder: The patient denies kidney stones, denies urine infections, and denies bloody urine. Skin: The patient denies a history of skin cancer, denies bleeding/changing moles, and denies a history of skin rash. Neurologic: The patient denies a history of epilepsy/convulsions, denies headaches, denies head/spinal injuries, and denies stroke/TIA. Psychiatric: The patient denies psychiatric medications, denies depression, and denies voices, denies substance abuse. Endocrine: The patient denies thyroid disorders, denies diabetes, and denies hormonal problems. Hematologic: The patient NOTES a history of bruising, denies bleeding, and denies anemia, denies blood clots. Infections: The patient denies a history of measles and mumps, denies rheumatic fever, and denies sexually transmitted diseases. Musculoskeletal: The patient denies back pain/injury, denies back problems, denies sciatica, denies knee/foot trouble, NOTES arthritis, or denies gout. When was patient's last Mammogram screening? 2016 Last Colonoscopy: none Teresa Clayton PA-C PHYSICAL EXAMINATION: General: The patient is 57 year old female, well nourished, well hydrated in no acute distress. The patient is oriented to time, place, and person. VITALS: Blood pressure 138/82, pulse 84, height 151.1 cm (4' 11.5ANDquot;), weight 68.5 kg (151 lb). Body mass index is 29.99 kg/(m2). HEENT: Normal cephalic, ataumatic, pupils are equally round, sclera are anicteric, mucous membranes are moist, oropharynx is clear. Neck has no masses, asymmetry or lymphadenopathy. Respiratory: Clear to auscultation and percussion. Normal respiratory excursion and pattern. Cardiac: Examination is regular rate and rhythm. Abdominal exam: Soft, nontender, with no palpable masses. No hepatosplenomegaly. No palpable hernias. Rectal exam: exam deferred Extremities: no clubbing, cyanosis or edema. No adenopathy. Other: LABORATORY VALUES: As Noted RADIOLOGIC STUDIES: As Noted Assessment IMPRESSION: encounter for screening colonoscopy, history of polyps. Recent hospitalization for COPD exacerbation and still using oxygen- recommend waiting until after pulmonology testing and follow-up appt PLAN: Based on patient's recent hospitalization for pulmonary issues, would defer elective colonoscopy until after follow-up with telecommunications repairer so that we can ensure medical maximization and obtain clearance prior to the procedure. The patient is agreeable to this plan. We discussed the risks and benefits of the planned endoscopy. I have informed the patient that complications can occur including failure to complete the endoscopy and perforation. The patient had the opportunity to ask questions concerning the planned endoscopy. My staff has also explained the procedure to the patient in understandable terms and has given the patient printed material concerning the procedure. The patient freely consents to surgery. I plan to use golytely bowel preparation for endoscopy I plan for monitored anesthetic care. Diagnoses: (Z86.010) Personal history of colonic polyps (primary encounter diagnosis) (J44.1, J45.901) Asthma with COPD with exacerbation (HCC) My findings have been communicated to Dr. Jacques Staton DO via shared medical record. This note will be forwarded to Dr. Jacques Staton DO. Patient has upcoming follow-up with pulmonology. She has been instructed to contact our tax senior associate after this appointment and a request for clearance will be faxed to pulmonology office at that time I spent 30 minutes in the visit, with more than 50% of the total [id number] time of the visit in counseling / coordination of care. Aletha Clayton PA-C Referring Provider: JACQUES STATON [[id number]] Allergies As of Date: 07/26/2017 Noted Allergy Reaction CHANTIX (VARENICLINE) 03/16/2012 1 - Mental Status Change 11 - Vomiting Comments: Temporarily not thinking straight, after cessation of 2 months of Rx. barbituates [Other] 08/20/2005 Comments: Unsure exactly what medication was taken, it was one of her mom's meds for bipolar disorder, had a severe reaction involving neck stiffness, sounds consistent with dystonia, mom was on haldol, stelazine, others at the time. Date Reviewed: 07/26/2017 Reviewed by: Aletha Clayton (Pa) - Fully Assessed Reason for Visit: consultation for colonoscopy [Other] Primary Visit Diagnosis:Personal history of colonic polyps [Z86.010] Other Visit Diagnosis:Asthma with COPD with exacerbation (HCC) [J44.1, J45.901] Order(s):peg 3350-Electrolytes (GOLYTELY) 236-22.74-6.74 - 5.86 gram suspensionTake 4,000 mL by mouth one time only for 1 dose.Disp: 1 BottleRfl: 0 Prescriptions as of 07/26/2017 Sig: ALPRAZOLAM 0.25 MG TABLET Take 1 tablet by mouth as nee* ALLERGY SYRINGE MISC 2 Doses once each week. DICYCLOMINE 20 MG TABLET TAKE ONE TABLET BY MOUTH THRE* LISINOPRIL 30 MG TABLET Take 1 tablet by mouth once d* MONTELUKAST 10 MG TABLET Take 10 mg by mouth daily at * CHOLECALCIFEROL (VITAMIN D3) * Take by mouth once daily. FLUOXETINE 20 MG CAPSULE Take 1 capsule by mouth once * BUDESONIDE-FORMOTEROL HFA 160* Inhale 2 Puffs as instructed * HYDROCHLOROTHIAZIDE 25 MG TAB* Take 1 tablet by mouth once d* ALBUTEROL SULFATE HFA 90 MCG/* Inhale 1-2 Puffs as instructe* IPRATROPIUM-ALBUTEROL 0.5 MG-* Inhale 3 mL as instructed david* COMPOUNDED PRESCRIPTION NEBULIZER FOR HOME USE. DX: * OMEPRAZOLE 20 MG CAPSULE,SARBJIT* Take 1 capsule by mouth daily* LORATADINE 10 MG TABLET Take 1 tablet by mouth once d* ASPIRIN 81 MG CHEWABLE TABLET Take one(1) tablet daily. PEG 3350-ELECTROLYTES 236 GRA* Take 4,000 mL by mouth one ti* NYSTATIN 100,000 UNIT/ML ORAL* 1tsp swish in mouth for sever* IPRATROPIUM 20 MCG-ALBUTEROL * Inhale 1 Puff as instructed f* IPRATROPIUM 20 MCG-ALBUTEROL * Inhale 1 Puff as instructed f* IPRATROPIUM-ALBUTEROL 0.5 MG-* Inhale 3 mL as instructed david* Problem List As Of Date 07/26/2017 Noted Resolved Essential hypertension, benign [I10] INVALID FOR* Primary localized osteoarthrosis, other specifi* More... Allergic rhinitis due to other allergen [J30.89] 06/07/2017 More... 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 Routine gynecological examination [Z01.419] INVALID FOR*06/07/2017 Class: Chronic More... Hyperlipidemia [E78.5] INVALID FOR* More... Dysphagia, unspecified(787.20) [R13.10] INVALID FOR*05/30/2014 Spasm of esophagus [K22.4] Asthma, late onset [J45.909] INVALID FOR* Gastroesophageal reflux disease without esophag*INVALID FOR* Impaired fasting glucose [R73.01] INVALID FOR* COPD (chronic obstructive pulmonary disease) (H* Hoarseness [R49.0] INVALID FOR* History of tobacco abuse [Z87.891] INVALID FOR* Visit Notes: >> Teresa Fozia CAMPO MonJul 26, 2017 4:01 PM Status: Signed REVIEW OF SYSTEMS: General: The patient NOTES fatigue, denies weight loss, NOTES weight gain, denies feeling hot, and denies feelings of cold. Eyes: The patient denies glaucoma, denies eye injury/surgery, wears glasses or contacts. Ear/Nose/Throat: The patient NOTES allergies, denies hayfever, denies ear infections, and denies bloody noses. Cardiovascular: The patient denies chest pain, denies heart disease, NOTES high blood pressure,denies cardiac stent, denies prior heart attack, denies irregular heart beat, denies high cholesterol, denies poor circulation, denies heart failure, other cardiac issues, denies claudication, denies cold feet, denies peripheral arterial stent. Respiratory: The patient denies tuberculosis, denies pneumonia, denies frequent cough, denies pulmonary embolism, NOTES shortness of breath, and denies coughing up blood. Gastrointestinal: The patient NOTES difficulty swallowing, NOTES acid reflux, denies ulcers, denies vomiting, denies jaundice/hepatitis, NOTES gallbladder problems, denies black or tarry stools, NOTES hemorrhoids, denies bleeding from rectum, denies diverticulitis, denies constipation, denies diarrhea, denies loss of stool control, and denies hernias. Kidney/Bladder: The patient denies kidney stones, denies urine infections, and denies bloody urine. Skin: The patient denies a history of skin cancer, denies bleeding/changing moles, and denies a history of skin rash. Neurologic: The patient denies a history of epilepsy/convulsions, denies headaches, denies head/spinal injuries, and denies stroke/TIA. Psychiatric: The patient denies psychiatric medications, denies depression, and denies voices, denies substance abuse. Endocrine: The patient denies thyroid disorders, denies diabetes, and denies hormonal problems. Hematologic: The patient NOTES a history of bruising, denies bleeding, and denies anemia, denies blood clots. Infections: The patient denies a history of measles and mumps, denies rheumatic fever, and denies sexually transmitted diseases. Musculoskeletal: The patient denies back pain/injury, denies back problems, denies sciatica, denies knee/foot trouble, NOTES arthritis, or denies gout. When was patient's last Mammogram screening? 2016 Last Colonoscopy: none Teresa Marcelo LPN Prescriptions ordered this encounter Disp Refills Start End PEG 3350-ELECTROLYTES 236 GRAM-22.74* 1 Demetrius* 0 07/27/2017 07/27/2017 Route: ORAL Sig: Take 4,000 mL by mouth one time only for 1 dose. Follow-up and Disposition History Recorded Encounter Status:Closed by ALETHA CLAYTON PA-C on 07/27/17 PROGRESS Observed: 07/20/2017 Status: COMPLETED Source: [place] 2:02 PM [facility] REPOSITORY HNO ID: [id number] Author: Mindy Killian Service: (none) Author Type: (none) Type: Progress Notes Filed: 07/20/2017 2:02 PM Note Text: Scheduled patient for colonoscopy consultation with Aletha Clayton on 07/26/2017, patient would like to see Dr. Patel for the procedure Mindy Killian PROGRESS Observed: 07/18/2017 Status: COMPLETED Source: [place] 10:39 AM [facility] REPOSITORY HNO ID: [id number] Author: Mindy Killian Service: (none) Author Type: (none) Type: Progress Notes Filed: 07/18/2017 10:42 AM Note Text: 2nd failed attempt to contact patient, left voice message Mindy Killian PROGRESS Observed: 07/17/2017 Status: COMPLETED Source: [place] 8:27 PM [facility] REPOSITORY HNO ID: [id number] Author: Shauna Coffey Service: (none) Author Type: Nurse Practitioner Type: Progress Notes Filed: 07/17/2017 8:35 PM Note Text: Subjective HPI Patient presents with: Derm Problem: x 4 days puss pockets in coccyx area Denies any otc treatment for symptoms. ROS All other reviewed and negative other than HPI. PAST MEDICAL HISTORY Diagnosis Date - Allergic rhinitis due to other allergen - Allergic rhinitis due to other allergen jhonny. August - Mar - Anxiety disorder in conditions classified elsewhere - BILIARY DYSKINESIA 08/06/2007 - COPD (chronic obstructive pulmonary disease) (HCC) - Environmental allergies sees [facility] - Essential hypertension, benign - GERD (gastroesophageal reflux disease) 05/13/14 seen on esophagram - Hiatal hernia 05/13/14 seen on esophagram - Hypoglycemia, unspecified no syncopal events: gets shaky/ dizzy if hasn't eaten - Impaired fasting glucose 07/2015 - Primary localized osteoarthrosis, other specified sites affects knees: degenerative disease confirmed per x-ray 05/1999 - Routine gynecological examination 01/14/2009 (none -- just does mammogram yearly) - Snoring - Spasm of esophagus 05/2014 Dr. Alberto, EGD 2014 - UMBILICAL HERNIA W/O GANGRENE/OBSTRUCTION 08/06/2007 PAST SURGICAL HISTORY Procedure Laterality Date - DELIVERY ONLY 1977 , low cervical - DELIVERY ONLY 1980 , low cervical - COLONOSCOP W/ OR W/O BRSH SPEC 04/16/2014 Colonoscopy-tubular adenoma - EGD W/O OR W/BRUSH/WASH 05/30/14 EGD - ENDOSC BALLOON SINUPLASTY Bilateral 09/29/2015 [facility] office. - LAP CHOLECYSTECT/CHOLANGIOGRAPHY 08/13/07 with supraumbilical ventral hernia repair - LIGATE FALLOPIAN TUBE 08/10 Tubal ligation - PAST SURGICAL HISTORY OF 1970 Repair left arm/wrist fracture - REMOVAL ADENOIDS,PRIMARY,<12 Y/O 1972 Adenoidectomy - REMOVAL OF TONSILS,<12 Y/O 1972 Tonsillectomy - RHINOPLASTY 09/29/15 - TOTAL ABDOM HYSTERECTOMY 08/10 LASHANDA: ovaries remain; for polyps, no cancer - TOTAL ABDOM HYSTERECTOMY 08/30/2015 ALLERGIES Chantix [Varenicline]; Barbituates [Other] MEDICATIONS nystatin (MYCOSTATIN) 100,000 unit/mL suspension 1tsp swish in mouth for several minutes, then swallow (or expectorate) 4 times daily until gone. ALPRAZolam (XANAX) 0.25 mg tablet Take 1 tablet by mouth as needed. SYRINGE WITH NEEDLE, 1 ML (ALLERGY SYRINGE MISC) 2 Doses once each week. dicyclomine (BENTYL) 20 mg tablet TAKE ONE TABLET BY MOUTH THREE TIMES DAILY lisinopril (ZESTRIL,PRINIVIL) 30 mg tablet Take 1 tablet by mouth once daily. montelukast (SINGULAIR) 10 mg tablet Take 10 mg by mouth daily at bedtime. Cholecalciferol, Vitamin D3, (VITAMIN D-3) 2,000 unit cap Take by mouth once daily. FLUoxetine (PROZAC) 20 mg capsule Take 1 capsule by mouth once daily. budesonide-formoterol (SYMBICORT) 160-4.5 mcg/actuation inhaler Inhale 2 Puffs as instructed twice daily. hydroCHLOROthiazide (HYDRODIURIL, ESIDRIX) 25 mg tablet Take 1 tablet by mouth once daily. albuterol HFA (PROAIR HFA) 90 mcg/actuation inhaler Inhale 1-2 Puffs as instructed every 4 hours as needed for Wheezing/Shortness of Breath. ipratropium-albuterol (DUONEB) 0.5 mg-3 mg(2.5 mg base)/3 mL nebu Inhale 3 mL as instructed every 6 hours as needed. ipratropium-albuterol (DUONEB) 0.5 mg-3 mg(2.5 mg base)/3 mL nebu Inhale 3 mL as instructed every 6 hours as needed. Nebulizer NEBULIZER FOR HOME USE. DX: COPD omeprazole (PRILOSEC) 20 mg capsule Take 1 capsule by mouth daily before breakfast. 1/2 hr before meal. loratadine (CLARITIN) 10 mg tablet Take 1 tablet by mouth once daily as needed. FOR ALLERGY SYMPTOMS ASPIRIN 81 MG CHEWABLE TAB Take one(1) tablet daily. mupirocin (BACTROBAN) 2 % ointment Apply 1 application to affected area three times daily for 10 days. cephALEXin (KEFLEX) 500 mg capsule Take 1 capsule by mouth three times daily for 10 days. FOR 10 DAYS ipratropium-albuterol (COMBIVENT RESPIMAT) 20-100 mcg/actuation mist Inhale 1 Puff as instructed four times daily as needed. ipratropium-albuterol (COMBIVENT RESPIMAT) 20-100 mcg/actuation mist Inhale 1 Puff as instructed four times daily as needed (Shortness of breath, wheezing.). FAMILY HISTORY Problem Relation Age of Onset - Psychiatry Mother bipolar disease: age 62 (accidental) - Emphysema Mother smoker - Stroke Mother - Diabetes Mother glucose intolerance - Diabetes Father dx age 30's, age 62 of complications - Stroke Father - Breast Cancer Sister intraductal carcinoma diagnosed age 36 - Psychiatry Brother bipolar - Psychiatry Brother bipolar - Psychiatry Brother bipolar - None Daughter - None Daughter - None Son Social History Substance Use Topics - Smoking status: Former Smoker Packs/day: 1.00 Years: 28.00 Types: Cigarettes Start date: 08/23/1974 Quit date: 12/20/2016 - Smokeless tobacco: Never Used Comment: 0.5- 0.75 PPD: 08/11/16 TGO - Alcohol use No Objective Physical Exam Skin: Nursing note and vitals reviewed. ASSESSMENT/PLAN: 1. Skin lesion - ICD9: 709.9, ICD10: L98.9 - Suspected HSV - > 4 days onset - Secondary infection - Keflex, Bactroban - F/u with pcp in 3-5 days or sooner if symptoms are not improving or worsening - HERPES SIMPLEX CULT - WOUND CULTURE AND GRAM STAIN Prescription instructions reviewed with patient as applicable. Patient advised if symptoms do not improve or if symptoms worsen sooner, to contact their primary care physician. Potential red flag symptoms discussed with the patient. Reviewed appropriate action plan to take if red flag symptoms occur. Patient agreeable to treatment plan. Shauna Coffey APRN.ORTHODONTIC LAB TECHNICIAN 6 MINUTE WALK TEST Observed: 07/12/2017 Status: F Source: [place] 10:57 AM [facility] [place] REPOSITORY [facility] Pulmonary Services/Neurology [address] [place] [address] MR#: [id number] Acct: [id number] Name: MATTHEW BUTLER Rep #: [id number] : 1960 57 From: Bryant Deal MD Referring Dr: Elenita Lozano NP Date: Ordering Dr: Sex: F C Location: PSN PSN 6 Minute Walk Test - 6 Minute Walk Test 6 Minute Walk Test: 6 Minute Walk Test PSN:6-Minute Walk Test Start: 07/12/17 09:41 Freq: Status: Active Protocol: [id number] Document 07/12/17 09:42 [place] (Rec: 07/12/17 09:44 SFTUAN [id number]) 6 Minute Walk Test Date Performed 07/12/17 Time Performed 09:15 Height 4 ft 11.5 in Weight: 68.039 kg Weight in Pounds 150.[address]: Elenita Lozano Assistive device used: None Pre-test Oxygen Delivery Method Room Air Pulse Ox (%) 92 Pulse Rate (60-100 beats/min) 84 Dyspnea Pamela Scale (0-10) 0.5 Exertion Pamela Scale (6-20) 6 1st minute Oxygen Delivery Method Room Air Pulse Ox (%) 89 Pulse Rate (60-100 beats/min) 97 2nd minute Oxygen Delivery Method Room Air Pulse Ox (%) 84 Pulse Rate (60-100 beats/min) 102 H 3rd minute Oxygen Flow Rate (L/min) (L/min) 2 Oxygen Delivery Method Nasal Cannula Pulse Ox (%) 91 Pulse Rate (60-100 beats/min) 94 4th minute Oxygen Flow Rate (L/min) (L/min) 2 Oxygen Delivery Method Nasal Cannula Pulse Ox (%) 90 Pulse Rate (60-100 beats/min) 99 5th minute Oxygen Flow Rate (L/min) (L/min) 2 Oxygen Delivery Method Nasal Cannula Pulse Ox (%) 90 Pulse Rate (60-100 beats/min) 103 H 6th minute Oxygen Flow Rate (L/min) (L/min) 2 Oxygen Delivery Method Nasal Cannula Pulse Ox (%) 90 Pulse Rate (60-100 beats/min) 104 H Dyspnea Pamela Scale (0-10) 2 Exertion Pamela Scale (6-20) 13 Post-test Oxygen Flow Rate (L/min) (L/min) 2 Oxygen Delivery Method Nasal Cannula Pulse Ox (%) 98 Pulse Rate (60-100 beats/min) 81 Full Laps Walked 16 Partial Lap, Number of Tiles Walked 6 Total Distance Walked (ft) 950 - Interpretation Interpretation: The patient was able to ambulate 950 feet over the course of 6 minutes with no assistive devices or breaks. The patient did have a lower resting oxygen level of 92%. Patient desaturated to 84% in the second minute. 2 L/min of oxygen was applied with improvement to 95%. The patient was unable to complete the testing without complication. These findings are consistent with a respiratory limitation to exercise tolerance. - Recommendations Recommendations: The patient requires no supplemental oxygen at rest, but should be using 2 L/min nasal cannula oxygen with any exertion. 07/12/17 1057 <Electronically signed by Bryant Deal MD> Date Bryant Deal MD CC: Date Dictated: 07/12/171055 Date Transcribed: 07/12/171055 Photographer Model: Bryant Deal Signed PROGRESS Observed: 07/11/2017 Status: COMPLETED Source: [place] 9:28 AM [facility] REPOSITORY HNO ID: [id number] Author: Mindy Killian Service: (none) Author Type: (none) Type: Progress Notes Filed: 07/11/2017 9:29 AM Note Text: 1st failed attempt to contact patient, left voice message Mindy Killian Observed: 07/10/2017 Status: F Source: [place] HERPES SIMPLEX VIRUS 6:26 PM [facility] CULTURE REPOSITORY Sp. Request/Comment: - Specimen received in [facility] [employer] Medium. Culture Result - Herpes Simplex Virus Isolated. Performed By: #### [facility] #### [facility] [address] [address] CNOV Observed: 07/10/2017 Status: COMPLETED Source: [place] 6:00 PM [facility] REPOSITORY Office Visit ([facility]) MATTHEW BUTLER ([id number]) 1960 F NFR Date Time Provider Department 07/10/17 6:00 PM SHAUNA COFFEY (PROSPECTING OBSERVER) [facility] During your visit today, we recorded the following information about you: Temperature Pulse Respiration Blood pressure 99 degrees 81/minute 16/minute 120/78 Weight 68 kg Shauna Coffey APRN.ORTHODONTIC LAB TECHNICIAN 07/17/2017 8:35 PM Signed Subjective HPI Patient presents with: Derm Problem: x 4 days puss pockets in coccyx area Denies any otc treatment for symptoms. ROS All other reviewed and negative other than HPI. PAST MEDICAL HISTORY Diagnosis Date - Allergic rhinitis due to other allergen - Allergic rhinitis due to other allergen jhonny. August - Mar - Anxiety disorder in conditions classified elsewhere - BILIARY DYSKINESIA 08/06/2007 - COPD (chronic obstructive pulmonary disease) (HCC) - Environmental allergies sees [facility] - Essential hypertension, benign - GERD (gastroesophageal reflux disease) 05/13/14 seen on esophagram - Hiatal hernia 05/13/14 seen on esophagram - Hypoglycemia, unspecified no syncopal events: gets shaky/ dizzy if hasn't eaten - Impaired fasting glucose 07/2015 - Primary localized osteoarthrosis, other specified sites affects knees: degenerative disease confirmed per x-ray 05/1999 - Routine gynecological examination 01/14/2009 (none -- just does mammogram yearly) - Snoring - Spasm of esophagus 05/2014 Dr. Alberto, EGD 2014 - UMBILICAL HERNIA W/O GANGRENE/OBSTRUCTION 08/06/2007 PAST SURGICAL HISTORY Procedure Laterality Date - DELIVERY ONLY 1977 , low cervical - DELIVERY ONLY 1980 , low cervical - COLONOSCOP W/ OR W/O BRSH SPEC 04/16/2014 Colonoscopy-tubular adenoma - EGD W/O OR W/BRUSH/WASH 05/30/14 EGD - ENDOSC BALLOON SINUPLASTY Bilateral 09/29/2015 [facility]. - LAP CHOLECYSTECT/CHOLANGIOGRAPHY 08/13/07 with supraumbilical ventral hernia repair - LIGATE FALLOPIAN TUBE 08/10 Tubal ligation - PAST SURGICAL HISTORY OF 1970 Repair left arm/wrist fracture - REMOVAL ADENOIDS,PRIMARY,ANDlt;11 Y/O 1972 Adenoidectomy - REMOVAL OF TONSILS,ANDlt;11 Y/O 1972 Tonsillectomy - RHINOPLASTY 09/29/15 - TOTAL ABDOM HYSTERECTOMY 08/10 LASHANDA: ovaries remain; for polyps, no cancer - TOTAL ABDOM HYSTERECTOMY 08/30/2015 ALLERGIES Chantix [Varenicline]; Barbituates [Other] MEDICATIONS nystatin (MYCOSTATIN) 100,000 unit/mL suspension 1tsp swish in mouth for several minutes, then swallow (or expectorate) 4 times daily until gone. ALPRAZolam (XANAX) 0.25 mg tablet Take 1 tablet by mouth as needed. SYRINGE WITH NEEDLE, 1 ML (ALLERGY SYRINGE MISC) 2 Doses once each week. dicyclomine (BENTYL) 20 mg tablet TAKE ONE TABLET BY MOUTH THREE TIMES DAILY lisinopril (ZESTRIL,PRINIVIL) 30 mg tablet Take 1 tablet by mouth once daily. montelukast (SINGULAIR) 10 mg tablet Take 10 mg by mouth daily at bedtime. Cholecalciferol, Vitamin D3, (VITAMIN D-3) 2,000 unit cap Take by mouth once daily. FLUoxetine (PROZAC) 20 mg capsule Take 1 capsule by mouth once daily. budesonide-formoterol (SYMBICORT) 160-4.5 mcg/actuation inhaler Inhale 2 Puffs as instructed twice daily. hydroCHLOROthiazide (HYDRODIURIL, ESIDRIX) 25 mg tablet Take 1 tablet by mouth once daily. albuterol HFA (PROAIR HFA) 90 mcg/actuation inhaler Inhale 1-2 Puffs as instructed every 4 hours as needed for Wheezing/Shortness of Breath. ipratropium-albuterol (DUONEB) 0.5 mg-3 mg(2.5 mg base)/3 mL nebu Inhale 3 mL as instructed every 6 hours as needed. ipratropium-albuterol (DUONEB) 0.5 mg-3 mg(2.5 mg base)/3 mL nebu Inhale 3 mL as instructed every 6 hours as needed. Nebulizer NEBULIZER FOR HOME USE. DX: COPD omeprazole (PRILOSEC) 20 mg capsule Take 1 capsule by mouth daily before breakfast. 1/2 hr before meal. loratadine (CLARITIN) 10 mg tablet Take 1 tablet by mouth once daily as needed. FOR ALLERGY SYMPTOMS ASPIRIN 81 MG CHEWABLE TAB Take one(1) tablet daily. mupirocin (BACTROBAN) 2 % ointment Apply 1 application to affected area three times daily for 10 days. cephALEXin (KEFLEX) 500 mg capsule Take 1 capsule by mouth three times daily for 10 days. FOR 10 DAYS ipratropium-albuterol (COMBIVENT RESPIMAT) 20-100 mcg/actuation mist Inhale 1 Puff as instructed four times daily as needed. ipratropium-albuterol (COMBIVENT RESPIMAT) 20-100 mcg/actuation mist Inhale 1 Puff as instructed four times daily as needed (Shortness of breath, wheezing.). FAMILY HISTORY Problem Relation Age of Onset - Psychiatry Mother bipolar disease: age 62 (accidental) - Emphysema Mother smoker - Stroke Mother - Diabetes Mother glucose intolerance - Diabetes Father dx age 30's, age 62 of complications - Stroke Father - Breast Cancer Sister intraductal carcinoma diagnosed age 36 - Psychiatry Brother bipolar - Psychiatry Brother bipolar - Psychiatry Brother bipolar - None Daughter - None Daughter - None Son Social History Substance Use Topics - Smoking status: Former Smoker Packs/day: 1.00 Years: 28.00 Types: Cigarettes Start date: 08/23/1974 Quit date: 12/20/2016 - Smokeless tobacco: Never Used Comment: 0.5- 0.75 PPD: 08/11/16 TGO - Alcohol use No Objective Physical Exam Skin: Nursing note and vitals reviewed. ASSESSMENT/PLAN: 1. Skin lesion - ICD9: 709.9, ICD10: L98.9 - Suspected HSV - ANDgt; 4 days onset - Secondary infection - Keflex, Bactroban - F/u with pcp in 3-5 days or sooner if symptoms are not improving or worsening - HERPES SIMPLEX CULT - WOUND CULTURE AND GRAM STAIN Prescription instructions reviewed with patient as applicable. Patient advised if symptoms do not improve or if symptoms worsen sooner, to contact their primary care physician. Potential red flag symptoms discussed with the patient. Reviewed appropriate action plan to take if red flag symptoms occur. Patient agreeable to treatment plan. Shauna Coffey APRN.ORTHODONTIC LAB TECHNICIAN Referring Provider: SELF [[id number]] Allergies As of Date: 07/10/2017 Noted Allergy Reaction CHANTIX (VARENICLINE) 03/16/2012 1 - Mental Status Change 11 - Vomiting Comments: Temporarily not thinking straight, after cessation of 2 months of Rx. barbituates [Other] 08/20/2005 Comments: Unsure exactly what medication was taken, it was one of her mom's meds for bipolar disorder, had a severe reaction involving neck stiffness, sounds consistent with dystonia, mom was on haldol, stelazine, others at the time. Date Reviewed: 07/10/2017 Reviewed by: Soledad Omer LPN - Fully Assessed Reason for Visit: Derm Problem [33] Cmt: x 3 days puss pockets in coccyx area Primary Visit Diagnosis:Skin lesion [L98.9] Order(s):HERPES SIMPLEX CULT [SQVHSV] Order #: [id number]. #:[id number] WOUND CULTURE AND GRAM STAIN [SQWCUL] Order #: [id number]. #:[id number] mupirocin (BACTROBAN) 2 % ointmentApply 1 application to affected area three times daily for 10 days.Disp: 22 gRfl: 0 cephALEXin (KEFLEX) 500 mg capsuleTake 1 capsule by mouth three times daily for 10 days. FOR 10 DAYSDisp: 30 capsuleRfl: 0 Prescriptions as of 07/10/2017 Sig: NYSTATIN 100,000 UNIT/ML ORAL* 1tsp swish in mouth for sever* ALPRAZOLAM 0.25 MG TABLET Take 1 tablet by mouth as nee* ALLERGY SYRINGE MISC 2 Doses once each week. DOXYCYCLINE HYCLATE 100 MG TA* Take 1 tablet by mouth twice * PREDNISONE 10 MG TABLET Take 4 tabs daily for 3 days,* DICYCLOMINE 20 MG TABLET TAKE ONE TABLET BY MOUTH THRE* LISINOPRIL 30 MG TABLET Take 1 tablet by mouth once d* MONTELUKAST 10 MG TABLET Take 10 mg by mouth daily at * CHOLECALCIFEROL (VITAMIN D3) * Take by mouth once daily. FLUOXETINE 20 MG CAPSULE Take 1 capsule by mouth once * BUDESONIDE-FORMOTEROL HFA 160* Inhale 2 Puffs as instructed * HYDROCHLOROTHIAZIDE 25 MG TAB* Take 1 tablet by mouth once d* ALBUTEROL SULFATE HFA 90 MCG/* Inhale 1-2 Puffs as instructe* IPRATROPIUM-ALBUTEROL 0.5 MG-* Inhale 3 mL as instructed david* IPRATROPIUM-ALBUTEROL 0.5 MG-* Inhale 3 mL as instructed david* COMPOUNDED PRESCRIPTION NEBULIZER FOR HOME USE. DX: * OMEPRAZOLE 20 MG CAPSULE,SARBJIT* Take 1 capsule by mouth daily* LORATADINE 10 MG TABLET Take 1 tablet by mouth once d* ASPIRIN 81 MG CHEWABLE TABLET Take one(1) tablet daily. MUPIROCIN 2 % TOPICAL OINTMENT Apply 1 application to affect* CEPHALEXIN 500 MG CAPSULE Take 1 capsule by mouth three* IPRATROPIUM 20 MCG-ALBUTEROL * Inhale 1 Puff as instructed f* IPRATROPIUM 20 MCG-ALBUTEROL * Inhale 1 Puff as instructed f* Medication notes this encounter ALPRAZOLAM 0.25 MG TABLET >> Soledad Greyson Dat ELECTROLYSIST 07/10/2017 6:01 PM >> DAT, SOLEDAD E ELECTROLYSIST MonJul 10, 2017 6:01 PM Received from: External Pharmacy PREDNISONE 10 MG TABLET >> Soledad E Dat ELECTROLYSIST 07/10/2017 6:05 PM >> DAT SOLEDAD E ELECTROLYSIST MonJul 10, 2017 6:05 PM Not taking yet Problem List As Of Date 07/10/2017 Noted Resolved Essential hypertension, benign [I10] INVALID FOR* Primary localized osteoarthrosis, other specifi* More... Allergic rhinitis due to other allergen [J30.89] 06/07/2017 More... 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 Routine gynecological examination [Z01.419] INVALID FOR*06/07/2017 Class: Chronic More... Hyperlipidemia [E78.5] INVALID FOR* More... Dysphagia, unspecified(787.20) [R13.10] INVALID FOR*05/30/2014 Spasm of esophagus [K22.4] Asthma, late onset [J45.909] INVALID FOR* Gastroesophageal reflux disease without esophag*INVALID FOR* Impaired fasting glucose [R73.01] INVALID FOR* COPD (chronic obstructive pulmonary disease) (H* Hoarseness [R49.0] INVALID FOR* History of tobacco abuse [Z87.891] INVALID FOR* Prescriptions ordered this encounter Disp Refills Start End MUPIROCIN 2 % TOPICAL OINTMENT 22 g 0 07/10/2017 07/20/2017 Route: TOPICAL Sig: Apply 1 application to affected area three times daily for 10 days. CEPHALEXIN 500 MG CAPSULE 30 c* 0 07/10/2017 07/20/2017 Route: ORAL Sig: Take 1 capsule by mouth three times daily for 10 days. FOR 10 DAYS Disposition: Return if symptoms worsen or fail to improve. Follow-up and Disposition History Recorded Encounter Status:Closed by SHAUNA COFFEY on 07/17/17 WOUND Observed: 07/10/2017 Status: F Source: [place] CULTURE/STAIN 5:20 PM [facility] [place] REPOSITORY Sp. Request/Comment: - Swab Smear Result - No organisms seen No Polymorphonuclear leukocytes Culture Result - No growth 2 days Performed By: #### WCUL #### [facility] [address] [place], [place] [address] PULMONARY VISIT REPORT Observed: 07/06/2017 Status: F Source: [place] 5:09 PM [facility] REPOSITORY [facility] [address] [place] [address] OFFICE VISIT Date of Service: 07/06/17 MR#: [id number] Acct: [id number] Name: MATTHEW BUTLER Rep #: [id number] : 1960 Provider: Elenita Lozano Age/Sex: 57/F Location: [facility].PMW Status: Signed Assessment AND Plan 1. Acute respiratory failure with hypoxia J96.01 Status Acute Plan Plan for a formal pulmonary stress test to evaluate for exertional hypoxia, educated the patient that she requires supplemental oxygen anytime her saturation is less than 89%. Encouraged her to purchase a portable pulse oximeter and monitor her saturations randomly at home. Follow-up with Dr. Acosta in 3 months. 2. Exacerbation of asthma, unspecified asthma severity, unspecified whether persistent J45.901 Status Acute Plan She carries a diagnosis of asthma, unsure of the severity. She also has a significant smoking history and it is likely that she possibly has asthma COPD overlap syndrome. Plan for a complete pulmonary function test to determine if in fact she does have COPD, to quantify it and to determine what medications would be appropriate. No change in maintenance medications at this point, we will review this at the follow-up visit and determine the plan at this time. She does report that her mother also had COPD, therefore I am going to obtain an alpha-1 antitrypsin deficiency screening test in the office today. Test results will be discussed at her follow-up visit. I did explain to the patient that this is a rare disorder and the full impact will be discussed at the follow-up visit. 3. Lung nodule < 6cm on CT R91.1 Status Acute Plan Repeat CT of the chest with contrast in 3 months. Follow- up with Dr. Acosta in 3 months, at which time he will discuss the results of the PET scan. BMP to be drawn prior to the CAT scan to determine if kidney function is adequate to receive IV contrast dye. This was explained to the patient, and her family, they convey understanding. Taking several of the current guidelines for management of pulmonary nodules plus my own experience, my normal recommendations for CT follow up are: Fleishner society recommendations: *nonsolid, ground glass, or partially solid nodules may require longer follow up to exclude indolent adenocarcinoma. Low Risk: (minimal or absent smoking): < 4 mm: No follow up needed >4-6 mm: CT at 12 months, if no change then no further follow up needed >6-8 mm: Initial CT at 6-12 months, then 18-24 months if no change >8 mm: CT at 3, 9, and 24 months, consider dynamic contrast CT, PET, or bx High Risk: < 4 mm: CT at 12 months, if no change then no follow up needed >4-6 mm: initial CT at 6-12 months, then 18-24 months if no change >6-8 mm: CT at 3-6 months, then at 9-12 months, then at 24 months if no change >8 mm: CT at 3, 9, and 24 months, consider dynamic contrast CT, PET, or bx Orders Orders: 4. Daytime hypersomnia G47.19 Status Acute Plan The patient displays several symptoms consistent with obstructive sleep apnea, and daytime hypersomnia. Given the fact that she is receiving some mild relief with the [place] of supplemental oxygen with sleep, also leads me to believe that she possibly has sleep disordered breathing. I have ordered a complete polysomnogram, and will order a titration study if indicated. Lengthy discussion with the patient and her family regarding the pathophysiology of obstructive sleep apnea. We discussed the risks of untreated sleep apnea as well as the benefits of treatment. We also discussed the correlation between obstructive sleep apnea and obesity. She is agreeable to testing and treatment. She has been encouraged to contact the office if she has any difficulties adjusting/acclimating to the pressure support therapy. Initial goal will be that she wears the device at least 4 hours nightly, long-term goal is that she wears a device any time spent sleeping. Follow-up with Dr. Acosta in 3 months. Orders Orders: 5. Thrush, oral B37.0 Plan New. Will treat with nystatin 3 times daily. Encourage the patient to rinse her mouth out thoroughly after each use of Symbicort. She does have a spacer and she has been encouraged to use it. Follow-up with Dr. Acosta in 3 months. Plan Detail Other Orders Orders: Follow Up 3 Months (DMB) [facility] Hospital FU: Chief Complaint: Shortness of breath HPI Comments Details: This is a 57 year old F, currently under the care of Jacques Staton, here to follow up after a recent hospitalization at [facility] June 19 - June 22, 2017, from for acute respiratory failure with hypoxia and asthma exacerbation secondary to human Xiao virus. The hospital stay was complicated by an incidental finding on chest CT of a new pulmonary nodule measuring approximately 6.6 mm in the left lower lobe as well as a groundglass nodularity in the right middle lobe measuring 4.5 mm. 16 pages of hospital documentation was reviewed, and found to be significant for chest x-ray completed on June 19 that showed COPD/emphysema with increased bilateral atelectasis or scarring, CT completed on June 20 showing the previously mentioned nodule and groundglass opacitie as well as nonspecific mediastinal lymphadenopathy. Respiratory panel was positive for human Xiao virus. Upon discharge, the patient completed a 12 day course of prednisone and a she resumed her asthma maintenance medications that consist of Symbicort, Singulair and Ventolin rescue inhaler. She was discharged with an albuterol nebulizer. She is using this nebulizer 2-3 times per day. She does report that it gives her relief of her shortness of breath. She was also newly discharged on supplemental oxygen. She reports that currently she is only using the supplemental oxygen while she is sleeping. She also states that now that she is using oxygen with sleep she is sleeping much more soundly. Her reports that she snores and he has also witnessed her having periods of apnea. She has at least 1-3 episodes of nocturia nightly, this has improved since the addition of the supplemental oxygen. She reports experiencing dry mouth in the morning, falling asleep easily watching TV and frequent morning headaches. Currently, she denies any cough, sputum production or hemoptysis. She does complain of shortness of breath on exertion, wheezing and some chest tightness. She denies any fever, chills or body aches. Denies any chest pain or palpitations. See complete review of systems. She has not tried any [id number] medications for her symptoms. Intake Vital Signs07/06/17 Height 5 ft 07/06/17 Weight: 144 lb Intake Visit Reasons: Hospital FU Chief Complaint: sob, cough DME Vendor: [employer] Accompanied by: Family / Other Allergies Barbiturates Adverse Reaction (Verified 07/06/17 08:06) Other Medications Aspirin [Aspirin, Baby] 81 mg PO DAILY@0800 05/01/14 [History Confirmed 07/06/17] Hydrochlorothiazide [Hctz] 25 mg PO DAILY 05/01/14 [History Confirmed 07/06/17] Lisinopril [Zestril] 30 mg PO DAILY 05/01/14 [History Confirmed 07/06/17] Loratadine [Claritin] 10 mg PO DAILY 05/01/14 [History Confirmed 07/06/17] Albuterol Inhaler [Ventolin Hfa] 1 - 2 puff INHALATION Q4H PRN PRN #1 inhaler 05/02/14 [Rx Confirmed 07/06/17] Albuterol Aerosols [Ventolin Aerosols] 2.5 mg INHALATION Q6HWA.RT 07/02/16 [History Confirmed 07/06/17] Budesonide/Formoterol 160/4.5 [Symbicort 160/4.5 Mcg Inhaler (SP)] 2 puff INHALATION BID 07/02/16 [History Confirmed 07/06/17] Dicyclomine HCl 20 mg PO TID 12/27/16 [History Confirmed 07/06/17] Montelukast Sodium [Singulair] 10 mg PO DAILY 12/27/16 [History Confirmed 07/06/17] Cholecalciferol (Vitamin D3) [Vitamin D3] 2,000 unit PO DAILY 06/19/17 [History Confirmed 07/06/17] Fluoxetine [Prozac] 20 mg PO QHS 06/19/17 [History Confirmed 07/06/17] Omeprazole [Prilosec] 20 mg PO DAILY 06/19/17 [History Confirmed 07/06/17] ALPRAZolam [Xanax] 0.25 mg PO TID PRN PRN #20 tab 06/22/17 [Rx Confirmed 07/06/17] [facility] Medical History Acute respiratory failure with hypoxia (Acute) Asthma exacerbation (Acute) Acute respiratory failure (Ruled-out) Asthma (Acute) Hypokalemia (Acute) Chest pain (Acute) Hypertension (Chronic) Surgical History History of section (Resolved) History of cholecystectomy (Resolved) Family History Father Diabetes Heart disease Sister Breast cancer Social History Smoking Status: Former smoker how long ago did patient quit smokin, 1pk/day second hand exposure: Yes alcohol intake: never substance use type: does not use Review of Systems Const CONSTITUTIONAL: Positive fatigue and headache(s); negative anorexia, body ache, chills, daytime sleepiness, fever(s), night sweats, oral thrush, stops breathing during sleep, weight loss, sleeping in chair, weight loss, weight gain, frequent colds, seasonal allergies, other or orthopnea EETM Ear Nose Throat Mouth: Positive hoarseness, dry mouth in morning and headache(s); negative hard of hearing, hearing normal, change in vision, itchy eyes, eye pain, swallowing Difficulty, ear pain, nose bleed, mouth pain, nasal congestion, nasal discharge, post nasal drip, sinus pain, sinus pressure, sore throat or other Cardio Cardiovascular: Negative chest pain, chest pain at rest, chest pain with activity, irregular heart rhythm, edema, shortness of breath when lying down, palpitations, murmur or other Resp Respiratory: Positive as per HPI, shortness of breath shortness of breath: Positive with activity and while talking, wheezing and inhalers; negative pain with cough, chest congestion, cough, chest tightness, pain on inspiration, increase use of rescue inhalers, snoring, apnea or other Gastro Gastrointestional: Negative bloody stools, change in appetite, difficulty swallowing, reflux, hematemesis, melena stool, loose stool, constipation or other Genitourinary: Negative blood in urine, nocturia, pain with urination or other Musc Musculoskeletal: Negative body pain, back pain, neck pain or other Skin/Breast Skin/Breast: Negative dry skin, itching, rash, unusual bruising, breast lump or other Neuro Neurological: Negative restless legs, confusion, weakness or other Psych Psychocological: Negative abnormal sleep pattern, anxiety, thoughts of hurting self/others, hopelessness or other Lymph Lymphatic: Negative easy bleeding, easy bruising, swollen lymph nodes or other Exam Const Constitutional: Positive conversant, cooperative, in no acute respiratory distress, healthy appearing, well developed, well nourished and good hygiene Head Head: Positive normocephalic and atraumatic; negative cyanosis of lips/distal nose Eyes Eye: Positive clear conjunctiva and nystagmus; negative scleral abnormality Ears Ear: Positive external ears normal; negative hard of hearing or hearing normal Nose Nose: Positive external nose normal and septum normal; negative epistaxis Mouth Mouth: Positive oral thrush present, oral mucosae normal, malodorous breath, good dentition and crowded posterior oropharynx; negative post nasal drip or no lesions Mallampati Score: II: Mallampati Score Neck Neck: Positive normal visual inspection, full ROM and trachea midline; negative lymphadenopathy, JVD or tender Chest Wall Chest: Positive normal inspection of the chest and symmetric chest movement; negative increased A/P diameter Resp lung sounds: Positive clear to auscultation, normal expiratory time and normal respiratory effort; negative wheezes, good air exchange, diminished, wheeze present on forced exhalation, rhonchi, rales or dullness to percussion Cardio Cardiac: Positive regular rate, regular rhythm, S1 normal and S2 normal; negative murmur GI GI: Positive normal to inspection and normal bowel sounds; negative distended Genitourinary: Positive deferred Musc Musculoskeletal: Positive steady gait and ROM normal; negative kyphosis or scoliosis Skin Pulmonary Skin Exam: Positive intact; negative rash, lesion, ulcers, erythema, scaly or dermal atrophy Pulses Pulse: Yes pulses normal x4 extremities Extremities Extremities: Yes capillary refill normal, No clubbing, No cyanosis, No edema Neuro Neurologic: Yes conversant, Yes no focal neuro deficits, Yes cooperative, Yes normal cognition, Yes normal coordination, Yes normal concentration, Yes understands questions Lymph Lymphatic: No lymphadenopathy, No tenderness, No axillary adenopathy, No cervical adenopathy Psych Appearance: Positive grossly normal, eye contact and well kempt Mental Status: Positive mental status grossly normal Mood: Positive congruent mood Affect: Positive normal affect Coding Level of Care Code Off vis,est,level 5 Diagnoses Acute respiratory failure with hypoxia J96.01 Exacerbation of asthma, unspecified asthma severity, unspecified whether persistent J45.901 Asthma severity: unspecified severity Asthma persistence: unspecified Lung nodule < 6cm on CT R91.1 Daytime hypersomnia G47.19 Thrush, oral B37.0 07/06/17 1709 <Electronically signed by Elenita PURVIS> Date Elenita GAC Cosigner Signature: Date (if applicable) CC: Jacques Gonzalez DO PROGRESS Observed: 07/04/2017 Status: COMPLETED Source: [place] 2:38 PM [facility] REPOSITORY HNO ID: [id number] Author: Mindy Killian Service: (none) Author Type: (none) Type: Progress Notes Filed: 07/04/2017 2:38 PM Note Text: Patient asked that we call her back at the end of the week to set up a consultation visit Mindy Killian PROGRESS Observed: 07/04/2017 Status: COMPLETED Source: [place] 12:17 PM [facility] REPOSITORY HNO ID: [id number] Author: Jacques Staton Service: (none) Author Type: Physician Type: Progress Notes Filed: 07/04/2017 12:22 PM Note Text: CC: Matthew Butler is a 57 year old female who presents to the office for hospital follow up HPI: Hospitalized recently for shortness of breath and cough, feeling fatigued. Diagnosed with acute COPD exacerbation, treated with IV solumedrol and Duonebs, sent home with oxygen therapy. Overall she is feeling much better. She is going to be seeing Dr. Acosta/Say upcoming for pulmonary care to help with management and symptoms. Has been using oxygen therapy at night time which helps. She denies current cough or fevers. Spo2 today in office is 98% on RA She had CT chest while hospitalized which shows severe COPD changes. She is taking her Symbicort and albuterol and Singulair as well as immunotherapy. Still with intermittent hoarseness. PAST MEDICAL HISTORY Diagnosis Date - Allergic rhinitis due to other allergen - Allergic rhinitis due to other allergen jhonny. August - Mar - Anxiety disorder in conditions classified elsewhere - BILIARY DYSKINESIA 08/06/2007 - COPD (chronic obstructive pulmonary disease) (HCC) - Environmental allergies sees [facility] - Essential hypertension, benign - GERD (gastroesophageal reflux disease) 05/13/14 seen on esophagram - Hiatal hernia 05/13/14 seen on esophagram - Hypoglycemia, unspecified no syncopal events: gets shaky/ dizzy if hasn't eaten - Impaired fasting glucose 07/2015 - Primary localized osteoarthrosis, other specified sites affects knees: degenerative disease confirmed per x-ray 05/1999 - Routine gynecological examination 01/14/2009 (none -- just does mammogram yearly) - Snoring - Spasm of esophagus 05/2014 Dr. Alberto, EGD 2014 - UMBILICAL HERNIA W/O GANGRENE/OBSTRUCTION 08/06/2007 PAST SURGICAL HISTORY Procedure Laterality Date - DELIVERY ONLY 1977 , low cervical - DELIVERY ONLY 1980 , low cervical - COLONOSCOP W/ OR W/O [facility] SPEC 04/16/2014 Colonoscopy-tubular adenoma - EGD W/O OR W/BRUSH/WASH 05/30/14 EGD - ENDOSC BALLOON SINUPLASTY Bilateral 09/29/2015 [facility] office. - LAP CHOLECYSTECT/CHOLANGIOGRAPHY 08/13/07 with supraumbilical ventral hernia repair - LIGATE FALLOPIAN TUBE 08/10 Tubal ligation - PAST SURGICAL HISTORY OF 1970 Repair left arm/wrist fracture - REMOVAL ADENOIDS,PRIMARY,<12 Y/O 1972 Adenoidectomy - REMOVAL OF TONSILS,<12 Y/O 1972 Tonsillectomy - RHINOPLASTY 09/29/15 - TOTAL ABDOM HYSTERECTOMY 08/10 LASHANDA: ovaries remain; for polyps, no cancer - TOTAL ABDOM HYSTERECTOMY 08/30/2015 Current Outpatient Prescriptions: nystatin (MYCOSTATIN) 100,000 unit/mL suspension 1tsp swish in mouth for several minutes, then swallow (or expectorate) 4 times daily until gone. dicyclomine (BENTYL) 20 mg tablet TAKE ONE TABLET BY MOUTH THREE TIMES DAILY lisinopril (ZESTRIL,PRINIVIL) 30 mg tablet Take 1 tablet by mouth once daily. montelukast (SINGULAIR) 10 mg tablet Take 10 mg by mouth daily at bedtime. Cholecalciferol, Vitamin D3, (VITAMIN D-3) 2,000 unit cap Take by mouth once daily. FLUoxetine (PROZAC) 20 mg capsule Take 1 capsule by mouth once daily. budesonide-formoterol (SYMBICORT) 160-4.5 mcg/actuation inhaler Inhale 2 Puffs as instructed twice daily. hydroCHLOROthiazide (HYDRODIURIL, ESIDRIX) 25 mg tablet Take 1 tablet by mouth once daily. albuterol HFA (PROAIR HFA) 90 mcg/actuation inhaler Inhale 1-2 Puffs as instructed every 4 hours as needed for Wheezing/Shortness of Breath. omeprazole (PRILOSEC) 20 mg capsule Take 1 capsule by mouth daily before breakfast. 1/2 hr before meal. loratadine (CLARITIN) 10 mg tablet Take 1 tablet by mouth once daily as needed. FOR ALLERGY SYMPTOMS ASPIRIN 81 MG CHEWABLE TAB Take one(1) tablet daily. ipratropium-albuterol (COMBIVENT RESPIMAT) 20-100 mcg/actuation mist Inhale 1 Puff as instructed four times daily as needed. ipratropium-albuterol (COMBIVENT RESPIMAT) 20-100 mcg/actuation mist Inhale 1 Puff as instructed four times daily as needed (Shortness of breath, wheezing.). ipratropium-albuterol (DUONEB) 0.5 mg-3 mg(2.5 mg base)/3 mL nebu Inhale 3 mL as instructed every 6 hours as needed. ipratropium-albuterol (DUONEB) 0.5 mg-3 mg(2.5 mg base)/3 mL nebu Inhale 3 mL as instructed every 6 hours as needed. Nebulizer NEBULIZER FOR HOME USE. DX: COPD No current facility-administered medications for this visit. ALLERGIES Allergen Reactions - Chantix [Vareniclin* Mental Status Change, Vomiting Temporarily not thinking straight, after cessation of 2 months of Rx. - Barbituates [Other] Unsure exactly what medication was taken, it was one of her mom's meds for bipolar disorder, had a severe reaction involving neck stiffness, sounds consistent with dystonia, mom was on haldol, stelazine, others at the time. Social History Marital status: Spouse name: Jeremy Years of education: GED Number of children: 3 Occupational History Occupation Employer Comment [employer] Social History Main Topics Smoking status: Former Smoker Packs/day: 1.00 Years: 28.00 Types: Cigarettes Start date: 08/23/1974 Quit date: 12/20/2016 Smokeless status: Never Used Comment: 0.5- 0.75 PPD: 08/11/16 TGO Alcohol use: No Drug use: No Sexual activity: Yes Partners with: Male control/protection: Surgical Comment: LASHANDA Other Topics Concern No BLOOD TRANSFUSIONS No CAFFEINE Yes Comment:4-6 cups/day OCCUPATIONAL EXPOSURE No HOBBY HAZARD No SLEEP CONCERN No STRESS CONCERN Yes WEIGHT CONCERN No DIET No BACK CARE No EXERCISE Yes BIKE HELMET No SEAT BELT No SELF EXAMS No Social History Narrative 1976 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 Uvula midline. Neck: No LAD, no thyromegaly, no meningismus. CV: RRR, no murmur Lungs: diffusely diminished, no distress or cough Skin: No rashes, lesions, or wounds on exposed skin. ASSESSMENT/PLAN: 1. Chronic obstructive pulmonary disease, unspecified COPD type (HCC) - ICD9: 496, ICD10: J44.9 (primary diagnosis) - rx prn as below for next flare up, consider adding on Spiriva or Tudorza, f/u with [employer] Developer in 2 days as scheduled. - DOXYCYCLINE HYCLATE 100 MG TABLET - PREDNISONE 10 MG TABLET 2. Moderate persistent late onset asthma without complication - ICD9: 493.10, ICD10: J45.40 - see above 3. Special screening for malignant neoplasms, colon - ICD9: V76.51, ICD10: Z12.11 - PEG 3350 240 GRAM-ELECTROLYTES 22.72 GRAM-6.72 G-5.84 G POWDR FOR SOLN - COLONOSCOPY SCRN NOT HIGH RISK 4. Hoarseness - ICD9: 784.42, ICD10: R49.0 - needs direct laryngoscopy as d/w her today 5. History of tobacco abuse - ICD9: V15.82, ICD10: Z87.891 - see above, f/u with Pulm Jacques Staton DO Return if no improvement. Follow up with Jacques Staton DO. Discussed risks, benefits, alternatives, and potential side effects of medications. Patient/Guardian expressed understanding and agreed with the plan. See patient instructions. Jacques Staton DO [address] [place] [address] PROGRESS Observed: 07/04/2017 Status: COMPLETED Source: [place] 11:28 AM [facility] REPOSITORY HNO ID: [id number] Author: Vy Mueller LPN Service: (none) Author Type: (none) Type: Progress Notes Filed: 07/04/2017 12:22 PM Note Text: WSTR OPEN ACCESS QUESTIONNAIRE 1. Are you or could you be ? No 2. Are you currently having any stomach/gastrointestinal issues at this time such as constipation, diarrhea, abdominal pain, rectal bleeding etc? No 3. Do you have an implanted device such as a defibrillator, pacemaker, Cardiac Stent or deep brain stimulation device? No 4. Do you have any new or past cardiac (heart) or pulmonary (lung) issues? No 5. Is the patient's BMI 40 or greater? No:Body mass index is 31.56 kg/(m2).. Last Wt 07/04/17 : 68.5 kg (151 lb) Last Ht 08/11/16 : 147.3 cm (4' 10) 6. Have you had difficulty with prior sedations or complications with other procedures? No 7. Have you had difficulty with anesthesia previously re: ? Difficult intubation? No ? Other difficulty or allergic reaction to anesthesia other than post op N/V? No 8. Do you currently use oxygen or a breathing machine at night? Yes / O2 at night 9. Do you take any narcotics, depression or anti-Anxiety medications or 3 or more prescription drugs on a daily basis? No 10. Do you use any illegal or recreational drugs? No 11. Have you been hospitalized in the past 6 weeks? Yes / Asthma 12. Are you on dialysis or have Chronic Kidney Disease? No 13. Have you been diagnosed with chronic liver disease such as hepatitis or cirrhosis? No 14. Do you have a seizure disorder? No 15. Do you have difficulty swallowing? No 16. Do you have ulcerative colitis or Crohn's disease? No 17. Do you take any Blood thinners, including Aspirin or fish oil? YES: ASA 81 mg 18. Do you have any blood disorders (re:hemophiliac)? No 19. Are you Diabetic? No 20. Any other important health information we should be made aware of prior to your colonoscopy? No Checklist: Prior to closing the encounter: ? Complete questionnaire: Yes ? Confirm Prep order has been Ordered/Pended: Yes. ? Patient's procedure could be delayed if not given the script for the prep. Please ensure the prep is escripted to pharmacy or printed. Instructions for the prep will print upon filing or pending this smartset. ? Please send all open access questionnaires to [facility] Sched [place] #[id number] CNOV Observed: 07/04/2017 Status: COMPLETED Source: [place] 11:20 AM [facility] REPOSITORY Office Visit (FAMPWS) MATTHEW BUTLER ([id number]) 1960 F NFR Date Time Provider Department 07/04/17 11:20 AM JACQUES STATON FAMPWS During your visit today, we recorded the following information about you: Temperature Pulse Respiration Blood pressure 97.2 degrees 80/minute 16/minute 136/82 Weight 68.5 kg Vy Mueller LPN 07/04/2017 12:22 PM Signed [facility] OPEN ACCESS QUESTIONNAIRE 1. Are you or could you be ? No 2. Are you currently having any stomach/gastrointestinal issues at this time such as constipation, diarrhea, abdominal pain, rectal bleeding etc? No 3. Do you have an implanted device such as a defibrillator, pacemaker, Cardiac Stent or deep brain stimulation device? No 4. Do you have any new or past cardiac (heart) or pulmonary (lung) issues? No 5. Is the patient's BMI 40 or greater? No:Body mass index is 31.56 kg/(m2).. Last Wt 07/04/17 : 68.5 kg (151 lb) Last Ht 08/11/16 : 147.3 cm (4' 10ANDquot;) 6. Have you had difficulty with prior sedations or complications with other procedures? No 7. Have you had difficulty with anesthesia previously re: ? Difficult intubation? No ? Other difficulty or allergic reaction to anesthesia other than post op N/V? No 8. Do you currently use oxygen or a breathing machine at night? Yes / O2 at night 9. Do you take any narcotics, depression or anti-Anxiety medications or 3 or more prescription drugs on a daily basis? No 10. Do you use any illegal or recreational drugs? No 11. Have you been hospitalized in the past 6 weeks? Yes / Asthma 12. Are you on dialysis or have Chronic Kidney Disease? No 13. Have you been diagnosed with chronic liver disease such as hepatitis or cirrhosis? No 14. Do you have a seizure disorder? No 15. Do you have difficulty swallowing? No 16. Do you have ulcerative colitis or Crohn's disease? No 17. Do you take any Blood thinners, including Aspirin or fish oil? YES: ASA 81 mg 18. Do you have any blood disorders (re:hemophiliac)? No 19. Are you Diabetic? No 20. Any other important health information we should be made aware of prior to your colonoscopy? No Checklist: Prior to closing the encounter: ? Complete questionnaire: Yes ? Confirm Prep order has been Ordered/Pended: Yes. ? Patient's procedure could be delayed if not given the script for the prep. Please ensure the prep is escripted to pharmacy or printed. Instructions for the prep will print upon filing or pending this smartset. ? Please send all open access questionnaires to [facility] Sched [place] #[id number] Vy Mueller LPN 07/04/2017 11:28 AM Addendum Health Information For Patients and the Community How to Prepare for Your Colonoscopy Using Golytely, Nulytely, Trilyte or Colyte Preparations IMPORTANT - Please Read These Instructions at Least 2 Weeks Before Your Colonoscopy Kim Instructions: ?Your bowel must be empty so that your doctor can clearly view your colon. Follow all of the instructions in this handout EXACTLY as they are written. If you do NOT follow the directions for when to start drinking the bowel preparation (see next page), your colonoscopy WILL be cancelled. ?Do NOT eat any solid food the ENTIRE day before your colonoscopy. ?Buy your bowel preparation at least 5 days before your colonoscopy. ?Do NOT mix the solution until the day before your colonoscopy. Designated Small Parts Shaper Operator on the Day of Your Exam A responsible family member or friend MUST come with you to your colonoscopy and REMAIN in the endoscopy area until you are discharged! You are NOT ALLOWED to drive, take a taxi or bus, or leave the Endoscopy Center ALONE. If you do not have a responsible driver service technician (family member or friend) with you to take you home, your exam cannot be done with sedation and will be cancelled. Medications Some of the medicines you take may need to be stopped or adjusted before your colonoscopy. You MUST call the doctor who ordered any of the following medicines at least 2 weeks before your colonoscopy. ?Blood thinners -- such as Coumadin? (warfarin), Plavix? (clopidogrel), Ticlid? (ticlopidine hydrochloride), Agrylin? (anagrelide), Xarelto? (Rivaroxaban), Pradaxa? (Dabigatran), Eliquis? (Apixaban), and Effient? (Prasugrel). ?Insulin or diabetes pills. Please call the doctor that monitors your glucose levels. Your insulin dosage may need to be adjusted due to the diet restrictions required with this bowel preparation. (Please bring your diabetes medicines with you on the day of your procedure.) If you take aspirin, take it and ALL other medications prescribed by your doctor. On the day of your colonoscopy, take your medications with a sip of water. Revised 05/2016 1 Five (5) Days Before Your Colonoscopy ?Do NOT take medicines that stop diarrhea -- such as Imodium?, Kaopectate?, or Pepto Bismol?. ?Do NOT take fiber supplements -- such as Metamucil?, Citrucel?, or Perdiem?. ?Do NOT take products that contain iron -- such as multi-vitamins -- (the label lists what is in the products). ?Do NOT take vitamin E. Buy the prescription bowel preparation solution at your local pharmacy or [facility]. Three (3) Days Before Your Colonoscopy Do NOT eat high-fiber foods -- such as popcorn, beans, seeds (flax, sunflower, quinoa), multigrain bread, nuts, salad/vegetables, or fresh and dried fruit. One (1) Day Before Your Colonoscopy Only drink clear liquids the ENTIRE DAY before your colonoscopy. Do NOT eat any solid foods. Drink at least 8 ounces of clear liquids every hour after waking up. The clear liquids you can drink include: ?water, apple, or white grape juice; broth; coffee or tea (without milk or creamer); clear carbonated beverages such as stephen lul or lemon-selawik soda; Gatorade? or other sports drinks (not red); Troy-Aid? or other flavored drinks (not red). You may eat plain jello or other gelatins (not red) or popsicles (not red). Do NOT drink alcohol on the day before or the day of the procedure. 2 Revised 05/2016 When to Mix and Drink Your Bowel Prep Follow the instructions on the label. After mixing, place the solution in the refrigerator for a couple of hours before drinking. You may add the flavor packet that came with the bowel preparation. DO NOT add ice, sugar or any flavorings to the solution. Evening Before Your Colonoscopy ?Start drinking the bowel preparation at 6 PM the evening before your colonoscopy. Drink an 8-oz glass of bowel preparation every 10 minutes. You must finish drinking the solution by 9 PM the night before your scheduled procedure. ?You may continue to drink clear liquids only until midnight. Do NOT eat or drink ANYTHING after midnight the night before your procedure or your procedure may be cancelled. This is for your safety and will reduce the risk of having any food or liquid in your stomach move into your lungs (aspiration) during a procedure. If you take aspirin, take it and ALL other prescribed medicines with a sip of water on the day of your colonoscopy. Contact Information: If you are unable to keep your appointment or have any questions about the instructions, please call the facility where the procedure is being performed. Call between the hours of 8:00 AM and 5:00 PM. If you are calling after 5:00 PM, please call Nurse environmental health technologist at [phone]. [facility] [address] [place] [address] Index # [id number] Revised 05/2016 3 Colonoscopy Procedure Overview Please Read Prior to the Procedure What is a Colonoscopy A colonoscopy is an outpatient procedure in which the inside of the large intestine (colon and rectum) is examined. A colonoscopy is commonly used to evaluate gastrointestinal symptoms, such as rectal and intestinal bleeding, abdominal pain, or changes in bowel habits. Colonoscopies are also performed in individuals without symptoms to check for colorectal polyps or cancer. A screening colonoscopy is recommended for anyone 50 years of age and older, and for anyone with parents, siblings or children with a history of colorectal cancer or polyps. What Happens Before a Colonoscopy To have a successful colonoscopy, your bowel must be empty so that your physician can clearly view the colon. To do this, it is very important to read and follow all of the instructions given to you at least 2 weeks BEFORE your exam. If your bowel is not empty, your colonoscopy will not be successful and may have to be repeated. If you feel nauseated or vomit while taking the bowel preparation, wait 30 minutes before drinking more fluid and start with small sips of solution. Some activity (such as walking) or a few soda crackers may help decrease the nausea you are feeling. If the nausea persists, please contact nurse vocational evaluator at [phone]. You may experience skin irritation around the anus due to the passage of liquid stools. To prevent and treat skin irritation, you should: ?Apply Vaseline? or Desitin? ointment to the skin around the anus before drinking the bowel preparation medications. These products can be purchased at any [employer]. ?Wipe the skin after each bowel movement with disposable wet wipes instead of toilet paper. These are found in the toilet paper area of the store. ?Sit in a bathtub filled with warm water for 10 to 15 minutes after you finish passing a stool; after soaking, blot the skin dry with a soft cloth, apply Vaseline? or Desitin? ointment to the anal area, and place a cotton ball just outside your anus to absorb leaking fluid. What Happens During a Colonoscopy During a colonoscopy, an experienced physician uses a colonoscope (a long, flexible instrument about 1/2 inch in diameter) to view the lining of the colon. The colonoscope is inserted into the rectum and advanced through the large intestine. If necessary during a colonoscopy, small amounts of tissue can be removed for analysis (a biopsy) and polyps can be identified and entirely removed. In many cases, a colonoscopy allows accurate diagnosis and treatment of colorectal problems without the need for a major operation. Revised 05/2016 5 ?You are asked to wear a hospital gown and an IV will be started. ?You are given a pain reliever and a sedative intravenously (in your vein). You will feel relaxed and somewhat drowsy. ?You will lie on your left side, with your knees drawn up towards your chest. ?A small amount of air is used to expand the colon so the physician can see the colon wise. ?You may feel mild cramping during the procedure. Cramping can be reduced by taking slow, deep breaths. ?The colonoscope is slowly withdrawn while the lining of your bowel is carefully examined. ?The procedure lasts from 30 minutes to 1 hour. What Happens After a Colonoscopy ?You will stay in a recovery room for observation until you are ready for discharge. ?You may feel some cramping or a sensation of having gas, but this quickly passes. ?If sedation has been given, a responsible family member or friend must drive you home. ?Avoid alcohol, driving, and operating machinery for 24 hours following the procedure. ?Unless otherwise instructed, you may immediately return to your normal diet. We recommend you wait until the day after your procedure to resume normal activities. ?If polyps were removed or a biopsy was taken, the physician performing your colonoscopy will tell you when it is safe to resume taking your blood thinners. ?If a biopsy was taken or a polyp was removed, you may notice a little amount of rectal bleeding for 1 to 2 days after the procedure. If you have a large amount of rectal bleeding, high or persistent fevers, or severe abdominal pain within the next 2 weeks, please go to your local emergency room and call the physician who performed your exam. 6 Revised 05/2016 ?Copyright 2002-2127 [facility]. All rights reserved. Revised 05/2016 Spiriva Or Tudorza inhalers - anticholinergic? Oximetry at night vs. Walking testing PFTs with lung volumes Jacques Staton DO 07/04/2017 12:22 PM Signed CC: Matthew Butler is a 57 year old female who presents to the office for hospital follow up HPI: Hospitalized recently for shortness of breath and cough, feeling fatigued. Diagnosed with acute COPD exacerbation, treated with IV solumedrol and Duonebs, sent home with oxygen therapy. Overall she is feeling much better. She is going to be seeing Dr. Acosta/Say upcoming for pulmonary care to help with management and symptoms. Has been using oxygen therapy at night time which helps. She denies current cough or fevers. Spo2 today in office is 98% on RA She had CT chest while hospitalized which shows severe COPD changes. She is taking her Symbicort and albuterol and Singulair as well as immunotherapy. Still with intermittent hoarseness. PAST MEDICAL HISTORY Diagnosis Date - Allergic rhinitis due to other allergen - Allergic rhinitis due to other allergen jhonny. August - Mar - Anxiety disorder in conditions classified elsewhere - BILIARY DYSKINESIA 08/06/2007 - COPD (chronic obstructive pulmonary disease) (HCC) - Environmental allergies sees [facility] - Essential hypertension, benign - GERD (gastroesophageal reflux disease) 05/13/14 seen on esophagram - Hiatal hernia 05/13/14 seen on esophagram - Hypoglycemia, unspecified no syncopal events: gets shaky/ dizzy if hasn't eaten - Impaired fasting glucose 07/2015 - Primary localized osteoarthrosis, other specified sites affects knees: degenerative disease confirmed per x-ray 05/1999 - Routine gynecological examination 01/14/2009 (none -- just does mammogram yearly) - Snoring - Spasm of esophagus 05/2014 Dr. Alberto, EGD 2014 - UMBILICAL HERNIA W/O GANGRENE/OBSTRUCTION 08/06/2007 PAST SURGICAL HISTORY Procedure Laterality Date - DELIVERY ONLY 1977 , low cervical - DELIVERY ONLY 1980 , low cervical - [facility] Colonoscopy-tubular adenoma - EGD W/O OR W/BRUSH/WASH 05/30/14 EGD - ENDOSC BALLOON SINUPLASTY Bilateral 09/29/2015 [facility] office. - LAP CHOLECYSTECT/CHOLANGIOGRAPHY 08/13/07 with supraumbilical ventral hernia repair - LIGATE FALLOPIAN TUBE 08/10 Tubal ligation - PAST SURGICAL HISTORY OF 1971 Repair left arm/wrist fracture - REMOVAL ADENOIDS,PRIMARY,ANDlt;11 Y/O 1972 Adenoidectomy - REMOVAL OF TONSILS,ANDlt;11 Y/O 1972 Tonsillectomy - RHINOPLASTY 09/29/15 - TOTAL ABDOM HYSTERECTOMY 08/10 LASHANDA: ovaries remain; for polyps, no cancer - TOTAL ABDOM HYSTERECTOMY 08/30/2015 Current Outpatient Prescriptions: nystatin (MYCOSTATIN) 100,000 unit/mL suspension 1tsp swish in mouth for several minutes, then swallow (or expectorate) 4 times daily until gone. dicyclomine (BENTYL) 20 mg tablet TAKE ONE TABLET BY MOUTH THREE TIMES DAILY lisinopril (ZESTRIL,PRINIVIL) 30 mg tablet Take 1 tablet by mouth once daily. montelukast (SINGULAIR) 10 mg tablet Take 10 mg by mouth daily at bedtime. Cholecalciferol, Vitamin D3, (VITAMIN D-3) 2,000 unit cap Take by mouth once daily. FLUoxetine (PROZAC) 20 mg capsule Take 1 capsule by mouth once daily. budesonide-formoterol (SYMBICORT) 160-4.5 mcg/actuation inhaler Inhale 2 Puffs as instructed twice daily. hydroCHLOROthiazide (HYDRODIURIL, ESIDRIX) 25 mg tablet Take 1 tablet by mouth once daily. albuterol HFA (PROAIR HFA) 90 mcg/actuation inhaler Inhale 1-2 Puffs as instructed every 4 hours as needed for Wheezing/Shortness of Breath. omeprazole (PRILOSEC) 20 mg capsule Take 1 capsule by mouth daily before breakfast. 1/2 hr before meal. loratadine (CLARITIN) 10 mg tablet Take 1 tablet by mouth once daily as needed. FOR ALLERGY SYMPTOMS ASPIRIN 81 MG CHEWABLE TAB Take one(1) tablet daily. ipratropium-albuterol (COMBIVENT RESPIMAT) 20-100 mcg/actuation mist Inhale 1 Puff as instructed four times daily as needed. ipratropium-albuterol (COMBIVENT RESPIMAT) 20-100 mcg/actuation mist Inhale 1 Puff as instructed four times daily as needed (Shortness of breath, wheezing.). ipratropium-albuterol (DUONEB) 0.5 mg-3 mg(2.5 mg base)/3 mL nebu Inhale 3 mL as instructed every 6 hours as needed. ipratropium-albuterol (DUONEB) 0.5 mg-3 mg(2.5 mg base)/3 mL nebu Inhale 3 mL as instructed every 6 hours as needed. Nebulizer NEBULIZER FOR HOME USE. DX: COPD No current facility-administered medications for this visit. ALLERGIES Allergen Reactions - Chantix [Vareniclin* Mental Status Change, Vomiting ANDquot;Temporarily not thinking straight, after cessation of 2 months of Rx.ANDquot; - Barbituates [Other] Unsure exactly what medication was taken, it was one of her mom's meds for bipolar disorder, had a severe reaction involving neck stiffness, sounds consistent with dystonia, mom was on haldol, stelazine, others at the time. Social History Marital status: Spouse name: Jeremy Years of education: GED Number of children: 3 Occupational History Occupation Employer Comment [employer]* Social History Main Topics Smoking status: Former Smoker Packs/day: 1.00 Years: 28.00 Types: Cigarettes Start date: 08/23/1974 Quit date: 12/20/2016 Smokeless status: Never Used Comment: 0.5- 0.75 PPD: 08/11/16 TGO Alcohol use: No Drug use: No Sexual activity: Yes Partners with: Male control/protection: Surgical Comment: LASHANDA Other Topics Concern No BLOOD TRANSFUSIONS No CAFFEINE Yes Comment:4-6 cups/day OCCUPATIONAL EXPOSURE No HOBBY HAZARD No SLEEP CONCERN No STRESS CONCERN Yes WEIGHT CONCERN No DIET No BACK CARE No EXERCISE Yes BIKE HELMET No SEAT BELT No SELF EXAMS No Social History 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 Uvula midline. Neck: No LAD, no thyromegaly, no meningismus. CV: RRR, no murmur Lungs: diffusely diminished, no distress or cough Skin: No rashes, lesions, or wounds on exposed skin. ASSESSMENT/PLAN: 1. Chronic obstructive pulmonary disease, unspecified COPD type (HCC) - ICD9: 496, ICD10: J44.9 (primary diagnosis) - rx prn as below for next flare up, consider adding on Spiriva or Tudorza, f/u with [employer] Developer in 2 days as scheduled. - DOXYCYCLINE HYCLATE 100 MG TABLET - PREDNISONE 10 MG TABLET 2. Moderate persistent late onset asthma without complication - ICD9: 493.10, ICD10: J45.40 - see above 3. Special screening for malignant neoplasms, colon - ICD9: V76.51, ICD10: Z12.11 - PEG 3350 240 GRAM-ELECTROLYTES 22.72 GRAM-6.72 G-5.84 G POWDR FOR SOLN - COLONOSCOPY SCRN NOT HIGH RISK 4. Hoarseness - ICD9: 784.42, ICD10: R49.0 - needs direct laryngoscopy as d/w her today 5. History of tobacco abuse - ICD9: V15.82, ICD10: Z87.891 - see above, f/u with Pulm Jacques Staton DO Return if no improvement. Follow up with Jacques Staton DO. Discussed risks, benefits, alternatives, and potential side effects of medications. Patient/Guardian expressed understanding and agreed with the plan. See patient instructions. Jacques Staton DO [address] [place] [address] Mindy Killian 07/04/2017 2:38 PM Signed Patient asked that we call her back at the end of the week to set up a consultation visit Mindy Killian 07/11/2017 9:29 AM Signed 1st failed attempt to contact patient, left voice message Mindy Killian 07/18/2017 10:42 AM Signed 2nd failed attempt to contact patient, left voice message Mindy Killian 07/20/2017 2:02 PM Signed Scheduled patient for colonoscopy consultation with Aletha Clayton on 07/26/2017, patient would like to see Dr. Patel for the procedure Mindy Killian Referring Provider: [facility] [[id number]] Allergies As of Date: 07/04/2017 Noted Allergy Reaction CHANTIX (VARENICLINE) 03/16/2012 1 - Mental Status Change 11 - Vomiting Comments: Temporarily not thinking straight, after cessation of 2 months of Rx. barbituates [Other] 08/20/2005 Comments: Unsure exactly what medication was taken, it was one of her mom's meds for bipolar disorder, had a severe reaction involving neck stiffness, sounds consistent with dystonia, mom was on haldol, stelazine, others at the time. Date Reviewed: 06/29/2017 Reviewed by: Tegan Saldaña LPN - Fully Assessed Reason for Visit: Hospital F/U [57] Cmt: Asthma Primary Visit Diagnosis:Chronic obstructive pulmonary disease, unspecified COPD type (HCC) [J44.9] Other Visit Diagnoses:Moderate persistent late onset asthma without complication [J45.40] Special screening for malignant neoplasms, colon [Z12.11] Hoarseness [R49.0] History of tobacco abuse [Z87.891] Order(s):[] peg 3350-electrolytes (COLYTE) 240-22.72-6.72 -5.84 gram solutionTake 4,000 mL by mouth one time only for 1 dose.Disp: 4000 mLRfl: 0 COLONOSCOPY SCRN NOT HIGH RISK [[id number]] Order #: [id number] FUTURE [] doxycycline (VIBRA-TABS) 100 mg tabletTake 1 tablet by mouth twice daily for 10 days.Disp: 20 tabletRfl: 0 [] predniSONE (DELTASONE) 10 mg tabletTake 4 tabs daily for 3 days, then 2 tabs daily for 3 days, then 1 tab daily for 3 days with food.Disp: 21 tabletRfl: 0 Prescriptions as of 07/04/2017 Sig: X NYSTATIN 100,000 UNIT/ML ORAL* 1tsp swish in mouth for sever* DICYCLOMINE 20 MG TABLET TAKE ONE TABLET BY MOUTH THRE* LISINOPRIL 30 MG TABLET Take 1 tablet by mouth once d* MONTELUKAST 10 MG TABLET Take 10 mg by mouth daily at * CHOLECALCIFEROL (VITAMIN D3) * Take by mouth once daily. FLUOXETINE 20 MG CAPSULE Take 1 capsule by mouth once * BUDESONIDE-FORMOTEROL HFA 160* Inhale 2 Puffs as instructed * HYDROCHLOROTHIAZIDE 25 MG TAB* Take 1 tablet by mouth once d* ALBUTEROL SULFATE HFA 90 MCG/* Inhale 1-2 Puffs as instructe* OMEPRAZOLE 20 MG CAPSULE,SARBJIT* Take 1 capsule by mouth daily* LORATADINE 10 MG TABLET Take 1 tablet by mouth once d* ASPIRIN 81 MG CHEWABLE TABLET Take one(1) tablet daily. PEG 3350 240 GRAM-ELECTROLYTE* Take 4,000 mL by mouth one ti* DOXYCYCLINE HYCLATE 100 MG TA* Take 1 tablet by mouth twice * PREDNISONE 10 MG TABLET Take 4 tabs daily for 3 days,* IPRATROPIUM 20 MCG-ALBUTEROL * Inhale 1 Puff as instructed f* IPRATROPIUM 20 MCG-ALBUTEROL * Inhale 1 Puff as instructed f* IPRATROPIUM-ALBUTEROL 0.5 MG-* Inhale 3 mL as instructed david* IPRATROPIUM-ALBUTEROL 0.5 MG-* Inhale 3 mL as instructed david* COMPOUNDED PRESCRIPTION NEBULIZER FOR HOME USE. DX: * Medication notes this encounter IPRATROPIUM 20 MCG-ALBUTEROL 100 MCG/ACTUATION MIST FOR INHALATION >> Vy Mueller LPN 07/04/2017 11:24 AM >> VY MUELLER LPN Jul 04, 2017 11:24 AM finished IPRATROPIUM 20 MCG-ALBUTEROL 100 MCG/ACTUATION MIST FOR INHALATION >> Vy Mueller LPN 07/04/2017 11:24 AM >> VY MUELLER LPN Jul 04, 2017 11:24 AM Finished Problem List As Of Date 07/04/2017 Noted Resolved Essential hypertension, benign [I10] INVALID FOR* Primary localized osteoarthrosis, other specifi* More... Allergic rhinitis due to other allergen [J30.89] 06/07/2017 More... 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 Routine gynecological examination [Z01.419] INVALID FOR*06/07/2017 Class: Chronic More... Hyperlipidemia [E78.5] INVALID FOR* More... Dysphagia, unspecified(787.20) [R13.10] INVALID FOR*05/30/2014 Spasm of esophagus [K22.4] Asthma, late onset [J45.909] INVALID FOR* Gastroesophageal reflux disease without esophag*INVALID FOR* Impaired fasting glucose [R73.01] INVALID FOR* COPD (chronic obstructive pulmonary disease) (H* Hoarseness [R49.0] INVALID FOR* History of tobacco abuse [Z87.891] INVALID FOR* Other instructions from your clinician: Health Information For Patients and the Community How to Prepare for Your Colonoscopy Using Golytely, Nulytely, Trilyte or Colyte Preparations IMPORTANT - Please Read These Instructions at Least 2 Weeks Before Your Colonoscopy Kim Instructions: ?Your bowel must be empty so that your doctor can clearly view your colon. Follow all of the instructions in this handout EXACTLY as they are written. If you do NOT follow the directions for when to start drinking the bowel preparation (see next page), your colonoscopy WILL be cancelled. ?Do NOT eat any solid food the ENTIRE day before your colonoscopy. ?Buy your bowel preparation at least 5 days before your colonoscopy. ?Do NOT mix the solution until the day before your colonoscopy. Designated Small Parts Shaper Operator on the Day of Your Exam A responsible family member or friend MUST come with you to your colonoscopy and REMAIN in the endoscopy area until you are discharged! You are NOT ALLOWED to drive, take a taxi or bus, or leave the Endoscopy Center ALONE. If you do not have a responsible driver service technician (family member or friend) with you to take you home, your exam cannot be done with sedation and will be cancelled. Medications Some of the medicines you take may need to be stopped or adjusted before your colonoscopy. You MUST call the doctor who ordered any of the following medicines at least 2 weeks before your colonoscopy. ?Blood thinners -- such as Coumadin? (warfarin), Plavix? (clopidogrel), Ticlid? (ticlopidine hydrochloride), Agrylin? (anagrelide), Xarelto? (Rivaroxaban), Pradaxa? (Dabigatran), Eliquis? (Apixaban), and Effient? (Prasugrel). ?Insulin or diabetes pills. Please call the doctor that monitors your glucose levels. Your insulin dosage may need to be adjusted due to the diet restrictions required with this bowel preparation. (Please bring your diabetes medicines with you on the day of your procedure.) If you take aspirin, take it and ALL other medications prescribed by your doctor. On the day of your colonoscopy, take your medications with a sip of water. Revised 05/2016 1 Five (5) Days Before Your Colonoscopy ?Do NOT take medicines that stop diarrhea -- such as Imodium?, Kaopectate?, or Pepto Bismol?. ?Do NOT take fiber supplements -- such as Metamucil?, Citrucel?, or Perdiem?. ?Do NOT take products that contain iron -- such as multi- vitamins -- (the label lists what is in the products). ?Do NOT take vitamin E. Buy the prescription bowel preparation solution at your local pharmacy or [facility]. Three (3) Days Before Your Colonoscopy Do NOT eat high-fiber foods -- such as popcorn, beans, seeds (flax, sunflower, quinoa), multigrain bread, nuts, salad/vegetables, or fresh and dried fruit. One (1) Day Before Your Colonoscopy Only drink clear liquids the ENTIRE DAY before your colonoscopy. Do NOT eat any solid foods. Drink at least 8 ounces of clear liquids every hour after waking up. The clear liquids you can drink include: ?water, apple, or white grape juice; broth; coffee or tea (without milk or creamer); clear carbonated beverages such as stephen lul or lemon-selawik soda; Gatorade? or other sports drinks (not red); Troy-Aid? or other flavored drinks (not red). You may eat plain jello or other gelatins (not red) or popsicles (not red). Do NOT drink alcohol on the day before or the day of the procedure. 2 Revised 05/2016 When to Mix and Drink Your Bowel Prep Follow the instructions on the label. After mixing, place the solution in the refrigerator for a couple of hours before drinking. You may add the flavor packet that came with the bowel preparation. DO NOT add ice, sugar or any flavorings to the solution. Evening Before Your Colonoscopy ?Start drinking the bowel preparation at 6 PM the evening before your colonoscopy. Drink an 8-oz glass of bowel preparation every 10 minutes. You must finish drinking the solution by 9 PM the night before your scheduled procedure. ?You may continue to drink clear liquids only until midnight. Do NOT eat or drink ANYTHING after midnight the night before your procedure or your procedure may be cancelled. This is for your safety and will reduce the risk of having any food or liquid in your stomach move into your lungs (aspiration) during a procedure. If you take aspirin, take it and ALL other prescribed medicines with a sip of water on the day of your colonoscopy. Contact Information: If you are unable to keep your appointment or have any questions about the instructions, please call the facility where the procedure is being performed. Call between the hours of 8:00 AM and 5:00 PM. If you are calling after 5:00 PM, please call Nurse environmental health technologist at [phone]. [facility] [address] [address] Index # [id number] Revised 05/2016 3 Colonoscopy Procedure Overview Please Read Prior to the Procedure What is a Colonoscopy A colonoscopy is an outpatient procedure in which the inside of the large intestine (colon and rectum) is examined. A colonoscopy is commonly used to evaluate gastrointestinal symptoms, such as rectal and intestinal bleeding, abdominal pain, or changes in bowel habits. Colonoscopies are also performed in individuals without symptoms to check for colorectal polyps or cancer. A screening colonoscopy is recommended for anyone 50 years of age and older, and for anyone with parents, siblings or children with a history of colorectal cancer or polyps. What Happens Before a Colonoscopy To have a successful colonoscopy, your bowel must be empty so that your physician can clearly view the colon. To do this, it is very important to read and follow all of the instructions given to you at least 2 weeks BEFORE your exam. If your bowel is not empty, your colonoscopy will not be successful and may have to be repeated. If you feel nauseated or vomit while taking the bowel preparation, wait 30 minutes before drinking more fluid and start with small sips of solution. Some activity (such as walking) or a few soda crackers may help decrease the nausea you are feeling. If the nausea persists, please contact nurse vocational evaluator at [phone]. You may experience skin irritation around the anus due to the passage of liquid stools. To prevent and treat skin irritation, you should: ?Apply Vaseline? or Desitin? ointment to the skin around the anus before drinking the bowel preparation medications. These products can be purchased at any drugstore. ?Wipe the skin after each bowel movement with disposable wet wipes instead of toilet paper. These are found in the toilet paper area of the store. ?Sit in a bathtub filled with warm water for 10 to 15 minutes after you finish passing a stool; after soaking, blot the skin dry with a soft cloth, apply Vaseline? or Desitin? ointment to the anal area, and place a cotton ball just outside your anus to absorb leaking fluid. What Happens During a Colonoscopy During a colonoscopy, an experienced physician uses a colonoscope (a long, flexible instrument about 1/2 inch in diameter) to view the lining of the colon. The colonoscope is inserted into the rectum and advanced through the large intestine. If necessary during a colonoscopy, small amounts of tissue can be removed for analysis (a biopsy) and polyps can be identified and entirely removed. In many cases, a colonoscopy allows accurate diagnosis and treatment of colorectal problems without the need for a major operation. Revised 05/2016 5 ?You are asked to wear a hospital gown and an IV will be started. ?You are given a pain reliever and a sedative intravenously (in your vein). You will feel relaxed and somewhat drowsy. ?You will lie on your left side, with your knees drawn up towards your chest. ?A small amount of air is used to expand the colon so the physician can see the colon wise. ?You may feel mild cramping during the procedure. Cramping can be reduced by taking slow, deep breaths. ?The colonoscope is slowly withdrawn while the lining of your bowel is carefully examined. ?The procedure lasts from 30 minutes to 1 hour. What Happens After a Colonoscopy ?You will stay in a recovery room for observation until you are ready for discharge. ?You may feel some cramping or a sensation of having gas, but this quickly passes. ?If sedation has been given, a responsible family member or friend must drive you home. ?Avoid alcohol, driving, and operating machinery for 24 hours following the procedure. ?Unless otherwise instructed, you may immediately return to your normal diet. We recommend you wait until the day after your procedure to resume normal activities. ?If polyps were removed or a biopsy was taken, the physician performing your colonoscopy will tell you when it is safe to resume taking your blood thinners. ?If a biopsy was taken or a polyp was removed, you may notice a little amount of rectal bleeding for 1 to 2 days after the procedure. If you have a large amount of rectal bleeding, high or persistent fevers, or severe abdominal pain within the next 2 weeks, please go to your local emergency room and call the physician who performed your exam. 6 Revised 05/2016 ?Copyright 9575-8094 [facility]. All rights reserved. Revised 05/2016 Spiriva Or Tudorza inhalers - anticholinergic? Oximetry at night vs. Walking testing PFTs with lung volumes Prescriptions ordered this encounter Disp Refills Start End PEG 3350 240 GRAM-ELECTROLYTES 22.72* 4000* 0 07/04/2017 07/04/2017 Route: ORAL Sig: Take 4,000 mL by mouth one time only for 1 dose. DOXYCYCLINE HYCLATE 100 MG TABLET 20 t* 0 07/04/2017 07/14/2017 Route: ORAL Sig: Take 1 tablet by mouth twice daily for 10 days. PREDNISONE 10 MG TABLET 21 t* 0 07/04/2017 07/13/2017 Sig: Take 4 tabs daily for 3 days, then 2 tabs daily for 3 days, then 1 tab daily for 3 days with food. Follow-up and Disposition History Recorded Encounter Status:Closed by JACQUES STATON DO on 07/04/17 PROGRESS Observed: 06/29/2017 Status: COMPLETED Source: [place] 10:56 AM [facility] REPOSITORY HNO ID: [id number] Author: Jad Hernandez Service: (none) Author Type: Physician Type: Progress Notes Filed: 06/29/2017 11:18 AM Note Text: Patient presents with: possible thrush: noticed it this am HPI: Feeling hoarse for a couple days. Saw white on her tongue and throat this morning. Recent hospitalization for COPD flare. Positive symptoms: sore throat, hoarse voice, Negative symptoms: Fever, OTC: routine symbicort, steroid. Started doxycycline in the hospital but stopped when diagnosed with metapneumonvirus infection. PAST MEDICAL HISTORY Diagnosis Date - Allergic rhinitis due to other allergen - Allergic rhinitis due to other allergen jhonny. August - Mar - Anxiety disorder in conditions classified elsewhere - BILIARY DYSKINESIA 08/06/2007 - COPD (chronic obstructive pulmonary disease) (HCC) - Environmental allergies sees [facility] - Essential hypertension, benign - GERD (gastroesophageal reflux disease) 2/3/15 seen on esophagram - Hiatal hernia 05/13/14 seen on esophagram - Hypoglycemia, unspecified no syncopal events: gets shaky/ dizzy if hasn't eaten - Impaired fasting glucose 07/2015 - Primary localized osteoarthrosis, other specified sites affects knees: degenerative disease confirmed per x-ray 05/1999 - Routine gynecological examination 01/14/2009 (none -- just does mammogram yearly) - Snoring - Spasm of esophagus 05/2014 Dr. Alberto, EGD 2014 - UMBILICAL HERNIA W/O GANGRENE/OBSTRUCTION 08/06/2007 MEDICATIONS: Current Outpatient Prescriptions: dicyclomine (BENTYL) 20 mg tablet TAKE ONE TABLET BY MOUTH THREE TIMES DAILY lisinopril (ZESTRIL,PRINIVIL) 30 mg tablet Take 1 tablet by mouth once daily. montelukast (SINGULAIR) 10 mg tablet Take 10 mg by mouth daily at bedtime. Cholecalciferol, Vitamin D3, (VITAMIN D-3) 2,000 unit cap Take by mouth once daily. FLUoxetine (PROZAC) 20 mg capsule Take 1 capsule by mouth once daily. ipratropium-albuterol (COMBIVENT RESPIMAT) 20-100 mcg/actuation mist Inhale 1 Puff as instructed four times daily as needed. budesonide-formoterol (SYMBICORT) 160-4.5 mcg/actuation inhaler Inhale 2 Puffs as instructed twice daily. hydroCHLOROthiazide (HYDRODIURIL, ESIDRIX) 25 mg tablet Take 1 tablet by mouth once daily. albuterol HFA (PROAIR HFA) 90 mcg/actuation inhaler Inhale 1-2 Puffs as instructed every 4 hours as needed for Wheezing/Shortness of Breath. ipratropium-albuterol (COMBIVENT RESPIMAT) 20-100 mcg/actuation mist Inhale 1 Puff as instructed four times daily as needed (Shortness of breath, wheezing.). ipratropium-albuterol (DUONEB) 0.5 mg-3 mg(2.5 mg base)/3 mL nebu Inhale 3 mL as instructed every 6 hours as needed. ipratropium-albuterol (DUONEB) 0.5 mg-3 mg(2.5 mg base)/3 mL nebu Inhale 3 mL as instructed every 6 hours as needed. Nebulizer NEBULIZER FOR HOME USE. DX: COPD omeprazole (PRILOSEC) 20 mg capsule Take 1 capsule by mouth daily before breakfast. 1/2 hr before meal. loratadine (CLARITIN) 10 mg tablet Take 1 tablet by mouth once daily as needed. FOR ALLERGY SYMPTOMS ASPIRIN 81 MG CHEWABLE TAB Take one(1) tablet daily. No current facility-administered medications for this visit. ALLERGIES: ALLERGIES Allergen Reactions - Chantix [Vareniclin* Mental Status Change, Vomiting Temporarily not thinking straight, after cessation of 2 months of Rx. - Barbituates [Other] Unsure exactly what medication was taken, it was one of her mom's meds for bipolar disorder, had a severe reaction involving neck stiffness, sounds consistent with dystonia, mom was on haldol, stelazine, others at the time. VITALS: BP 130/80 Pulse 82 Temp 36.8 ?C (98.2 ?F) (Tympanic) Resp 18 Wt 68.4 kg (150 lb 12.8 oz) BMI 31.52 kg/m2 PHYSICAL EXAM: GEN: pleasant, alert, accompanied by her daughter HEENT: PERRL, EOMI, conjunctiva clear Ears: canals clear, TMs without erythema, bulge, or effusion Sinuses: non-tender frontal sinus, non-tender maxillary sinuses Throat: moist mucous membranes, pharyngeal erythema, white patches on the palate and pharynx Neck: supple, no thyromegaly, no lymphadenopathy HEART: regular rate and rhythm, no murmurs LUNGS: Scattered expiratory wheezes, mild conversational dyspnea. Not wearing portable O2 ASSESSMENT/PLAN: 1. Thrush - ICD9: 112.0, ICD10: B37.0 (primary diagnosis) - NYSTATIN 100,000 UNIT/ML ORAL SUSPENSION 2. Chronic obstructive pulmonary disease, unspecified COPD type (HCC) - ICD9: 496, ICD10: J44.9 MD RAHEEM Malone Observed: 06/29/2017 Status: COMPLETED Source: [place] 10:30 AM [facility] REPOSITORY Office Visit ([facility]) MATTHEW BUTLER ([id number]) 1960 F NFR Date Time Provider Department 06/29/17 10:30 AM JAD HERNANDEZ [facility] During your visit today, we recorded the following information about you: Temperature Pulse Respiration Blood pressure 98.2 degrees 82/minute 18/minute 130/80 Weight 68.4 kg Jad Hernandez MD 06/29/2017 11:18 AM Signed Patient presents with: possible thrush: noticed it this am HPI: Feeling hoarse for a couple days. Saw white on her tongue and throat this morning. Recent hospitalization for COPD flare. Positive symptoms: sore throat, hoarse voice, Negative symptoms: Fever, OTC: routine symbicort, steroid. Started doxycycline in the hospital but stopped when diagnosed with metapneumonvirus infection. PAST MEDICAL HISTORY Diagnosis Date - Allergic rhinitis due to other allergen - Allergic rhinitis due to other allergen jhonny. August - Mar - Anxiety disorder in conditions classified elsewhere - BILIARY DYSKINESIA 08/06/2007 - COPD (chronic obstructive pulmonary disease) (HCC) - Environmental allergies sees [facility] - Essential hypertension, benign - GERD (gastroesophageal reflux disease) 05/13/14 seen on esophagram - Hiatal hernia 05/13/14 seen on esophagram - Hypoglycemia, unspecified no syncopal events: gets shaky/ dizzy if hasn't eaten - Impaired fasting glucose 07/2015 - Primary localized osteoarthrosis, other specified sites affects knees: degenerative disease confirmed per x-ray 05/1999 - Routine gynecological examination 01/14/2009 (none -- just does mammogram yearly) - Snoring - Spasm of esophagus 05/2014 Dr. Alberto, EGD 2014 - UMBILICAL HERNIA W/O GANGRENE/OBSTRUCTION 08/06/2007 MEDICATIONS: Current Outpatient Prescriptions: dicyclomine (BENTYL) 20 mg tablet TAKE ONE TABLET BY MOUTH THREE TIMES DAILY lisinopril (ZESTRIL,PRINIVIL) 30 mg tablet Take 1 tablet by mouth once daily. montelukast (SINGULAIR) 10 mg tablet Take 10 mg by mouth daily at bedtime. Cholecalciferol, Vitamin D3, (VITAMIN D-3) 2,000 unit cap Take by mouth once daily. FLUoxetine (PROZAC) 20 mg capsule Take 1 capsule by mouth once daily. ipratropium-albuterol (COMBIVENT RESPIMAT) 20-100 mcg/actuation mist Inhale 1 Puff as instructed four times daily as needed. budesonide-formoterol (SYMBICORT) 160-4.5 mcg/actuation inhaler Inhale 2 Puffs as instructed twice daily. hydroCHLOROthiazide (HYDRODIURIL, ESIDRIX) 25 mg tablet Take 1 tablet by mouth once daily. albuterol HFA (PROAIR HFA) 90 mcg/actuation inhaler Inhale 1-2 Puffs as instructed every 4 hours as needed for Wheezing/Shortness of Breath. ipratropium-albuterol (COMBIVENT RESPIMAT) 20-100 mcg/actuation mist Inhale 1 Puff as instructed four times daily as needed (Shortness of breath, wheezing.). ipratropium-albuterol (DUONEB) 0.5 mg-3 mg(2.5 mg base)/3 mL nebu Inhale 3 mL as instructed every 6 hours as needed. ipratropium-albuterol (DUONEB) 0.5 mg-3 mg(2.5 mg base)/3 mL nebu Inhale 3 mL as instructed every 6 hours as needed. Nebulizer NEBULIZER FOR HOME USE. DX: COPD omeprazole (PRILOSEC) 20 mg capsule Take 1 capsule by mouth daily before breakfast. 1/2 hr before meal. loratadine (CLARITIN) 10 mg tablet Take 1 tablet by mouth once daily as needed. FOR ALLERGY SYMPTOMS ASPIRIN 81 MG CHEWABLE TAB Take one(1) tablet daily. No current facility-administered medications for this visit. ALLERGIES: ALLERGIES Allergen Reactions - Chantix [Vareniclin* Mental Status Change, Vomiting ANDquot;Temporarily not thinking straight, after cessation of 2 months of Rx.ANDquot; - Barbituates [Other] Unsure exactly what medication was taken, it was one of her mom's meds for bipolar disorder, had a severe reaction involving neck stiffness, sounds consistent with dystonia, mom was on haldol, stelazine, others at the time. VITALS: BP 130/80 Pulse 82 Temp 36.8 ?C (98.2 ?F) (Tympanic) Resp 18 Wt 68.4 kg (150 lb 12.8 oz) BMI 31.52 kg/m2 PHYSICAL EXAM: GEN: pleasant, alert, accompanied by her daughter HEENT: PERRL, EOMI, conjunctiva clear Ears: canals clear, TMs without erythema, bulge, or effusion Sinuses: non-tender frontal sinus, non-tender maxillary sinuses Throat: moist mucous membranes, pharyngeal erythema, white patches on the palate and pharynx Neck: supple, no thyromegaly, no lymphadenopathy HEART: regular rate and rhythm, no murmurs LUNGS: Scattered expiratory wheezes, mild conversational dyspnea. Not wearing portable O2 ASSESSMENT/PLAN: 1. Thrush - ICD9: 112.0, ICD10: B37.0 (primary diagnosis) - NYSTATIN 100,000 UNIT/ML ORAL SUSPENSION 2. Chronic obstructive pulmonary disease, unspecified COPD type (HCC) - ICD9: 496, ICD10: J44.9 Jad Hernandez MD Referring Provider: SELF [200] Allergies As of Date: 06/29/2017 Noted Allergy Reaction CHANTIX (VARENICLINE) 03/16/2012 1 - Mental Status Change 11 - Vomiting Comments: Temporarily not thinking straight, after cessation of 2 months of Rx. barbituates [Other] 08/20/2005 Comments: Unsure exactly what medication was taken, it was one of her mom's meds for bipolar disorder, had a severe reaction involving neck stiffness, sounds consistent with dystonia, mom was on haldol, stelazine, others at the time. Date Reviewed: 06/29/2017 Reviewed by: Tegan Saldaña LPN - Fully Assessed Reason for Visit: possible thrush [Other] Cmt: noticed it this am Primary Visit Diagnosis:Thrush [B37.0] Other Visit Diagnosis:Chronic obstructive pulmonary disease, unspecified COPD type (HCC) [J44.9] Order(s):nystatin (MYCOSTATIN) 100,000 unit/mL [id number] swish in mouth for several minutes, then swallow (or expectorate) 4 times daily until gone.Disp: 200 mLRfl: 0 Prescriptions as of 06/29/2017 Sig: DICYCLOMINE 20 MG TABLET TAKE ONE TABLET BY MOUTH THRE* LISINOPRIL 30 MG TABLET Take 1 tablet by mouth once d* MONTELUKAST 10 MG TABLET Take 10 mg by mouth daily at * CHOLECALCIFEROL (VITAMIN D3) * Take by mouth once daily. FLUOXETINE 20 MG CAPSULE Take 1 capsule by mouth once * IPRATROPIUM 20 MCG-ALBUTEROL * Inhale 1 Puff as instructed f* BUDESONIDE-FORMOTEROL HFA 160* Inhale 2 Puffs as instructed * HYDROCHLOROTHIAZIDE 25 MG TAB* Take 1 tablet by mouth once d* ALBUTEROL SULFATE HFA 90 MCG/* Inhale 1-2 Puffs as instructe* IPRATROPIUM 20 MCG-ALBUTEROL * Inhale 1 Puff as instructed f* IPRATROPIUM-ALBUTEROL 0.5 MG-* Inhale 3 mL as instructed david* IPRATROPIUM-ALBUTEROL 0.5 MG-* Inhale 3 mL as instructed david* COMPOUNDED PRESCRIPTION NEBULIZER FOR HOME USE. DX: * OMEPRAZOLE 20 MG CAPSULE,SARBJIT* Take 1 capsule by mouth daily* LORATADINE 10 MG TABLET Take 1 tablet by mouth once d* ASPIRIN 81 MG CHEWABLE TABLET Take one(1) tablet daily. NYSTATIN 100,000 UNIT/ML ORAL* 1tsp swish in mouth for sever* Problem List As Of Date 06/29/2017 Noted Resolved Essential hypertension, benign [I10] INVALID FOR* Primary localized osteoarthrosis, other specifi* More... Allergic rhinitis due to other allergen [J30.89] 06/07/2017 More... 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 Routine gynecological examination [Z01.419] INVALID FOR*06/07/2017 Class: Chronic More... Hyperlipidemia [E78.5] INVALID FOR* More... Dysphagia, unspecified(787.20) [R13.10] INVALID FOR*05/30/2014 Spasm of esophagus [K22.4] Asthma, late onset [J45.909] INVALID FOR* Gastroesophageal reflux disease without esophag*INVALID FOR* Impaired fasting glucose [R73.01] INVALID FOR* COPD (chronic obstructive pulmonary disease) (H* Prescriptions ordered this encounter Disp Refills Start End NYSTATIN 100,000 UNIT/ML ORAL SUSPEN* 200 * 0 06/29/2017 Sitsp swish in mouth for several minutes, then swallow (or expectorate) 4 times daily until gone. Encounter Status:Closed by JAD HERNANDEZ MD on 06/29/17 EMERGENCY DEPARTMENT Observed: 06/28/2017 Status: F Source: [place] SUMMARY 3:14 AM [facility] [place] REPOSITORY [facility] Medical Records Department [address] [place] [address] Emergency Department Summary 06/19/17 0103 MR#: [id number] Acct: [id number] Name: MATTHEW BUTLER Rep #: [id number] : 1960 57 From: Tera Nassar MD PCP: Jacques Gonzalez DO Status: DIS IN - ER Visit Summary Date of Service: 06/19/17 Chief Complaint: Shortness of breath and wheezing History of Present Illness: The patient is a 57 F 3 of asthma and hypertension. States she had URI symptoms beginning on Monday. Is progressively had worsening shortness of breath and wheezing. No chest pain. No fever. No hemoptysis. No cardiac history. No history of or risk factors for DVT or PE. No hemoptysis. She is currently on prednisone 40 mg a day for the last 3 days. Physical Examination: Middle-aged female vital signs are stable except pulse ox is 89% on 2 L she is hypoxic. HEENT exam unremarkable. TMs normal. Moist wheeze membranes. Neck nontender no lymphadenopathy. Lungs inspiratory expiratory wheezing throughout prolonged expiratory phase. Cough consistent with bronchitis. Exacerbation of asthma. Heart regular rate and rhythm no murmur. Abdomen soft nontender normal bowel sounds no peritoneal signs. Moving all 4 extremities. Calves nontender, no edema or cords. Neurologically she is awake and alert without focal deficits. She is in mild respiratory distress. Test Results: Two-view chest x-ray read by myself the radiologist shows bibasilar atelectasis and chronic changes but no acute process. No infiltrate. Normal cardiac silhouette. BMP unremarkable. Emergency Department Course and Treatment: Patient will be treated with IV Solu-Medrol, DuoNeb and albuterol aerosols and reassess. If she continues to remain hypoxic she will need admission. She did have a prior admission for a similar episode in December 2016. Treatment Plan: Cruz exam after Solu-Medrol of the multiple albuterol and DuoNeb aerosols. Patient is doing better but still wheezing. Still prolonged expiratory phase and we take her off her oxygen her pulse ox drops below 90% sitting in bed. She will need admitted for further aerosols and steroid therapy. I very spoken to Dr. Ahumada the hospitalist is in the ER evaluate the patient is time for admission. Disposition: Admission Impression: Acute viral bronchitis Acute exacerbation of asthma with hypoxia This note was generated with ecomom dictation software. It may contain incorrect words, spelling, and punctuation that were not noted in review of the chart prior to signing ED Disposition - Plan for ED Patient: Chief Complaint: Shortness of Breath Referrals: Jacques Staton DO [Primary Care Provider] - What to do if you have Problems For any increased pain, shortness of breath, bleeding, nausea or vomiting, chest pain, or any unexpected problems, contact your Primary Care Provider. Call [facility] ([phone]) or report to the closest Emergency Room. Call 911 if necessary. 06/19/17 0354 <Electronically signed by Tera Nassar MD> Date Tera Nassar MD Cosigner Signature (If Indicated): Date CC: Jacques Gonzalez DO DISCHARGE SUMMARY Observed: 06/22/2017 Status: F Source: [place] 10:32 AM [facility] [place] REPOSITORY [facility] Medical Records Department [address] [place] [address] Discharge Summary 06/22/17 1029 MR#: [id number] Acct: [id number] Name: MATTHEW BUTLER Rep #: [id number] : 1960 57 From: Phil Sagastume MD PCP: Jacques Gonzalez DO Status: ADM IN Y Location: [place] [address] Discharge Date and Diagnosis - Problem List Patient Problems: Active and Suspected Problems Acute respiratory failure with hypoxia (Acute) Asthma exacerbation (Acute) Date of Admission: 06/19/17 Date of Discharge: 06/22/17 - Primary Discharge Diagnosis Active and Suspected Problems Acute respiratory failure with hypoxia (Acute) Asthma exacerbation (Acute) - Secondary Discharge Diagnosis Chronic Problems Hypertension (Chronic) Hospital Course and Treatment Imaging Results: Clinical Impression(s) from Imaging Studies Chest X-Ray 06/19/17 00:22 IMPRESSION: COPD/emphysema with increased bibasal atelectasis or scarring. at 0051 Reported and signed by: Altagracia Benoit MD Electronically Signed: Altagracia Benoit MD at 23:49 EDT Tel , Service support , Chest CT 06/20/17 09:49 IMPRESSION: 1. Left lower lobe pulmonary nodule. Suggest follow-up as per Fleischner's criteria. 2. Moderately severe COPD. 3. Nonspecific mediastinal lymphadenopathy. Electronically Signed: Jyoti Rogers MD at 10:46 EDT , Service support , Microbiology 06/21/17 09:45 Mucosa - Nasopharyngeal Respiratory Panel (PCR) - Final Human [place] 06/19/17 05:34 Blood Culture (Wb) - Anticubital Right Blood Culture - Preliminary No growth in 48 hours. 06/19/17 04:00 Sputum, Expectorated/Coughed Gram Stain - Final 06/19/17 04:00 Sputum, Expectorated/Coughed Respiratory Culture - Final 06/19/17 03:50 Mucosa - Nose Influenza Types A,B Direct FA (ALTAF) - Final Operations: None Summary of Care Provided: Patient is a 57-year-old lady with history of mild persistent asthma presented with progressive shortness of breath and assessment of acute asthma exacerbation was made admitted to regular nursing floor for further management 1. Acute hypoxic respiratory failure (as evidenced by oxygen saturation dropping to 84, tachycardia and tachypnea) secondary to acute asthma/COPD exacerbation precipitated by human Xiao virus. Patient has been admitted to regular nursing floor managed with bronchodilator treatment in addition to systemic steroid. Was also placed on supplemental oxygen titrated to keep oxygen saturation greater than 90. Consultation was placed to pulmonary medicine in view of persistent bronchospasm with hypoxia and was assessed for home oxygen for which she did qualify the patient requires home oxygen with portability since she is mobile inside the home and in the community. 2. Allergic rhinitis 3. Hypertension-blood pressure controlled, home medications continued with dose adjustment as needed 4. Left lower lobe pulmonary nodule: Patient informed of results instructed to follow-up with her primary telecommunications repairer last PCP for repeat imaging in 3- 6 months 5 . DVT prophylaxis SC heparin Discharge Diet: No Restrictions Discharge Activity: May not drive while taking narcotic pain medications. Home Medications: Medications to take at Discharge Aspirin [Aspirin, Baby] 81 mg PO DAILY@0800 05/01/14 Hydrochlorothiazide [Hctz] 25 mg PO DAILY 05/01/14 Lisinopril [Zestril] 30 mg PO DAILY 05/01/14 Loratadine [Claritin] 10 mg PO DAILY 05/01/14 Albuterol Inhaler [Ventolin Hfa] 1 - 2 puff INHALATION Q4H PRN PRN #1 inhaler 05/02/14 Albuterol Aerosols [Ventolin Aerosols] 2.5 mg INHALATION Q6HWA.RT 07/02/16 Budesonide/Formoterol 160/4.5 [Symbicort 160/4.5 Mcg Inhaler (SP)] 2 puff INHALATION BID 07/02/16 Dicyclomine HCl 20 mg PO TID 12/27/16 Montelukast Sodium [Singulair] 10 mg PO DAILY 12/27/16 Cholecalciferol (Vitamin D3) [Vitamin D3] 2,000 unit PO DAILY 06/19/17 Fluoxetine [Prozac] 20 mg PO QHS 06/19/17 Omeprazole [Prilosec] 20 mg PO DAILY 06/19/17 ALPRAZolam [Xanax] 0.25 mg PO TID PRN PRN #20 tab 06/22/17 Prednisone 40 mg PO DAILY #30 tab 06/22/17 Following Prescrptions Were Given to Patient: ALPRAZolam [Xanax] 0.25 mg PO TID PRN PRN #20 tab PRN Reason: ANXIETY Prednisone 40 mg PO DAILY #30 tab Primary Care Physician: Jacques Staton DO [Primary Care Provider] - Please follow up with your Primary Care Physician in: inn 5-7 days Please Follow Up With: Justin Acosta DO When: in 1-2 weeks Disposition: Home Minutes spent on discharge:: 40 Patient Condition:: Stable Meaningful Use Info Meaningful Use Diagnoses (Choose all that apply): None applicable Code Visit Inpatient E AND M: 11326 Subs Hosp L3 06/22/17 1032 <Electronically signed by Phil Sagastume MD> Date Phil Sagastume MD Cosigner Signature (if applicable): Date CC: Phil Sagastume MD; Jacques Gonzalez DO Signed DISCHARGE INSTRUCTION Observed: 06/22/2017 Status: F Source: [place] 10:28 AM [facility] [place] REPOSITORY [facility] Medical Records Department [address] [place] [address] Instructions for Home/Discharge Instructions 06/22/17 1026 MR#: [id number] Acct: [id number] Name: MATTHEW BUTLER Rep #: [id number] : 1960 57 From: Phil Sagastume MD PCP: Jacques Gonzalez DO Status: ADM IN - Discharge Diagnoses Current Active Problems: Current Active and Chronic Problems Acute respiratory failure with hypoxia (Acute) Asthma exacerbation (Acute) You will use the following diet at home:: No restrictions Your food should be the consistency of: Regular Discharge Activity: May not drive while taking narcotic pain medications. Allergies/Adverse Reactions: Allergies Barbiturates Adverse Reaction (Verified 06/19/17 03:44) Other seizure Medications to take at Discharge Aspirin [Aspirin, Baby] 81 mg PO DAILY@0800 05/01/14 Hydrochlorothiazide [Hctz] 25 mg PO DAILY 05/01/14 Lisinopril [Zestril] 30 mg PO DAILY 05/01/14 Loratadine [Claritin] 10 mg PO DAILY 05/01/14 Albuterol Inhaler [Ventolin Hfa] 1 - 2 puff INHALATION Q4H PRN PRN #1 inhaler 05/02/14 Albuterol Aerosols [Ventolin Aerosols] 2.5 mg INHALATION Q6HWA.RT 07/02/16 Budesonide/Formoterol 160/4.5 [Symbicort 160/4.5 Mcg Inhaler (SP)] 2 puff INHALATION BID 07/02/16 Dicyclomine HCl 20 mg PO TID 12/27/16 Montelukast Sodium [Singulair] 10 mg PO DAILY 12/27/16 Cholecalciferol (Vitamin D3) [Vitamin D3] 2,000 unit PO DAILY 06/19/17 Fluoxetine [Prozac] 20 mg PO QHS 06/19/17 Omeprazole [Prilosec] 20 mg PO DAILY 06/19/17 ALPRAZolam [Xanax] 0.25 mg PO TID PRN PRN #20 tab 06/22/17 Prednisone 40 mg PO DAILY #30 tab 06/22/17 The following prescriptions were given: ALPRAZolam [Xanax] 0.25 mg PO TID PRN PRN #20 tab PRN Reason: ANXIETY Prednisone 40 mg PO DAILY #30 tab Primary Care Physician: Jacques Staton DO [Primary Care Provider] - Please follow up with your Primary Care Physician in: inn 5-7 days Please Follow Up With: Justin Acosta DO When: in 1-2 weeks Proposed Discharge Date: 06/22/17 06/22/17 1028 <Electronically signed by Phil Sagastume MD> Date Phil Sagastume MD CC: Justin Acosta D.O.; Jacques Gonzalez DO CONSULTATION Observed: 06/21/2017 Status: F Source: [place] 11:35 AM [facility] [place] REPOSITORY [facility] Medical Records Department [address] [place] [address] Consultation 06/21/17 0821 MR#: [id number] Acct: [id number] Name: MATTHEW BUTLER Rep #: [id number] : 1960 57 From: Germaine Ford NP-C PCP: Jacques Gonzalez, DO Status: ADM IN Y Location: [facility] [id number] ADDENDUM by Justin Acosta D.O. on 06/21/17 at 1135 Code Visit The patient was seen and examined independently in conjunction with the nurse practitioner. All data was personally reviewed, including the note below, and I agree with the added comments. The patient is a 57-year-old female, with a history as outlined below, who presented to the emergency department on June 19 with complaints of shortness of breath and wheezing. The patient reported having been exposed to sick contacts in her work environment. The patient was previously being managed by Dr. Armstrong at the [facility] for presumptive asthma. She is currently being maintained on Symbicort, Combivent and as needed albuterol on an outpatient basis. She does have an extensive prior smoking history of approximately 43 pack years, having quit completely in December 2016. The patient notes an extensive history of seasonal allergic rhinitis and also has gastroesophageal reflux disease. CT chest obtained on presentation to the emergency department revealed presence of a subcentimeter left lower lobe pulmonary nodule along with a groundglass nodule in the right middle lobe. There is also evidence of an enlarged precarinal lymph node. The patient was started on aerosol treatments and steroids. She was subsequently admitted to the medical surgical floor for ongoing management. The patient's most recent lab work, culture data and imaging studies have all been personally reviewed. Rapid influenza screen was negative. Expectorated sputum culture appears to be normal respiratory suman. Blood cultures have shown no growth to date. Full respiratory viral panel is pending currently. I agree with the physical examination as documented below. The patient is alert, cooperative and sitting in her bedside recliner. Her is present at the bedside. Lung kim reveal poor generalized air movement throughout with end expiratory wheeze and prolonged expiratory phase. She is able to speak in complete sentences. No accessory muscle use is present. Cardiac exam reveals a regular rate and rhythm without murmurs, rubs or gallops. There is no clubbing, cyanosis or edema. Abdominal exam is benign. The patient is neurologically intact. IMPRESSION/PLAN: 1. Acute hypoxemic respiratory insufficiency secondary to presumptive asthma with exacerbation The patient reports no prior baseline supplemental oxygen requirement. Continue to wean supplemental oxygen to maintain saturations at or above 90%. No readily identifiable bacterial pathogen has been identified. Antibiotics are likely unnecessary. Recommend checking full respiratory viral panel. Continue scheduled aerosol treatments and IV steroids. Recommend starting as needed albuterol every 2 hours in between the patient's scheduled aerosol treatments. Recommend performing a walking oximetry study prior to consideration for discharge from the hospital. The patient is wishing to move her care over to our office following discharge. Recommend that she be seen by her nurse practitioner within 2 weeks of her discharge from the hospital. Repeat PFTs can be obtained at that time. 2. Abnormal chest imaging CT chest obtained on admission revealed the presence of a subcentimeter pulmonary nodule in the left lower lobe and a groundglass nodule in the right middle lobe. This will require future longitudinal follow-up chest CT. Orders can be placed upon her follow-up in the pulmonary medicine clinic. Inpatient E AND M: 15700 Init Hosp L3 06/21/17 1135 <Electronically signed by Justin Acosta DO> Date Justin Acosta DO cc: Justin Acosta D.O.; Jacques Gonzalez DO * Signed Problem List (1) Acute respiratory failure with hypoxia Status: Acute (2) Hypertension Status: Chronic Reason for Consult Date of Consultation: 06/21/17 Reason for Consultation: COPD History of Present Illness: The patient is a 57 year old F with past medical history as below, presented to the emergency room on 06/19/17 with complaints of progressive shortness of breath and wheezing. Patient had URI symptoms starting on Monday. She went to her primary care physician and was placed on 40 mg of prednisone, which she had been taking for 3 days. She felt slightly better, then became more short of breath, even at rest. In the emergency room, patient was hypoxic at 89% on 2 L. Blood pressure 157/103, pulse 99, respirations 18. She was unable to tolerate any activity. Her oxygen requirements increased to 3 L. The patient was admitted for further evaluation and management of presumed asthma exacerbation. She has not had a leukocytosis or fever. She denies any fever or chills at home. She does have somewhat of an increase in her sputum production, clear to yellow. Her cough has been persistent and she has been intermittently wheezing. Her home inhaler regimen includes Symbicort BID, Combivent every 4-5 hours, and PRN albuterol nebulizer and/or inhaler. She reports rare use of her albuterol unless she is sick. Typically, patient does not have trouble with her breathing and does not have a cough. She denies night sweats or hemoptysis. Patient quit smoking after her last admission to the hospital for asthma exacerbation in December 2016 for which she was hospitalized here at [facility]. She has a 22-mtlp-yiis history. She has seen Dr. Brewer, ENT in the past and had nasal surgery 2 years ago. She also had a barium swallow May 2014 that showed a small sliding hiatal hernia with gastroesophageal reflux. Patient reports she saw a medical device engineer and had an EGD as well, which showed esophageal spasms in addition to the hernia. She was placed on Bentyl and omeprazole. Her symptoms have been relatively controlled, except recently she has had more reflux with eating unless she stays completely upright. Patient also had a stress test in April 2014 which was reportedly normal, she had an estimated EF of 77%. She denies any chest pain. Patient was treated with IV steroids and bronchodilators, and was transitioned to Prednisone until she was changed back to Solu-Medrol on 06/20 secondary to persistent dyspnea at rest. She was started on doxycycline and a chest CT was obtained, which showed a left lower lobe pulmonary nodule measuring 6.6 mm, groundglass nodularity in right middle lobe measuring 4.5 mm, moderately severe COPD, and nonspecific mediastinal lymphadenopathy. There was also a large lucencies in both upper lobes, probably related to severe centrilobular emphysema. Patient denies any previous chest imaging except x-rays. She follows with Dr. Armstrong at the [facility]. She last saw him in the spring 2016. Patient states she was actually scheduled to see him this past November, but their office canceled. She was then scheduled to see him a few months ago but they again canceled her appointment. Initial PFTs were done approximately 2 years ago, the patient was told she had asthma. She did have repeat pulmonary function tests in the spring 2016 and is unsure of those results. 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 Denies: Anorexia, Chills, Fever, Night Sweats, Malaise, Weakness, Weight Change Eyes: Denies: Vision Change HEENT: Reports: Head Aches, Nasal Congestion, Post Nasal Drip, Sinus Congestion, - - problem with swallowing textured food. Denies: Difficulty Swallowing, Dysphasia, Nasal bleeding, Sinus Drainage Cardiovascular: Reports: Chest Tightness, Orthopnea. Denies: Chest Pain, Chest Pressure, Light Headedness, Palpitations, Paroxysmal Noc. Dyspnea, Syncope Respiratory: Reports: Cough, Shortness of breath at rest, Shortness of breath upon exertion, Sputum production, Wheezing. Denies: Hemoptysis, Pleuritic Pain Gastrointestinal: Reports: Dyspepsia. Denies: Abdominal Pain, Constipation, Diarrhea, Hematemesis, Hematochezia, Nausea, Melena, Vomiting Genitourinary: Denies: Dysuria, Frequency, Hematuria, Retention Gynecological: Denies: Breast symptoms Musculoskeletal: Denies: Back Pain, Muscle pain, Neck Pain Skin: Denies: Pruritis, Rash, Skin Changes Neurological: Denies: Balance problems, Change in Speech, Confusion, Difficulty swallowing, Focal weakness, Numbness, Tingling, Tremor, Seizures Psychiatric: Denies: Anxiety, Depression Endocrine: Denies: Change in Body Habitus, Polydipsia, Polyuria Hematologic/ Lymphatic: Denies: Adenopathy, Anemia, Easy Bruising, Easy Bleeding, Hx of blood clot Patient Problems: Active and Suspected Problems Acute respiratory failure with hypoxia (Acute) Asthma exacerbation (Acute) Subjective: The patient was seen and examined. Her is at the bedside. She has conversational dyspnea and reports a very poor activity tolerance. She is maintaining appropriate saturations on 2 L of oxygen at this time. A room air pulse ox was completed at rest and she was 84%. She complains of intermittent wheezing. She feels improved from yesterday. Objective: Clinical Impression(s) from Imaging Studies Chest X-Ray 06/19/17 00:22 IMPRESSION: COPD/emphysema with increased bibasal atelectasis or scarring. at 0051 Reported and signed by: Altagracia Benoit MD Electronically Signed: Altagracia Benoit MD at 23:49 EDT Tel , Service support , Chest CT 06/20/17 09:49 IMPRESSION: 1. Left lower lobe pulmonary nodule. Suggest follow-up as per Fleischner's criteria. 2. Moderately severe COPD. 3. Nonspecific mediastinal lymphadenopathy. Electronically Signed: Jyoti Rogers MD at 10:46 EDT , Service support , - Physical Exam General: Alert, Oriented x3, Cooperative, No apparent distress, Well developed, Well nourished, - - Conversational dyspnea HEENT: Atraumatic, PERRLA, Normocephalic Oral: Moist Mucosa, No Gingival or Mucosal Lesions/ Ulcerations Neck: Supple, Negative Carotid Bruits, No Nodes, Trachea Midline Lungs: - - Diminished with expiratory wheeze, no rhonchi or rales. No accessory muscle use or tachypnea, symmetric expansion. Cardiovascular: Regular rate, Regular Rhythm, Normal S1, Normal S2, No murmurs, No rub noted, No Gallop Abdomen: Bowel Sounds Present, Soft, Non Tender, Non-Distended, No Hepato-splenomegaly Extremities: No clubbing, No cyanosis, No edema, Peripheral Pulses Normal Skin: No rashes, No breakdown Musculoskeletal: No Tenderness to Palpation of Joints or Extremities, - - mild kyphosis Lymphatic: No Cervical, Supraclavicular, or Inguinal Adenopathy Neurological: Cranial nerves II-XII grossly intact, Neuro grossly intact, Motor Exam 5/5 strength throughout Psych/Mental Status: Alert and oriented to time, place, person, mood and affect Vital Signs Temp Pulse Resp BP Pulse Ox 98.8 F 97 20 H 141/76 H 95 06/21/17 08:00 06/21/17 08:00 06/21/17 08:00 06/21/17 08:00 06/21/17 08:00 Oxygen Flow Rate (L/min) 2 Oxygen Delivery Method Nasal Cannula Weight: 149 lb 11.102 oz Body Mass Index (BMI) 29.7 Intake and Output for Last 24 Hours Intake Total 331 / 331 1602 / 1602 200 / 200 Output Total 100 / 100 750 / 750 Balance 231 / 231 852 / 852 200 / 200 Microbiology Past 72 Hours 06/19/17 05:34 Blood Culture - Preliminary Blood Culture (Wb) - Anticubital Right No growth in 48 hours. Assessment/Plan Active and Suspected Problems Acute respiratory failure with hypoxia (Acute) Asthma exacerbation (Acute) RECOMMENDATIONS 1. Wean oxygen supplementation to keep saturations 88-92%. 2. Encourage incentive spirometer and Acapella 3. Increase activity as tolerated 4. Continue bronchodilators, add as needed albuterol 5. Obtain respiratory panel 6. Obtain medical records from [facility] pulmonology, Dr. Armstrong 7. Ambulatory pulse ox prior to consideration for discharge 8. Please make follow-up appointment in the pulmonary clinic with PROSPECTING OBSERVER in 2 weeks after discharge IMPRESSIONS 1. Acute hypoxic respiratory failure/presumed asthma and COPD Patient still requiring 2-3 L of oxygen supplementation, no previous home requirements. Sputum and blood culture were negative. Respiratory panel was ordered. She did have recent multiple sick contacts at work and could have a viral etiology causing worsening breathing. She reportedly has asthma per PFTs [address] [facility], awaiting official records, which were requested. She denies a history of COPD. Chest CT on 06/20 demonstrated a left lower lobe pulmonary nodule measuring 6.6 mm, nonspecific mediastinal lymphadenopathy, and moderately severe COPD. There was also atelectasis and a groundglass nodularity in the right middle lobe measuring 4.5 mm. She does have interstitial thickening. The patient denies any previous CAT scans to compare. She would need a follow up CT in 3 months with these findings. Patient has been maintained on Symbicort, Combivent, and albuterol at home, previously taking Qvar. She also takes Singulair and Claritin. Patient has a hiatal hernia which could be aggravating her asthma, she is on Bentyl and omeprazole at home. Attempt to wean oxygen to keep saturations 88-92%. Encourage incentive spirometer and Acapella and increase activity as tolerated. Patient may require home oxygen temporarily. Would add PRN Albuterol, lungs are very tight with wheezing. She wishes to transfer her pulmonary care to [facility] upon discharge. We have requested her records from [facility]. She can follow-up 2 weeks from discharge, at which time repeat pulmonary function test can be ordered and hopefully patient can be optimized. 2. Hiatal hernia/hypertension/history of tobacco abuse in remission Complicates care, management, recovery, and prognosis. Patient quit smoking in December 2016, [id number] history. Encouraged ongoing cessation. Continue home medications as indicated. Thank you for the opportunity to participate in this patient's care, please do not hesitate contact us with any further questions or concerns. This note was generated with ecomom dictation software. It may contain incorrect words, spelling, and punctuation that were not noted in checking the note before signing. 06/21/17 1038 <Electronically signed by Germaine PURVIS> Date Germaine PURVIS Cosigner Signature (if applicable): Date CC: Justin Acosta D.O.; Jacques Gonzalez DO Signed Observed: 06/21/2017 Status: C Source: [place] RESPIRATORY PANEL 9:45 AM [facility] MOLECULAR REPOSITORY Copy of report sent to Infection Control Printer MS#[id number] 06/21/17 0397 DGRADY. RP PANEL Normal Reference Range = Not Detected RESULTS CALLED TO RODRIGUEZ ARORA 06/21/17 1313 Courtney Diop. REPORT READ BACK BY SAME. RESULTS BROADCAST TO HUSAM 06/21/17 1315 Courtney Diop. ADENOVIRUS Not Detected HUMAN METAPHNEUMO Positive for HUMAN METAPHNEUMO VIRUS by NAAT technology INFLUENZA A Not Detected INFLUENZA A (SUBTYPE H1) Not Detected INFLUENZA A (SUBTYPE H3) Not Detected INFLUENZA B Not Detected PARAINFLUENZA 1 Not Detected PARAINFLUENZA 2 Not Detected PARAINFLUENZA 3 Not Detected PARAINFLUENZA 4 Not Detected RHINOVIRUS Not Detected RSV A Not Detected RSV B Not Detected NAAT METHOD Testing was performed using nucleic acid amplification ORGANISM 1: HUMAN META Performed By: #### M100.638 #### [facility] [address] [place], [address] CHEST WITHOUT Observed: 06/20/2017 Status: F Source: [place] CONTRAST 9:51 AM [facility] REPOSITORY [facility] Imaging Services [address] [place] [address] Chest without Contrast MR#: [id number] Acct: [id number] Name: MATTHEW BUTLER Rep #: [id number] : 1960 F 57 From: Jyoti Rogers MD PCP: Jacques Gonzalez DO Status: ADM IN Study: Chest without Contrast Date of Exam: 06/20/17 Exam# [id number] Ordering Dr: Phil Sagastume MD STUDY: CT CHEST WITHOUT CONTRAST REASON FOR EXAM: Female, 57 years old. Wheezing. RADIATION DOSAGE (If Supplied By Facility): CTDIvol = ( 13.91 ) mGy, DLP = ( 490.11 ) mGycm TECHNIQUE: Transaxial imaging was performed without the administration of intravenous contrast material. Multiplanar coronal and sagittal images were reformatted. Individualized dose optimization techniques were used for this CT. COMPARISON: None. FINDINGS: Cardiac monitoring leads are present. There is hyperinflation of the lungs consistent with chronic obstructive lung disease (COPD). There are large lucencies within both upper lobes that is probably related to severe centrilobular emphysema. There is a left lower lobe pulmonary nodule measuring approximately 6.6 mm. There is bilateral basilar dependent atelectasis. There is groundglass nodularity in right middle lobe measuring 4.5 mm in greatest dimension. There is some reticulonodular interstitial thickening visible within the right lower lobe. There is no demonstrated pleural abnormality. Normal heart and pericardium. There are calcifications of the coronary arteries. There is a prominent precarinal node measuring 1.7 x 1.1 x 0.9 cm in size. Normal hilar regions. Normal unenhanced pulmonary arteries. There is atherosclerotic tortuosity of the aortic arch and descending thoracic aorta. Maximum transverse dimension of ascending thoracic aorta measures 2.9 cm. There are multi-level degenerative changes of the thoracic spine. There is increased thoracic kyphosis. There is no demonstrated abnormality of the visualized upper abdomen. CT/Chest without Contrast IMPRESSION: 1. Left lower lobe pulmonary nodule. Suggest follow-up as per Fleischner's criteria. 2. Moderately severe COPD. 3. Nonspecific mediastinal lymphadenopathy. Electronically Signed: Jyoti Rogers MD at 10:46 EDT , Service support , CC: Phil Sagastume MD; Jacques Gonzalez DO Photographer Model: Signed CBC W/DIFF, AUTOMATED Collected: 06/19/2017 Status: F Source: [place] 5:34 AM [facility] REPOSITORY TYPE CODE TESTS RESULT OUT OF RANGE REFERENCE UNITS LAB L100.1000 4.4-11.0 K/mm3 Normal WBC 9.2 LAB L100.1200 4.2-5.4 M/mm3 Normal RBC 4.91 LAB L100.1300 12.0-15.0 g/dl Normal HGB 14.7 LAB L100.1400 37-47 % Normal HCT 44.4 LAB L100.1500 81-99 fL Normal MCV 90.4 LAB L100.1600 27.0-32.0 pg Normal MCH 29.9 LAB L100.1700 32-36 g/gl Normal MCHC 33.1 LAB L100.1810 11.6-14.6 % Normal RDW CV 13.6 LAB L100.1820 35.1-43.9 fl High RDW SD 44.8 LAB L100.1900 150-450 K/mm3 Normal PLT 253 LAB L100.2000 6.2-12.0 fl Normal MPV 9.8 LAB L100.2100 47-70 % High NEUT% 91.5 LAB L100.2200 19-41 % Low LY% 4.5 LAB L100.2300 0-10 % Normal MONO% 3.5 LAB L100.2400 0-5 % Normal EO% 0.0 LAB L100.2500 0-1 % Normal BASO% 0.2 LAB L100.2550 0.0-0.9 % Normal IM GRAN % 0.300 Result Comment: IG% - Immature Granulocytes (promyelocytes, myelocytes and metamyelocytes) > 1% indicates that a LEFT SHIFT is Present. LAB L100.2620 2.0-7.7 X10 3/uL High Absolute Neut 8.4 LAB L100.2720 0.83-4.51 X10 3/ul Low Absolute Lymph 0.41 LAB L100.4500 Normal SMEAR COMMENT SCANNED Result Comment: LYMPHOPENIA NOTED Performed By: #### M101.0101, L100.0100 #### [facility] [address] [place], [place], [address] COMPREHENSIVE METABOLIC Collected: 06/19/2017 Status: F Source: [facility] 5:34 AM [facility] REPOSITORY TYPE CODE TESTS RESULT OUT OF RANGE REFERENCE UNITS LAB L501.0100 74-106 mg/dL High GLU 153 Result Comment: Fasting Glucose result greater than or equal to 126 mg/dL suggests DIABETES MELLITUS per A.D.A. criteria. Please note revised GLUCOSE reference range effective 2017. LAB L501.1000 7-18 mg/dL Normal BUN 11 LAB L501.1100 0.55-1.02 mg/dL Normal CREAT,SERUM 0.80 Result Comment: The validity of the calculated GFR AND GFRAA in patients over 70 years has not been determined. Clinical correlation is essential. LAB L501.1110 >60 mL/min Normal EST GFR 79 Result Comment: Non- GFR Calc LAB L501.1115 >60 mL/min Normal EST GFR - AA 95 Result Comment: GFR Calc LAB L501.1255 ml/min Normal Estimated CRCL 82.16 LAB L501.1300 10-20 RATIO Normal BUN/CRE 13.8 LAB L501.1500 6.4-8. g/dL Normal 2 T PROT 7.0 LAB L501.1800 3.2-5. g/dL Normal 0 ALB 3.6 LAB L501.1950 2.2-4. g/dL Normal 2 GLOB 3.4 LAB L501.2000 0.9-2. RATIO Normal 4 A/G 1.1 LAB L501.2200 8.5-10 mg/dL Normal .1 CA 9.2 LAB L501.4100 15-37 U/L Normal AST 20 LAB L501.4305 45-117 U/L Normal ALK P 80 LAB L501.4405 13-56 U/L Normal ALT 34 Result Comment: Please note revised ALT reference range effective 2017. LAB L501.4600 0.20-1.00 mg/dL Normal T BILI 0.30 LAB L501.5300 136-145 mmol/L Normal NA 138 LAB L501.5600 3.5-5.1 mmol/L Normal K 3.9 LAB L501.5900 98-107 mmol/L Normal CL 103 LAB L501.6100 21.0-32.0 mmol/L Normal CO2 27.0 LAB L501.6200 5-15 Normal GAP 8 Performed By: #### L500.4050 #### [facility] [address] [place], [place], [address] Observed: 06/19/2017 Status: F Source: [place] CULTURE, BLOOD (WB) 5:34 AM [facility] REPOSITORY No growth in 5 days. Performed By: #### M200.1000 #### [facility] [address] [place], [place], [address] Observed: 06/19/2017 Status: F Source: [place] CULTURE, SPUTUM 4:00 AM [facility] REPOSITORY Gram Stain Acceptable Specimen? Yes (<25 Epithelial cells per/lpf) Gram Stain 3+ White Blood Cells 1+ Epithelial cells 1+ Gram positive cocci Rare Gram positive rods Resp. Culture Mixed normal respiratory suman. No Haemophilus, Streptococcus pneumoniae, beta-hemolytic Streptococcus or Staphylococcus aureus isolated. Performed By: #### M100.0800 #### [facility] [address] [place], [address] Observed: 06/19/2017 Status: F Source: [place] INFLUENZA A+B (RAPID 3:50 AM [facility] YASMIN) REPOSITORY Order Date: 06/19/17 Has pt arrived? Y FLU A/B Rapid Negative test results should be confirmed by culture. Order Rapid Viral Culture for Influenzae A+B ([id number]) if clinically indicated. Influenza Ag, Direct Presumptive NEGATIVE for Influenza A/B Antigen (See Note) Performed By: #### M101.0101, L100.0100 #### [facility] [address], [address] HISTORY AND PHYSICAL Observed: 06/19/2017 Status: F Source: [place] EXAM 2:53 AM [facility] REPOSITORY [facility] Medical Records Department [address] [place] [address] History and Physical 06/19/17 0237 MR#: [id number] Acct: [id number] Name: MATTHEW BUTLER Rep #: [id number] : 1960 57 From: Alexys Ahumada MD PCP: Jacques Gonzalez DO Status: ADM IN Location: [place] [id number] Problem List (1) Asthma exacerbation Status: Acute (2) Acute respiratory failure Status: Acute (3) Asthma Status: Acute (4) Hypokalemia Status: Acute (5) Hypertension Status: Chronic History of Present Illness Date of Admission: 06/19/17 Chief Complaint: Asthma exacerbation The patient is a 57 year old female w/ h/o asthma, tobacco abuse, and HTN admitted for asthma exacerbation. She has been feeling ill since Monday. There are several people at work who are sick the flu. She has been having worsening SOB and productive cough. The intensity and frequency of the cough are worsening. Sputum quantity also increased in the last few days. Her PCP gave her steroid since Monday. However, despite being on steroid, she is unable to do her ADLs. Her SOB is so severe that she required oxygen while in the ED to maintain her saturation. She is admitted for further workup. 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 Smoking Status: Former smoker - *Family History Paternal History Items: Heart Disease Review of Systems Constitutional: Denies: Chills, Fever, Weight Change HEENT: Denies: Head Aches, Sinus Congestion, Sinus Drainage Cardiovascular: Denies: Chest Pain, Palpitations Respiratory: Denies: Cough, Shortness of breath at rest, Sputum production Gastrointestinal: Denies: Abdominal Pain, Nausea, Vomiting Genitourinary: Denies: Dysuria Musculoskeletal: Denies: Joint Pain, Joint Tenderness Skin: Denies: Rash, Wounds Neurological: Denies: Numbness, Tingling, Focal weakness Psychiatric: Denies: Anxiety, Depression, Homicidal Ideations, Suicidal Ideations Hematologic/ Lymphatic: Denies: Easy Bruising, Easy Bleeding VTE Information - Inpt Only VTE Present on Admission: No VTE Mechan Device Prophylaxis: SCD's VTE Pharm Prophylaxis ordered?: Yes Patient Problems: Active and Suspected Problems Asthma exacerbation (Acute) Acute respiratory failure (Acute) - Physical Exam General: Alert, Oriented x3, Cooperative HEENT: Atraumatic, PERRLA, EOMI, Normocephalic Neck: Supple, No JVD, Negative Carotid Bruits Lungs: Diminished, Short of Breath, Wheezes Cardiovascular: Regular rate, No murmurs Abdomen: Bowel Sounds Present, Soft, Non Tender Extremities: No edema, Capillary Refill Less than 3 Seconds Skin: No rashes, No breakdown Musculoskeletal: No Tenderness to Palpation of Joints or Extremities Neurological: Cranial nerves II-XII grossly intact Psych/Mental Status: Normal Affect, Appropriate Vital Signs Temp Pulse Resp BP Pulse Ox 99.2 F H 90 18 137/84 H 95 06/19/17 02:13 06/19/17 02:13 06/19/17 02:13 06/19/17 02:13 06/19/17 02:13 Oxygen Flow Rate (L/min) 2 Oxygen Delivery Method Room Air Weight: 68.946 kg Body Mass Index (BMI) 26.1 Laboratory Tests Past 24 Hrs WBC 8.9 RBC 4.90 Hgb 14.7 Hct 44.0 MCV 89.8 MCH 30.0 MCHC 33.4 Assessment/Plan Active and Suspected Problems Asthma exacerbation (Acute) Acute respiratory failure (Acute) 57 year old female w/ h/o asthma, tobacco abuse, and HTN admitted for asthma exacerbation. 1) Asthma exacerbation: Probably secondary to viral etiology. Cultures pending. No e/o acute bacterial infection, no leukocytosis, no infiltrate on xray, no fever, no chill, etcs. Will start steroid and bronchodilators ATC. Will consider antibiotic if worsening. C/w oxygen. 2) Acute hypoxic respiratory failure: Most likely secondary to asthma / COPD exacerbation. Will consider ABG if worsening. C/w oxygen. Monitor. 3) HTN: Resume home meds. Monitor. 4) Prophylaxis: SCD / heparin. 06/19/17 0253 <Electronically signed by Alexys Ahumada MD> Date Alexys Ahumada MD Cosigner Signature: Date (if applicable) CC: Jacques Gonzalez DO; Alexys Ahumada MD Signed CBC W/DIFF, AUTOMATED Collected: 06/19/2017 Status: F Source: [place] 1:35 AM [facility] REPOSITORY TYPE CODE TESTS RESULT OUT OF RANGE REFERENCE UNITS LAB L100.1000 4.4-11.0 K/mm3 Normal WBC 8.9 LAB L100.1200 4.2-5.4 M/mm3 Normal RBC 4.90 LAB L100.1300 12.0-15.0 g/dl Normal HGB 14.7 LAB L100.1400 37-47 % Normal HCT 44.0 LAB L100.1500 81-99 fL Normal MCV 89.8 LAB L100.1600 27.0-32.0 pg Normal MCH 30.0 LAB L100.1700 32-36 g/gl Normal MCHC 33.4 LAB L100.1810 11.6-14.6 % Normal RDW CV 13.5 LAB L100.1820 35.1-43.9 fl High RDW SD 44.3 LAB L100.1900 150-450 K/mm3 Normal PLT 254 LAB L100.2000 6.2-12.0 fl Normal MPV 9.8 LAB L100.2100 47-70 % High NEUT% 70.7 LAB L100.2200 19-41 % Low LY% 15.0 LAB L100.2300 0-10 % High MONO% 13.3 LAB L100.2400 0-5 % Normal EO% 0.3 LAB L100.2500 0-1 % Normal BASO% 0.4 LAB L100.2550 0.0-0.9 % Normal IM GRAN % 0.300 Result Comment: IG% - Immature Granulocytes (promyelocytes, myelocytes and metamyelocytes) > 1% indicates that a LEFT SHIFT is Present. LAB L100.2620 2.0-7.7 X10 3/uL Normal Absolute Neut 6.3 LAB L100.2720 0.83-4.51 X10 3/ul Normal Absolute Lymph 1.34 Performed By: #### L100.0100 #### [facility] [address] [place], [place], [address] BASIC METABOLIC Collected: 06/19/2017 Status: F Source: [place] PROFILE (BMP) 1:35 AM [facility] REPOSITORY TYPE CODE TESTS RESULT OUT OF RANGE REFERENCE UNITS LAB L501.0100 74-106 mg/dL High GLU 108 Result Comment: Fasting Glucose result from 100 to 125 mg/dL suggests IMPAIRED HOMEOSTASIS per A.D.A. criteria. Please note revised GLUCOSE reference range effective 2017. LAB L501.1000 7-18 mg/dL Normal BUN 12 LAB L501.1100 0.55-1.02 mg/dL Normal CREAT,SERUM 0.73 Result Comment: The validity of the calculated GFR AND GFRAA in patients over 70 years has not been determined. Clinical correlation is essential. LAB L501.1110 >60 mL/min Normal EST GFR 87 Result Comment: Non- GFR Calc LAB L501.1115 >60 mL/min Normal EST GFR - AA 105 Result Comment: GFR Calc LAB L501.1255 ml/min Normal Estimated CRCL 72.54 LAB L501.1300 10-20 RATIO Normal BUN/CRE 16.4 LAB L501.2200 8.5-10 mg/dL Normal .1 CA 8.9 LAB L501.5300 136-14 mmol/L Normal 5 NA 140 LAB L501.5600 3.5-5. mmol/L Normal 1 K 3.5 LAB L501.5900 98-107 mmol/L Normal CL 102 LAB L501.6100 21.0-3 mmol/L Normal 2.0 CO2 27.0 LAB L501.6200 5-15 Normal GAP 11 Performed By: #### L500.2500 #### [facility] [address] [place], [address] CHEST PA AND LATERAL Observed: 06/19/2017 Status: F Source: [place] 12:23 AM [facility] REPOSITORY [facility] Imaging Services [address] [place] [address] Chest PA and Lateral MR#: [id number] Acct: [id number] Name: MATTHEW BUTLER Rep #: [id number] : 1960 F 57 From: Altagracia Benoit MD PCP: Jacques Gonzalez DO Status: REG ER Study: Chest PA and Lateral Date of Exam: 06/19/17 Exam# [id number] Ordering Dr: Tera Nassar MD XR Chest 2 Views INDICATION: COUGH T SOB COMPARISON: December 27, 2016 TECHNIQUE: Portable chest x-ray FINDINGS: Art size and pulmonary vascularity are within normal limits, stable compared to the prior study. Lungs are mildly hyperinflated with coarsened interstitial markings. Bibasilar atelectasis/scarring has slightly increased compared to the prior study. No evidence of pleural effusion. RAD/Chest PA and Lateral IMPRESSION: COPD/emphysema with increased bibasal atelectasis or scarring. at 0051 Reported and signed by: Altagracia Benoit MD Electronically Signed: Altagracia Benoit MD at 23:49 EDT Tel , Service support , CC: Tera Nassar MD; Jacques Gonzalez DO Photographer Model: Signed ALLERGIES ALLERGIES DATE TYPE / CODE NAME / CODE REACTION SEVERITY SOURCE Drug Barbiturates/F00 Other - spine Unknown Dru 8 Allergy/[id number]( [id number](RXNORM) [facility] Rep[facility] DRUG VARENICLINE Mental Chg High [place] 2 INGREDI/[id number]( Clinic Main SNOMED CT) [place] Rep[facility] Miscellaneous OTHER [place] 6 Allergy/[id number]( [facility] Main SNOMED CT) [place] [facility] ENCOUNTERS ENCOUNTERS ADMIT/DISCHARGE ACCOUNT NUMBER ADMITTING ENCOUNTER LOCATION SOURCE CLASS 04/26/2018 [id number] Ambulatory [facility] Repository 03/29/2018/03/29/20 [id number] Ambulatory BMSBuilding: [place] BMS.[facility] Repository 03/27/2018 [id number] Ambulatory [facility] ding:CT Repository 03/26/[id number] [facility] Repository 03/20/2018 [id number] Ambulatory [facility] ding:NE Repository 03/19/2018 [id number] Ambulatory [facility] ding:NS Repository 03/15/2018 [id number] Ambulatory [facility] ding:OT Repository 03/08/[id number] [facility] Repository 02/09/2018/03/09/20 [id number] Ambulatory [address] ding:NE Repository 02/06/[id number] [facility] Repository 01/23/[id number] [facility] WSDSRoom: 2B System WSDSBed: Repository [id number] 01/16/[id number] [facility] Repository 01/12/2018/02/08/20 [id number] Ambulatory [address] ding:NE Repository 01/10/2018/02/08/20 [id number] Ambulatory [place] 18 [facility] ding:NS Repository 01/05/2018/01/08/20 [id number] Ambulatory [place] 18 [facility] ding:NE Repository 01/04/2018 [id number] Ambulatory [facility] Repository 12/18/2017/01/08/20 [id number] Ambulatory [place] Dru 18 [facility] ding:NS Repository 12/08/2017/12/09/19 [id number] Ambulatory Dru [place] 18 [facility] ding:NE Repository 10/25/2017/10/26/19 [id number] Emergency Dru Dru 18 [facility] ding:ED Repository 10/12/2017/11/08/19 [id number] Ambulatory [place] Dru 18 [facility] ding:NE Repository 10/04/2017/10/06/19 [id number] Ambulatory [address] Repository 10/03/2017/10/04/19 [id number] Ambulatory BMSBuilding: Dru 18 [facility] Repository 10/02/2017 [id number] Ambulatory [facility] ding:CT Repository 08/16/2017/08/17/19 [id number] Ambulatory BMSBuilding: [place] 18 [facility] Repository 08/15/2017 [id number] Ambulatory [facility] ding:SL Repository 08/08/2017 [id number] Ambulatory BMSBuilding: [facility] Repository 08/07/2017 [id number] Ambulatory [facility] ding:PSN Repository 07/26/2017/07/29/19 [id number] Ambulatory [address] Repository 07/19/2017 [id number] Ambulatory [facility] ding:SL Repository 07/12/2017 [id number] Ambulatory [facility] ding:PSN Repository 07/12/2017 [id number] Ambulatory BMSBuilding: [place] [facility] Repository 07/10/2017/07/20/19 [id number] Ambulatory [address] Repository 07/06/2017/07/07/19 [id number] Ambulatory BMSBuilding: [place] 18 BMS.[facility] Repository 07/04/2017/07/06/19 [id number] Ambulatory [address] Repository 06/29/2017/06/30/19 [id number] Ambulatory [address] Repository 06/19/2017/06/23/19 [id number] Zita, Alexys Inpatient [place] 18 Encounter [facility] [place] ding:WQ0Cuyo Repository : MX870Yqv: 1 06/19/2017 [id number] Zita, Alexys Ambulatory BMSBuilding: [place] BMS.[facility] Repository 06/19/2017 [id number] Zita, Alexys Ambulatory BMSBuilding: [place] BMS.[facility] Repository 06/19/2017 [id number] Zita, Alexys Ambulatory BMSBuilding: [place] BMS.[facility] Repository 06/19/2017 [id number] Zita, Alexys Ambulatory BMSBuilding: [facility] Repository 06/19/2017 [id number] Zita, Alexys Ambulatory BMSBuilding: Dru BMS.CF.[facility] Repository 06/19/2017 [id number] Zita, Alexys Ambulatory BMSBuilding: [place] BMS.[facility] Repository 06/19/2017 [id number] Zita, Alexys Ambulatory BMSBuilding: [facility] Repository 06/19/2017 [id number] Zita, [facility] Ambulatory BMSBuilding: Dru BMS.CF.[facility] Repository PAYERS PAYERS ENCOUNTER GUARANTOR PAYER SUBSCRIBER SOURCE 04/26/2018 Matthew YerianDOB: Primary Matthew YerianDOB: [facility] [employer] [id number] Insurance:[employer] [id number] Number: [place], [place] Effective Date: 73933Bah: (hp) 03/29/2018 MATTHEW L Primary MATTHEW L [place] [id number] Insurance:ANTHEMPolic YERIANDOB: Community [address] y Number: [id number] [id number] Repository 56735Mij: (330) Date:8621-33-60TP [phone] () [address] [place] [address] 82454OS: 03/29/2018 Secondary NOT GIVENUNK [place] Insurance:SELF PAY [facility] Number: Effective Repository Date:2018-03-21 03/27/2018 MATTHEW L Primary MATTHEW L [place] [id number] Insurance:ANTHEMPolic YERIANDOB: Community [address] y Number: [id number], [place] [id number] Repository 93634Fmp: (330) Date:0575-28-59WY [phone] () [address] [place] [address] 79431EA: 03/27/2018 Secondary NOT GIVENUNK Dru Insurance:SELF PAY [facility] Number: Effective Repository Date:2018-03-19 03/26/2018 Matthew YerianDOB: Primary Matthew YerianDOB: [facility] [id number] Insurance:[employer] [id number] Ironwood Medical Center Number: [place], [place] Effective Date: 88022Iwt: () 03/20/2018 MATTHEW L Primary MATTHEW L [place] [id number] Insurance:ANTHEMPolic YERIANDOB: [facility] [address] y Number: [id number], [place] [id number] Repository 66101Pqy: (330) Date:1648-99-23ZQ [phone] () [id number] [place] [address]TK: 03/20/2018 Secondary NOT GIVENUNK [place] Insurance:SELF PAY [facility] Number: Effective Repository Date:2018-03-10 03/19/2018 MATTHEW L Primary MATTHEW L Dru [id number] Insurance:ANTHEMPolic YERIANDOB: [facility] [address] y Number: [id number], [place] [id number] Repository 42062Zdq: (330) Date:3908-93-75VE [phone] () [address] [place] [address] 62916FE: 03/19/2018 Secondary NOT GIVENUNK [place] Insurance:SELF PAY [facility]: Effective Repository Date:2018-02-08 03/15/2018 MATTHEW L Primary MATTHEW L Dru [id number] Insurance:ANTHEMPolic YERIANDOB: Community [address] y Number: [id number], [place] [id number] Repository 90507Yxf: (330) Date:2594-52-01HH [phone] () [address] [place] [address] 64143SO: 03/15/2018 Secondary NOT GIVENUNK [place] Insurance:SELF PAY [facility] Number: Effective Repository Date:2018-02-15 03/08/2018 Matthew YerianDOB: Primary Matthew YerianDOB: [facility] [id number] Insurance:[employer] [id number] System iLyngo Repository [facility] Number: [place] Effective Date: 74081Tru: () 02/09/2018 MATTHEW L Primary MATTHEW L Dru [id number] Insurance:ANTHEMPolic YERIANDOB: Community [address] y Number: [id number], [place] [id number] Repository 34088Tat: (330) Date:1609-62-01LE [phone] () [address] [place] [address] 26826RH: 02/09/2018 Secondary NOT GIVENUNK Dru Insurance:SELF PAY [facility] Number: Effective Repository Date:2018-02-08 02/06/2018 Matthew YerianDOB: Primary Matthew YerianDOB: [facility] [id number] Insurance:[employer] [id number] System [employer] Cross Personally Repository [facility] Number: [place] Effective Date: 47469Van: () 01/23/2018 Matthew YerianDOB: Primary [facility] [employer] Insurance:[employer] [id number] System [place] [facility] Personally [facility] Number: [address] Effective Date: 88313Czs: (HP) 01/16/2018 Matthew YerianDOB: Primary Matthew [facility] Insurance:[employer] [id number] System i[employer] Repository [facility] Number: [place], [place] Effective Date: 40647Cfd: (HP) 01/12/2018 MATTHEW L Primary MATTHEW L [place] [id number] Insurance:ANTHEMPolic YERIANDOB: Community [address] y Number: [id number], [place] [id number] Repository 04664Kjm: (330) Date:5333-37-73KT [phone] () [address] [place] [address] 00076ZE: 01/12/2018 Secondary NOT GIVENUNK [place] Insurance:SELF PAY [facility] Number: Effective Repository Date:2018-01-08 01/10/2018 MATTHEW L Primary MATTHEW L [place] [id number] Insurance:ANTHEMPolic YERIANDOB: Community [address] y Number: [id number], [place] [id number] Repository 29120Jcx: (330) Date:8723-27-24RY [phone] () [address] [place] [address] 14182VH: 01/10/2018 Secondary NOT GIVENUNK Dru Insurance:SELF PAY [facility] Number: Effective Repository Date:2018-01-08 01/05/2018 MATTHEW L Primary MATTHEW L [place] [id number] Insurance:ANTHEMPolic YERIANDOB: Community [address] y Number: [id number], [place] [id number] Repository 73960Jwj: (330) Date:9572-86-73MZ [phone] () [id number] HAAS 50125IS: 01/05/2018 Secondary NOT GIVENUNK [place] Insurance:SELF PAY [facility] Number: Effective Repository Date:2017-12-09 01/04/2018 Matthew YerianDOB: Primary Matthew YerianDOB: [facility] [id number] Insurance:[employer] [id number] Repository [facility] Number: [place], [place] Effective Date: 24317Zvu: () 12/18/2017 MATTHEW L Primary MATTHEW L Dru [id number] Insurance:ANTHEMPolic YERIANDOB: Community [address] y Number: [id number], [place] [id number] Repository 56348Rgf: (330) Date:4525-21-89AJ [phone] () LUIS HERNANDEZ 00629FZ: 12/18/2017 Secondary NOT GIVENUNK [place] Insurance:SELF PAY [facility] Number: Effective Repository Date:2017-12-15 12/08/2017 MATTHEW L Primary MATTHEW L [place] [id number] Insurance:ANTHEMPolic [facility] Number: [id number], [place] [id number] Repository 17441Mlf: (330) Date:3042-87-95XQ [phone] () LUIS HERNANDEZ 11743NC: 12/08/2017 Secondary NOT GIVENUNK [place] Insurance:SELF PAY [facility] Number: Effective Repository Date:2017-11-08 10/25/2017 MATTHEW L Primary MATTHEW L Dru [id number] Insurance:ANTHEMPolic [facility]ANDOB[facility] Number: [id number], [place] [id number] Repository 83173Bhh: (330) Date:8850-41-65SI [phone] () LUIS HERNANDEZ 79372US: 10/25/2017 Secondary NOT GIVENUNK [place] Insurance:SELF PAY [facility] Number: Effective Repository Date:2017-10-25 10/12/2017 MATTHEW L Primary MATTHEW L [place] [id number] Insurance:ANTHEMPolic YERIANDOB: Community [address] y Number: [id number], [place] [id number] Repository 03792Nnx: (330) Date:3999-55-25UN [phone] () [address] [place] [address] 48390OO: 10/12/2017 Secondary NOT GIVENUNK [place] Insurance:SELF PAY [facility] Number: Effective Repository Date:2017-10-06 10/03/2017 JEREMY A Primary MATTHEW L [place] [id number] Insurance:ANTHEMPolic YERIANDOB: Community [address] y Number: [id number], [place] [id number] Repository 79131Mod: (330) Date:7817-48-88YM [phone] () [address] [place] [address] 88938UZ: 10/03/2017 Secondary NOT GIVENUNK [place] Insurance:SELF PAY [facility] Number: Effective Repository Date:2017-09-26 10/02/2017 MATTHEW L Primary MATTHEW L [place] [id number] Insurance:ANTHEMPolic YERIANDOB: Community [address] y Number: [id number], [place] [id number] Repository 21018Hcx: (330) Date:8601-33-23TG [phone] () [id number] [place] [address] 41007JH: 10/02/2017 Secondary NOT GIVENUNK [place] Insurance:SELF PAY [facility] Number: Effective Repository Date:2017-07-06 08/16/2017 MATTHEW L Primary MATTHEW L [place] [id number] Insurance:ANTHEMPolic YERIANDOB: Community [address] y Number: [id number], [place] [id number] Repository 83341Svp: (330) Date:7864-81-73ZM [phone] () 677389VIPEAEDLUIS HAAS 17950QG: 08/16/2017 Secondary NOT GIVENUNK [place] Insurance:SELF PAY [facility] Number: Effective Repository Date:2017-08-14 08/15/2017 MATTHEW L Primary MATTHEW L Dru [id number] Insurance:ANTHEMPolic YERIANDOB: Community [address] y Number: [id number], [place] [id number] Repository 16582Nqr: (330) Date:8804-19-50CL [phone] () 351647LVHPPEULUIS HAAS 99052QQ: 08/15/2017 Secondary NOT GIVENUNK Dru Insurance:SELF PAY [facility] Number: Effective Repository Date:2017-08-07 08/08/2017 MATTHEW L Primary MATTHEW L [place] [id number] Insurance:ANTHEMPolic YERIANDOB: Community [address] y Number: [id number], [place] [id number] Repository 28193Xbb: (330) Date:1917-70-52KE [phone] () LUIS HERNANDEZ 01385BS: 08/08/2017 Secondary NOT GIVENUNK [place] Insurance:SELF PAY [facility] Number: Effective Repository Date:2017-08-08 08/07/2017 MATTHEW L Primary MATTHEW L Dru [id number] Insurance:ANTHEMPolic YERIANDOB: Community [address] y Number: [id number], [place] [id number] Repository 60502Tia: (330) Date:3597-65-21DX [phone] () 855405HRWVDMTLUIS HAAS 22653GB: 08/07/2017 Secondary NOT GIVENUNK [place] Insurance:SELF PAY [facility] Number: Effective Repository Date:2017-07-06 07/19/2017 JEREMY A Primary MATTHEW L [place] [id number] Insurance:ANTHEMPolic YERIANDOB: Community [address] y Number: [id number], [place] [id number] Repository 22422Ciu: (330) Date:6393-73-32YC [phone] () 457696WHTQCDF, [place] 61341UX: 07/19/2017 Secondary NOT GIVENUNK [place] Insurance:SELF PAY [facility] Number: Effective Repository Date:2017-07-06 07/12/2017 Jeremy A Primary MATTHEW L [place] [id number] Insurance:ANTHEMPolic YERIANDOB: [place] y Number: [id number] Health Rehabilitation [facility] [id number] Repository [place] Date:7009-86-57FY [address]Mqt: (330) 575874UKGHZKM [place] [phone] () 49236SZ: 07/12/2017 Secondary NOT GIVENUNK [place] Insurance:SELF PAY [facility] Number: Effective Repository Date:2017-07-06 07/12/2017 JEREMY A Primary MATTHEW L [place] [id number] Insurance:ANTHEMPolic YERIANDOB: Community [address] y Number: [id number], [place] [id number] Repository 19345Nwr: (330) Date:8764-54-89HC [phone] () [id number] [place] [address]MO: 07/12/2017 Secondary NOT GIVENUNK Dru Insurance:SELF PAY [facility] Number: Effective Repository Date:2017-07-12 07/06/2017 Jeremy A Primary KALA [place] [id number] Insurance:ANTHEMPolic YERIANDOB: [place] y Number: [id number] Health Rehabilitation Hospital [facility] [id number] Repository [place] Date:6899-93-94VO [address]Jcg: 330) [id number], [place] [phone] () 40430KF: 07/06/2017 Secondary NOT GIVENUNK [place] Insurance:SELF PAY [facility] Number: Effective Repository Date:2017-07-04 06/19/2017 Jeremy A Primary KALA [place] [id number] Insurance:ANTHEMPolic YERIANDOB: [place] y Number: [id number] Health Rehabilitation Hospital of Montgomery [id number] Repository [place] Date:5565-30-65KY [address] [address]Plo: (339) [id number], [place] [phone] () 26173XM: 06/19/2017 Secondary NOT GIVENUNK [place] Insurance:SELF PAY [facility] Number: Effective Repository Date:2017-06-19 06/19/2017 Jeremy A Primary MATTHEW L Dru [id number] Insurance:ANTHEMPolic YERIANDOB: [place] y Number: [id number]-Limestone [id number] Repository [place] Date:6377-51-46HM [address] [address]Bdn: (171) 397796IHPGLTX, [place] [phone] () 61149MH: 06/19/2017 Secondary NOT GIVENUNK Dru Insurance:SELF PAY [facility] Number: Effective Repository Date:2017-06-19 06/19/2017 Jeremy A Primary KALA Dru [id number] Insurance:ANTHEMPolic YERIANDOB: [place] y Number: [id number] Health Rehabilitation Hospital of [facility] [id number] Repository [place] Date:5504-67-87LK [address]Rqt: (431) 422648SSPQBKT, [place] [phone] () 04029MS: 06/19/2017 Secondary NOT GIVENUNK Dru Insurance:SELF PAY [facility] Number: Effective Repository Date:2017-06-19 06/19/2017 Jeremy A Primary KALA Dru [id number] Insurance:ANTHEMPolic YERIANDOB: [place] y Number: [id number] Health Rehabilitation Hospital of [facility] [id number] Repository [place] Date:5687-24-67XD [address]Tnl: (312) 600151DLHWVRC, [place] [phone] () 88705GN: 06/19/2017 Secondary NOT GIVENUNK Dru Insurance:SELF PAY [facility] Number: Effective Repository Date:2017-06-19 06/19/2017 Jeremy A Primary KALA [place] [id number] Insurance:ANTHEMPolic YERIANDOB: [place] y Number: [id number] Health Rehabilitation [facility] [id number] Repository [place] Date:1915-67-43FJ [address]Sfh: (178) 953921AXVBUFT, [place] [phone] () 94648NS: 06/19/2017 Secondary NOT GIVENUNK [place] Insurance:SELF PAY [facility] Number: Effective Repository Date:2017-06-19 06/19/2017 Jeremy A Primary KALA Dru [id number] Insurance:ANTHEMPolic YERIANDOB: [place] y Number: [id number]-Limestone [id number] Repository [place] Date:3847-66-91QN [address] [address]Yyk: (498) 841358OKFHOMC, [place] [phone] () 88272XD: 06/19/2017 Secondary NOT GIVENUNK [place] Insurance:SELF PAY [facility] Number: Effective Repository Date:2017-06-19 06/19/2017 Jeremy A Primary KALA [place] [id number] Insurance:ANTHEMPolic YERIANDOB: [place] y Number: [id number] Health Rehabilitation Hospital of [facility] [id number] Repository [place] Date:5312-67-53GS [address]Mvb: (613) 510622NWGSIME, [place] [phone] () 73388FP: 06/19/2017 Secondary NOT GIVENUNK [place] Insurance:SELF PAY [facility] Number: Effective Repository Date:2017-06-19 06/19/2017 Jeremy A Primary KALA Dru [id number] Insurance:ANTHEMPolic YERIANDOB: [place] y Number: [id number] Health Rehabilitation Hospital of [facility] [id number] Repository [place] Date:7701-76-10KT [address]Ejc: (525) 855607HLFFJOV, [place] [phone] () 32260KO: 06/19/2017 Secondary NOT GIVENUNK Dru Insurance:SELF PAY [facility] Number: Effective Repository Date:2017-06-19 06/19/2017 Jeremy A Primary KALA [place] [id number] Insurance:ANTHEMPolic YERIANDOB: [place] y Number: [id number] Health Rehabilitation Hospital of [facility] [id number] Repository [place] Date:1906-84-17FS [address] [address]Tma: (573) 098969SYDNJDS, [place] [phone] () 01362AE: 06/19/2017 Secondary NOT GIVENUNK [place] Insurance:SELF PAY [facility] Number: Effective Repository Date:2017-06-19
== END ==
PROVIDERS: Family Provider Student in an Organized Health Care Education/Training Program; PCP Student in an Organized Health Care Education/Training Program; Referring Provider Internal Medicine Critical Care Medicine; Visit Provider Internal Medicine Critical Care Medicine
DX: R91.1 Solitary pulmonary nodule (principal)
CPT/HCPCS: 71260; Q9967

== ENCOUNTER → 2018-06-21 07:23 | Outpatient (CLI) | payer BC, SELFPAY ==
[2018-05-31 08:39] VITALS: BMI 30.7
--- NOTE | 2018-06-22 11:00 | PFT ---
INTRODUCTION: The patient is a 58-year-old female that presents for pulmonary function studies secondary to a diagnosis of COPD. Respiratory therapy reports good patient effort. Bronchodilators were used during testing. INTERPRETATION: Forced expiration spirometry demonstrates the presence of a very severe large airways obstructive ventilatory defect. There was a significant response to aerosolized bronchodilators noted. Spirograms are of fair quality and do not plateau indicating slow emptying of the lungs. Body plethysmography was performed and reveals an elevated TLC and RV, indicative of hyperinflation and air-trapping. Diffusing capacity by single breath CO is reduced at 48% of predicted. IMPRESSION: These pulmonary function studies demonstrate the presence of a partially reversible very severe large airways obstructive ventilatory defect with associated hyperinflation, air trapping and reduction in diffusing capacity.
== END ==
PROVIDERS: Family Provider Student in an Organized Health Care Education/Training Program; PCP Student in an Organized Health Care Education/Training Program; Referring Provider Nurse Practitioner Acute Care; Visit Provider Nurse Practitioner Acute Care
DX: J44.9 Chronic obstructive pulmonary disease, unspecified (principal)
CPT/HCPCS: 94060; 94726; 94729

== ENCOUNTER → 2019-03-20 06:52 | Outpatient (CLI) | payer BC, SELFPAY ==
[2018-12-26 17:36] VITALS: BMI 31.6
--- NOTE | 2019-03-20 06:54 | CT_ITS ---
STUDY: CT CHEST WITHOUT CONTRAST REASON FOR EXAM: Female, 58 years old. Follow-up lung nodules RADIATION DOSAGE (If Supplied By Facility): CTDIvol = ( 10.57 ) mGy, DLP = ( 367.13 ) mGycm TECHNIQUE: Transaxial imaging was performed without the administration of intravenous contrast material. Individualized dose optimization techniques were used for this CT. COMPARISON: 03/27/2018, 10/02/2017, 06/20/2017 FINDINGS: A new 4 mm left upper lobe nodule as noted on image 16 of series 4. Stable 8 mm fibroma or intrapulmonary lymph node along the left pulmonary fissure on image 61 of series 4. Slight interval enlargement of a lateral left lower lobe nodule, now measuring 8.1 mm on image 77 of series 4. Pulmonary emphysema. There is no demonstrated pleural abnormality. Normal heart and pericardium. Normal mediastinum. Normal hilar regions. Normal unenhanced pulmonary arteries. Normal aorta arch and descending thoracic aorta. Normal osseous structures. There is no demonstrated abnormality of the visualized upper abdomen. CT/Chest without Contrast IMPRESSION: A new 4 mm left upper lobe nodule is present. Stable 8 mm fibroma or intrapulmonary lymph node along the left pulmonary fissure. Slight interval enlargement of a left lower lobe nodule, now measuring 8.1 mm. Overall, consider PET CT evaluation and/or tissue diagnosis of the left lower lobe lesion. Electronically Signed: Slim Weeks MD at 19:46 EST Tel , Service support ,
== END ==
PROVIDERS: Family Provider Student in an Organized Health Care Education/Training Program; PCP Student in an Organized Health Care Education/Training Program; Referring Provider Internal Medicine Critical Care Medicine; Visit Provider Internal Medicine Critical Care Medicine
DX: R91.1 Solitary pulmonary nodule (principal)
CPT/HCPCS: 71250

== ENCOUNTER 2019-05-29 20:33 | Emergency (ER) | payer BC, SELFPAY ==
[2019-03-21 07:42] VITALS: BMI 31.6
[2019-05-29 20:35] VITALS: BP 156/116; PULSE 94; RESP 18; TEMP 36.2; O2SAT 98; BMI 33.3
[2019-05-29 20:54] VITALS: RESP 18; O2SAT 98
--- NOTE | 2019-05-29 22:00 | RAD_ITS ---
HISTORY: patient has left rib pain from coughing, states she felt a pop in left side ADDITIONAL HISTORY: None provided. COMPARISON: 06/19/2017 TECHNIQUE: Frontal and lateral chest radiographs. Number of images including paperwork: 2 FINDINGS: LUNGS AND PLEURA: No dense consolidation. Linear basilar subsegmental atelectasis versus scarring. Hyperinflation. Emphysema. No pleural effusion or pneumothorax. CARDIAC SILHOUETTE: Unremarkable. MEDIASTINUM AND DIETER: Unremarkable. UPPER ABDOMEN: Unremarkable. SKELETON AND SOFT TISSUES: No acute findings. Degenerative changes. OTHER DEVICES AND HARDWARE: None. RAD/Chest PA and Lateral IMPRESSION: Mild basilar subsegmental atelectasis and/or scarring. COPD. at 2222 Reported and signed by: Phuong Barnhart MD Electronically Signed: Phuong Barnhart MD at 22:22 EST Tel , Service support ,
--- NOTE | 2019-05-29 22:34 | ED.DCSUM_ITS ---
History of Present Illness Chief Complaint: Shortness of Breath Informant: Patient Onset: Days Current Severity: Moderate Maximum Severity: Moderate Narrative: Patient presents with left posterior rib pain for the past 4 days. She is not sure if she may been coughing too much of the weekend, she does not member specific incident when it started hurting. Tonight she was doing dishes and dropped a guerrero. She instinctively reached to grab for and when doing so twisted and had sudden sharp pain in her left lower back and felt a pop. She did feel somewhat more short of breath following this. She does have a history of COPD and asthma and is on 2 L nasal cannula continuously. She took ibuprofen this morning for pain and tried tramadol around 6:30 PM. - Past Medical History (1) Asthma Status: Chronic (2) BEHZAD (obstructive sleep apnea) Status: Chronic (3) Stage 3 severe COPD by GOLD classification Status: Chronic Comment: FEV1 49% of predicted (4) Hypertension Status: Chronic (5) History of section Status: Resolved (6) History of cholecystectomy Status: Resolved Past Medical History - Allergies and Home Meds Allergies/Adverse Reactions: Allergies Barbiturates Adverse Reaction (Verified 05/29/19 20:34) Other - spine contracts seizure Primary Care Physician: Jacques Staton DO [Primary Care Provider] - Prior records reviewed: Yes Surgical History: - - C-sections cholecystectomy tonsillectomy Lives: Spouse/ Significant Other Smoking Status: Former smoker - Family History Maternal Family History: Family History (Last Reviewed 03/21/19 @ 06:58 by Jackie Reid) Father Diabetes Heart disease Sister Breast cancer Other Hypertension Family History: Reports: COPD Sibling Family History: Family History (Last Reviewed 03/21/19 @ 06:58 by Jackie Reid) Father Diabetes Heart disease Sister Breast cancer Other Hypertension Family History: Reports: - - breast cancer Paternal Family History: Family History (Last Reviewed 03/21/19 @ 06:58 by Jackie Reid) Father Diabetes Heart disease Sister Breast cancer Other Hypertension Family History: Reports: Diabetes, Heart Disease Review of Systems General: Denies: Chills, Fever Eyes: Denies: Visual changes - bilaterally ENT: Denies: Bilateral ear pain Cardiovascular: Reports: Chest pain - Left posterior ribs Respiratory: Reports: Dyspnea, Cough. Denies: Sputum Gastrointestinal: Denies: Abdominal pain, Nausea, Vomiting, Diarrhea Genitourinary: Denies: Dysuria Musculoskeletal: Reports: Back pain - Left posterior rib. Denies: Swelling, Extremity Pain Skin: Denies: Rash Neurological: Denies: Headache, Weakness, Parasthesia Psych: Denies: Depression Hematologic: Denies: Easy bruising Allergy: Denies: Uticaria Physical Exam Vital Signs/Narrative: Vital Signs Temp Pulse Resp BP Pulse Ox 05/29/19 20:54 18 98 05/29/19 20:35 97.1 F L 94 18 156/116 H 98 Inital Vital Signs reviewed: Yes General: Well nourished, Well developed Head: Normocephalic ENT: Moist mucous membranes Neck: Supple Cardiovascular: Regular rate, Regular rhythm Respiratory: No distress, CTA bilaterally, Chest tenderness - Reproducible chest wall tenderness of the left posterior lateral ribs. No crepitus. Abdomen: Soft, Nontender Extremities: Nontender Skin: Normal color Neurological: Alert, Oriented x3 Psychological: Normal affect Diagnostic/Tx/Re-eval Impressions Chest X-Ray 05/29/19 22:00 IMPRESSION: Mild basilar subsegmental atelectasis and/or scarring. COPD. at 2222 Reported and signed by: Phuong Barnhart MD Electronically Signed: Phuong Barnhart MD at 22:22 EST Tel , Service support , 05/29/19 22:00 Xray Chest [Chest PA and Lateral] [RAD] Stat - Medical Decision Making Patient was given 2 tabs of oxycodone in the emergency room. On repeat evaluation she is feeling improved. Patient symptoms are nonpleuritic in nature I do not believe that she has a PE. This appears to be musculoskeletal chest wall pain. She be given a short course of Percocet for home. She was advised she could use this or tramadol but do not use them together. ED Disposition - Plan for ED Patient: Disposition: Home or Assisted Living Diagnosis: Chest wall pain Instructions: Chest Wall Strain Prescriptions: Oxycodone HCl/Acetaminophen [Percocet 5/325] 1 tablet PO Q6H PRN PRN 3 Days #12 tablet PRN Reason: Pain Transmission Status: Sent to [id number] Referrals: Jacques Staton, [Primary Care Provider] - 3-5 Days if not improving
[2019-05-29] MEDS: oxyCODONE 5 MG Tablet 10 MG PO (22:43)
[2019-05-29 22:46] VITALS: BP 161/82; PULSE 88; RESP 21; O2SAT 98
[2019-05-29 23:24] VITALS: BP 161/82; PULSE 89; RESP 16; O2SAT 96
== END 2019-05-29 23:30 | disposition home or self-care (01) ==
PROVIDERS: Emergency Provider Emergency Medicine; PCP Student in an Organized Health Care Education/Training Program
DX: R07.89 Other chest pain (principal); I10 Essential (primary) hypertension; J44.9 Chronic obstructive pulmonary disease, unspecified; G47.33 Obstructive sleep apnea (adult) (pediatric); Z79.82 Long term (current) use of aspirin; Z79.899 Other long term (current) drug therapy; Z87.891 Personal history of nicotine dependence
CPT/HCPCS: 71046; 94760; 99283

== ENCOUNTER → 2019-07-02 14:02 | Outpatient (CLI) | payer BC, SELFPAY ==
--- NOTE | 2019-07-02 14:04 | CT_ITS ---
STUDY: CT CHEST WITHOUT CONTRAST REASON FOR EXAM: Female, 59 years old. LUNG NODULE F/U, COPD ON O2, Postcholecystectomy, , hysterectomy RADIATION DOSAGE (If Supplied By Facility): CTDIvol = ( 15.03 ) mGy, DLP = ( 503.28 ) mGycm TECHNIQUE: Transaxial imaging was performed without the administration of intravenous contrast material. Multiplanar coronal and sagittal images were reformatted. Individualized dose optimization techniques were used for this CT. COMPARISON: Comparison is made with prior examination dated March 20, 2019. FINDINGS: Stable small bilateral benign appearing axillary lymph nodes. Emphysematous changes worse in the upper lobes. Stable 4 mm nodule in the left upper lobe as seen on axial image #13. There is a 6.2 mm noncalcified nodule in the peripheral lateral aspect of the left lower lobe as seen on axial image #78. This is essentially unchanged. There is no demonstrated pleural abnormality. There are calcifications of the coronary arteries. Normal mediastinum. Normal hilar regions. Normal unenhanced pulmonary arteries. Normal aorta arch and descending thoracic aorta. There are multi-level degenerative changes of the thoracic spine. There is no demonstrated abnormality of the visualized upper abdomen. CT/Chest without Contrast IMPRESSION: Stable examination. Electronically Signed: Yobany Wood, at 14:54 EDT , Service support ,
== END ==
PROVIDERS: PCP Student in an Organized Health Care Education/Training Program; Referring Provider Internal Medicine Critical Care Medicine; Visit Provider Internal Medicine Critical Care Medicine
DX: R91.1 Solitary pulmonary nodule (principal)
CPT/HCPCS: 71250

== ENCOUNTER → 2020-02-05 09:30 | Outpatient (CLI) | payer BC, SELFPAY ==
[2019-07-11 10:06] VITALS: BMI 33.3
== END ==
PROVIDERS: PCP Student in an Organized Health Care Education/Training Program; Referring Provider Student in an Organized Health Care Education/Training Program; Visit Provider Student in an Organized Health Care Education/Training Program
DX: R05 Cough (principal); J44.9 Chronic obstructive pulmonary disease, unspecified
CPT/HCPCS: 87635; C9803; U0003

== ENCOUNTER 2020-05-12 19:13 | Emergency (ER) | payer BC, SELFPAY ==
[2019-07-11 10:06] VITALS: BMI 33.3
[2020-05-12 19:14] VITALS: BP 173/85; PULSE 88; RESP 16; TEMP 36.6; O2SAT 97; BMI 35.4
--- NOTE | 2020-05-12 19:45 | EKG12_ITS ---
Test Reason : BACK Blood Pressure : / mmHG Vent. Rate : 092 BPM Atrial Rate : 092 BPM P-R Int : 124 ms QRS Dur : 078 ms QT Int : 382 ms P-R-T Axes : 076 072 053 degrees QTc Int : 472 ms Sinus rhythm with occasional Premature ventricular complexes Nonspecific ST abnormality Abnormal ECG Confirmed by FAITH AYALA, CAYLA ([id number]), non linear editor BONIFACIO PARRY ([id number]) on 05/14/2020 9:47:52 AM Referred By: JAQUI Confirmed By:CAYLA CUEVAS MD
[2020-05-12] MEDS: MethylPREDNISolone 125 MG/2 ML Vial IV (19:55)
[2020-05-12] MEDS: Ipratropium/Albuterol Sulfate 3 ML AMPUL.NEB INHALATION (19:55)
[2020-05-12] MEDS: Morphine 4 MG/ML Syringe IV (19:56)
[2020-05-12] MEDS: Ondansetron 4 MG/2 ML Vial IV (19:56)
[2020-05-12 20:03] LABS: Absolute Lymphocyte Count 2.23 X10^3/uL (0.83-4.51); Absolute Neutrophil Count 7.8 X10^3/uL (2.0-7.7); Basophil# 0.07 X10^3/uL; Basophil% 0.6 % (0-1); Eosinophil# 0.57 X10^3/uL; Eosinophils% 4.8 % (0-5); Hematocrit 38.6 % (37-47); Hemoglobin 12.4 g/dL (12.0-15.0); Lymphocyte # 2.23 X10^3/ul (4.0); Lymphocyte % 18.9 % (19-41); Mean Corp Hgb Conc 32.1 g/dL (32-36); Mean Corpuscular Volume 90.2 fL (81-99); Mean Platelet Vol. 9.9 fl (6.2-12.0); Monocyte# 1.06 X10^3/uL; NRBC Flagged by Analyzer 0 % (0-5); Neutrophil # 7.76 X10^3/uL (2.7-7.7); Platelet Count 281 K/mm3 (150-450); RBC Distribution Width CV 12.8 % (11.6-14.6); RBC Distribution Width SD 41.9 fl (35.1-43.9); Red Blood Count 4.28 M/mm3 (4.2-5.4); White Blood Count 11.8 K/mm3 (4.4-11.0)
[2020-05-12 20:05] VITALS: PULSE 90; RESP 16
--- NOTE | 2020-05-12 20:15 | RAD_ITS ---
STUDY: X-RAY CHEST REASON FOR EXAM: Female, 59 years old. LEFT SIDED RIB AND BACK PAIN. FELT SOMETHING POP WHILE COUGHING. TECHNIQUE: Single frontal view of the chest. COMPARISON: 05/29/[address] of the chest dated 07/02/2019 FINDINGS: There are grossly stable bibasilar streaky opacities Normal size heart. Normal mediastinum and john. Normal visualized pulmonary arteries. Normal visualized aortic arch and descending thoracic aorta. Normal visualized thoracic spine. Normal visualized ribs, clavicles, and shoulders. There is no demonstrated abnormality of the visualized soft tissue structures of the upper abdomen. RAD/Chest 1 View (Portable) IMPRESSION: Grossly stable bibasilar streaky opacities just some underlying atelectasis and/or scarring. Electronically Signed: Julia Walker MD at 20:29 EST Tel , Service support ,
[2020-05-12 20:21] LABS: D-Dimer Quantitative (DVT/PE) 1.06 FEU/ug/m (0.27-0.49)
[2020-05-12 20:22] LABS: Anion Gap 3 (5-15); BUN 14 mg/dL (7-18); BUN/Creat Ratio 18.7 RATIO (10-20); Calcium,Total 9.4 mg/dL (8.5-10.1); Chloride 100 mmol/L (98-107); Creatinine, Serum 0.75 mg/dL (0.55-1.02); EST Glomerular Filtration Rate 84 mL/min (>60); Est Glom Filt Rate - Afr Amer 101 mL/min (>60); Estimated Creatinine Clearance 100.11 ml/min; Glucose 107 mg/dL (74-106); Potassium 3.4 mmol/L (3.5-5.1); Sodium Level 138 mmol/L (136-145)
--- NOTE | 2020-05-12 20:22 | CT_ITS ---
STUDY: CTA CHEST REASON FOR EXAM: Female, 59 years old. LT SIDED RIB AND BACK PAIN -- HX:COPD,ASTHMA,HTN RADIATION DOSAGE (If Supplied By Facility): CTDIvol = ( 13.97 ) mGy, DLP = ( 474.24 ) mGycm TECHNIQUE: The examination was performed with the intravenous administration of IV 100mL Isovue-370. Post-processing of the angiographic images was performed, with multiplanar reformation and 3D reconstruction. Individualized dose optimization techniques were used for this CT. COMPARISON: 10/02/2017, 03/20/2019 and 07/02/2019 FINDINGS: There are emphysematous changes. Within the left lower lobe there is a 9 mm pulmonary nodule which has increased in size since September 2017, previously measuring 7.8 mm. There is minimal by basilar atelectasis and/or scarring. Normal enhancement of the main pulmonary artery and right and left pulmonary arteries. Normal enhancement of the bilateral peripheral pulmonary arteries. There is no demonstrated pulmonary embolism. Normal thoracic aorta and visualized great vessels. There is no demonstrated aortic dissection. Normal heart and pericardium. Normal mediastinum. Normal hilar regions. Normal visualized trachea and bronchi. There are degenerative changes of thoracic spine. There is a new left 11th acute rib fracture. There are old 10th and 11th rib fractures and a healing posterior 10th rib fracture as well. The limited images of the upper abdomen demonstrate peripheral calcifications of the abdominal aorta. CT/CTA Chest W/WO Contrast IMPRESSION: Left 10th and 11th rib fractures of varying chronicity including an acute left 10th posterior rib fracture. Emphysema. Minimal bibasilar atelectasis and/or scarring. No pulmonary embolus identified. Atherosclerosis. 9 mm left lower lobe nodule which has increased in size since September 2017, consider short interval follow-up chest CT in 3 months, PET/CT or tissue sampling for further characterization Electronically Signed: Julia Walker MD at 21:24 EST Tel , Service support ,
[2020-05-12 20:34] VITALS: BP 161/71; PULSE 73; RESP 16; O2SAT 95
--- NOTE | 2020-05-12 21:12 | ED.VISSUMM ---
- ER Visit Summary Date of Service: 05/12/20 Chief Complaint: Upper back pain History of Present Illness: The patient is a [address] Staton and Dr. Norwood. She reports that she has a chronic cough that is unchanged. Is nonproductive. Reports has been more short of breath 10 days after finishing steroids and doxycycline on April 24. Patient reports that 5 days ago she was having a coughing episode had the abrupt onset of a sharp pain in the left upper back. States pain is 10 of 10 worsening to 10 currently. Is worsened by movement and deep breaths. She taken ibuprofen without relief. There is no ration to her legs. No numbness or weakness. No problems with her bowels or bladder. No groin numbness. Patient denies any fever or chills. Physical Examination: Vitals: Stable. Afebrile. General: Well-nourished and well-developed. Head: Normocephalic atraumatic. Neck: Supple, no lymphadenopathy. No JVD. Nontender. Cardiovascular: Regular rate and rhythm. No murmurs. Respiratory: No respiratory distress. Mild wheezing bilaterally with good air movement. Abdominal: Soft, nontender, nondistended, normal bowel sounds. No guarding, rebound, or peritoneal signs. Back: Nontender. She has no vertebral tenderness. I am unable to reproduce the pain in her mid back with palpation. Extremities: Nontender, no edema. Skin: Normal color, no rash. Neurologic: Alert and oriented ?3. Cranial nerves II through XII are intact. Normal strength and sensation. Psych: Normal affect. Test Results: EKG is sinus at [address] with PVCs and nonspecific ST changes. Is unchanged from December 2016. Troponin is negative. D-dimer is 1.06. Chem-7 shows a potassium 3.4 and glucose 107. CBC shows a white count of 11.8 and lymphocytes of 19. Clinical Impression(s) from Imaging Studies Chest X-Ray 05/12/20 20:15 IMPRESSION: Grossly stable bibasilar streaky opacities just some underlying atelectasis and/or scarring. Electronically Signed: Julia Walker MD at 20:29 EST Tel , Service support , Chest CTA 05/12/20 20:22 IMPRESSION: Left 10th and 11th rib fractures of varying chronicity including an acute left 10th posterior rib fracture. Emphysema. Minimal bibasilar atelectasis and/or scarring. No pulmonary embolus identified. Atherosclerosis. 9 mm left lower lobe nodule which has increased in size since September 2017, consider short interval follow-up chest CT in 3 months, PET/CT or tissue sampling for further characterization Electronically Signed: Julia Walker MD at 21:24 EST Tel , Service support , Emergency Department Course and Treatment: Patient had an IV placed. She was given morphine, Zofran, and Solu-Medrol IV. She was given an albuterol and Atrovent aerosol and is resting more comfortably. Treatment Plan: I do not think antibiotics are indicated again. However, she will be discharged on a 5-day burst of prednisone. I had a prolonged discussion with her about the CT showing an increase in size of the left lower lobe nodule and that she needs to follow-up with Dr. Norwood for this. She is given a prescription for Percocet for the rib fractures. Return to the emergency department for any worsening symptoms. Disposition: To home in improved and stable condition. Impression: 1. Left 10th rib fracture. 2. 9 mm left lower lobe nodule. 3. COPD on home oxygen. This note was generated with [employer]ype[employer]ield dictation software. It may contain incorrect words, spelling, and punctuation that were not noted in review of the chart prior to signing ED Disposition - Plan for ED Patient: Instructions: ED Rib Fracture, ED Pulmonary Nodule, Solitary Prescriptions: Prednisone [Deltasone] 40 mg PO DAILY #10 tablet Oxycodone HCl/Acetaminophen [Percocet 5/325] 1 tablet PO Q6H PRN PRN 5 Days #20 tablet PRN Reason: Pain Score 6-10 Referrals: Jacques Staton DO [Primary Care Provider] - 10-14 Days if not better Ciro Norwood DO [STAFF PHYSICIAN] - Additional Instructions: Follow-up with Dr. Norwood for further evaluation of your pulmonary nodule.
[2020-05-12 21:51] VITALS: BP 157/71; PULSE 79; RESP 19; O2SAT 96
== END 2020-05-12 22:21 | disposition home or self-care (01) ==
LOC: ED 20:36
PROVIDERS: Emergency Provider Emergency Medicine; PCP Student in an Organized Health Care Education/Training Program
DX: S22.42XA Multiple fractures of ribs, left side, initial encounter for closed fracture (principal); X58.XXXA Exposure to other specified factors, initial encounter; Y93.9 Activity, unspecified; Y92.9 Unspecified place or not applicable; R91.1 Solitary pulmonary nodule; J44.9 Chronic obstructive pulmonary disease, unspecified; I49.3 Ventricular premature depolarization; I10 Essential (primary) hypertension; E78.00 Pure hypercholesterolemia, unspecified; Z99.81 Dependence on supplemental oxygen; Z79.82 Long term (current) use of aspirin; Z79.899 Other long term (current) drug therapy
CPT/HCPCS: 71045; 71275; 80048; 84484; 85025; 85379; 93005; 94640; 96374; 96375; 99285; Q9967; A4216; J2405

== ENCOUNTER → 2020-05-13 09:30 | Outpatient (CLI) | payer BC, SELFPAY ==
[2020-05-13 08:20] VITALS: BMI 35.3
[2020-05-13 09:48] LABS: Absolute Lymphocyte Count 0.71 X10^3/uL (0.83-4.51); Absolute Neutrophil Count 8.5 X10^3/uL (2.0-7.7); Basophil# 0.02 X10^3/uL; Basophil% 0.2 % (0-1); Eosinophil# 0.01 X10^3/uL; Eosinophils% 0.1 % (0-5); Hematocrit 38.4 % (37-47); Hemoglobin 12.8 g/dL (12.0-15.0); Lymphocyte # 0.71 X10^3/ul (4.0); Lymphocyte % 7.5 % (19-41); Mean Corp Hgb Conc 33.3 g/dL (32-36); Mean Corpuscular Hgb 29.5 pg (27.0-32.0); Mean Corpuscular Volume 88.5 fL (81-99); Mean Platelet Vol. 9.7 fl (6.2-12.0); Monocyte% 2.1 % (0-10); NRBC Flagged by Analyzer 0 % (0-5); Neutrophil # 8.45 X10^3/uL (2.7-7.7); Neutrophil % 89.6 % (47-70); Platelet Count 311 K/mm3 (150-450); RBC Distribution Width CV 12.8 % (11.6-14.6); RBC Distribution Width SD 41.6 fl (35.1-43.9); Red Blood Count 4.34 M/mm3 (4.2-5.4); White Blood Count 9.4 K/mm3 (4.4-11.0)
[2020-05-16 03:07] LABS: Alternaria alternata <0.10 kU/L (Class 0); Bermuda Grass 0.11 kU/L (Class 0/I); Bluegrass, Kentucky <0.10 kU/L (Class 0); Cat Hair/Dander, Standard <0.10 kU/L (Class 0); D farinae Mite 1.36 kU/L (Class II); D pteronyssinus 1.36 kU/L (Class II); Dog Epithelia <0.10 kU/L (Class 0); Elm, American White <0.10 kU/L (Class 0); Plantain, English <0.10 kU/L (Class 0); Ragweed, Short/Common 0.12 kU/L (Class 0/I)
[2020-05-16 08:56] LABS: Mouse Urine <0.10 kU/L (Class 0)
[2020-05-16 20:07] LABS: Aspirgillus flavus Negative (Neg:<1:1); Aspirgillus fumigatus Negative (Neg:<1:1); Aspirgillus niger Negative (Neg:<1:1)
[2020-05-17 09:40] LABS: Immunoglobulin E 372 IU/mL (6-495)
== END ==
PROVIDERS: PCP Student in an Organized Health Care Education/Training Program; Referring Provider Nurse Practitioner Acute Care; Visit Provider Nurse Practitioner Acute Care
DX: J45.909 Unspecified asthma, uncomplicated (principal)
CPT/HCPCS: 36415; 82785; 85025; 86003; 86606

== ENCOUNTER → 2020-06-11 12:26 | Outpatient (CLI) | payer BC, SELFPAY ==
[2020-05-13 08:20] VITALS: BMI 35.3
[2020-05-28 13:02] VITALS: BMI 35.3
[2020-06-11 13:34] VITALS: PULSE 100; PULSE 101; PULSE 110; PULSE 112; PULSE 92; PULSE 93; PULSE 98; O2SAT 83; O2SAT 87; O2SAT 90; O2SAT 92; O2SAT 93
--- NOTE | 2020-06-11 13:38 | CPS ---
PATIENT ARRIVED ON OWN OXYGEN CONCENTRATOR. PLACED ON RA PRIOR TESTING. AT 1 MIN EXERCISE, SPO2 83%, REST TAKEN AND OXYGEN APPLIED AT 2LPM. SPO2 RECOVERED TO 91%, WALK RESUMED. AT 4 MIN SPO2 87% 2L, REST TAKEN AND INCREASED TO 3LPM, REMAINDER OF TESTING DONE ON 3LPM
--- NOTE | 2020-06-11 16:33 | WT_ITS ---
PSN 6 Minute Walk Test - 6 Minute Walk Test 6 Minute Walk Test: 6 Minute Walk Test PSN:6-Minute Walk Test Start: 06/11/20 13:33 Freq: Status: Active Protocol: RESP.6MINW Document 06/11/20 13:34 [facility] (Rec: 06/11/20 13:42 [facility] [id number]) 6 Minute Walk Test Date Performed 06/11/20 Time Performed 12:30 Height 4 ft 11.5 in Weight: 81.647 kg Weight in Pounds 180.[address]: Elenita Lozano [employer] Assistive device used: None Pre-test Oxygen Delivery Method Room Air Pulse Ox (%) 93 Pulse Rate (60-100 beats/min) 92 Dyspnea Pamela Scale (0-10) 0 1st minute Oxygen Delivery Method Room Air Pulse Ox (%) 83 Pulse Rate (60-100 beats/min) 98 Dyspnea Pamela Scale (0-10) 4 Number of Rests Taken 1 Reported Symptoms Cyanotic,Increased Work of Breathing 2nd minute Oxygen Flow Rate (L/min) (L/min) 2 Oxygen Delivery Method Nasal Cannula Pulse Ox (%) 93 Pulse Rate (60-100 beats/min) 101 H Dyspnea Pamela Scale (0-10) 2 Number of Rests Taken 0 3rd minute Oxygen Delivery Method Nasal Cannula Pulse Ox (%) 90 Pulse Rate (60-100 beats/min) 100 Dyspnea Pamela Scale (0-10) 3 Number of Rests Taken 0 Reported Symptoms Increased Work of Breathing 4th minute Oxygen Flow Rate (L/min) (L/min) 2 Oxygen Delivery Method Nasal Cannula Pulse Ox (%) 87 Pulse Rate (60-100 beats/min) 112 H Dyspnea Pamela Scale (0-10) 5 Number of Rests Taken 1 Reported Symptoms Increased Work of Breathing 5th minute Oxygen Flow Rate (L/min) (L/min) 3 Oxygen Delivery Method Nasal Cannula Pulse Ox (%) 93 Pulse Rate (60-100 beats/min) 110 H Dyspnea Pamela Scale (0-10) 3 Number of Rests Taken 0 Reported Symptoms Increased Work of Breathing 6th minute Oxygen Flow Rate (L/min) (L/min) 3 Oxygen Delivery Method Nasal Cannula Pulse Ox (%) 92 Pulse Rate (60-100 beats/min) 100 Dyspnea Pamela Scale (0-10) 4 Number of Rests Taken 0 Reported Symptoms Increased Work of Breathing Post-test Oxygen Flow Rate (L/min) (L/min) 3 Oxygen Delivery Method Nasal Cannula Pulse Ox (%) 93 Pulse Rate (60-100 beats/min) 93 Dyspnea Pamela Scale (0-10) 1 Full Laps Walked 8 Partial Lap, Number of Tiles Walked 37 Total Distance Walked (ft) 509 06/11/20 13:38 Cardiopulmonary Services by Elizabeth Howe PATIENT ARRIVED ON OWN OXYGEN CONCENTRATOR. PLACED ON RA PRIOR TESTING. AT 1 MIN EXERCISE, SPO2 83%, REST TAKEN AND OXYGEN APPLIED AT 2LPM. SPO2 RECOVERED TO 91%, WALK RESUMED. AT 4 MIN SPO2 87% 2L, REST TAKEN AND INCREASED TO 3LPM, REMAINDER OF TESTING DONE ON 3LPM Initialized on 06/11/20 13:38 - END OF NOTE - Interpretation Interpretation: The patient was noted to be 93% on room air. The patient did desaturate to 83% in the first minute of ambulation. The patient required up to 3 L nasal cannula to maintain appropriate saturations throughout the walk. In total, the patient traveled 509 feet over the course of 6 minutes with no assistive devices, but 2 breaks. These findings are consistent with a respiratory limitation exercise tolerance. - Recommendations Recommendations: Patient requires no supplemental oxygen at rest, but should be using 3 L nasal cannula with any exertion.
== END ==
PROVIDERS: PCP Student in an Organized Health Care Education/Training Program; Referring Provider Nurse Practitioner Acute Care; Visit Provider Nurse Practitioner Acute Care
DX: J44.9 Chronic obstructive pulmonary disease, unspecified (principal)
CPT/HCPCS: 94618

== ENCOUNTER → 2020-06-16 06:54 | Outpatient (CLI) | payer BC, SELFPAY ==
[2020-05-13 08:20] VITALS: BMI 35.3
[2020-05-28 13:02] VITALS: BMI 35.3
--- NOTE | 2020-06-16 12:24 | PFT ---
INTRODUCTION: The patient is a 60-year-old female that presents for pulmonary function studies secondary to a diagnosis of COPD. Respiratory therapy reports good patient effort. Bronchodilators were used during testing. INTERPRETATION: Forced expiration spirometry demonstrates the presence of a very severe large airways obstructive ventilatory defect. There was a significant response to aerosolized bronchodilators noted. Spirograms are of good quality and do not plateau indicating slow emptying of the lungs. Body plethysmography was performed and revealed an elevated TLC and RV, indicative of underlying hyperinflation and air trapping. Diffusing capacity by single breath CO is reduced at 42% of predicted. IMPRESSION: Partially reversible very severe large airways obstructive ventilatory defect with associated hyperinflation, air trapping and symmetric reduction in diffusing capacity.
== END ==
PROVIDERS: PCP Student in an Organized Health Care Education/Training Program; Referring Provider Nurse Practitioner Acute Care; Visit Provider Nurse Practitioner Acute Care
DX: J44.9 Chronic obstructive pulmonary disease, unspecified (principal)
CPT/HCPCS: 94060; 94726; 94729

== ENCOUNTER 2020-10-30 06:03 | Emergency (ER) | payer BC, SELFPAY ==
[2020-10-02 14:19] VITALS: BMI 35.7
[2020-10-30 06:07] VITALS: BP 153/116; PULSE 114; RESP 34; TEMP 35.8; O2SAT 88; BMI 38.2
--- NOTE | 2020-10-30 06:29 | RAD_ITS ---
STUDY: X-RAY - UNILATERAL RIBS ( LEFT ) WITH CHEST REASON FOR EXAM: Female, 60 years old. severe sob that flared up after rib fx, pain posterior lt ribs hx of copd and rib fxs TECHNIQUE - RIBS: 5 view(s) of the ribs. TECHNIQUE - CHEST: PA COMPARISON: 05/12/20 FINDINGS - RIBS: No acute rib fracture. Healed fractures of left 9th and 10th ribs. FINDINGS - CHEST: The lungs are clear and expanded. There is no demonstrated pleural abnormality. Normal size heart. Normal mediastinum and john. Normal visualized pulmonary arteries. Normal visualized aortic arch and descending thoracic aorta. Normal visualized thoracic spine. Normal visualized ribs, clavicles, and shoulders. There is no demonstrated abnormality of the visualized soft tissue structures of the upper abdomen. RAD/Ribs Uni Min 3V w/PA Chest IMPRESSION: RIBS: No acute rib fracture. Old, healed left 9th and 10th rib fractures. CHEST: No acute air space disease. Electronically Signed: Dav Ibarra MD ([place]) at 7:29 EDT , Service support ,
--- NOTE | 2020-10-30 06:30 | ED.VIS.DYS ---
HPI History of Present Illness Chief Complaint: Shortness of Breath Narrative Narrative: Patient presenting with left rib pain. She states she has history of left rib fracture in May. She states it feels similar. She states she twisted wrong and felt a sharp pain in the left ribs. She wears 4 L of oxygen at baseline and is wearing this currently. She denies fever or chills. Patient has history of BEHZAD, stage III COPD, smoking history, asthma. Patient denies fever or chills. Patiently recently on doxycycline and prednisone for sinus infection. [facility] Medical History Acute respiratory failure Acute respiratory failure with hypoxia Asthma Asthma exacerbation Chest pain COPD (chronic obstructive pulmonary disease) Hypertension Hypokalemia SOB (shortness of breath) Home Medications albuterol sulfate 1 - 2 puff INHALATION Q4H PRN PRN 05/29/19 [History Last Taken Unknown] aspirin 81 mg PO DAILY@0800 05/29/19 [History Last Taken Unknown] budesonide-formoterol 2 puff INHALATION BID 05/29/19 [History Last Taken Unknown] cholecalciferol (vitamin D3) 2,000 unit PO DAILY 05/29/19 [History Last Taken Unknown] dicyclomine 20 mg PO TID 05/29/19 [History Last Taken Unknown] fluoxetine 40 mg PO DAILY 05/29/19 [History Last Taken Unknown] hydrochlorothiazide 25 mg PO DAILY 05/29/19 [History Last Taken Unknown] ipratropium-albuterol 3 ml INHALATION Q6H.RT 05/29/19 [History Last Taken Unknown] lisinopril 30 mg PO DAILY 05/29/19 [History Last Taken Unknown] loratadine 10 mg PO DAILY 05/29/19 [History Last Taken Unknown] montelukast 10 mg PO DAILY 05/29/19 [History Last Taken Unknown] omeprazole 20 mg PO DAILY 05/29/19 [History Last Taken Unknown] furosemide 20 mg PO DAILY 05/12/20 [History Last Taken Unknown] tiotropium bromide 2 puff IH DAILY 05/12/20 [History Last Taken Unknown] benralizumab 30 mg/mL subcutaneous syringe 30 mg SC Q8W #1 ml 05/13/20 [Rx Last Taken Unknown] Disability Placard #1 ea 07/21/20 [Rx Last Taken Unknown] lorazepam 0.5 mg PO DAILY PRN 10/30/20 [History Last Taken Unknown] oxycodone-acetaminophen 1 tab PO Q6H PRN 10/30/20 [History Last Taken Unknown] rosuvastatin 10 mg PO QHS 10/30/20 [History Last Taken Unknown] Allergy/AdvReac Type Severity Reaction Status Date / Time Barbiturates AdvReac Other - Verified 10/30/20 06:06 spine contracts BANDAID AdvReac Rash Uncoded 10/30/20 06:06 Family History Father Diabetes Heart disease Sister Breast cancer Other Hypertension Surgical History History of section History of cholecystectomy L wrist surgery Social History Smoking Status: Former smoker quit date: 04/10/16 pack-years: 30 how long ago did patient quit smokin, 1pk/day second hand exposure: Yes alcohol intake: never substance use type: does not use ROS ROS ED Constitutional Constitutional ED: Denies chills or fever(s) Eyes Eyes: Denies blurry vision or diplopia ENT ENT ED: Denies rhinorrhea or sore throat Cardiovascular Cardiovascular: Reports other Details: Left rib pain ; Denies palpitations or racing heartbeat Respiratory/Chest Respiratory/Chest: Reports dyspnea; Denies cough or sputum Gastrointestinal Gastrointestinal: Denies abdominal pain, nausea or vomiting Genitourinary Genitourinary ED: Denies dysuria or hematuria Musculoskeletal Musculoskeletal: Denies arthralgias or myalgias Integumentary Denies abscess or rash EXAM Physical Exam Const Vital Signs: 10/30/20 06:07 10/30/20 06:19 Temperature 96.5 F L Temperature Source Temporal Pulse Rate 114 H Respiratory Rate 34 H Respiratory Effort Short of Breath Labored Respiratory Pattern Tachypnea Blood Pressure 153/116 H Blood Pressure Mean 128 Pulse Ox 88 Oxygen Delivery Method Nasal Cannula Oxygen Flow Rate (L/min) 4 Positive obese General Appearance ED: NAD Nutritional Appearance: obese HEENT Reports moist mucous membranes atraumatic Eyes PERRL and EOMs intact bilaterally Chest Wall Chest Narrative: Tenderness to palpation left posterior ribs in the posterior axillary line. No ecchymosis, no crepitance. Equal symmetric breath sounds and chest wall rise. Resp normal respiratory effort and clear to auscultation bilaterally Cardio regular rhythm Rate: bradycardia Extremity normal to inspection General Extremety ED: Negative for edema General Extremity: Negative for edema Neuro oriented x3 Sensorium / Orientation: alert Psych mental status grossly normal Thought Process: normal thought process Skin Lesions: no lesions Rashes: no rashes MDM MDM MDM Narrative Medical decision making narrative: Patient presenting with left rib pain. She states she has a history of left rib fracture without trauma. She states she twisted and felt acute pain in the left ribs today. She is not wheezing on examination. Patiently recent treated for sinus infection with doxycycline and prednisone and likely this is not a respiratory illness. Will obtain left rib series. Patient took oxycodone prior to arrival. I will place a Lidoderm patch on the area of pain. Patient's left rib series is pending. Patient will be signed out to incoming ED doc for follow-up. Discharge Plan Triage Chief Complaint: Shortness of Breath ED Provider: Victor M Barber Dx/Rx/DC Orders Prescriptions: No Action Fasenra 30 mg/mL syringe 30 mg SC Q8W Qty: 1 RF: 8 ipratropium-albuterol 3 ML solution for nebulization 3 ml INHALATION Q6H.RT RF: 0 dicyclomine 20 MG tablet 20 mg PO TID RF: 0 lisinopril 30 MG tablet 30 mg PO DAILY RF: 0 omeprazole 20 MG capsule,delayed release(DR/EC) 20 mg PO DAILY RF: 0 aspirin 81 MG tablet,chewable 81 mg PO DAILY@0800 RF: 0 montelukast 10 MG tablet 10 mg PO DAILY RF: 0 hydrochlorothiazide 25 MG tablet 25 mg PO DAILY RF: 0 albuterol sulfate 1 INHALER inhaler 1 - 2 puff INHALATION Q4H PRN PRN (Reason: Sob &/Or Wheezing) RF: 0 fluoxetine 20 MG capsule 40 mg PO DAILY RF: 0 loratadine 10 MG tablet 10 mg PO DAILY RF: 0 budesonide-formoterol 1 INHALER inhaler 2 puff INHALATION BID RF: 0 cholecalciferol (vitamin D3) 2,000 UNIT tablet,chewable 2,000 unit PO DAILY RF: 0 furosemide 20 MG tablet 20 mg PO DAILY RF: 0 tiotropium bromide 4 GM mist 2 puff IH DAILY RF: 0 oxycodone-acetaminophen 5-325 mg Tablet 1 tab PO Q6H PRN (Reason: Pain) RF: 0 lorazepam 0.5 mg Tablet 0.5 mg PO DAILY PRN (Reason: Anxiety) RF: 0 rosuvastatin 10 mg Tablet 10 mg PO QHS RF: 0 (DME) Disability Placard See Rx Instructions .Route .MEDSUPPLY Qty: 1 RF: 0 Primary Care Provider: Jacques Staton
[2020-10-30] MEDS: Lidocaine 5% Patch 1 PATCH TOPICAL (07:00)
[2020-10-30 07:03] VITALS: PULSE 108; RESP 14; O2SAT 94
[2020-10-30] MEDS: Albuterol 2.5 MG/3 ML VIAL.NEB. INHALATION (07:33)
[2020-10-30] MEDS: Ipratropium/Albuterol Sulfate 3 ML AMPUL.NEB INHALATION (07:33)
[2020-10-30 07:36] VITALS: PULSE 100; RESP 16; O2SAT 92
--- NOTE | 2020-10-30 07:40 | CPS ---
patient informed rt that she wears cpap at home at 9 cmh20 with 4 lpm bled in.
[2020-10-30 07:54] VITALS: BP 125/66; PULSE 99; RESP 14; O2SAT 94
--- NOTE | 2020-10-30 07:55 | ED.RN ---
REVIEWED D/C INSTRUCTIONS, FOLLOW UP CARE, AND S/S THAT WOULD WARRANT A RETURN TO THE ED WITH PT. PT VERBALIZED AN UNDERSTANDING AND DENIES FURTHER QUESTIONS FOR THIS RN. PT SKIN P/W/D, RESP EVEN AND UNLABORED, PT A&O X 3, NO DISTRESS NOTED. PT ASSISTED OUT OF ED IN WHEELCHAIR ON HOME OXYGEN.
== END 2020-10-30 08:01 | disposition home or self-care (01) ==
LOC: ED 07:05
PROVIDERS: Emergency Provider Student in an Organized Health Care Education/Training Program; PCP Student in an Organized Health Care Education/Training Program
DX: R07.81 Pleurodynia (principal); R06.00 Dyspnea, unspecified; X50.1XXA Overexertion from prolonged static or awkward postures, initial encounter; Y93.9 Activity, unspecified; Y92.9 Unspecified place or not applicable; E66.9 Obesity, unspecified; Z68.38 Body mass index [BMI] 38.0-38.9, adult; I10 Essential (primary) hypertension; J44.9 Chronic obstructive pulmonary disease, unspecified; G47.33 Obstructive sleep apnea (adult) (pediatric); Z99.81 Dependence on supplemental oxygen; Z79.82 Long term (current) use of aspirin; Z79.899 Other long term (current) drug therapy; Z87.891 Personal history of nicotine dependence
CPT/HCPCS: 71101; 94640; 99282; A4216

== ENCOUNTER 2020-10-30 16:09 | Emergency (ER) | payer BC, SELFPAY ==
[2020-10-30 06:07] VITALS: BMI 38.2
[2020-10-30 16:10] VITALS: BP 127/85; PULSE 102; RESP 26; TEMP 36.5; O2SAT 94; O2SAT 95; BMI 35.9
--- NOTE | 2020-10-30 17:01 | CT_ITS ---
STUDY: CT CHEST WITHOUT CONTRAST REASON FOR EXAM: Female, 60 years old. SOB, aspiration yest, rib fractures- left RADIATION DOSAGE (If Supplied By Facility): CTDIvol = ( 12.04 ) mGy, DLP = ( 418.335 ) mGycm TECHNIQUE: Transaxial imaging was performed without the administration of intravenous contrast material. Multiplanar coronal and sagittal images were reformatted. Individualized dose optimization techniques were used for this CT. COMPARISON: CT chest 07/02/2019 FINDINGS: 8 x 9 mm noncalcified nodule in the lateral left lower lobe has slightly increased in size since prior CT of 07/02/2019 when it measured 6 mm. 4 mm left apical nodule is stable. Moderate multilobar centrilobular emphysema. No air space consolidation. No pneumothorax. Normal heart and pericardium. Normal mediastinum. Normal hilar regions. Normal unenhanced pulmonary arteries. Normal aorta arch and descending thoracic aorta. Acute nondisplaced fracture of the posterior left ninth rib with small adjacent locules of air identified on image 64 of series 4, new since prior study (medial to healed fracture seen previously). Slight amount of pleural reaction/thickening. Partial healing of posterior 10th rib fracture evident on the prior study. There is no demonstrated abnormality of the visualized upper abdomen. CT/Chest without Contrast IMPRESSION: 1. New nondisplaced posterior left ninth rib fracture. No pneumothorax. 2. Slight enlargement of lateral left lower lobe nodule since 07/02/2019 currently measuring 8 x 9 mm (previously measured 6 mm). Unchanged CTA 05/12/2020. Recommend continued CT (six-month) follow-up versus additional evaluation with PET scan and/or biopsy, depending on clinical parameters. Electronically Signed: Dav Ibarra MD ([place]) at 17:46 EDT , Service support ,
[2020-10-30] MEDS: HYDROmorphone 0.5 MG/0.5 ML SYRINGE IV ×2 (17:19→19:55)
[2020-10-30 17:50] LABS: Anion Gap 8 (5-15); BUN 19 mg/dL (7-18); BUN/Creat Ratio 20.4 RATIO (10-20); Calcium,Total 9.4 mg/dL (8.5-10.1); Chloride 99 mmol/L (98-107); Creatinine, Serum 0.93 mg/dL (0.55-1.02); EST Glomerular Filtration Rate 65 mL/min (>60); Est Glom Filt Rate - Afr Amer 78 mL/min (>60); Estimated Creatinine Clearance 80.97 ml/min; Glucose 115 mg/dL (74-106); Potassium 3.4 mmol/L (3.5-5.1); Sodium Level 138 mmol/L (136-145)
[2020-10-30 17:56] LABS: Absolute Lymphocyte Count 2.03 X10^3/uL (0.83-4.51); Absolute Neutrophil Count 13.5 X10^3/uL (2.0-7.7); Basophil# 0.03 X10^3/uL; Basophil% 0.2 % (0-1); Hematocrit 39.3 % (37-47); Hemoglobin 12.9 g/dL (12.0-15.0); Lymphocyte # 2.03 X10^3/ul (0.83-4.51); Lymphocyte % 11.7 % (19-41); Mean Corp Hgb Conc 32.8 g/dL (32-36); Mean Corpuscular Volume 88.3 fL (81-99); Mean Platelet Vol. 10.6 fl (6.2-12.0); Monocyte# 1.71 X10^3/uL; Monocyte% 9.9 % (0-10); NRBC Flagged by Analyzer 0 % (0-5); Neutrophil # 13.45 X10^3/uL (2.7-7.7); Neutrophil % 77.7 % (47-70); POSITIVE DIFFERENTIAL YES; Platelet Count 360 K/mm3 (150-450); RBC Distribution Width CV 13.2 % (11.6-14.6); RBC Distribution Width SD 42.6 fl (35.1-43.9); Red Blood Count 4.45 M/mm3 (4.2-5.4); White Blood Count 17.3 K/mm3 (4.4-11.0)
[2020-10-30] MEDS: Albuterol 2.5 MG/3 ML VIAL.NEB. INHALATION (18:01)
[2020-10-30 18:04] VITALS: PULSE 107; RESP 16
[2020-10-30 18:08] LABS: Differential Indicated SCAN CRITERIA MET
[2020-10-30 18:29] LABS: Platelet Estimate ADEQUATE (ADEQ); Red Cell Morphology NORM C+C NORMAL (NORM C&C)
[2020-10-30 19:00] VITALS: BP 124/78; PULSE 97; RESP 23; O2SAT 96
[2020-10-30 19:58] VITALS: BP 124/78; PULSE 103; RESP 18; O2SAT 96
[2020-10-30 20:00] VITALS: PULSE 106; O2SAT 96
--- NOTE | 2020-10-30 20:03 | ED.VIS.DYS ---
HPI History of Present Illness Chief Complaint: Shortness of Breath Informant: patient Narrative Narrative: Patient is a 60-year-old female with significant COPD that is on 4 L oxygen at baseline presenting with shortness of breath. Patient states on Monday she had episode of pleuritic chest pain. Yesterday she was constipated and straining have a bowel movement when she suddenly felt a crack in her left rib. Since then she is had significant pain in this area. She came to the emergency room this morning and had an x-ray. She was discharged home. When she is home she is having hard time breathing because of the pain and noticed that her oxygen would drop to 82 to 84% with ambulation. It does come up with rest. She is also concerned because yesterday she choked on a piece of sausage and is worried that she is unable to cough it up because of her rib pain. She is worried she might of aspirated. She knows she does have a history of aspiration. Patient denies any other complaints at this time. [facility] Medical History Acute respiratory failure Acute respiratory failure with hypoxia Asthma Asthma exacerbation Chest pain COPD (chronic obstructive pulmonary disease) Hypertension Hypokalemia SOB (shortness of breath) Home Medications albuterol sulfate 1 - 2 puff INHALATION Q4H PRN PRN 05/29/19 [History Last Taken Unknown] aspirin 81 mg PO DAILY@0800 05/29/19 [History Last Taken Unknown] budesonide-formoterol 2 puff INHALATION BID 05/29/19 [History Last Taken Unknown] cholecalciferol (vitamin D3) 2,000 unit PO DAILY 05/29/19 [History Last Taken Unknown] dicyclomine 20 mg PO TID 05/29/19 [History Last Taken Unknown] fluoxetine 40 mg PO DAILY 05/29/19 [History Last Taken Unknown] hydrochlorothiazide 25 mg PO DAILY 05/29/19 [History Last Taken Unknown] ipratropium-albuterol 3 ml INHALATION Q6H.RT 05/29/19 [History Last Taken Unknown] lisinopril 30 mg PO DAILY 05/29/19 [History Last Taken Unknown] loratadine 10 mg PO DAILY 05/29/19 [History Last Taken Unknown] montelukast 10 mg PO DAILY 05/29/19 [History Last Taken Unknown] omeprazole 20 mg PO DAILY 05/29/19 [History Last Taken Unknown] furosemide 20 mg PO DAILY 05/12/20 [History Last Taken Unknown] tiotropium bromide 2 puff IH DAILY 05/12/20 [History Last Taken Unknown] benralizumab 30 mg/mL subcutaneous syringe 30 mg SC Q8W #1 ml 05/13/20 [Rx Last Taken Unknown] Disability Placard #1 ea 07/21/20 [Rx Last Taken Unknown] lorazepam 0.5 mg PO DAILY PRN 10/30/20 [History Last Taken Unknown] oxycodone-acetaminophen 1 tab PO Q6H PRN 10/30/20 [History Last Taken Unknown] oxycodone-acetaminophen [Percocet] 1 tab PO Q6H PRN 3 Days #12 tab 10/30/20 [Rx Last Taken Unknown] rosuvastatin 10 mg PO QHS 10/30/20 [History Last Taken Unknown] Allergy/AdvReac Type Severity Reaction Status Date / Time Barbiturates AdvReac Other - Verified 10/30/20 16:10 spine contracts BANDAID AdvReac Rash Uncoded 10/30/20 16:10 Family History Father Diabetes Heart disease Sister Breast cancer Other Hypertension Surgical History History of section History of cholecystectomy L wrist surgery Social History Smoking Status: Former smoker quit date: 04/10/16 pack-years: 30 how long ago did patient quit smokin, 1pk/day second hand exposure: Yes alcohol intake: never substance use type: does not use ROS ROS ED Constitutional Constitutional ED: Denies chills or fever(s) Eyes Eyes: Denies change in vision ENT ENT ED: Denies rhinorrhea or sore throat Cardiovascular Cardiovascular: Reports chest pain; Denies palpitations or racing heartbeat Respiratory/Chest Respiratory/Chest: Reports dyspnea and dyspnea on exertion; Denies cough Gastrointestinal Gastrointestinal: Reports constipation; Denies abdominal pain, nausea or vomiting Genitourinary Genitourinary ED: Denies dysuria or hematuria Musculoskeletal Musculoskeletal: Reports back pain; Denies arthralgias or myalgias Integumentary Denies rash Neurologic Neurologic: Denies headache(s) or weakness Psychiatric Psychiatric: Denies anxiety or depression EXAM Physical Exam Const Vital Signs: 10/30/20 16:10 10/30/20 18:04 10/30/20 19:00 Temperature 97.7 F L Temperature Source Temporal Pulse Rate 102 H 107 H 97 Respiratory Rate 26 H 16 23 H Respiratory Effort Short of Breath Labored Respiratory Depth Shallow Respiratory Pattern Tachypnea Normal Blood Pressure 127/85 H 124/78 H Blood Pressure Mean 99 93 Pulse Ox 94 96 Oxygen Delivery Method Nasal Cannula Nasal Cannula Oxygen Flow Rate (L/min) 4 4 10/30/20 19:58 Temperature Temperature Source Pulse Rate 103 H Respiratory Rate 18 Respiratory Effort Respiratory Depth Respiratory Pattern Blood Pressure 124/78 H Blood Pressure Mean Pulse Ox 96 Oxygen Delivery Method Oxygen Flow Rate (L/min) Positive well nourished and well developed General Appearance ED: well developed HEENT Reports moist mucous membranes Eyes PERRL Neck supple and no JVD Chest Wall Chest Narrative: Left lateral posterior chest wall tenderness below the scapula Resp normal respiratory effort Resp Narrative: Diminished air movement, right greater than left. Mild and expiratory wheezing Cardio regular rhythm Rate: tachycardic GI non-tender and non-distended Palpation: soft Back/Spine no CVA tenderness and normal to inspection Extremity normal to inspection Neuro oriented x3 Neuro Narrative: No focal deficits appreciated Sensorium / Orientation: alert Psych mental status grossly normal Skin no wounds Lesions: no lesions Rashes: no rashes MDM MDM MDM Narrative Medical decision making narrative: Patient is evaluated for difficulty breathing and in association with left-sided chest pain. She is concerned she broke a rib. She was seen in the ER earlier today and had a rib series that was negative. Patient states now she is also worried that she might of aspirated last night. CT of the chest is obtained to look for any foreign body in the bronchials as well as further evaluate for her rib pain. Patient is found to have a new nondisplaced ninth rib fracture. This is consistent with her pain. I suspect her shortness of breath is because she is having hard time taking a deep breath and has underlying lung disease. Patient is given morphine in the ER and does have improvement of her work of breathing. She will be discharged home with a prescription for Percocet for pain control. She is redosed with Dilaudid for pain prior to discharge as well as given oral oxycodone to take when she gets home. Patient is counseled that she should use her incentive spirometer regularly, hourly, to help prevent pneumonia. She is counseled that she might have to return the emergency room if she has any worsening with her pain control of respiratory status given her poor lung compliance to begin with. Patient verbalizes agreement understanding this plan. She is discharged home in stable condition. I did discuss possibility of admission given her ambulatory hypoxia at home however patient states she did rather trial pain medication and outpatient treatment for this. I think this is reasonable. Patient does have a leukocytosis but did not have any obvious source of infection and there is no signs of pneumonia on her CT. I suspect this is reactive from her rib fracture. Patient is informed of this. 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 She is given her CT findings. Lab Data Labs: Laboratory Results - last 24 hr 10/30/20 10/30/20 16:26 16:26 WBC 17.3 H RBC 4.45 Hgb 12.9 Hct 39.3 MCV 88.3 MCH 29.0 MCHC 32.8 RDW Std Deviation 42.6 RDW Coeff of Niranjan 13.2 Plt Count 360 MPV 10.6 Immature Gran % (Auto) 0.500 Neut % (Auto) 77.7 H Lymph % (Auto) 11.[address] % (Auto) 9.9 Eos % (Auto) 0.0 Baso % (Auto) 0.2 Absolute Neuts (auto) 13.5 H Absolute Lymphs (auto) 2.03 Nucleated RBC % 0 Differential Comment Diff Path Review May foll Platelet Estimate ADEQUATE RBC Morphology NORM C+C Sodium 138 Potassium 3.4 L Chloride 99 Carbon Dioxide 31.0 Anion Gap 8 BUN 19 H Creatinine 0.93 Estim Creat Clear Calc 80.97 Est GFR (MDRD) Af Amer 78 Est GFR (MDRD) Non-Af 65 BUN/Creatinine Ratio 20.4 H Glucose 115 H Calcium 9.4 Radiography Diagnostic Testing: Radiology Impression Chest CT 10/30/20 17:01 IMPRESSION: 1. New nondisplaced posterior left ninth rib fracture. No pneumothorax. 2. Slight enlargement of lateral left lower lobe nodule since 07/02/2019 currently measuring 8 x 9 mm (previously measured 6 mm). Unchanged CTA 05/12/2020. Recommend continued CT (six-month) follow-up versus additional evaluation with PET scan and/or biopsy, depending on clinical parameters. Electronically Signed: Dav Ibarra MD ([place]) at 17:46 EDT , Service support , Discharge Plan Triage Chief Complaint: Shortness of Breath ED Provider: Elana Rae Dx/Rx/DC Orders Clinical Impression: Left rib fracture, Lung nodule Instructions: ED Rib Fracture Prescriptions: New oxycodone-acetaminophen [Percocet] 5-325 mg tablet 1 tab PO Q6H PRN (Reason: pain) 3 Days Qty: 12 RF: 0 No Action Fasenra 30 mg/mL syringe 30 mg SC Q8W Qty: 1 RF: 8 ipratropium-albuterol 3 ML solution for nebulization 3 ml INHALATION Q6H.RT RF: 0 dicyclomine 20 MG tablet 20 mg PO TID RF: 0 lisinopril 30 MG tablet 30 mg PO DAILY RF: 0 omeprazole 20 MG capsule,delayed release(DR/EC) 20 mg PO DAILY RF: 0 aspirin 81 MG tablet,chewable 81 mg PO DAILY@0800 RF: 0 montelukast 10 MG tablet 10 mg PO DAILY RF: 0 hydrochlorothiazide 25 MG tablet 25 mg PO DAILY RF: 0 albuterol sulfate 1 INHALER inhaler 1 - 2 puff INHALATION Q4H PRN PRN (Reason: Sob &/Or Wheezing) RF: 0 fluoxetine 20 MG capsule 40 mg PO DAILY RF: 0 loratadine 10 MG tablet 10 mg PO DAILY RF: 0 budesonide-formoterol 1 INHALER inhaler 2 puff INHALATION BID RF: 0 cholecalciferol (vitamin D3) 2,000 UNIT tablet,chewable 2,000 unit PO DAILY RF: 0 furosemide 20 MG tablet 20 mg PO DAILY RF: 0 tiotropium bromide 4 GM mist 2 puff IH DAILY RF: 0 oxycodone-acetaminophen 5-325 mg Tablet 1 tab PO Q6H PRN (Reason: Pain) RF: 0 lorazepam 0.5 mg Tablet 0.5 mg PO DAILY PRN (Reason: Anxiety) RF: 0 rosuvastatin 10 mg Tablet 10 mg PO QHS RF: 0 (DME) Disability Placard See Rx Instructions .Route .MEDSUPPLY Qty: 1 RF: 0 Primary Care Provider: Jacques Staton Referrals: Jacques Staton DO [Primary Care Provider] - Activity Restrictions/Additional Instructions: Please follow-up with your lung doctor as you have had an increase in size of your pulmonary nodule. Return the emergency room if you develop any worsening breathing despite adequate pain control. Make sure you are using your incentive spirometer at least every hour while awake to help prevent pneumonia. Disposition Disposition: Home, Self Care
[2020-10-30] MEDS: oxyCODONE 5 MG Tablet PO (20:28)
[2020-11-02 12:29] LABS: Pathologist Review Reviewed
== END 2020-10-30 20:31 | disposition home or self-care (01) ==
PROVIDERS: Emergency Provider Emergency Medicine; PCP Student in an Organized Health Care Education/Training Program
DX: S22.32XA Fracture of one rib, left side, initial encounter for closed fracture (principal); R91.1 Solitary pulmonary nodule; X50.9XXA Other and unspecified overexertion or strenuous movements or postures, initial encounter; Y93.9 Activity, unspecified; Y92.9 Unspecified place or not applicable; I10 Essential (primary) hypertension; J44.9 Chronic obstructive pulmonary disease, unspecified; Z99.81 Dependence on supplemental oxygen; Z79.82 Long term (current) use of aspirin; Z79.899 Other long term (current) drug therapy; Z87.891 Personal history of nicotine dependence
CPT/HCPCS: 71101; 71250; 80048; 85025; 94640; 96374; 96376; 99282; 99283; J7050; A4216

== ENCOUNTER → 2020-11-19 08:05 | Outpatient (CLI) | payer BC, SELFPAY ==
[2020-11-04 07:49] VITALS: BMI 35.7
[2020-11-19] VITALS (12 sets, daily range): BP systolic 90–127; BP diastolic 47–88; PULSE 68–87; RESP 14–19; TEMP 36.9; O2SAT 95–100; BMI 34.5
--- NOTE | 2020-11-19 | ASPIGT_PTH ---
PATIENT: MATTHEW BUTLER LOC: CT U#:[id number] AGE/SX: 64/F ROOM: RE11/19/[address]: YANIV Liz : 1960 BED: DIS: SPEC #: [id number] RECD: 11/19/20 10:30 STATUS: MARIA ISABEL KATIA #: [id number] MOI: 11/19/20 00:[address]: Elenita Lozano NP DEPT: SURGICAL PATHOLOGY RECD BY: Ngozi Rivera ENTERED: 11/19/20 12:30 SP TYPE: ASP RAD OTHR DR: Dr. Jacques Staton DO Tissues: Lung, NOS Procedures: FNA Specimen Adequacy Special Stain Group II Surgery Specimen Level IV Imprint (control) HEADER OPERATION: CT-guided left lung biopsy PRE-OP DIAGNOSIS: Left lung nodule TISSUE SUBMITTED: Left lung nodule MICROSCOPIC DIAGNOSIS Left lung nodule, CT-guided core biopsy: Scant fragments of benign lung parenchymal tissue, fibrous tissue and cartilage. Negative for malignancy. See comment. JONO:adarsh 11/20/2020 COMMENT The specimen is evaluated at the time of biopsy by Dr. Leroy. Immediate Evaluation = Negative for malignant cells. Correlation with clinical, radiologic findings and appropriate follow up are necessary. Case has been reviewed in consultation with Dr. Wilson who concurs with the above diagnosis. IDC:AM MICROSCOPIC DESCRIPTION Slides are reviewed. GROSS DESCRIPTION Received in fixative is one container labeled with the patient's name and designated left lower lung. The specimen consists of multiple minute fragments of suarez soft tissue that in aggregate measure 0.3 x 0.1 x <0.1 cm. The entire specimen is submitted in one cassette. two touch imprints are prepared at the time of core biopsy. / JONO:adarsh 11/19/20 TC:5 CPT: 10045, 18231
[2020-11-19 08:17] LABS: Platelet Count 374 K/mm3 (150-450)
--- NOTE | 2020-11-19 08:17 | CT_ITS ---
PROCEDURE: CT GUIDED CORE NEEDLE BIOPSY OF A peripheral left lower lobe LUNG LESION INDICATION: Female, 60 years old. Increase in lung nodule size -- left lower lobe PHYSICIAN: Dr. CARLYLE Vickers CONSENT: Written informed consent was obtained having explained the risks, benefits and alternatives in detail with the patient who accepted the risks and agreed to proceed. Laboratory review and clinical assessment was performed. CONSCIOUS SEDATION PROTOCOL: The Drugs used were: 2 mg Versed, IV., and 50 mcg Fentanyl, IV. The sedation time was: 25 minutes. Conscious sedation was started at 9:35 AM and terminated at 10:00 AM. The conscious sedation protocol was independently monitored. RADIATION DOSAGE (If Supplied By Facility): CTDIvol = ( 24 ) mGy, DLP = ( 5.2, 0.95 ) mGycm Individualized dose optimization techniques were used for this CT. TECHNIQUE: The patient was placed in the pleural position. A noncontrast CT was performed to localize the lesion in the peripheral aspect of the left lower lobe . The skin surface was prepped and draped in a sterile fashion. 1% lidocaine was used for local anesthesia. Using CT guidance, a 20-gauge coaxial biopsy device was advanced to the periphery of the lesion. A total of 4 core specimens were obtained. The specimens were placed in a formalin solution. A post procedure CT demonstrated no adverse sequelae or pneumothorax. The patient tolerated the procedure well without adverse event. A negative biopsy does not exclude malignancy. Further imaging or clinical followup based on patient condition and degree of clinical suspicion for malignancy. Suggest rebiopsy, if biopsy results do not match with clinical scenario. CT/Biopsy/Inj or Needle Placement IMPRESSION: 1. CT directed core needle biopsy of the peripheral based left lower lobe pulmonary nodule using CT image guidance with image documentation as described. Pathology results are pending. 2. Conscious Sedation protocol utilized with independent monitoring. Electronically Signed: Yobany Wood MD at 10:41 EDT , Service support ,
[2020-11-19 08:27] LABS: Prothrombin Time (Protime)PT. 12.4 SECONDS (11.7-14.9)
[2020-11-19 08:28] LABS: Partial Thromboplast Time 25.3 Seconds (24.1-36.2)
--- NOTE | 2020-11-19 09:30 | RAD_ITS ---
STUDY: X-RAY CHEST REASON FOR EXAM: Female, 60 years old. POST BIOPSY -- 2 hours post lung biopsy TECHNIQUE: AP inspiration and expiration views. COMPARISON: Comparison is made with prior study done earlier today. FINDINGS: EKG electrode is seen. No evidence of pneumothorax on the delayed post left lung biopsy radiograph. RAD/Chest Insp/Exp 2 View IMPRESSION: No evidence of pneumothorax on the 2 hour delayed post left lung biopsy radiograph. Electronically Signed: Yobany Wood MD at 12:38 EDT , Service support ,
[2020-11-19] MEDS: Midazolam 2 MG/2 ML Syringe IV (09:35)
[2020-11-19] MEDS: fentaNYL 100 MCG/2 ML Ampul IV (09:36)
--- NOTE | 2020-11-19 11:30 | RAD_ITS ---
STUDY: X-RAY CHEST REASON FOR EXAM: Female, 60 years old. Immediately postbiopsy of left lung. TECHNIQUE: Single AP portable view of the chest. COMPARISON: CT lung biopsy, 11/19/2020 ([id number]) chest, 05/12/2020 FINDINGS: There is minimal elevation of the left hemidiaphragm which appears stable. There is no acute infiltrate or mass. There is no pneumothorax. There is no demonstrated pleural abnormality. Normal size heart. Normal mediastinum and john. Normal visualized pulmonary arteries. Normal visualized aortic arch and descending thoracic aorta. The thoracic spine is obscured by the mediastinum. Normal visualized ribs, clavicles, and shoulders. There is no demonstrated abnormality of the visualized soft tissue structures of the upper abdomen. RAD/Chest Insp/Exp 2 View IMPRESSION: No pneumothorax or acute pulmonary findings. No major interval change from a chest film of 05/12/2020. Electronically Signed: Tony Nieves DO at 16:53 EDT Tel [phone], Service support ,
== END | disposition home or self-care (01) ==
PROVIDERS: PCP Student in an Organized Health Care Education/Training Program; Referring Provider Nurse Practitioner Acute Care; Visit Provider Nurse Practitioner Acute Care
DX: R91.1 Solitary pulmonary nodule (principal); R06.02 Shortness of breath
CPT/HCPCS: 32408; 36415; 71046; 77012; 85049; 85610; 85730; 88172; 88305; 88313; 99156; J7040; A4216; C2613

== ENCOUNTER → 2022-01-27 | Outpatient (CLI) | payer OTHER, SELFPAY ==
--- NOTE | 2022-01-27 14:50 | RAD_ITS ---
STUDY: X-RAY CHEST REASON FOR EXAM: Female, 61 years old. Atypical chest pain TECHNIQUE: PA and lateral views of the chest. COMPARISON: None. FINDINGS: The lungs are clear and expanded. There is no demonstrated pleural abnormality. Normal size heart. Normal mediastinum and john. Normal visualized pulmonary arteries. Normal visualized aortic arch and descending thoracic aorta. There are diffuse degenerative changes of the visualized thoracic spine. Old healed left rib fractures There is no demonstrated abnormality of the visualized soft tissue structures of the upper abdomen. RAD/Chest PA and Lateral IMPRESSION: No acute pulmonary process Electronically Signed: Ferdinand Saldivar MD at 15:10 EDT ,
== END | disposition home or self-care (01) ==
LOC: RAD 14:48
PROVIDERS: PCP Student in an Organized Health Care Education/Training Program; Referring Provider Nurse Practitioner Acute Care; Visit Provider Nurse Practitioner Acute Care
DX: R06.02 Shortness of breath (principal); R06.00 Dyspnea, unspecified
CPT/HCPCS: 71046

== ENCOUNTER → 2022-01-27 | Outpatient (CLI) | payer OTHER, SELFPAY ==
[2022-01-27 15:03] LABS: BNP,B-Type NATRIURETIC PEPTIDE 12.5 pg/mL (0-100)
[2022-01-27 15:04] LABS: Anion Gap 5 (5-15); BUN 21 mg/dL (7-18); Calcium,Total 9.8 mg/dL (8.5-10.1); Chloride 100 mmol/L (98-107); Creatinine, Serum 0.96 mg/dL (0.55-1.02); EST Glomerular Filtration Rate 63 mL/min (>60); Est Glom Filt Rate - Afr Amer 76 mL/min (>60); Glucose 94 mg/dL (74-106); Potassium 3.4 mmol/L (3.5-5.1); Sodium Level 139 mmol/L (136-145)
== END | disposition home or self-care (01) ==
LOC: PAVLAB 14:32
PROVIDERS: PCP Student in an Organized Health Care Education/Training Program; Referring Provider Nurse Practitioner Acute Care; Visit Provider Nurse Practitioner Acute Care
DX: R06.02 Shortness of breath (principal)
CPT/HCPCS: 36415; 80048; 83880

== ENCOUNTER → 2022-02-14 | Outpatient (CLI) | payer BC, SELFPAY | END | disposition home or self-care (01) | LOC: PAVLAB 13:56 | PROVIDERS: PCP Student in an Organized Health Care Education/Training Program; Referring Provider Nurse Practitioner Acute Care; Visit Provider Nurse Practitioner Acute Care | DX: R06.02 Shortness of breath (principal) | CPT/HCPCS: 36415; 85379 ==

== ENCOUNTER → 2022-02-18 | Outpatient (CLI) | payer BC, SELFPAY ==
--- NOTE | 2022-02-18 13:47 | ECHOD_ITS ---
Reason For Study: Dyspnea/SOB Procedure This was a 2D Doppler, Color Flow transthoracic echocardiogram. Exam performed in department. Left Ventricle Normal LV size. Left ventricular systolic function is normal. The estimated ejection fraction is 60 %. No regional wall motion abnormalities noted. Right Ventricle Normal RV size. Normal systolic function. Atria Normal left atrium. Normal right atrium. Mitral Valve Normal mitral valve. Tricuspid Valve Normal tricuspid valve. Mild (1+) tricuspid valve insufficiency. Pulmonary artery systolic pressure is 30 mmHg. Aortic Valve The aortic valve is not well visualized. Pulmonic Valve The pulmonic valve is not well visualized. Great Vessels Normal aortic root. The pulmonary artery is normal size. Normal inferior vena cava. Pericardium/Pleural No pericardial effusion. MMode/2D Measurements & Calculations LVIDd: 4.1 cm IVSd: 0.88 cm Ao root diam: 2.7 cm LVIDs: 2.2 cm LVPWd: 0.96 cm RVDd: 2.7 cm FS: 45.9 % LAV(MOD-bp): 29.6 ml LVAd ap4: 16.8 cm2 SV(MOD-sp4): 27.4 ml LAV(MOD-bp) Indexed: 16.6 ml/m2 LVLd ap4: 6.6 cm LAV(MOD-sp2): 30.5 ml EDV(MOD-sp4): 36.0 ml LAV(MOD-sp4): 28.6 ml EDV(sp4-el): 36.5 ml LVAs ap4: 7.2 cm2 LVLs ap4: 5.2 cm ESV(MOD-sp4): 8.6 ml ESV(sp4-el): 8.3 ml EF(MOD-sp4): 76.1 % EF(sp4-el): 77.2 % SV(sp4-el): 28.2 ml LA A4 area: 12.8 cm2 LA dimension(2D): 3.6 cm RA A4 area: 7.6 cm2 Doppler Measurements & Calculations MV E max ignacio: 79.7 cm/sec Lat Peak E' Ignacio: 8.9 cm/sec Med Peak E' Ignacio: 7.2 cm/sec MV A max ignacio: 111.2 cm/sec E/E' lat: 8.9 E/E' med: 11.1 MV E/A: 0.72 Ao V2 max: 167.3 cm/sec LV V1 max: 154.9 cm/sec PA V2 max: 127.5 cm/sec Ao max P.2 mmHg LV V1 max P.6 mmHg Ao V2 mean: 105.9 cm/sec Ao mean P.0 mmHg Ao V2 VTI: 27.0 cm TR max ignacio: 263.3 cm/sec TR max P.7 mmHg ECHO/Echo Complete Interpretation Summary Normal LV size. Left ventricular systolic function is normal. The estimated ejection fraction is 60 %. Pulmonary artery systolic pressure is 30 mmHg. Ordering Physician: Ciro Norwood Referring Physician: Jacques Staton Performed By: Mary Hitchcock, RDCS, RVT
--- NOTE | 2022-02-18 13:47 | VDLE_ITS ---
Reason For Study: LEG SWELLING RIGHT LEFT CFV is spontaneous, phasic, competent, and GSV is normal. demonstrates normal augmentation. CFV is spontaneous, phasic, competent, and Unable to test compressibility on CFV due to demonstrates normal augmentation. patient's intolerance to compressions. Flow FV spontaneous, phasic, competent and documented in color and pulsed wave doppler. demonstrates normal augmentation. Procedure Unable to test compressibility on CFV and FV This is a venous duplex using B-mode, color due to patient's intolerance to compressions. flow and spectral Doppler. Flow documented in color and pulsed wave Exam performed in department. doppler. The exam was diagnostic. POP V is compressible, spontaneous, phasic, Technically difficult study due to patients competent and demonstrates normal inability to tolerate compression. augmentation. T/P Trunk is compressible. PTV is compressible. LT PerV is compressible. VL/Venous Duplex US, Unilateral Interpretation Summary Deep veins of the left lower extremity are patent and compressible segmentally. There is no evidence of left lower extremity deep vein thrombosis. The left great saphenous vein tonya ears patent and compressible segmentally. Limited study due to patient tolerance Ordering Physician: Elenita Lozano Performed By: Asim Mosquera RVT
== END | disposition home or self-care (01) ==
PROVIDERS: PCP Student in an Organized Health Care Education/Training Program; Visit Provider Internal Medicine Critical Care Medicine
DX: R60.9 Edema, unspecified (principal); J44.9 Chronic obstructive pulmonary disease, unspecified; R06.02 Shortness of breath; R06.00 Dyspnea, unspecified
CPT/HCPCS: 93306; 93971

== ENCOUNTER 2022-03-11 18:52 | Outpatient (CLI) | payer BC, SELFPAY ==
--- NOTE | 2022-03-11 18:53 | CT_ITS ---
INDICATION: Lung nodule in a high risk patient. EXAMINATION: CT CHEST WITHOUT CONTRAST - CT Chest W/O Contrast Injection TECHNIQUE: Helically acquired images were obtained of the chest. A radiation dose optimization technique was used for this scan. IV Contrast dosage and agent: None. COMPARISON: October 30, 2020. FINDINGS: LUNGS, PLEURA AND LARGE AIRWAYS: Mild emphysematous changes lungs. There is a stable 4 mm nodule in the right lung apex (image 14 of series 4). In the lateral left lower lobe, there is a 0.89 x 0.89 x 0.79 cm irregular soft tissue nodule (image 78 of series 4). This previously measured 0.76 x 0.76 x 0.79 cm. No pleural effusion or thickening. No pneumothorax. THYROID: No thyroid lesions. HEART AND PERICARDIUM: Heart size is normal. Again seen are calcifications along the mitral valve plane. No pericardial effusion. CORONARY ARTERIES: Coronary artery calcification VESSELS: Thoracic aorta is not dilated. MEDIASTINUM AND DIETER: No mediastinal or hilar adenopathy. Esophagus is unremarkable. No hiatal hernia. UPPER ABDOMEN: No acute pathology. BONES: Stable degenerative changes of the thoracic spine. No lytic or blastic lesions CT/Chest without Contrast IMPRESSION: 1. Stable nodules when compared with study of October 30, 2020. Fleischner Society Guidelines for high-risk patients (smoking history or other known risk factors) recommend follow-up chest CT at 15-21 months. If unchanged, no further follow-up. 2. No other interval change. Electronically Signed: Tony Nieves DO at 21:54 EST Reading Location ID and State: [id number] Tel [phone], Service support ,
== END 2022-03-11 23:59 | disposition home or self-care (01) ==
LOC: CT 18:53
PROVIDERS: PCP Student in an Organized Health Care Education/Training Program; Referring Provider Nurse Practitioner Acute Care; Visit Provider Nurse Practitioner Acute Care
DX: R91.1 Solitary pulmonary nodule (principal)
CPT/HCPCS: 71250

== ENCOUNTER 2022-03-15 07:31 | Observation (INO) | payer BC, SELFPAY ==
[2022-03-15] VITALS (20 sets, daily range): BP systolic 121–168; BP diastolic 64–85; PULSE 81–104; RESP 11–30; TEMP 36.6–37.8; O2SAT 92–98; BMI 37.3; BMI 37.1
--- NOTE | 2022-03-15 07:44 | EKG12_ITS ---
Test Reason : SOB Blood Pressure : / mmHG Vent. Rate : 092 BPM Atrial Rate : 092 BPM P-R Int : 124 ms QRS Dur : 072 ms QT Int : 330 ms P-R-T Axes : 076 067 050 degrees QTc Int : 408 ms Normal sinus rhythm Nonspecific ST abnormality Abnormal ECG Confirmed by FAITH AYALA, CAYLA ([id number]), movie editor RAJI MAYFIELD ([id number]) on 03/17/2022 9:34:27 AM Referred By: Confirmed By:CAYLA CUEVAS MD
--- NOTE | 2022-03-15 07:44 | RAD_ITS ---
STUDY: X-RAY CHEST REASON FOR EXAM: Female, 61 years old. Shortness of breath TECHNIQUE: Single AP portable view of the chest. COMPARISON: Comparison is made with prior study 01/27/2002. FINDINGS: EKG electrodes are seen. Hyperinflation. Increased markings at the lung bases with areas of confluence slightly worse at the right lung base suggestive of atelectasis and/or early infiltrates. There is no demonstrated pleural abnormality. Normal size heart. Normal mediastinum and john. Normal visualized pulmonary arteries. Normal visualized aortic arch and descending thoracic aorta. There are diffuse degenerative changes of the visualized thoracic spine. Healed left rib fractures. There is no demonstrated abnormality of the visualized soft tissue structures of the upper abdomen. RAD/Chest 1 View (Portable) IMPRESSION: Hyperinflation. Increased markings at the lung bases with areas of confluence worse at the right lung base. Follow-up recommended. Healed left rib fractures. Electronically Signed: Yobany Wood MD at 10:17 EST ,
--- NOTE | 2022-03-15 07:47 | ED.VIS.DYS ---
HPI History of Present Illness Chief Complaint: Shortness of Breath Narrative Narrative: 61-year-old female past medical history of asthma/COPD wears 3 L of oxygen at rest and 5 L when she is walking around, presents with increasing shortness of breath and reported hypoxia with dyspnea on exertion. She states that she has been sick for the last few weeks. She had a chest x-ray on performed by her primary care provider. Her states that they did not get the results that she had pneumonia until yesterday, but the patient was placed on doxycycline and prednisone and has been taking it over the last 5 days. She states that when she ambulates even on her 5 L her oxygen level is as low as 82%. She has been using her inhalers and albuterol treatments. Last breathing treatment was this morning, approximately 3 hours ago. She has been having increased mucus production with her cough. She has had to increase her oxygen to 6 L. She denies any chest pain or other symptoms except for the increased shortness of breath. She states she sleeps upstairs and was almost unable to make it down the stairs secondary to her shortness of breath. [facility] Medical History Acute respiratory failure Acute respiratory failure with hypoxia Asthma Asthma exacerbation Chest pain COPD (chronic obstructive pulmonary disease) Hypertension Hypokalemia SOB (shortness of breath) Home Medications albuterol sulfate 90 mcg/actuation aerosol inhaler 1 - 2 puff inhalation Q4H PRN PRN Sob &/Or Wheezing 05/29/19 [History Last Taken 03/15/22] aspirin 81 mg chewable tablet 81 mg PO DAILY@0800 05/29/19 [History Last Taken 03/14/22] cholecalciferol (vitamin D3) 50 mcg (2,000 unit) chewable tablet 2,000 unit PO DAILY 05/29/19 [History Last Taken 03/14/22] dicyclomine 20 mg tablet 20 mg PO TID 05/29/19 [History Last Taken 03/14/22] fluoxetine 20 mg capsule 20 mg PO BID 05/29/19 [History Last Taken 03/14/22] hydrochlorothiazide 25 mg tablet 25 mg PO DAILY 05/29/19 [History Last Taken 03/14/22] lisinopril 30 mg tablet 30 mg PO DAILY 05/29/19 [History Last Taken Unknown] loratadine 10 mg tablet 10 mg PO DAILY 05/29/19 [History Last Taken Unknown] montelukast 10 mg tablet 10 mg PO DAILY 05/29/19 [History Last Taken 03/14/22] omeprazole 20 mg capsule,delayed release 20 mg PO DAILY 05/29/19 [History Last Taken 03/14/22] furosemide 20 mg tablet 20 mg PO DAILY 05/12/20 [History Last Taken 03/14/22] tiotropium bromide 2.5 mcg/actuation mist for inhalation 2 puff IH DAILY 05/12/20 [History Last Taken 03/15/22] benralizumab 30 mg/mL subcutaneous syringe (Fasenra) 30 mg subcut Q8W #1 mL 05/13/20 [Rx Last Taken 02/25/22] Disability Placard #1 ea 07/21/20 [Rx Last Taken Unknown] lorazepam 0.5 mg tablet 0.5 mg PO DAILY PRN Anxiety 10/30/20 [History Last Taken 03/14/22] rosuvastatin 10 mg tablet 10 mg PO QHS 10/30/20 [History Last Taken 03/14/22] potassium chloride 10 mEq tablet,extended release 10 meq PO DAILY 11/04/20 [History Last Taken 03/14/22] budesonide-formoterol HFA 160 mcg-4.5 mcg/actuation aerosol inhaler 2 puff inhalation BID #10.2 grams 10/25/21 [Rx Last Taken 03/15/22] fluoxetine 10 mg capsule 10 mg PO DAILY DEPRESSION 03/15/22 [History Last Taken 03/14/22] Allergy/AdvReac Type Severity Reaction Status Date / Time adhesive AdvReac Rash Verified 03/15/22 07:31 Barbiturates AdvReac Other - Verified 03/15/22 07:31 spine contracts Family History Father Diabetes Heart disease Sister Breast cancer Other Hypertension Surgical History History of section History of cholecystectomy L wrist surgery Social History Smoking Status: Former smoker quit date: 04/10/16 pack-years: 30 how long ago did patient quit smokin, 1pk/day second hand exposure: Yes alcohol intake: never substance use type: does not use ROS ROS ED ROS Narrative Constitutional: Unsure if he has had fever, no chills. HEENT: No sore throat. No neck pain. No loss of vision. No rhinorrhea. Cardiovascular: No chest pain. No palpitations. No pedal edema. Respiratory: Positive productive cough, increasing dyspnea on exertion/shortness of breath. Reported hypoxia of 82% on 5 L. Abdominal: No abdominal pain. No nausea. No vomiting. Genitourinary: No dysuria. No hematuria. Musculoskeletal: No myalgias. No arthralgias. Neurologic: No headaches. No dizziness. No lightheadedness. Skin: No rash. No change in color. Psychiatric: No depression. No anxiety. EXAM Physical Exam Narrative Exam Narrative: Afebrile. Vital signs noted. HEENT: Normocephalic. Atraumatic. PERRL, EOMI. Neck soft and supple. No point tenderness or step off. Cardiovascular: Regular rate and rhythm. No murmurs, rubs, or gallops appreciated. Respiratory: Mild tachypnea. Bilateral expiratory wheezing with coarse breath sounds. Moving a fair to good amount of air. Gastrointestinal: Abdomen soft, nontender, with normoactive bowel sounds. No rebound or guarding. Neurological: Awake. Alert. Nonfocal, nonlateralizing. Skin: No rash. Normal color. No pallor. Musculoskeletal: No pedal edema. Full range of motion extremities. Const Vital Signs: 03/15/22 07:32 03/15/22 07:35 03/15/22 08:26 Temperature 100.0 F H 100.0 F H Temperature Source Temporal Temporal Pulse Rate 93 93 Respiratory Rate 25 H 25 H Respiratory Effort Short of Breath Labored Accessory Muscle Use Nasal Flaring Respiratory Depth Shallow Respiratory Pattern Normal Blood Pressure 168/77 H 168/77 H Blood Pressure Mean 107 107 Pulse Ox 98 98 Oxygen Delivery Method Nasal Cannula Nasal Cannula Nasal Cannula Oxygen Flow Rate (L/min) 5 5 3 03/15/22 08:00 03/15/22 08:35 03/15/22 09:00 Temperature 98.6 F 98.6 F Temperature Source Oral Temporal Pulse Rate 95 88 92 Respiratory Rate 30 H 11 L 18 Respiratory Effort Respiratory Depth Respiratory Pattern Hyperpnea Blood Pressure 136/69 H 136/69 H Blood Pressure Mean 91 91 Pulse Ox 98 96 Oxygen Delivery Method Nasal Cannula Nasal Cannula Oxygen Flow Rate (L/min) 3 03/15/22 09:31 03/15/22 10:00 03/15/22 11:00 Temperature 98.9 F 99.2 F H Temperature Source Temporal Temporal Pulse Rate 93 103 H Respiratory Rate 18 25 H Respiratory Effort Respiratory Depth Respiratory Pattern Blood Pressure 121/64 H 121/72 H 154/65 H Blood Pressure Mean 83 88 94 Pulse Ox 98 96 96 Oxygen Delivery Method Nasal Cannula Nasal Cannula Nasal Cannula Oxygen Flow Rate (L/min) 3 3 3 MDM MDM MDM Narrative Medical decision making narrative: Given that she has been on antibiotics for the last 5 days and been using her breathing treatments along with steroids, I fear that she is failing outpatient treatment for her pneumonia. I reviewed her CT scan as an outpatient on Monday, but there was no mention of pneumonia. Comprehensive work-up was pursued today. I will recheck a chest x-ray to see if she has worsening pneumonia. EKG was obtained and interpreted by myself which demonstrates normal sinus rhythm at 92 bpm without ectopy or acute ST changes. No STEMI. She and her state that the chest x-ray was performed at [facility], hence I am unable to view it. She did have a CT of her chest performed on Monday which showed no evidence of pneumonia. Ordered by myself shows increased markings at the lung bases with area of confluence at the right lung base. She is positive for RSV. She has slightly elevated white count of 11.8 with a normal hemoglobin of 13. Electrolyte panel shows BUN of 27 with a creatinine of 0.9. Lactic acid normal at 1.8. She had been given Solu-Medrol 125 mg intravenously and 1 ipratropium-albuterol inhalation/nebulizer treatment. When she got up to ambulate, she became very tachypneic and tachycardic. As she has more of an RSV infection with COPD, I deferred antibiotics. I discussed the patient with Dr. Argueta for observation on [facility]. Patient is in stable condition. Lab Data Attestation: I reviewed the patient's lab results. Labs: Laboratory Results - last 24 hr 03/15/22 03/15/22 03/15/22 08:07 08:07 08:07 WBC 11.8 H RBC 4.64 Hgb 13.0 Hct 40.9 MCV 88.1 MCH 28.0 MCHC 31.8 L RDW Std Deviation 44.6 H RDW Coeff of Niranjan 13.9 Plt Count 316 MPV 9.8 Immature Gran % (Auto) 1.700 H Neut % (Auto) 73.0 H Lymph % (Auto) 12.5 L Bucks % (Auto) 12.5 H Eos % (Auto) 0.0 Baso % (Auto) 0.3 Absolute Neuts (auto) 8.6 H Absolute Lymphs (auto) 1.47 Nucleated RBC % 0 Sodium 138 Potassium 3.7 Chloride 102 Carbon Dioxide 31.0 Anion Gap 5 BUN 27 H Creatinine 0.89 Estim Creat Clear Calc 86.82 Est GFR (MDRD) Af Amer 83 Est GFR (MDRD) Non-Af 69 BUN/Creatinine Ratio 30.5 H Glucose 108 H Lactic Acid 1.8 Calcium 9.9 Radiography Diagnostic Testing: Clinical Impression(s) from Imaging Studies Chest X-Ray 03/15/22 07:44 IMPRESSION: Hyperinflation. Increased markings at the lung bases with areas of confluence worse at the right lung base. Follow-up recommended. Healed left rib fractures. Electronically Signed: Yobany Wood MD at 10:17 EST , Discharge Plan Dx/Rx/DC Orders Clinical Impression: COPD exacerbation, Respiratory syncytial virus (RSV), Dyspnea Disposition Disposition: Acute Care [facility]
[2022-03-15] MEDS: Ipratropium/Albuterol Sulfate 3 ML AMPUL.NEB INHALATION ×5 (07:55→19:11)
[2022-03-15] MEDS: MethylPREDNISolone 125 MG/2 ML Vial IV (08:24)
[2022-03-15 08:25] LABS: Absolute Lymphocyte Count 1.47 X10^3/uL (0.83-4.51); Absolute Neutrophil Count 8.6 X10^3/uL (2.0-7.7); Basophil# 0.04 X10^3/uL; Basophil% 0.3 % (0-1); Hematocrit 40.9 % (37-47); Lymphocyte # 1.47 X10^3/ul (0.83-4.51); Lymphocyte % 12.5 % (19-41); Mean Corp Hgb Conc 31.8 g/dL (32-36); Mean Corpuscular Volume 88.1 fL (81-99); Mean Platelet Vol. 9.8 fl (6.2-12.0); Monocyte# 1.47 X10^3/uL; Monocyte% 12.5 % (0-10); NRBC Flagged by Analyzer 0 % (0-5); Neutrophil # 8.58 X10^3/uL (2.7-7.7); Platelet Count 316 K/mm3 (150-450); RBC Distribution Width CV 13.9 % (11.6-14.6); RBC Distribution Width SD 44.6 fl (35.1-43.9); Red Blood Count 4.64 M/mm3 (4.2-5.4); White Blood Count 11.8 K/mm3 (4.4-11.0)
[2022-03-15 08:38] LABS: Anion Gap 5 (5-15); BUN 27 mg/dL (7-18); BUN/Creat Ratio 30.5 RATIO (10-20); Calcium,Total 9.9 mg/dL (8.5-10.1); Chloride 102 mmol/L (98-107); Creatinine, Serum 0.89 mg/dL (0.55-1.02); EST Glomerular Filtration Rate 69 mL/min (>60); Est Glom Filt Rate - Afr Amer 83 mL/min (>60); Estimated Creatinine Clearance 86.82 ml/min; Glucose 108 mg/dL (74-106); Potassium 3.7 mmol/L (3.5-5.1); Sodium Level 138 mmol/L (136-145)
[2022-03-15 08:52] LABS: Lactic Acid 1.8 mmol/L (0.4-1.9)
--- NOTE | 2022-03-15 11:07 | PCM.HP.STD ---
HPI - General General Date of Admission: 03/15/22 HPI Narrative MATTHEW BUTLER, is a 61 F who presents to the hospital with increased work of breathing. She has COPD and asthma and is on chronic 3 L of oxygen at rest and 5 L with ambulation, she said that she had to turn up her oxygen at home to 6 L while walking. Nursing noticed increased work of breathing with ambulation down in the ER. She has been short of breath and coughing for the last few weeks CT scan of her chest shows her nodule that is being monitored but there is no obvious signs of a bacterial pneumonia. She has been on antibiotics as an outpatient without any improvement. Today in the ER she tested positive for RSV but negative for flu and COVID. [facility] Medical History Acute respiratory failure Acute respiratory failure with hypoxia Asthma Asthma exacerbation Chest pain COPD (chronic obstructive pulmonary disease) CPAP (continuous positive airway pressure) dependence Former smoker Hypertension Hypokalemia On home oxygen therapy Osteoporosis Sleep apnea SOB (shortness of breath) Home Medications albuterol sulfate 90 mcg/actuation aerosol inhaler 1 - 2 puff inhalation Q4H PRN PRN Sob &/Or Wheezing 05/29/19 [History Last Taken 03/15/22] aspirin 81 mg chewable tablet 81 mg PO DAILY@0800 05/29/19 [History Last Taken 03/14/22] cholecalciferol (vitamin D3) 50 mcg (2,000 unit) chewable tablet 2,000 unit PO DAILY 05/29/19 [History Last Taken 03/14/22] dicyclomine 20 mg tablet 20 mg PO TID 05/29/19 [History Last Taken 03/14/22] fluoxetine 20 mg capsule 20 mg PO BID 05/29/19 [History Last Taken 03/14/22] hydrochlorothiazide 25 mg tablet 25 mg PO DAILY 05/29/19 [History Last Taken 03/14/22] lisinopril 30 mg tablet 30 mg PO DAILY 05/29/19 [History Last Taken Unknown] loratadine 10 mg tablet 10 mg PO DAILY 05/29/19 [History Last Taken Unknown] montelukast 10 mg tablet 10 mg PO DAILY 05/29/19 [History Last Taken 03/14/22] omeprazole 20 mg capsule,delayed release 20 mg PO DAILY 05/29/19 [History Last Taken 03/14/22] furosemide 20 mg tablet 20 mg PO DAILY 05/12/20 [History Last Taken 03/14/22] tiotropium bromide 2.5 mcg/actuation mist for inhalation 2 puff IH DAILY 05/12/20 [History Last Taken 03/15/22] benralizumab 30 mg/mL subcutaneous syringe (Fasenra) 30 mg subcut Q8W #1 mL 05/13/20 [Rx Last Taken 02/25/22] Disability Placard #1 ea 07/21/20 [Rx Last Taken Unknown] lorazepam 0.5 mg tablet 0.5 mg PO DAILY PRN Anxiety 10/30/20 [History Last Taken 03/14/22] rosuvastatin 10 mg tablet 10 mg PO QHS 10/30/20 [History Last Taken 03/14/22] potassium chloride 10 mEq tablet,extended release 10 meq PO DAILY 11/04/20 [History Last Taken 03/14/22] budesonide-formoterol HFA 160 mcg-4.5 mcg/actuation aerosol inhaler 2 puff inhalation BID #10.2 grams 10/25/21 [Rx Last Taken 03/15/22] fluoxetine 10 mg capsule 10 mg PO DAILY DEPRESSION 03/15/22 [History Last Taken 03/14/22] Allergy/AdvReac Type Severity Reaction Status Date / Time adhesive AdvReac Rash Verified 03/15/22 07:31 Barbiturates AdvReac Other - Verified 03/15/22 07:31 spine contracts Family History Father Diabetes Heart disease Sister Breast cancer Other Hypertension Surgical History History of section History of cholecystectomy L wrist surgery Social History Smoking Status: Former smoker quit date: 04/10/16 pack-years: 30 how long ago did patient quit smokin, 1pk/day second hand exposure: Yes alcohol intake: never substance use type: does not use ROS Constitutional Constitutional: Denies chills, fatigue, fever(s) or malaise Eyes Eyes: Denies blurry vision ENT HEENT: Denies headache(s) or nasal discharge Cardiovascular Cardiovascular: Reports dyspnea on exertion; Denies chest pain or syncope Respiratory/Chest Respiratory/Chest: Denies cough, shortness of breath at rest or shortness of breath with exertion Gastrointestinal Gastrointestinal: Denies constipation, diarrhea, nausea or vomiting Genitourinary Genitourinary: Denies dysuria Neurologic Neurologic: Denies focal weakness, numbness or tremor(s) Psychiatric Psychiatric: Denies anxiety or depression Vital Signs Vital Signs Vital Signs: 03/15/22 07:32 03/15/22 07:35 03/15/22 08:26 Temperature 100.0 F H 100.0 F H Temperature Source Temporal Temporal Pulse Rate 93 93 Respiratory Rate 25 H 25 H Respiratory Effort Short of Breath Labored Accessory Muscle Use Nasal Flaring Respiratory Depth Shallow Respiratory Pattern Normal Blood Pressure 168/77 H 168/77 H Blood Pressure Mean 107 107 Pulse Ox 98 98 Oxygen Delivery Method Nasal Cannula Nasal Cannula Nasal Cannula Oxygen Flow Rate (L/min) 5 5 3 03/15/22 08:00 03/15/22 08:35 03/15/22 09:00 Temperature 98.6 F 98.6 F Temperature Source Oral Temporal Pulse Rate 95 88 92 Respiratory Rate 30 H 11 L 18 Respiratory Effort Respiratory Depth Respiratory Pattern Hyperpnea Blood Pressure 136/69 H 136/69 H Blood Pressure Mean 91 91 Pulse Ox 98 96 Oxygen Delivery Method Nasal Cannula Nasal Cannula Oxygen Flow Rate (L/min) 3 03/15/22 09:31 03/15/22 10:00 Temperature 98.9 F Temperature Source Temporal Pulse Rate 93 Respiratory Rate 18 Respiratory Effort Respiratory Depth Respiratory Pattern Blood Pressure 121/64 H 121/72 H Blood Pressure Mean 83 88 Pulse Ox 98 96 Oxygen Delivery Method Nasal Cannula Nasal Cannula Oxygen Flow Rate (L/min) 3 3 Weight Weight: 185 lb Body Mass Index (BMI) 37.3 Physical Exam Narrative General: Alert, Oriented x3, Cooperative, No apparent distress HEENT: Atraumatic, PERRLA, EOMI, Normocephalic Oral: Moist Mucosa Neck: Supple, No JVD Lungs: Tachypneic, diminished, Normal air movement, No rhonchi, wheeze, No rales Cardiovascular: Tachycardic, Regular Rhythm, Normal S1, Normal S2, No murmurs Abdomen: Soft, Non Tender, Non-Distended, No Hepato-splenomegaly Extremities: No edema, Capillary Refill Less than 3 Seconds Skin: No rashes, No breakdown Musculoskeletal: No Tenderness to Palpation of Joints or Extremities Neurological: Cranial nerves II-XII grossly intact, Motor Exam 5/5 strength throughout, Sensory exam intact to light touch and pain Psych/Mental Status: Normal Affect, Appropriate Results Lab / Micro Data Result Diagrams: 03/15/22 08:07 03/15/22 08:07 Labs: Laboratory Results - last 24 hr 03/15/22 08:07: WBC 11.8 H, RBC 4.64, Hgb 13.0, Hct 40.9, MCV 88.1, MCH 28.0, MCHC 31.8 L, RDW Std Deviation 44.6 H, RDW Coeff of Niranjan 13.9, Plt Count 316, MPV 9.8, Immature Gran % (Auto) 1.700 H, Neut % (Auto) 73.0 H, Lymph % (Auto) 12.5 L, [place] % (Auto) 12.5 H, Eos % (Auto) 0.0, Baso % (Auto) 0.3, Absolute Neuts (auto) 8.6 H, Absolute Lymphs (auto) 1.47, Nucleated RBC % 0 03/15/22 08:07: Sodium 138, Potassium 3.7, Chloride 102, Carbon Dioxide 31.0, Anion Gap 5, BUN 27 H, Creatinine 0.89, Estim Creat Clear Calc 86.82, Est GFR (MDRD) Af Amer 83, Est GFR (MDRD) Non-Af 69, BUN/Creatinine Ratio 30.5 H, Glucose 108 H, Calcium 9.9 03/15/22 08:07: Lactic Acid 1.8 Micro: Microbiology 03/15/22 08:01 Interface Orders Rapid RSV (DFA) - Final RSV Antigen 03/15/22 08:06 Nasal Secretion SARS-CoV-2 & FLU Antigen (Rapid) - Final Radiology Impression Chest X-Ray 03/15/22 07:44 IMPRESSION: Hyperinflation. Increased markings at the lung bases with areas of confluence worse at the right lung base. Follow-up recommended. Healed left rib fractures. Electronically Signed: Yobany Wood MD at 10:17 EST , Assessment & Plan Assessment/Plan (1) Chronic hypoxemic respiratory failure: (2) RSV (respiratory syncytial virus infection): PLAN: Plan 1. Chronic hypoxic respiratory failure secondary to asthma?COPD overlap syndrome exacerbated by RSV infection/solid nodule 8 mm ? We will give her a dose of IV Lasix ? Continue with steroids ? Continue with DuoNebs ? No need for antibiotics at this time ? She did receive a recent CT scan which shows no change in her solid 8 mm nodule and she will need to follow-up within the next 18 months for repeat scanning ? Continue with her Singulair 2. HTN/HLD ? Blood pressures are stable ? Can resume her home blood pressure medications ? Continue with her statin 3. GERD ? Stable ? Continue with PPI 4. Anxiety/depression ? Stable ? Continue with her as needed Ativan as well as her twice daily Prozac DVT: Ambulation Charges/Coding Visit Charges OBSV E&M: 48836 Initial observation care L2
[2022-03-15] MEDS: Albuterol 2.5 MG/3 ML VIAL.NEB. INHALATION (11:15)
[2022-03-15] MEDS: 0.9% Saline Lock 10 ML Syringe IV ×2 (13:42→21:25)
[2022-03-15] MEDS: Furosemide 40 MG/4 ML Vial IV (13:42)
[2022-03-15] MEDS: Phenol/Sodium Phenolate 180ML 3 SPRAY MUCOUS MEM (15:30)
[2022-03-15] MEDS: Dicyclomine 10 MG Capsule 20 MG PO (15:57)
[2022-03-15] MEDS: FLUoxetine 20 MG Capsule PO (21:25)
[2022-03-15] MEDS: Atorvastatin Calcium 20 MG Tablet PO (21:25)
[2022-03-15] MEDS: Montelukast 10 MG Tablet PO (21:25)
[2022-03-16] VITALS (7 sets, daily range): BP systolic 122–155; BP diastolic 75–83; PULSE 80–110; RESP 16–24; TEMP 36.6–37.1; O2SAT 88–98
[2022-03-16 06:30] LABS: Absolute Lymphocyte Count 0.85 X10^3/uL (0.83-4.51); Absolute Neutrophil Count 9.3 X10^3/uL (2.0-7.7); Basophil# 0.02 X10^3/uL; Basophil% 0.2 % (0-1); Hematocrit 37.4 % (37-47); Hemoglobin 12.4 g/dL (12.0-15.0); Lymphocyte # 0.85 X10^3/ul (0.83-4.51); Lymphocyte % 7.6 % (19-41); Mean Corp Hgb Conc 33.2 g/dL (32-36); Mean Corpuscular Hgb 28.6 pg (27.0-32.0); Mean Corpuscular Volume 86.4 fL (81-99); Monocyte# 0.78 X10^3/uL; NRBC Flagged by Analyzer 0 % (0-5); Neutrophil # 9.33 X10^3/uL (2.7-7.7); Neutrophil % 83.9 % (47-70); Platelet Count 320 K/mm3 (150-450); RBC Distribution Width CV 13.8 % (11.6-14.6); Red Blood Count 4.33 M/mm3 (4.2-5.4); White Blood Count 11.1 K/mm3 (4.4-11.0)
[2022-03-16] MEDS: 0.9% Saline Lock 10 ML Syringe IV ×2 (06:32→14:42)
[2022-03-16] MEDS: Dicyclomine 10 MG Capsule 20 MG PO ×2 (06:33→10:32)
[2022-03-16 07:01] LABS: Anion Gap 6 (5-15); BUN 27 mg/dL (7-18); BUN/Creat Ratio 32.5 RATIO (10-20); Calcium,Total 9.2 mg/dL (8.5-10.1); Chloride 98 mmol/L (98-107); Creatinine, Serum 0.83 mg/dL (0.55-1.02); EST Glomerular Filtration Rate 74 mL/min (>60); Est Glom Filt Rate - Afr Amer 89 mL/min (>60); Estimated Creatinine Clearance 92.53 ml/min; Glucose 203 mg/dL (74-106); Sodium Level 135 mmol/L (136-145)
[2022-03-16] MEDS: Ipratropium/Albuterol Sulfate 3 ML AMPUL.NEB INHALATION ×2 (07:47→10:55)
[2022-03-16] MEDS: Lisinopril 10 MG Tablet 30 MG PO (10:30)
[2022-03-16] MEDS: hydroCHLOROthiazide 25 MG Tablet PO (10:30)
[2022-03-16] MEDS: FLUoxetine 20 MG Capsule PO (10:31)
[2022-03-16] MEDS: FLUoxetine 10 MG Capsule PO (10:31)
[2022-03-16] MEDS: Aspirin 81 MG TAB.CHEW PO (10:31)
[2022-03-16] MEDS: Potassium Chloride Oral Tablet 10 MEQ PO (10:31)
[2022-03-16] MEDS: Loratadine 10 MG Tablet PO (10:32)
[2022-03-16] MEDS: Pantoprazole Sodium 20 MG Tablet PO (10:32)
--- NOTE | 2022-03-16 11:05 | CASEMGMT ---
Addendum entered by Ariane Nixon 03/16/22 14:44: Updated script not sent to [facility]. Noted oxygen testing, pt not tested based on previous order. Pt nurse notified ESCOBAR MATA that pt refuses to be tested on RA. ESCOBAR MATA in to pt room, pt at bedside. Pt states she has been on 3L at rest and 5 with exertion for years. asked ESCOBAR MATA to call 's office. TC to office, spoke with Monica who states pt is on 3L cont. Asked for this to be faxed. Received fax and order is stated 3L with exertion only. ESCOBAR MATA in to pt room to notify pt and . Pt and are still refusing for pt to be tested. States she has an appt with him on Monday. TC back to Monica to make aware of situation. She states she will leave a note for . Pt has portable oxygen to go home on. No further needs. Addendum entered by Ariane Nixon 03/16/22 13:15: Sent updated oxygen script for pt to [facility] via [facility]. Original Note: ESCOBAR MATA in to pt room, pt receiving breathing treatment and has multiple family members in the room. Pt states she gets her oxygen through [facility]. She wears 3L at rest and 5L with exertion. Pt has a CPAP with 3L bleed in. Pt denies needing any services for education or monitoring of her respiratory status. Pt states we have been through this so many times before. Will verify oxygen with [facility]. Pt amb pox with same rx as pt stating she has.
--- NOTE | 2022-03-16 13:04 | DCINST_ITS ---
Discharge Instructions Diet Discharge Diet: Low fat / Low cholesterol Activity Discharge Activity: Return to Normal Activity Dressing / Incision Call your doctor if you observe: Fever of 101 or Higher, Shortness of breath, Dizziness, Fainting spells, Swelling in the ankles, Chest pain and Increased palpitations (irregular heartbeat) Follow Up Care Test Results: Test results from this visit will be discussed in further detail at your follow- up appointment, if applicable. Discharge Plan Admission Admit Date/Time: 03/15/22 11:04 Attending Provider: Russ Argueta Primary Care Provider: Jacques Staton Discharge Orders/Prescriptions Prescriptions: New prednisone 10 mg tablet 10 mg PO DAILY Qty: 52 0RF Rx Instructions: TabletTake 4 tablets daily for 5 days then 3 tablets daily for 5 days daily for 5 days then 1 tablet daily for 5 days then half tablet daily for 4 days Continued Fasenra 30 mg/mL syringe 30 mg SC Q8W Qty: 1 8RF potassium chloride 10 mEq tablet extended release 10 meq PO DAILY Label Comments: TAKE 1 TABLET BY MOUTH ONCE DAILY WITH BREAKFAST dicyclomine 20 MG tablet 20 mg PO TID lisinopril 30 MG tablet 30 mg PO DAILY omeprazole 20 MG capsule,delayed release(DR/EC) 20 mg PO DAILY aspirin 81 MG tablet,chewable 81 mg PO DAILY@0800 montelukast 10 MG tablet 10 mg PO DAILY hydrochlorothiazide 25 MG tablet 25 mg PO DAILY albuterol sulfate 1 INHALER inhaler 1 - 2 puff INHALATION Q4H PRN PRN (Reason: Sob &/Or Wheezing) fluoxetine 20 MG capsule 20 mg PO BID loratadine 10 MG tablet 10 mg PO DAILY cholecalciferol (vitamin D3) 2,000 UNIT tablet,chewable 2,000 unit PO DAILY furosemide 20 MG tablet 20 mg PO DAILY tiotropium bromide 4 GM mist 2 puff IH DAILY Label Comments: INHALE 2 SPRAYS DIRECTED BY MOUTH ONCE DAILY lorazepam 0.5 mg Tablet 0.5 mg PO DAILY PRN (Reason: Anxiety) rosuvastatin 10 mg Tablet 10 mg PO QHS fluoxetine 10 mg capsule 10 mg PO DAILY Label Comments: TAKE 1 CAPSULE BY MOUTH ONCE DAILY WITH BREAKFAST. ADD TO 20 MG CAPSULE IN THE AM FOR TOTAL OF 30 MG IN THE AM, 20 MG IN THE PM (DME) Disability Placard See Rx Instructions .Route .MEDSUPPLY Qty: 1 0RF Rx Instructions: As directed budesonide-formoterol 160-4.5 mcg/actuation HFA aerosol inhaler 2 puff INHALATION BID Qty: 10.2 6RF Referrals / Follow Up: Jacques Staton DO [Primary Care Provider] - Within 1 Week Disposition Disposition (needs filled in before D/C Order can be placed): Home, Self Care
--- NOTE | 2022-03-16 13:11 | DS.PCM_ITS ---
Providers Date of Admission: 03/15/22 Primary Care Physician: Dr. Jacques Staton, DO Reason For Visit: RSV Diagnosis Discharge Diagnosis (1) Chronic hypoxemic respiratory failure: Status: Chronic Code(s): J96.11 - Chronic respiratory failure with hypoxia (2) RSV (respiratory syncytial virus infection): Status: Acute Code(s): B33.8 - Other specified viral diseases Plan 1. Chronic hypoxic respiratory failure secondary to asthma?COPD overlap syndrome exacerbated by RSV infection/solid nodule 8 mm ? We will give her a dose of IV Lasix ? Continue with steroids ? Continue with DuoNebs ? No need for antibiotics at this time ? She did receive a recent CT scan which shows no change in her solid 8 mm nodule and she will need to follow-up within the next 18 months for repeat scanning ? Continue with her Singulair 2. HTN/HLD ? Blood pressures are stable ? Can resume her home blood pressure medications ? Continue with her statin 3. GERD ? Stable ? Continue with PPI 4. Anxiety/depression ? Stable ? Continue with her as needed Ativan as well as her twice daily Prozac DVT: Ambulation Medications at Discharge Home Medications albuterol sulfate 90 mcg/actuation aerosol inhaler 1 - 2 puff inhalation Q4H PRN PRN Sob &/Or Wheezing 05/29/19 aspirin 81 mg chewable tablet 81 mg PO DAILY@0800 05/29/19 cholecalciferol (vitamin D3) 50 mcg (2,000 unit) chewable tablet 2,000 unit PO DAILY 05/29/19 dicyclomine 20 mg tablet 20 mg PO TID 05/29/19 fluoxetine 20 mg capsule 20 mg PO BID 05/29/19 hydrochlorothiazide 25 mg tablet 25 mg PO DAILY 05/29/19 lisinopril 30 mg tablet 30 mg PO DAILY 05/29/19 loratadine 10 mg tablet 10 mg PO DAILY 05/29/19 montelukast 10 mg tablet 10 mg PO DAILY 05/29/19 omeprazole 20 mg capsule,delayed release 20 mg PO DAILY 05/29/19 furosemide 20 mg tablet 20 mg PO DAILY 05/12/20 tiotropium bromide 2.5 mcg/actuation mist for inhalation 2 puff IH DAILY 05/12/20 benralizumab 30 mg/mL subcutaneous syringe (Fasenra) 30 mg subcut Q8W #1 mL 05/13/20 Disability Placard #1 ea 04/13/21 lorazepam 0.5 mg tablet 0.5 mg PO DAILY PRN Anxiety 10/30/20 rosuvastatin 10 mg tablet 10 mg PO QHS 10/30/20 potassium chloride 10 mEq tablet,extended release 10 meq PO DAILY 11/04/20 budesonide-formoterol HFA 160 mcg-4.5 mcg/actuation aerosol inhaler 2 puff inhalation BID #10.2 grams 10/25/21 fluoxetine 10 mg capsule 10 mg PO DAILY DEPRESSION 03/15/22 prednisone 10 mg tablet 10 mg PO DAILY #52 tabs 03/16/22 Hospital Course Operations None Procedures None Summary of Care Provided Minutes Spent on Discharge: 40 Hospital Course: Per HPI: MATTHEW BUTLER, is a 61 F who presents to the hospital with increased work of breathing.? She has COPD and asthma and is on chronic 3 L of oxygen at rest and 5 L with ambulation, she said that she had to turn up her oxygen at home to 6 L while walking.? Nursing noticed increased work of breathing with ambulation down in the ER.? She has been short of breath and coughing for the last few weeks CT scan of her chest shows her nodule that is being monitored but there is no obvious signs of a bacterial pneumonia.? She has been on antibiotics as an outpatient without any improvement.? Today in the ER she tested positive for RSV but negative for flu and COVID. Hospital Course: 1. Chronic hypoxic respiratory failure secondary to asthma?COPD overlap syndrome exacerbated by RSV infection?61-year-old female who is on chronic oxygen at home presents from home with worsening shortness of breath. She says that she had seen her PCP a few days prior and was told that she had pneumonia and was started on antibiotic without any significant improvement after 5 days. On presentation to the ER she tested positive for RSV so she was started on steroids and duo nebs. She was also given a dose of Lasix on the day of admission as well as on the day of discharge to help with any edema secondary to inflammation. I discussed with her the possibility for discharge today she states that she feels much better and would want to go home. I discussed with her that she will be on fairly long steroid taper on discharge given her chronic oxygen requirement. I did also discussed with her that since she had only completed half of the antibiotic despite no solid evidence for bacterial infection that she should complete her antibiotic course. Chest x-ray on admission did not show any obvious consolidations but did show increased markings at the bases more so on the right than on the left. I do recommend that she follow-up with her PCP in 3 to 5 days. Of note she did have a CT scan recently that demonstrated that her 8 mm solid nodule is stable and that she needs to follow-up imaging in the next 18 months, this was relayed to her. 2. Hypertension, hyperlipidemia, GERD, anxiety, depression all chronic medical conditions which complicate her care. Her home medications were continued where appropriate. Physical Exam Narrative General: Alert, Oriented x3, Cooperative, No apparent distress HEENT: Atraumatic, PERRLA, EOMI, Normocephalic Oral: Moist Mucosa Neck: Supple, No JVD Lungs: Diminished, Normal air movement, No rhonchi, no wheeze, No rales Cardiovascular: Regular rate, Regular Rhythm, Normal S1, Normal S2, No murmurs Abdomen: Soft, Non Tender, Non-Distended, No Hepato-splenomegaly Extremities: No edema, Capillary Refill Less than 3 Seconds Skin: No rashes, No breakdown Musculoskeletal: No Tenderness to Palpation of Joints or Extremities Neurological: Cranial nerves II-XII grossly intact, Motor Exam 5/5 strength throughout, Sensory exam intact to light touch and pain Psych/Mental Status: Normal Affect, Appropriate Weight / BMI Weight Weight: 183 lb 13.848 oz Body Mass Index (BMI) 37.1 ABG / Lab / Microbiology Data Result Diagrams: 03/16/22 06:05 03/16/22 06:05 Laboratory: Laboratory Results - last 24 hr 03/16/22 06:05: WBC 11.1 H, RBC 4.33, Hgb 12.4, Hct 37.4, MCV 86.4, MCH 28.6, MCHC 33.2, RDW Std Deviation 44.0 H, RDW Coeff of Niranjan 13.8, Plt Count 320, MPV 10.0, Immature Gran % (Auto) 1.300 H, Neut % (Auto) 83.9 H, Lymph % (Auto) 7.6 L , [place] % (Auto) 7.0, Eos % (Auto) 0.0, Baso % (Auto) 0.2, Absolute Neuts (auto) 9.3 H, Absolute Lymphs (auto) 0.85, Nucleated RBC % 0 03/16/22 06:05: Sodium 135 L, Potassium 4.0, Chloride 98, Carbon Dioxide 31.0, Anion Gap 6, BUN 27 H, Creatinine 0.83, Estim Creat Clear Calc 92.53, Est GFR (MDRD) Af Amer 89, Est GFR (MDRD) Non-Af 74, BUN/Creatinine Ratio 32.5 H, Glucose 203 H, Calcium 9.2 Microbiology: Microbiology 03/15/22 08:01 Interface Orders Rapid RSV (DFA) - Final RSV Antigen 03/15/22 08:06 Nasal Secretion SARS-CoV-2 & FLU Antigen (Rapid) - Final D/C Instructions Discharge Diet: Low fat / Low cholesterol Return to work on: 03/21/22 Call your doctor if you observe: Fever of 101 or Higher, Shortness of breath, Dizziness, Fainting spells, Swelling in the ankles, Chest pain and Increased palpitations (irregular heartbeat) Meaningful Use Info Meaningful Use Diagnoses (Choose all that apply): None applicable Discharge Plan Admission Admit Date/Time: 03/15/22 11:04 Attending Provider: Russ Argueta Primary Care Provider: Jacques Staton Discharge Orders/Prescriptions Prescriptions: New prednisone 10 mg tablet 10 mg PO DAILY Qty: 52 0RF Rx Instructions: TabletTake 4 tablets daily for 5 days then 3 tablets daily for 5 days daily for 5 days then 1 tablet daily for 5 days then half tablet daily for 4 days Continued Fasenra 30 mg/mL syringe 30 mg SC Q8W Qty: 1 8RF potassium chloride 10 mEq tablet extended release 10 meq PO DAILY Label Comments: TAKE 1 TABLET BY MOUTH ONCE DAILY WITH BREAKFAST dicyclomine 20 MG tablet 20 mg PO TID lisinopril 30 MG tablet 30 mg PO DAILY omeprazole 20 MG capsule,delayed release(DR/EC) 20 mg PO DAILY aspirin 81 MG tablet,chewable 81 mg PO DAILY@0800 montelukast 10 MG tablet 10 mg PO DAILY hydrochlorothiazide 25 MG tablet 25 mg PO DAILY albuterol sulfate 1 INHALER inhaler 1 - 2 puff INHALATION Q4H PRN PRN (Reason: Sob &/Or Wheezing) fluoxetine 20 MG capsule 20 mg PO BID loratadine 10 MG tablet 10 mg PO DAILY cholecalciferol (vitamin D3) 2,000 UNIT tablet,chewable 2,000 unit PO DAILY furosemide 20 MG tablet 20 mg PO DAILY tiotropium bromide 4 GM mist 2 puff IH DAILY Label Comments: INHALE 2 SPRAYS DIRECTED BY MOUTH ONCE DAILY lorazepam 0.5 mg Tablet 0.5 mg PO DAILY PRN (Reason: Anxiety) rosuvastatin 10 mg Tablet 10 mg PO QHS fluoxetine 10 mg capsule 10 mg PO DAILY Label Comments: TAKE 1 CAPSULE BY MOUTH ONCE DAILY WITH BREAKFAST. ADD TO 20 MG CAPSULE IN THE AM FOR TOTAL OF 30 MG IN THE AM, 20 MG IN THE PM (DME) Disability Placard See Rx Instructions .Route .MEDSUPPLY Qty: 1 0RF Rx Instructions: As directed budesonide-formoterol 160-4.5 mcg/actuation HFA aerosol inhaler 2 puff INHALATION BID Qty: 10.2 6RF Referrals / Follow Up: Jacques Staton DO [Primary Care Provider] - Within 1 Week Disposition Disposition (needs filled in before D/C Order can be placed): Home, Self Care Charges/Coding Visit Charges OBS E&M: 97479 Observation care discharge
[2022-03-16] MEDS: Furosemide 40 MG/4 ML Vial IV (14:42)
--- NOTE | 2022-03-16 14:43 | NURSING ---
This Nurse needed to get spo2 while walking in room on RA and not oxygen per Ariane CM. PT's raised voiced and became agitated and angry, Absolutely not. Pt and both refused to let this nurse check on RA. PT states she is on constant continous o2 at 3L at home.
--- NOTE | 2022-03-16 14:51 | PHA.DC.MR ---
Pharmacy Service has performed discharge medication reconciliation for this patient. The patient's discharge medication list was reviewed for discrepancies and discrepancies were resolved. Home Medications albuterol sulfate 90 mcg/actuation aerosol inhaler 1 - 2 puff inhalation Q4H PRN PRN Sob &/Or Wheezing 05/29/19 aspirin 81 mg chewable tablet 81 mg PO DAILY@0800 05/29/19 cholecalciferol (vitamin D3) 50 mcg (2,000 unit) chewable tablet 2,000 unit PO DAILY 05/29/19 dicyclomine 20 mg tablet 20 mg PO TID 05/29/19 fluoxetine 20 mg capsule 20 mg PO BID 05/29/19 hydrochlorothiazide 25 mg tablet 25 mg PO DAILY 05/29/19 lisinopril 30 mg tablet 30 mg PO DAILY 05/29/19 loratadine 10 mg tablet 10 mg PO DAILY 05/29/19 montelukast 10 mg tablet 10 mg PO DAILY 05/29/19 omeprazole 20 mg capsule,delayed release 20 mg PO DAILY 05/29/19 furosemide 20 mg tablet 20 mg PO DAILY 05/12/20 tiotropium bromide 2.5 mcg/actuation mist for inhalation 2 puff IH DAILY 05/12/20 benralizumab 30 mg/mL subcutaneous syringe (Fasenra) 30 mg subcut Q8W #1 mL 05/13/20 Disability Placard #1 ea 07/21/20 lorazepam 0.5 mg tablet 0.5 mg PO DAILY PRN Anxiety 10/30/20 rosuvastatin 10 mg tablet 10 mg PO QHS 10/30/20 potassium chloride 10 mEq tablet,extended release 10 meq PO DAILY 11/04/20 budesonide-formoterol HFA 160 mcg-4.5 mcg/actuation aerosol inhaler 2 puff inhalation BID #10.2 grams 10/25/21 fluoxetine 10 mg capsule 10 mg PO DAILY DEPRESSION 03/15/22 prednisone 10 mg tablet 10 mg PO DAILY #52 tabs 03/16/22
== END 2022-03-16 15:02 | disposition home or self-care (01) ==
LOC: ED 11:12 → MS3 11:40
PROVIDERS: Admitting Provider Family Medicine; Emergency Provider Emergency Medicine; PCP Student in an Organized Health Care Education/Training Program; Visit Provider Family Medicine
DX: J44.1 Chronic obstructive pulmonary disease with (acute) exacerbation (principal); J44.0 Chronic obstructive pulmonary disease with (acute) lower respiratory infection; J96.11 Chronic respiratory failure with hypoxia; B97.4 Respiratory syncytial virus as the cause of diseases classified elsewhere; F41.9 Anxiety disorder, unspecified; Z79.82 Long term (current) use of aspirin; I10 Essential (primary) hypertension; E78.5 Hyperlipidemia, unspecified; K21.9 Gastro-esophageal reflux disease without esophagitis; Z87.891 Personal history of nicotine dependence; Z99.89 Dependence on other enabling machines and devices; R91.8 Other nonspecific abnormal finding of lung field
CPT/HCPCS: 36415; 71045; 80048; 83605; 85025; 87040; 87428; 87807; 93005; 94640; 96374; 96375; 96376; 99218; 99285; A4216; G0378; J1940

== ENCOUNTER → 2022-09-27 | Outpatient (CLI) | payer BC, SELFPAY ==
--- NOTE | 2022-09-27 10:08 | CR.HP_ITS ---
CR - History & Physical - Medications Home Medications: Ambulatory Orders Medication Instructions Recorded albuterol sulfate 90 mcg/actuation 1 - 2 puff inhalation Q4H PRN PRN 05/29/19 aerosol inhaler Sob &/Or Wheezing aspirin 81 mg chewable tablet 81 mg PO DAILY@0800 05/29/19 cholecalciferol (vitamin D3) 50 2,000 unit PO DAILY 05/29/19 mcg (2,000 unit) chewable tablet dicyclomine 20 mg tablet 20 mg PO TID 05/29/19 fluoxetine 20 mg capsule 20 mg PO BID 05/29/19 hydrochlorothiazide 25 mg tablet 25 mg PO DAILY 05/29/19 lisinopril 30 mg tablet 30 mg PO DAILY 05/29/19 loratadine 10 mg tablet 10 mg PO DAILY 05/29/19 montelukast 10 mg tablet 10 mg PO DAILY 05/29/19 omeprazole 20 mg capsule,delayed 20 mg PO DAILY 05/29/19 release furosemide 20 mg tablet 20 mg PO DAILY 05/12/20 tiotropium bromide 2.5 2 puff IH DAILY 05/12/20 mcg/actuation mist for inhalation Disability Placard #1 ea 07/21/20 lorazepam 0.5 mg tablet 0.5 mg PO DAILY PRN Anxiety 10/30/20 rosuvastatin 10 mg tablet 10 mg PO QHS 10/30/20 potassium chloride 10 mEq 10 meq PO DAILY 11/04/20 tablet,extended release budesonide-formoterol HFA 160 2 puff inhalation BID #10.2 grams 10/25/21 mcg-4.5 mcg/actuation aerosol inhaler fluoxetine 10 mg capsule 10 mg PO DAILY DEPRESSION 03/15/22 benralizumab 30 mg/mL subcutaneous 30 mg subcut Q8W #1 mL 04/14/22 syringe (Fasen) - Allergies Allergies/Adverse Reactions: Allergies adhesive Adverse Reaction (Verified 08/08/22 13:58) Rash FROM BAND-AIDS Barbiturates Adverse Reaction (Verified 08/08/22 13:58) Other - spine contracts seizure Past Medical History - Past Medical Illness Medical History: Past Medical History (Last Reviewed 03/24/22 @ 08:05 by Elenita Lozano HOME VISITOR [employer], HOME VISITOR [employer]- C) Acute respiratory failure J96.00 Requires 2 L/min on exertion Acute respiratory failure with hypoxia J96.01 Asthma J45.909 Asthma exacerbation J45.901 Chest pain R07.9 Chronic hypoxemic respiratory failure J96.11 COPD (chronic obstructive pulmonary disease) J44.9 CPAP (continuous positive airway pressure) dependence Z99.89 Former smoker Z87.891 Hypertension I10 Hypokalemia E87.6 On home oxygen therapy Z99.81 Osteoporosis M81.0 Sleep apnea G47.30 SOB (shortness of breath) R06.02 - Past Surgical History Surgical History: Past Surgical History (Last Reviewed 03/24/22 @ 08:05 by Elenita Lozano HOME VISITOR [employer], HOME VISITOR [employer]-C) History of section Z98.891 History of cholecystectomy Z90.49 L wrist surgery 01/23/18, now has plates Surgical History: - - C-sections cholecystectomy tonsillectomy - Family History Summary Family History: Family History (Last Reviewed 03/24/22 @ 08:05 by Elenita Lozano HOME VISITOR [employer], HOME VISITOR [employer]-C) Father Diabetes Heart disease Sister Breast cancer Other Hypertension Review of Systems Risk Factor Assessment - Obesity Height: 4 ft 11 in - Family History Family History: Family History (Last Reviewed 03/24/22 @ 08:05 by Elenita Lozano HOME VISITOR [employer], HOME VISITOR [employer]-C) Father Diabetes Heart disease Sister Breast cancer Other Hypertension
--- NOTE | 2022-09-27 10:09 | PCM.CR.ITP ---
Diagnosis Nutrition - Initial Assessment Nutrition - 30-Day Assessment Nutrition - 60-Day Assessment Nutrition - 90-Day Assessment Nutrition - Final Assessment Core - Initial Assessment Core - 30-Day Assessment Core - 60-Day Assessment Core - 90 Day Assessment Core - Final Assessment Psychosocial - Initial Assess Psychosocial - 30-Day Assess Psychosocial - 60-Day Assess Psychosocial - 90-Day Assess Psychosocial - Final Assessmen Nutrition Survey
--- NOTE | 2022-09-27 10:16 | PCM.PR.HP ---
History of Present Illness Arrival date:: 09/27/22 Arrival time:: 10:00 Date of Referral:: 09/07/22 Date of Evaluation: 09/27/22 Referring Physician: Dr. Ciro Norwood Primary Diagnosis: COPD Gold III: Severe History of Present Illness: Patient is a 62 F wo presents to pulmonary rehab today due to her COPD. The patient has previously participated in pulmonary rehab however her pulmonary function, fatigue and endurance has decreased due to progression of her disease, mMRC Breathless Scale: When is the patient short of breath? Y/N Grade: Description of Breathlessness: 0 I only get breathless with strenuous exercise. 1 I get short of breath when hurrying on level ground or walking up a slight hill. 2 On level ground, I walk slower than people of the same age because of breathless, or have to stop for breath when walking at my own pace. 3 I stop for breath after walking 100 yards or after a few minutes on level ground. 4 I am too breathless to leave the house or I am breathless when dressing. Respiratory Problems: Yes: Fatigue, Wheezing, Able to Speak in Full Sentences, Dizziness, Ankle Swelling, Anxiety, Panic, Dyspnea at Rest, Dyspnea with Activity, Dyspnea Lying Down Flat No: Retain Secretions, Limited Range of Motion - Secretions Thick:: No Thin:: No Hx of Sleep Apnea: Yes Do you snore loudly (louder than talking or can be heard through closed doors)?: Yes - Wears CPAP at night w/oxygen Do you often feel tired/ fatigued/ sleepy during daytime?: Yes Has anyone observed you stop breathing during sleep?: Yes History of Hypertension (for STOP score): Yes STOP Results: Positive Home Medications: Home Medications albuterol sulfate 90 mcg/actuation aerosol inhaler 1 - 2 puff inhalation Q4H PRN PRN Sob &/Or Wheezing 05/29/19 aspirin 81 mg chewable tablet 81 mg PO DAILY@0800 05/29/19 cholecalciferol (vitamin D3) 50 mcg (2,000 unit) chewable tablet 2,000 unit PO DAILY 05/29/19 dicyclomine 20 mg tablet 20 mg PO TID 05/29/19 fluoxetine 20 mg capsule 20 mg PO BID 05/29/19 hydrochlorothiazide 25 mg tablet 25 mg PO DAILY 05/29/19 lisinopril 30 mg tablet 30 mg PO DAILY 05/29/19 loratadine 10 mg tablet 10 mg PO DAILY 05/29/19 montelukast 10 mg tablet 10 mg PO DAILY 05/29/19 omeprazole 20 mg capsule,delayed release 20 mg PO DAILY 05/29/19 furosemide 20 mg tablet 20 mg PO DAILY 05/12/20 tiotropium bromide 2.5 mcg/actuation mist for inhalation 2 puff IH DAILY 05/12/20 Disability Placard #1 ea 07/21/20 lorazepam 0.5 mg tablet 0.5 mg PO DAILY PRN Anxiety 10/30/20 rosuvastatin 10 mg tablet 10 mg PO QHS 10/30/20 potassium chloride 10 mEq tablet,extended release 10 meq PO DAILY 11/04/20 budesonide-formoterol HFA 160 mcg-4.5 mcg/actuation aerosol inhaler 2 puff inhalation BID #10.2 grams 10/25/21 fluoxetine 10 mg capsule 10 mg PO DAILY DEPRESSION 03/15/22 benralizumab 30 mg/mL subcutaneous syringe (Fasenra) 30 mg subcut Q8W #1 mL 04/14/22 Allergies/Adverse Reactions: Allergies adhesive Adverse Reaction (Verified 08/08/22 13:58) Rash FROM BAND-AIDS Barbiturates Adverse Reaction (Verified 08/08/22 13:58) Other - spine contracts seizure Medical Utilization Do you use a peak flow meter at home?: No Do you use a spacer device with your inhalers?: Yes Number of hospital visits in the last year?: 2 Number of emergency room visits in the last year?: 2 Do you see your physician on a regular schedule?: Yes How often?: PCP 2 year; Lead Case Manager 3 months, [facility] Advanced Directives - Advanced Directives Power of Snack Bar Cook: No Living Will: No Advance Directives Information Provided: Yes Advance Directives on File: No DNR Order?:: No - MOLST See MOLST form: No Past Medical History - Covid-19 Screening Fever: No Unexplained muscle aches: No Current respiratory symptoms: Yes - chronic dyspnea due to her COPD. Upper respiratory infections symptoms: Yes - Recent Syncytial virus infection Gastro-intestinal symptoms: Yes - H/O GERD Iti-Laat-Gtpmfn symptoms: No Has tested positive for COVID-19 in last 30 days: No Date of testin09/27/22 - Fully vaccinated Had contact w/person w/symptoms or Covid-19 (+) last 14 days: No Has High Risk Exposures ID'd by Health dept/Inf Control team: No 65 years or older:: No Lives in Assisted Living facility:: No Has a chronic lung disease or moderate to severe asthma:: Yes Has a serious heart condition:: No Immunocompromised:: No Severely obese (Body Mass Index of 40 or higher):: No Diabetic:: Yes Has chronic kidney disease undergoing dialysis:: No Has liver disease:: No Medical History: Past Medical History (Last Updated 09/27/22 @ 10:46 by Ramiro Aguilar, BOAT LABORER, CREDIT PRODUCTS OFFICER, BS) Acute respiratory failure J96.00 Requires 2 L/min on exertion Acute respiratory failure with hypoxia J96.01 Asthma J45.909 Asthma exacerbation J45.901 Chest pain R07.9 Chronic hypoxemic respiratory failure J96.11 COPD (chronic obstructive pulmonary disease) J44.9 CPAP (continuous positive airway pressure) dependence Z99.89 Diabetes type 2, controlled E11.9 Former smoker Z87.891 Hypertension I10 Hypokalemia E87.6 On home oxygen therapy Z99.81 Osteoporosis M81.0 Sleep apnea G47.30 SOB (shortness of breath) R06.02 Surgical History: Past Surgical History (Last Reviewed 03/24/22 @ 08:05 by Elenita Lozano PLATER HOT DIP, PLATER HOT DIP-C) History of section Z98.891 History of cholecystectomy Z90.49 L wrist surgery 01/23/18, now has plates Family History: Family History (Last Reviewed 03/24/22 @ 08:05 by Elenita Lozano PLATER HOT DIP, PLATER HOT DIP-C) Father Diabetes Heart disease Sister Breast cancer Other Hypertension - Current/ Previous Services Pulmonary Rehab:: Yes Social History - Smoking History Smoking Status: Former smoker - Quit years ago. Years Smokin Packs Smoked per Day: 1 Hx Tobacco Use: Yes Hx Smoking Exposure: Yes - Substance Abuse Hx Substance Use: No - Occupation Occupation (List type of work in comments):: Employed Hours worked per day:: 8 - Hobbies, Recreation, Social Activities Hobbies: Sewing, Walking, Exercise - bike riding, , Other - cooking Recreational Activities: I am able to engage in most, but not all activities - good intentions, but doesn't always get done as planned Functioning ADL/IADL - Current Ability Current Ability: Independent Self-Care (e.g.,grooming, dressing, & bathing), Independent Ambulation, Independent Transfer, Independent Household tasks (e.g., light meal prep, laundry, shopping) - Pt Functioning Prior to Problem Prior Functioning: Self-Care (e.g.,grooming, dressing, & bathing): Independent, Ambulation: Independent, Transfer: Independent, Household tasks (e.g., light meal prep, laundry, shopping): Independent Social Environment - Status Marital Status: - Current Living Arrangements Living Environment:: Spouse - Children How many children do you have?: 3 Do any of your children live nearby?: Yes - Daughter lives here in [place] - Safety Do you feel safe in your surroundings?: Yes - Assistance Do you need any assistance at home?: no Review of Systems Review of Systems: Right click = Denies (Slash). Left click = Reports ([place]) Respiratory: Reports: SOB at Rest, SOB upon Exertion, Wheezing, Appetite, Normal, Dizziness/Lightheadedness, Fatigue, Sleep, Normal. 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 Risk Factor Assessment - Vital Signs Temperature: 98.6 F Pulse Rate: 92 Pulse Rhythm: Regular Respiratory Rate: 18 Pulse Ox: 96 - 3 liters @ rest / 5 liters w/activity Blood Pressure: 136/69 - Diabetes Nutrition Referral for Diabetes: No - Obesity Height: 4 ft 10.75 in Weight:: 171 lb Weight in Pounds: 171.0 lbs Weight Source: Stated by Patient Body Mass Index (BMI): 34.8 Nutritional Referral for Obesity: Yes - Physical Activity Physical Inactivity: Physically demanding job - Risk Stratification Risk Guidelines: Lowest Risk: Risk Factor for Smoking, Risk Factor for Dyslipidemia, Risk Factor for Diabetes, Risk Factor for Sedentary Lifestyle - still works part-time, Moderate Risk: Risk Factor for Hypertension - 136/69BMI , Highest Risk: Risk Factor for Obesity - BMI 34.8 Motivation - Motivation to Participate On a scale of 1 to 10, how prepared are you to commit to attending program?: 10 What do you see as barriers to successfully being able to complete the program?: work What do you see as the benefits of succesfully completing the program? 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
--- NOTE | 2022-09-27 10:17 | PCM.PR.TP ---
General Information2 - General Information Admitting Diagnosis: COPD Gold III: severe Secondary Diagnosis: GERD, Oseoarthritis, DM, HTN, Hyperlipidemia, Obese Gold Classification:: GOLD 3: Severe - PFT FEV1:: 1.67 FVC:: 2.18 FEV1/FVC%:: 65 - Personal Learning Style/Barriers Personal Learning Style:: Audio/Visual, Written Barriers to Learning: None Stage of change r/t lifestyle modifications: Action Educational Classes FL: Breathing Retraining: Initial Assessment, Exercise: Initial Assessment, Energy Conservation: Initial Assessment - Education/Goals Individual Counseling: Initial Assessment: High Blood Pressure, Diabetes FL Patient Goals: Increase muscle strength: Initial Assessment, Experience less dyspnea: Initial Assessment, Improve energy level: Initial Assessment, Control panic/anxiety: Initial Assessment, Improve my quality of life: Initial Assessment Exercise - Initial Assessment - Visit Date of Eval: 09/27/22 Session Number:: 0 - pre-pulmonary rehab evaluation - Problem/Goals Problems: Deconditioning, Knowledge deficit exercise guidelines, Knowledge deficit exercise safety Goals:: Aerobic exercise 30-60 mins x 12 weeks [36 sessions] - Physician Prescribed Exercise Modalities: Treadmill, Airdyne, NuStep Intensity: 60-80% of age predicted maximum heart rate reserve Current METSs:: 3.0 Target HR:: 118 - THRR 102-118 Resting Blood Pressure: 136/69 EKG Type: Sinus Rhythm - Plan Plan and Plan to Review:: Benefits of exercise, Core components of exercise, How to measure dyspnea level, How to monitor dyspnea level, Exercise intensity, Exercise safety guideline, Home exercise guidelines, Pamela: 3-4/11-13 Nutrition/Wt Mgmt - Initial - Visit Date of Eval: 09/28/22 Session Number:: 0 - pre-pulmonary rehab evaluation - Problems/Goals Problems: Overweight Goals: BMI 21-25, Wt Loss 1-2 lbs per week - Weight Management Knowledge Deficit Management of:: Overweight Admit Height:: 4 ft 10.75 in Admit Weight:: 171 lb Admit BMI:: 34.8 - Intervention Referral to dietitian:: Yes Will attend diet classes:: Yes Intervention/Plan: Instruct on ideal BMI & set weight loss goal w/patient, Assist pt to ID & incorporate diet changes for weight loss by S9, Refer to Structured Weight Loss program as appropriate, Encourage goal of using 250-300dcal per session for weight loss - Plan Nutrition Plan: Yes Nutrition education class:, Yes Weight control education class: Psychosocial - Initial Assess - Visit Date of Eval: 09/28/22 Session Number:: 0 - pre-pulmonary rehab evaluation - Problems/Goals History of Emotional Disorders: Anxious, Depression Psychosocial Goals: 1. Patient is free from overwhelming symtoms of depression (or anxiety, 2. Identifies personal stressors & states the strategies for managing, 3. Identifies activities to decrease isolation and/or symptoms of, 4. Improved psychosocial coping skills., 5. Verbalizes coping strategies., 6. Adequate treatment of depression., 7. Improved Q.O.L. - Psychosocial Test Tool Used:: Pulmonary QOL, PHQ-9 Questionnaire - Referral to Behavioral Health PS - Interventions: Yes Referral to Physician if PHQ-9 if score is 5-9: - Dr. Staton, Yes Attend Stress Management Classes, No Referral to Behavioral Health if PHQ-9 score >9:, No Referral to [facility] - Intervention/Plan: See List Interventions/Plan:: Assess stressors,coping strategies & signs of derpression on admission, Instruct/assist pt to develop coping & personal stress Mgt strategies, Instruct patient to recognize signs & symptoms of depression, Instruct patient to recog Oxygen & Oxygen Titration Init - Visit Date of Eval: 09/28/22 Session Number:: 0 - pre-pulmonary rehab evaluation - Initial Assessment Oxygen on Admission: Continuous home use - 3 liters, Oxygen w/activity - 5 liters, Oxygen at HS, CPAP/BIPAP - [facility] Patient Reports:: No cough - Goal Oxygen & Oxygen Tritration Goals: Effective hypoxemia control - Plans Plan: Monitor SpO2 rest & with exercise, Train appropriate O2 use at rest, Train appropriate O2 use with exercise, Train O2 safety & systems Reviewed prescribed medications:: Purpose, Schedule, Side effects, Importance of compliance Instruct correct technique/timing & care:: MDI, DPI, Nebulizer, Return demo use of inhaler Bronchial Hygiene Plan: Controlled cough, Vibratory PEP device, Hydration, Hand hygiene, Signs/symptoms to report: Core Components - Initial - Visit Date of Eval: 09/28/22 Session Number:: 0 - pre-pulmonary rehab evaluation - Hypertension Hypertension Diagnosis:: Hypertension ICD-10 I10 BP: 136/69 [place] [employer] Hypertension Guidelines: [place] [employer] Hypertension Guidelines. Normal BP Less than 120/80. Elevated BP 120/80. Hypertension Stage 1: BP 130-139/80-89. Hypertesnion Stage 2: BP 140 or higher/90 or higher. Hypertension Crisis: BP higher than 180/120 Low Sodium diet: No Outcomes/Goals: Able to verbalize/achieve optimal blood pressure <130/80, Incorporates diet changes & exercise for blood pressure control by DC - Tobacco - Initial Assessment Tobacco Program Goals: Complete smoking cessation. Attend education classes. Improve Knowledge Test score Do you have family support?: Yes Tobacco Use: Non-smoker Gave Education Materials For:: Pulmonary Disease, Risk Factors, Breathing Techniques, Medical Compliance, Pulmonary A&P, Exacerbation Signs & Symptoms, Stress & Relaxation - Exacerbation Mgmt & Airway Clearance Hypoxemia Goals:: Hypoxemia managed, Using O2 as Rx's safely Goals: Pt demonstrates effective cough, effective secretion clearance., Pt describes signs and symptoms of infection. Patient Reports:: No cough Plan: Monitor SpO2 rest & with exercise, Train appropriate O2 use at rest, Train appropriate O2 use with exercise, Train O2 safety & systems Instruct correct technique/timing & care:: MDI, DPI, Nebulizer, Return demo use of inhaler Bronchial Hygiene Plan: Controlled cough, Vibratory PEP device, Hydration, Hand hygiene, Signs/symptoms to report: - Medication Interventions/plans: Instruct on medication effects & side effects, Instruct importance of taking meds as ordered & assist problem solving Medication Goals: Adherence to prescribed medications, Correct technique/timing & care of MDI, DPI, nebulizer, and spacer. Does pt report taking home meds as prescribed?: Yes Medications: Yes MDI, Yes DPI, Yes NEB, Yes Spacer Reviewed prescribed medications:: Purpose, Schedule, Side effects, Importance of compliance - Diabetes Diabetes:: Yes Insulin: No Do you monitor your blood sugar at home?: No Referral to dietitian:: Yes Referral to Diabetic Clinic:: Yes Will attend diet classes:: Yes Core Components - 30 DAYS Core Components - 60 DAYS Core Components - 90 DAYS Core Components - Final Patient Health Questionnaire Initial Assessment 1. Little interest or pleasure in doing things: Not at all 2. Feeling down, depressed, or hopeless: Not at all 3. Trouble falling or staying asleep, or sleeping too much: More than half the days 4. Feeling tired or having little energy: Nearly every day 5. Poor appetite or overeating: Not at all 6. Feeling bad about yourself -- or that you are a failure or have let yourself or your family down: Not at all 7. Trouble concentrating on things, such as reading the newspaper or watching television: Not at all 8. Moving or speaking so slowly that other people could have noticed. Or the opposite - being so fidgety or restless that you have been moving around a lot more than usual: Not at all 9. Thoughts that you would be better off , or of hurting yourself in some way: Not at all How difficult have these problems made it for you to do your work, take care of things at home, or get along with other people?: Very difficult Total Score: 5 Knowledge Questionaire (BCKQ) - Information Information: [facility] COPD Knowledge Questionnaire (BCKQ) This questionnaire is designed to find out what you know about your lung problem. It should be completed without help form anyone else. This usually takes between 10 and 20 minutes. Your answers will help us to find out what information you need to help you to understand and manage your lung condition. Donald the paimiut which you think is the correct answer. - Questions b. COPD can only be confirmed by breathing tests: True c. In COPD ther is usually gradual worsening over time: True d. In COPD oxygen levels in the blood are always low: False e. COPD is usually in people less than 40 years old: False John than 80% of COPD cases are caused by cigarette smoking: True b. COPD can be caused by occupational dust exposure: True c. Longstanding asthma can develop into COPD: True d. COPD is commonly an inherited disease: True e. Women are less vunerable to the effects of cigarette than men: False a. Swelling of the ankles is common in COPD:: True b. Fatigue [tiredness] is common in COPD: True c. Wheezing is common in COPD: True d. Crushing chest pain is common in COPD: False e. Rapid weight loss is common in COPD: False a. Severe breathlessness prevents travel by air: False b. Breathlessness can be worsened by eating large meals: False c. Breathlessness means that your oxygen levels are low: False d. Breathlessness is a normal response to exercise: True e. Breathlessness is primarily caused by a narrowing of the bronchial tubes: True a. Coughing phlegm is a common symptom in COPD: True b. Clearing phlegm is more difficult if you get dehydrated: False c. Bronchodilator inhalers can help clear phlegm: False d. Phlegm causes harm if swallowed: False e. Clearing phlegm can be assisted by breathing exercises: True a. Chest infections often cause coughing of blood: False b. Chest infection phlegm usually becomes coloured (ylw/grn): True cExerbations (episodes of worsening) can occur in the absence of chest infection: True d. Chest infections are always accompanied by a high temperature: False e. Steroid tablets should be taken whenever there is an exacerbation: False aWalking excercises better than breathing to improve fitness: False b. Exercise should be avoided as it strains the lungs: False c. Exercise can help maintain your bone density: False d. Exercise helps relieve depression: True e. Exercise should be stopped if it makes you breathless: False a. Stopping smoking will reduce the risk of heart disease: True b. Stopping smoking will slow down further lung damage: True c. Stopping smoking is pointless as the damage is done: False d.Stopping smoking usually results in improved lung function: True eNicotine replacement therapy only available on prescription: False a. A flu jab is recommended every year: True b. You can get flu from having a flu jab: False c. You can only have a flu jab if you are 65 or over: False d. A pneumonia jab protects against all forms of pneumonia: False e.You can have a pneumonia jab and a flu job on the same day: True a. Bronchodilators act quickly (within 10 minutes): False b. Both short & long acting bronchodilators can be taken on the same day: True c. Spacers (volumatic,nebuhaler,serochamber)should be dried w/atowel after washing: False d. A spacer device increases the medication to the lungs: True e. Tremor may be a side effect of bronchodilators: False a. To be effective, the course should last at least 10 days: True b. Excessive use of antibiotics can cause resistant bacteria (germs): True c. Antibiotics will clear all chest infections: False d. Antibiotic treatment is necessary for an exacerbation (worsening) however mild: False e. Seek advice if antibiotics cause severe diarrhoea: True a. Steroid tablets help strengthen muscles: False b. Steroid tablets should be avoided if there is a chest infection: False c. The risk of long-term side effects due to steroids is less w/short courses then w/continous treatment: True dIndigestion is common side effect from using steroid tablet: False e. Steroid tablets can increase your appetite: True a. Inhaled steroids should be stopped if you are given steroid tablets: False bSteroid inhalers can be used for rapid relief breathlessnes: True c. Spacer devices reduce the risk of getting thrush in the mouth: False d.Steroid inhaler should be taken before your bronchodilator: False e. Inhaled steroids improve lung function in COPD: True COPD Assessment Test [CAT] - Questions Never cough = 0, Cough all the time = 5: 1 No phlegm = 0, Chest full of phlegm = 5: 1 No chest tightness = 0, Chest very tight = 5: 0 No breathless w/exertion = 0, Very breathless w/exertion = 5: 5 No limitations w/activity = 0, Very limited w/activity = 5: 4 Confident leaving home = 0, Not at all confident = 5: 0 Sleep soundly = 0, Don't sleep soundly = 5: 2 Lots of energy = 0, No energy at all = 5: 4 Total CAT score:: 17 Self-Efficacy Initial Assessment We would like to know how confident you are in doing certain activities. Please select your confidence level for:: Select your confidence level for the following using the scale 1-10 where 1 is not at all confident and 10 is totally confident. Your score is the average of all 6 responses. Fatigue: How confident are you that you can keep the fatigue caused by your disease from interfering with the things you want to do? Select Number: 3 Physical Discomfort or Pain: How confident are you that you can keep the physical discomfort or pain of your disease from interfering with the things you want to do? Select Number: 4 Emotional Distress: How confident are you that you can keep the emotional distress caused by your disease from interfering with the things you want to do? Select Number: 3 Other Symptoms or Health Problems: How confident are you that you can keep other symptoms or health problems from interfering with the things you want to do? Select Number: 3 Different Tasks and Activities: How confident are you that you can do the different tasks and activities needed to manage your health condition so as to reduce your need to see a doctor? Select Number: 3 Medication: How confident are you that you can do things other than just taking medication to reduce how much your illness affects your everyday life? Select Number: 9 Total Score:: 4 Nutrition Survey - Nutrition Survey Initial Have you lost >10 lbs over the past 2 months without trying?: No Are you following a special diet at home for diabetes, low fat, or low salt?: Yes Are you interested in meeting with a dietitian for help understanding your diet?: No Do you eat less than 3 meals a day?: Yes Do you eat fatty meats (jerry, sausage, ribs, etc), fried foods, desserts, large amounts of salad dressings, margarine, butter, or cheese most days?: No Do you have food allergies? [Enter types in comment field]: No Do you eat in restaurants more than 3 times a week?: No Do you season food with salt, seasoning salt, or garlic salt?: Yes Do you used canned, boxed, frozen meals, or soups, seasoning packets?: No Total Score:: 3
[2022-09-27 11:07] VITALS: BP 136/69; PULSE 92; RESP 18; TEMP 37; O2SAT 96; BMI 34.8
[2022-09-28 06:51] VITALS: BP 136/69; BMI 34.8
== END | disposition home or self-care (01) ==
LOC: PR 10:04
PROVIDERS: PCP Student in an Organized Health Care Education/Training Program; Referring Provider Internal Medicine Critical Care Medicine; Visit Provider Internal Medicine Critical Care Medicine
DX: J44.9 Chronic obstructive pulmonary disease, unspecified (principal); R53.83 Other fatigue; R06.2 Wheezing; R42 Dizziness and giddiness; M25.473 Effusion, unspecified ankle; F41.9 Anxiety disorder, unspecified; R06.00 Dyspnea, unspecified; G47.30 Sleep apnea, unspecified; I10 Essential (primary) hypertension; Z87.891 Personal history of nicotine dependence; Z99.81 Dependence on supplemental oxygen; Z99.89 Dependence on other enabling machines and devices

== ENCOUNTER 2022-10-07 13:00 | Outpatient (RCR) | payer BC, SELFPAY | END 2022-10-07 23:59 | LOC: PR 13:00 | PROVIDERS: PCP Student in an Organized Health Care Education/Training Program; Referring Provider Internal Medicine Critical Care Medicine; Visit Provider Internal Medicine Critical Care Medicine | DX: J44.9 Chronic obstructive pulmonary disease, unspecified (principal) | CPT/HCPCS: 97150; 94626 ==

== ENCOUNTER 2022-11-07 13:00 | Outpatient (RCR) | payer BC, SELFPAY ==
--- NOTE | 2022-10-26 07:14 | PR.ITP_ITS ---
Exercise - Initial Assessment Visit Session Number:: 9 Physician Prescribed Exercise Current METSs:: 3.0 Target HR:: 118 Current RPD:: 2-3 Maximum Exercise HR:: 101 Resting Blood Pressure: 120/60 Maximum Exercise Blood Pressure: 148/80 Minimum SpO2 with exercise: 92 EKG Type: NSR to sinus tach with occasional PVCs Nutrition/Wt Mgmt - Initial Visit Session Number:: 9 Weight Management Admit Height:: 4 ft 10.75 in Admit Weight:: 170 lb Admit BMI:: 34.6 Nutrition/Wt Mgmt - 30-Day Visit Date of Eval: 10/26/22 Session Number:: 9 Weight Management Weight Assessment:: Wt loss 1-2 lbs per week Height: 4 ft 10.75 in Weight:: 170 lb BMI: 34.6 Weight Goals Progress:: Referral to structured weight management program Nutrition/Wt Mgmt - 60-Day Visit Session Number:: 9 Weight Management Height: 4 ft 10.75 in Weight:: 170 lb BMI: 34.6 Nutrition/Wt Mgmt - 90-Day Visit Session Number:: 9 Weight Management Height: 4 ft 10.75 in Weight:: 170 lb BMI: 34.6 Nutrition/Wt Mgmt - Final Visit Session Number:: 9 Weight Management Height: 4 ft 10.75 in Weight:: 170 lb BMI: 34.6 Psychosocial - Initial Assess Visit Session Number:: 9 Problems/Goals History of Emotional Disorders: Anxious Psychosocial Goals: 1. Patient is free from overwhelming symtoms of depression (or anxiety, 2. Identifies personal stressors & states the strategies for managing, 3. Identifies activities to decrease isolation and/or symptoms of, 4. Improved psychosocial coping skills., 5. Verbalizes coping strategies., 6. Adequate treatment of depression. and 7. Improved Q.O.L. Psychosocial Test Tool Used:: PHQ-9 Questionnaire PHQ-9 Score: 5 Referred to MD for counseling:: No Referral to Behavioral Health PS - Interventions: Yes: Referral to Physician if PHQ-9 if score is 5-9: (Dr. Staton) and Yes: Attend Stress Management Classes and No: Referral to Behavioral Health if PHQ-9 score >9: and No: Referral to [facility] Intervention/Plan: See List Interventions/Plan:: Assess stressors,coping strategies & signs of derpression on admission, Instruct/assist pt to develop coping & personal stress Mgt strategies, Instruct patient to recognize signs & symptoms of depression and Instruct patient to recog Psychosocial - 30-Day Visit Date of Eval: 10/26/22 Session Number:: 9 Problems/Goals History of Emotional Disorders: Anxious Psychosocial Goals: 1. Patient is free from overwhelming symtoms of depression (or anxiety, 2. Identifies personal stressors & states the strategies for managing, 3. Identifies activities to decrease isolation and/or symptoms of, 4. Improved psychosocial coping skills., 5. Verbalizes coping strategies., 6. Adequate treatment of depression. and 7. Improved Q.O.L. Psychosocial Test Tool Used:: PHQ-9 Questionnaire PHQ-9 Score: 5 Referred to MD for counseling:: No Referral to Behavioral Health PS - Interventions: Yes: Referral to Physician if PHQ-9 if score is 5-9: (Dr. Staton) and Yes: Attend Stress Management Classes and No: Referral to Behavioral Health if PHQ-9 score >9: and No: Referral to [facility] Plan Interventions/Plan:: Assess stressors,coping strategies & signs of derpression on admission, Instruct/assist pt to develop coping & personal stress Mgt strategies, Instruct patient to recognize signs & symptoms of depression and Instruct patient to recog Psychosocial - 60-Day Visit Session Number:: 9 Problems/Goals History of Emotional Disorders: Anxious Psychosocial Goals: 1. Patient is free from overwhelming symtoms of depression (or anxiety, 2. Identifies personal stressors & states the strategies for managing, 3. Identifies activities to decrease isolation and/or symptoms of, 4. Improved psychosocial coping skills., 5. Verbalizes coping strategies., 6. Adequate treatment of depression. and 7. Improved Q.O.L. Psychosocial Test Tool Used:: PHQ-9 Questionnaire PHQ-9 Score: 5 Referred to MD for counseling:: No Referral to Behavioral Health PS - Interventions: Yes: Referral to Physician if PHQ-9 if score is 5-9: (Dr. Staton) and Yes: Attend Stress Management Classes and No: Referral to Behavioral Health if PHQ-9 score >9: and No: Referral to [facility] Plan Interventions/Plan:: Assess stressors,coping strategies & signs of derpression on admission, Instruct/assist pt to develop coping & personal stress Mgt strategies, Instruct patient to recognize signs & symptoms of depression and Instruct patient to recog Psychosocial - 90-Day Visit Session Number:: 9 Problems/Goals History of Emotional Disorders: Anxious Psychosocial Goals: 1. Patient is free from overwhelming symtoms of depression ( or anxiety, 2. Identifies personal stressors & states the strategies for managing, 3. Identifies activities to decrease isolation and/or symptoms of, 4. Improved psychosocial coping skills., 5. Verbalizes coping strategies., 6. Adequate treatment of depression. and 7. Improved Q.O.L. Psychosocial Test Tool Used:: PHQ-9 Questionnaire PHQ-9 Score: 5 Referred to MD for counseling:: No Referral to Behavioral Health PS - Interventions: Yes: Referral to Physician if PHQ-9 if score is 5-9: (Dr. Staton) and Yes: Attend Stress Management Classes and No: Referral to Behavioral Health if PHQ-9 score >9: and No: Referral to [facility] Plan Interventions/Plan:: Assess stressors,coping strategies & signs of derpression on admission, Instruct/assist pt to develop coping & personal stress Mgt strategies, Instruct patient to recognize signs & symptoms of depression and Instruct patient to recog Psychosocial - Final Assess Visit Session Number:: 9 Problems/Goals History of Emotional Disorders: Anxious Psychosocial Goals: 1. Patient is free from overwhelming symtoms of depression (or anxiety, 2. Identifies personal stressors & states the strategies for managing, 3. Identifies activities to decrease isolation and/or symptoms of, 4. Improved psychosocial coping skills., 5. Verbalizes coping strategies., 6. Adequate treatment of depression. and 7. Improved Q.O.L. Psychosocial Test Tool Used:: PHQ-9 Questionnaire PHQ-9 Score: 5 Referred to MD for counseling:: No Referral to Behavioral Health PS - Interventions: Yes: Referral to Physician if PHQ-9 if score is 5-9: (Dr. Staton) and Yes: Attend Stress Management Classes and No: Referral to Behavioral Health if PHQ-9 score >9: and No: Referral to [facility] Plan Interventions/Plan:: Assess stressors,coping strategies & signs of derpression on admission, Instruct/assist pt to develop coping & personal stress Mgt strategies, Instruct patient to recognize signs & symptoms of depression and Instruct patient to recog Oxygen & Oxygen Titration Init Visit Session Number:: 9 Initial Assessment SpO2:: 92 Oxygen & Oxygen Titration 30D Visit Date of Eval: 10/26/22 Session Number:: 9 Reassessment Reassessment- 30 Days: Demonstrate knowledge of O2 Rx at rest & w/exercise, Using O2 as Rx'd and Has home O2 as Rx'd Breath Sounds:: Diminished and Insp. & Exp. Wheezing SpO2:: 92 Oxygen & Oxygen Titration 60D Visit Date of Eval: 10/26/22 Session Number:: 9 Reassessment Breath Sounds:: Diminished and Insp. & Exp. Wheezing SpO2:: 92 Oxygen & Oxygen Titration 90D Visit Date of Eval: 10/26/22 Session Number:: 9 Reassessment Breath Sounds:: Diminished and Insp. & Exp. Wheezing SpO2:: 92 Oxygen & Oxygen Titration LAURA Visit Date of Eval: 10/26/22 Session Number:: 9 Reassessment Breath Sounds:: Diminished and Insp. & Exp. Wheezing SpO2:: 92 Core Components - Initial Visit Session Number:: 9 Hypertension Hypertension Diagnosis:: Hypertension ICD-10 I10 BP: 120/60 [place] [employer] Hypertension Guidelines Blood Pressure: 148/80 Outcomes/Goals: Able to verbalize/achieve optimal blood pressure <130/80 and Incorporates diet changes & exercise for blood pressure control by DC Tobacco - Initial Assessment Tobacco Program Goals Stages of Change:: Action Do you have family support?: Yes Tobacco Use: Non-smoker (Former smoker) Do you use smokeless tobacco?: No Smoking Cessation Referral:: No Education Schedule Given:: Yes Gave Education Materials For:: Pulmonary Disease, Risk Factors, Breathing Techniques, Medical Compliance, Pulmonary A&P, Exacerbation Signs & Symptoms and Stress & Relaxation Diabetes Diabetes:: No Heart Failure Documenting weight daily for CHF: No Core Components - 30 DAYS Visit Date of Eval: 10/26/22 Session Number:: 9 Hypertension Hypertension Diagnosis:: Hypertension ICD-10 I10 Resting Blood Pressure:: 120/60 [place] [employer] Hypertension Guidelines Peak Exercise Blood Pressure:: 148/80 Outcomes/Goals: Able to verbalize/achieve optimal blood pressure <130/80 and Incorporates diet changes & exercise for blood pressure control by DC Interventions/plan: Instruct on optimal blood pressure, hypertension & medications and Instruct on effects of sodium, alcohol, stress, exercise &hyper tension 30 day Reassessments:: Progressing Tobacco - 30-Day Tobacco Program Goals Stages of Change:: Action Learning Barriers: Participates in education Do you have family support?: Yes Tobacco Use: Non-smoker (Former smoker) Do you use smokeless tobacco?: No Smoking Cessation Referral:: No Education Schedule Given:: Yes Gave Education Materials For:: Pulmonary Disease, Risk Factors, Breathing Techniques, Medical Compliance, Pulmonary A&P, Exacerbation Signs & Symptoms and Stress & Relaxation 30-day Reassessments:: Progressing Exacerbation Mgmt & Airway Clearance Reassessment: Demonstrates knowledge of O2 Rx at rest, Demonstrates knowledge of O2 Rx with exercise, Using O2 as prescribed, Has home O2 as prescribed and Uses port O2 as prescribed Bronchial Hygiene Plan: Yes: Pt demo correct for device (SMI & P Flex devices), Yes: Pt demo correct for improved hydration and Yes: Pt demo correct for hand hygiene Medication Medication list reviewed:: Yes Taking medications 100% of the time:: Met Medication reassessment: Yes: Pt demonstrates correct technique timing for MDI, Yes: Pt demonstrates correct technique timing for DPI, Yes: Pt demonstrates correct technique timing for NEB and Yes: Pt demonstrates correct technique timing for spacer Diabetes Diabetes:: No Heart Failure Documenting weight yessenia: No Core Components - 60 DAYS Visit Session Number:: 9 Hypertension Hypertension Diagnosis:: Hypertension ICD-10 I10 Resting Blood Pressure:: 120/60 [place] [employer] Hypertension Guidelines Peak Exercise Blood Pressure:: 148/80 Outcomes/Goals: Able to verbalize/achieve optimal blood pressure <130/80 and Incorporates diet changes & exercise for blood pressure control by DC Interventions/plan: Instruct on optimal blood pressure, hypertension & medications and Instruct on effects of sodium, alcohol, stress, exercise &hypertension 60 day Reassessments:: Progressing Tobacco - 60-Day Tobacco Program Goals Stages of Change:: Action Learning Barriers: Participates in education Do you have family support?: Yes Tobacco Use: Non-smoker (Former smoker) Do you use smokeless tobacco?: No Smoking Cessation Referral:: No Education Schedule Given:: Yes Gave Education Materials For:: Pulmonary Disease, Risk Factors, Breathing Techniques, Medical Compliance, Pulmonary A&P, Exacerbation Signs & Symptoms and Stress & Relaxation 60-day Reassessments:: Progressing Exacerbation Mgmt & Airway Clearance Reassessment: Demonstrates knowledge of O2 Rx at rest, Demonstrates knowledge of O2 Rx with exercise, Using O2 as prescribed, Has home O2 as prescribed and Uses port O2 as prescribed Bronchial Hygiene Plan: Yes: Pt demo correct for device (SMI & P Flex devices), Yes: Pt demo correct for improved hydration and Yes: Pt demo correct for hand hygiene Medication Taking medications 100% of the time:: Met Medication reassessment: Yes: Pt demonstrates correct technique timing for MDI, Yes: Pt demonstrates correct technique timing for DPI, Yes: Pt demonstrates correct technique timing for NEB and Yes: Pt demonstrates correct technique timing for spacer Diabetes Diabetes:: No Heart Failure Documenting weight yessenia: No Core Components - 90 DAYS Visit Session Number:: 9 Hypertension Hypertension Diagnosis:: Hypertension ICD-10 I10 Resting Blood Pressure:: 120/60 [place] [employer] Hypertension Guidelines Peak Exercise Blood Pressure:: 148/80 Outcomes/Goals: Able to verbalize/achieve optimal blood pressure <130/80 and Incorporates diet changes & exercise for blood pressure control by DC Interventions/plan: Instruct on optimal blood pressure, hypertension & medications and Instruct on effects of sodium, alcohol, stress, exercise &hypertension 90 day Reassessments:: Progressing Tobacco - 90-Day Tobacco Program Goals Stages of Change:: Action Learning Barriers: Participates in education Do you have family support?: Yes Tobacco Use: Non-smoker (Former smoker) Do you use smokeless tobacco?: No Smoking Cessation Referral:: No Education Schedule Given:: Yes Gave Education Materials For:: Pulmonary Disease, Risk Factors, Breathing Techniques, Medical Compliance, Pulmonary A&P, Exacerbation Signs & Symptoms and Stress & Relaxation 90-day Reassessments:: Progressing Exacerbation Mgmt & Airway Clearance Bronchial Hygiene Plan: Yes: Pt demo correct for device (SMI & P Flex devices), Yes: Pt demo correct for improved hydration and Yes: Pt demo correct for hand hygiene Medication Medication reassessment: Yes: Pt demonstrates correct technique timing for MDI, Yes: Pt demonstrates correct technique timing for DPI, Yes: Pt demonstrates correct technique timing for NEB and Yes: Pt demonstrates correct technique timing for spacer Diabetes Diabetes:: No Core Components - Final Visit Session Number:: 9 Hypertension Hypertension Diagnosis:: Hypertension ICD-10 I10 Resting Blood Pressure:: 120/60 [place] [employer] Hypertension Guidelines Peak Exercise Blood Pressure:: 148/80 Outcomes/Goals: Able to verbalize/achieve optimal blood pressure <130/80 and Incorporates diet changes & exercise for blood pressure control by DC Tobacco - Final Tobacco Program Goals Stages of Change:: Action Learning Barriers: Participates in education Do you have family support?: Yes Tobacco Use: Non-smoker (Former smoker) Do you use smokeless tobacco?: No Smoking Cessation Referral:: No Education Schedule Given:: Yes Exacerbation Mgmt & Airway Clearance Bronchial Hygiene Plan: Yes: Pt demo correct for device (SMI & P Flex devices), Yes: Pt demo correct for improved hydration and Yes: Pt demo correct for hand hygiene Medication Medication reassessment: Yes: Pt demonstrates correct technique timing for MDI, Yes: Pt demonstrates correct technique timing for DPI, Yes: Pt demonstrates correct technique timing for NEB and Yes: Pt demonstrates correct technique timing for spacer Diabetes Diabetes:: No Patient Health Questionnaire PHQ-9 Screening 30-Day Re-eval Assessment: 1. Little interest or pleasure in doing things: Not at all 2. Feeling down, depressed, or hopeless: Not at all 3. Trouble falling or staying asleep, or sleeping too much: More than half the days 4. Feeling tired or having little energy: Nearly every day 5. Poor appetite or overeating: Not at all 6. Feeling bad about yourself -- or that you are a failure or have let yourself or your family down: Not at all 7. Trouble concentrating on things, such as reading the newspaper or watching television: Not at all 8. Moving or speaking so slowly that other people could have noticed. Or the opposite - being so fidgety or restless that you have been moving around a lot more than usual: Not at all 9. Thoughts that you would be better off , or of hurting yourself in some way: Not at all How difficult have these problems made it for you to do your work, take care of things at home, or get along with other people?: Very difficult Total Score: 5 Knowledge Questionaire (BCKQ) Information Information: [place] COPD Knowledge Questionnaire (BCKQ) This questionnaire is designed to find out what you know about your lung problem. It should be completed without help form anyone else. This usually takes between 10 and 20 minutes. Your answers will help us to find out what information you need to help you to understand and manage your lung condition. Donald the tuscarora which you think is the correct answer. Self-Efficacy 6-Item Scale 30-Day Re-eval Assessment: We would like to know how confident you are in doing certain activities. Please select your confidence level for: Fatigue Select Number: 3 Physical Discomfort or Pain Select Number: 4 Emotional Distress Select Number: 3 Other Symptoms or Health Problems Select Number: 3 Different Tasks and Activities Select Number: 3 Medication Select Number: 9 Total Score:: 4 Nutrition Survey Nutrition Survey Instructions Scoring Instructions
[2022-10-26 07:22] VITALS: BP 120/60; BP 148/80; O2SAT 92; BMI 34.6
== END 2022-11-07 23:59 ==
LOC: PR 13:00
PROVIDERS: PCP Student in an Organized Health Care Education/Training Program; Referring Provider Internal Medicine Critical Care Medicine; Visit Provider Internal Medicine Critical Care Medicine
DX: J44.9 Chronic obstructive pulmonary disease, unspecified (principal)
CPT/HCPCS: 97150; 94626

== ENCOUNTER 2022-12-07 13:00 | Outpatient (RCR) | payer BC, SELFPAY ==
[2022-10-26 07:22] VITALS: BMI 34.6
[2022-11-08 00:22] VITALS: BP 120/60; BP 148/80; BMI 34.6
--- NOTE | 2022-11-25 11:36 | PCM.PR.TP ---
Exercise - Initial Assessment Visit Session Number:: 20 Physician Prescribed Exercise Target HR:: 118 (102-118 THRR) Current RPD:: 12-13 Maximum Exercise HR:: 111 Resting Blood Pressure: 100/62 Maximum Exercise Blood Pressure: 142/84 Minimum SpO2 with exercise: 92 EKG Type: SR to sinus tach with rare PVCs. Nutrition/Wt Mgmt - Initial Visit Session Number:: 20 Weight Management Admit Height:: 4 ft 10.75 in Admit Weight:: 174 lb 8 oz Admit BMI:: 35.5 Nutrition/Wt Mgmt - 30-Day Visit Session Number:: 20 Weight Management Height: 4 ft 10.75 in Weight:: 174 lb 8 oz BMI: 35.5 Nutrition/Wt Mgmt - 60-Day Visit Date of Eval: 11/25/22 Session Number:: 20 Weight Management Height: 4 ft 10.75 in Weight:: 174 lb 8 oz BMI: 35.5 Weight Goals Progress:: Referral to structured weight management program (acutally gaining weight from 171.2) Nutrition/Wt Mgmt - 90-Day Visit Session Number:: 20 Weight Management Height: 4 ft 10.75 in Weight:: 174 lb 8 oz BMI: 35.5 Weight Goals Progress:: Referral to structured weight management program (acutally gaining weight from 171.2) Nutrition/Wt Mgmt - Final Visit Session Number:: 20 Weight Management Height: 4 ft 10.75 in Weight:: 174 lb 8 oz BMI: 35.5 Psychosocial - Initial Assess Visit Session Number:: 20 Problems/Goals History of Emotional Disorders: None Psychosocial Goals: 1. Patient is free from overwhelming symtoms of depression (or anxiety, 2. Identifies personal stressors & states the strategies for managing, 3. Identifies activities to decrease isolation and/or symptoms of, 5. Verbalizes coping strategies., 6. Adequate treatment of depression. and 7. Improved Q.O.L. Psychosocial Test Tool Used:: PHQ-9 Questionnaire Referred to MD for counseling:: No Referral to Behavioral Health PS - Interventions: Yes: Attend Stress Management Classes and No: Referral to Behavioral Health if PHQ-9 score >9:, No: Referral to [facility] and No: Referral to Physician if PHQ-9 if score is 5-9: Intervention/Plan: See List Interventions/Plan:: Assess stressors,coping strategies & signs of derpression on admission, Instruct/assist pt to develop coping & personal stress Mgt strategies, Instruct patient to recognize signs & symptoms of depression and Instruct patient to recog Psychosocial - 30-Day Visit Session Number:: 20 Problems/Goals History of Emotional Disorders: None Psychosocial Goals: 1. Patient is free from overwhelming symtoms of depression (or anxiety, 2. Identifies personal stressors & states the strategies for managing, 3. Identifies activities to decrease isolation and/or symptoms of, 5. Verbalizes coping strategies., 6. Adequate treatment of depression. and 7. Improved Q.O.L. Psychosocial Test Tool Used:: PHQ-9 Questionnaire Referred to MD for counseling:: No Referral to Behavioral Health PS - Interventions: Yes: Attend Stress Management Classes and No: Referral to Behavioral Health if PHQ-9 score >9:, No: Referral to [facility] and No: Referral to Physician if PHQ-9 if score is 5-9: Plan Interventions/Plan:: Assess stressors,coping strategies & signs of derpression on admission, Instruct/assist pt to develop coping & personal stress Mgt strategies, Instruct patient to recognize signs & symptoms of depression and Instruct patient to recog Psychosocial - 60-Day Visit Date of Eval: 11/25/22 Session Number:: 20 Problems/Goals History of Emotional Disorders: None Psychosocial Goals: 1. Patient is free from overwhelming symtoms of depression (or anxiety, 2. Identifies personal stressors & states the strategies for managing, 3. Identifies activities to decrease isolation and/or symptoms of, 5. Verbalizes coping strategies., 6. Adequate treatment of depression. and 7. Improved Q.O.L. Psychosocial Test Tool Used:: PHQ-9 Questionnaire Referred to MD for counseling:: No Referral to Behavioral Health PS - Interventions: Yes: Attend Stress Management Classes and No: Referral to Behavioral Health if PHQ-9 score >9:, No: Referral to [facility] and No: Referral to Physician if PHQ-9 if score is 5-9: Plan Interventions/Plan:: Assess stressors,coping strategies & signs of derpression on admission, Instruct/assist pt to develop coping & personal stress Mgt strategies, Instruct patient to recognize signs & symptoms of depression and Instruct patient to recog Psychosocial - 90-Day Visit Session Number:: 20 Problems/Goals History of Emotional Disorders: None Psychosocial Goals: 1. Patient is free from overwhelming symtoms of depression (or anxiety, 2. Identifies personal stressors & states the strategies for managing, 3. Identifies activities to decrease isolation and/or symptoms of, 5. Verbalizes coping strategies., 6. Adequate treatment of depression. and 7. Improved Q.O.L. Psychosocial Test Tool Used:: PHQ-9 Questionnaire Referred to MD for counseling:: No Referral to Behavioral Health PS - Interventions: Yes: Attend Stress Management Classes and No: Referral to Behavioral Health if PHQ-9 score >9:, No: Referral to [facility] and No: Referral to Physician if PHQ-9 if score is 5-9: Plan Interventions/Plan:: Assess stressors,coping strategies & signs of derpression on admission, Instruct/assist pt to develop coping & personal stress Mgt strategies, Instruct patient to recognize signs & symptoms of depression and Instruct patient to recog Psychosocial - Final Assess Visit Session Number:: 20 Problems/Goals History of Emotional Disorders: None Psychosocial Goals: 1. Patient is free from overwhelming symtoms of depression (or anxiety, 2. Identifies personal stressors & states the strategies for managing, 3. Identifies activities to decrease isolation and/or symptoms of, 5. Verbalizes coping strategies., 6. Adequate treatment of depression. and 7. Improved Q.O.L. Psychosocial Test Tool Used:: PHQ-9 Questionnaire Referred to MD for counseling:: No Referral to Behavioral Health PS - Interventions: Yes: Attend Stress Management Classes and No: Referral to Behavioral Health if PHQ-9 score >9:, No: Referral to [facility] and No: Referral to Physician if PHQ-9 if score is 5-9: Plan Interventions/Plan:: Assess stressors,coping strategies & signs of derpression on admission, Instruct/assist pt to develop coping & personal stress Mgt strategies, Instruct patient to recognize signs & symptoms of depression and Instruct patient to recog Oxygen & Oxygen Titration Init Visit Session Number:: 20 Initial Assessment SpO2:: 92 Oxygen & Oxygen Titration 30D Visit Session Number:: 20 Reassessment Breath Sounds:: Diminished and Insp. & Exp. Wheezing SpO2:: 92 Oxygen & Oxygen Titration 60D Visit Session Number:: 20 Reassessment Reassessment- 60 Days: Demonstrate knowledge of O2 Rx at rest & w/exercise, Using O2 as Rx'd, Has home O2 as Rx'd and Uses port O2 as Rx'd Breath Sounds:: Diminished and Insp. & Exp. Wheezing SpO2:: 92 Oxygen & Oxygen Titration 90D Visit Session Number:: 20 Reassessment Breath Sounds:: Diminished and Insp. & Exp. Wheezing SpO2:: 92 Oxygen & Oxygen Titration LAURA Visit Session Number:: 20 Reassessment Breath Sounds:: Diminished and Insp. & Exp. Wheezing SpO2:: 92 [employer] Components - Initial Visit Session Number:: 20 Hypertension BP: 100/62 [place] [employer] Hypertension Guidelines Blood Pressure: 142/84 Outcomes/Goals: Able to verbalize/achieve optimal blood pressure <130/80 and Incorporates diet changes & exercise for blood pressure control by DC Tobacco - Initial Assessment Tobacco Program Goals Stages of Change:: Action Tobacco Use: Non-smoker Do you use smokeless tobacco?: No Smoking Cessation Referral:: No Individual Education/Counseling:: No Education Schedule Given:: Yes Gave Education Materials For:: Pulmonary Disease, Risk Factors, Breathing Techniques, Medical Compliance, Pulmonary A&P, Exacerbation Signs & Symptoms and Stress & Relaxation Diabetes Diabetes:: No Heart Failure Documenting weight daily for CHF: No [employer]onents - 30 DAYS Visit Session Number:: 20 Hypertension Resting Blood Pressure:: 100/62 [place] [employer] Hypertension Guidelines Peak Exercise Blood Pressure:: 142/84 Change in medication: No Outcomes/Goals: Able to verbalize/achieve optimal blood pressure <130/80 and Incorporates diet changes & exercise for blood pressure control by DC Interventions/plan: Instruct on optimal blood pressure, hypertension & medications and Instruct on effects of sodium, alcohol, stress, exercise &hypertension 30 day Reassessments:: Met Tobacco - 30-Day Tobacco Program Goals Stages of Change:: Action Tobacco Use: Non-smoker Do you use smokeless tobacco?: No Smoking Cessation Referral:: No Education Schedule Given:: Yes Gave Education Materials For:: Pulmonary Disease, Risk Factors, Breathing Techniques, Medical Compliance, Pulmonary A&P, Exacerbation Signs & Symptoms and Stress & Relaxation Exacerbation Mgmt & Airway Clearance Reassessment: Demonstrates knowledge of O2 Rx at rest, Demonstrates knowledge of O2 Rx with exercise, Using O2 as prescribed, Has home O2 as prescribed and Uses port O2 as prescribed Bronchial Hygiene Plan: Yes: Pt demonstrates correctly for effective cough, Yes: Pt demo correct for device (SMI & PEP therapy devices), Yes: Pt demo correct for improved hydration and Yes: Pt demo correct for hand hygiene Medication Taking medications 100% of the time:: Met Medication reassessment: Yes: Pt demonstrates correct technique timing for MDI, Yes: Pt demonstrates correct technique timing for DPI, Yes: Pt demonstrates correct technique timing for NEB and Yes: Pt demonstrates correct technique timing for spacer Diabetes Diabetes:: No Heart Failure Documenting weight yessenia: No [employer]onents - 60 DAYS Visit Date of Eval: 11/25/22 Session Number:: 20 Hypertension Resting Blood Pressure:: 100/62 [place] [employer] Hypertension Guidelines Peak Exercise Blood Pressure:: 142/84 Change in medication: No Outcomes/Goals: Able to verbalize/achieve optimal blood pressure <130/80 and Incorporates diet changes & exercise for blood pressure control by DC Interventions/plan: Instruct on optimal blood pressure, hypertension & medications and Instruct on effects of sodium, alcohol, stress, exercise &hypertension 60 day Reassessments:: Met Tobacco - 60-Day Tobacco Program Goals Stages of Change:: Action Tobacco Use: Non-smoker Do you use smokeless tobacco?: No Smoking Cessation Referral:: No Individual Education/Counseling:: No Education Schedule Given:: Yes Gave Education Materials For:: Pulmonary Disease, Risk Factors, Breathing Techniques, Medical Compliance, Pulmonary A&P, Exacerbation Signs & Symptoms and Stress & Relaxation Exacerbation Mgmt & Airway Clearance Reassessment: Demonstrates knowledge of O2 Rx at rest, Demonstrates knowledge of O2 Rx with exercise, Using O2 as prescribed, Has home O2 as prescribed and Uses port O2 as prescribed Bronchial Hygiene Plan: Yes: Pt demonstrates correctly for effective cough, Yes: Pt demo correct for device (SMI & PEP therapy devices), Yes: Pt demo correct for improved hydration and Yes: Pt demo correct for hand hygiene Medication Medication list reviewed:: Yes Taking medications 100% of the time:: Met Taking medications 100% of the time:: Met Medication reassessment: Yes: Pt demonstrates correct technique timing for MDI, Yes: Pt demonstrates correct technique timing for DPI, Yes: Pt demonstrates correct technique timing for NEB and Yes: Pt demonstrates correct technique timing for spacer 60-day Reassessments:: Met Diabetes Diabetes:: No Heart Failure Documenting weight yessenia: No [employer]onents - 90 DAYS Visit Session Number:: 20 Hypertension Resting Blood Pressure:: 100/62 [place] [employer] Hypertension Guidelines Peak Exercise Blood Pressure:: 142/84 Outcomes/Goals: Able to verbalize/achieve optimal blood pressure <130/80 and Incorporates diet changes & exercise for blood pressure control by DC Interventions/plan: Instruct on optimal blood pressure, hypertension & medications and Instruct on effects of sodium, alcohol, stress, exercise &hypertension 90 day Reassessments:: Met Tobacco - 90-Day Tobacco Program Goals Stages of Change:: Action Tobacco Use: Non-smoker Do you use smokeless tobacco?: No Smoking Cessation Referral:: No Individual Education/Counseling:: No Education Schedule Given:: Yes Gave Education Materials For:: Pulmonary Disease, Risk Factors, Breathing Techniques, Medical Compliance, Pulmonary A&P, Exacerbation Signs & Symptoms and Stress & Relaxation Exacerbation Mgmt & Airway Clearance Bronchial Hygiene Plan: Yes: Pt demonstrates correctly for effective cough, Yes: Pt demo correct for device (SMI & PEP therapy devices), Yes: Pt demo correct for improved hydration and Yes: Pt demo correct for hand hygiene Medication Medication reassessment: Yes: Pt demonstrates correct technique timing for MDI, Yes: Pt demonstrates correct technique timing for DPI, Yes: Pt demonstrates correct technique timing for NEB and Yes: Pt demonstrates correct technique timing for spacer Diabetes Diabetes:: No Core Components - Final Visit Session Number:: 20 Hypertension Resting Blood Pressure:: 100/62 [place] [employer] Hypertension Guidelines Peak Exercise Blood Pressure:: 142/84 Outcomes/Goals: Able to verbalize/achieve optimal blood pressure <130/80 and Incorporates diet changes & exercise for blood pressure control by DC Tobacco - Final Tobacco Program Goals Stages of Change:: Action Tobacco Use: Non-smoker Do you use smokeless tobacco?: No Smoking Cessation Referral:: No Individual Education/Counseling:: No Education Schedule Given:: Yes Exacerbation Mgmt & Airway Clearance Bronchial Hygiene Plan: Yes: Pt demonstrates correctly for effective cough, Yes: Pt demo correct for device (SMI & PEP therapy devices), Yes: Pt demo correct for improved hydration and Yes: Pt demo correct for hand hygiene Medication Medication reassessment: Yes: Pt demonstrates correct technique timing for MDI, Yes: Pt demonstrates correct technique timing for DPI, Yes: Pt demonstrates correct technique timing for NEB and Yes: Pt demonstrates correct technique timing for spacer Diabetes Diabetes:: No Patient Health Questionnaire PHQ-9 Screening 60-Day Re-eval Assessment: 1. Little interest or pleasure in doing things: Not at all 2. Feeling down, depressed, or hopeless: Not at all 3. Trouble falling or staying asleep, or sleeping too much: Several days 4. Feeling tired or having little energy: More than half the days 5. Poor appetite or overeating: Not at all 6. Feeling bad about yourself -- or that you are a failure or have let yourself or your family down: Not at all 7. Trouble concentrating on things, such as reading the newspaper or watching television: Not at all 8. Moving or speaking so slowly that other people could have noticed. Or the opposite - being so fidgety or restless that you have been moving around a lot more than usual: Not at all 9. Thoughts that you would be better off , or of hurting yourself in some way: Not at all How difficult have these problems made it for you to do your work, take care of things at home, or get along with other people?: Somewhat difficult Total Score: 3 Knowledge Questionaire (BCKQ) Information Information: Andrew COPD Knowledge Questionnaire (BCKQ) This questionnaire is designed to find out what you know about your lung problem. It should be completed without help form anyone else. This usually takes between 10 and 20 minutes. Your answers will help us to find out what information you need to help you to understand and manage your lung condition. [place] which you think is the correct answer. COPD Assessment Test [CAT] Questions Never cough = 0, Cough all the time = 5: 1 No phlegm = 0, Chest full of phlegm = 5: 0 No chest tightness = 0, Chest very tight = 5: 0 No breathless w/exertion = 0, Very breathless w/exertion = 5: 4 No limitations w/activity = 0, Very limited w/activity = 5: 3 Confident leaving home = 0, Not at all confident = 5: 0 Sleep soundly = 0, Don't sleep soundly = 5: 2 Lots of energy = 0, No energy at all = 5: 3 Total CAT score:: 13 Self-Efficacy 6-Item Scale 60-Day Re-eval Assessment: We would like to know how confident you are in doing certain activities. Please select your confidence level for: Fatigue Select Number: 5 Physical Discomfort or Pain Select Number: 6 Emotional Distress Select Number: 5 Other Symptoms or Health Problems Select Number: 5 Different Tasks and Activities Select Number: 5 Medication Select Number: 9 Total Score:: 5 Nutrition Survey Nutrition Survey Instructions Scoring Instructions
[2022-11-25 11:43] VITALS: BP 100/62; BP 142/84; O2SAT 92; BMI 35.5
--- NOTE | 2022-11-25 11:50 | PR.OPITP_ITS ---
Exercise - Initial Assessment Visit Date of Eval: 11/25/22 Session Number:: 6 Physician Prescribed Exercise Current METSs:: 3.0 Target HR:: 144 (THRR 124-144) Current RPD:: 12-15 Maximum Exercise HR:: 140 Resting Blood Pressure: 124/68 Maximum Exercise Blood Pressure: 142/80 Minimum SpO2 with exercise: 92 EKG Type: sinsu tach without ectopy. Exercise - 30-Day Assessment Visit Date of Eval: 11/25/22 Session Number:: 6 Physician Prescribed Exercise Modalities: Biodyne, NuStep and Lateral [place] Frequency (days/week): 3 Duration (Minutes):: 30-45 Intensity: 60-80% of age predicted maximum heart rate reserve Aerobic Exercise [30-60 min 3-7x/week]:: Progressing Current METSs:: 3.0 Target HR:: 144 (THRR 124-144) Current RPD:: 12-15 Maximum Exercise HR:: 140 Resting Blood Pressure: 124/68 Maximum Exercise Blood Pressure: 142/80 Minimum SpO2 with exercise: 92 EKG Type: sinsu tach without ectopy. 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 Current Minutes of Exercise: 53:16 Exercise - 90-Day Assessment Visit Session Number:: 6 Physician Prescribed Exercise Current METSs:: 3.0 Target HR:: 144 (THRR 124-144) Current RPD:: 12-15 Maximum Exercise HR:: 140 Resting Blood Pressure: 124/68 Maximum Exercise Blood Pressure: 142/80 Minimum SpO2 with exercise: 92 EKG Type: sinsu tach without ectopy. Current Minutes of Exercise: 53:16 Exercise - Final Assessment Visit Session Number:: 6 Physician Prescribed Exercise Current METSs:: 3.0 Resting Blood Pressure: 124/68 Maximum Exercise Blood Pressure: 142/80 Minimum SpO2 with exercise: 92 EKG Type: sinsu tach without ectopy. Nutrition/Wt Mgmt - Initial Visit Session Number:: 6 Weight Management Admit Height:: 4 ft 11 in Admit Weight:: 220 lb Admit BMI:: 44.4 Nutrition/Wt Mgmt - 30-Day Visit Date of Eval: 11/25/22 Session Number:: 6 Weight Management Weight Assessment:: Wt stable Height: 4 ft 11 in Weight:: 220 lb BMI: 44.4 Weight Goals Progress:: Referral to structured weight management program Nutrition/Wt Mgmt - 60-Day Visit Session Number:: 6 Weight Management Height: 4 ft 11 in Weight:: 220 lb BMI: 44.4 Nutrition/Wt Mgmt - 90-Day Visit Session Number:: 6 Weight Management Height: 4 ft 11 in Weight:: 220 lb BMI: 44.4 Nutrition/Wt Mgmt - Final Visit Session Number:: 6 Weight Management Height: 4 ft 11 in Weight:: 220 lb BMI: 44.4 Psychosocial - Initial Assess Visit Session Number:: 6 Problems/Goals History of Emotional Disorders: Anxious and Depression Psychosocial Goals: 2. Identifies personal stressors & states the strategies for managing, 3. Identifies activities to decrease isolation and/or symptoms of and 7. Improved Q.O.L. Psychosocial Test Tool Used:: PHQ-9 Questionnaire Referred to MD for counseling:: No Referral to Behavioral Health PS - Interventions: Yes: Attend Stress Management Classes and No: Referral to Behavioral Health if PHQ-9 score >9:, No: Referral to [facility] and No: Referral to Physician if PHQ-9 if score is 5-9: Intervention/Plan: See List Interventions/Plan:: Assess stressors,coping strategies & signs of derpression on admission, Instruct/assist pt to develop coping & personal stress Mgt strategies, Instruct patient to recognize signs & symptoms of depression and Instruct patient to recog Psychosocial - 30-Day Visit Date of Eval: 11/25/22 Session Number:: 6 Problems/Goals History of Emotional Disorders: Anxious and Depression Psychosocial Goals: 2. Identifies personal stressors & states the strategies for managing, 3. Identifies activities to decrease isolation and/or symptoms of and 7. Improved Q.O.L. Psychosocial Test Tool Used:: PHQ-9 Questionnaire Referred to MD for counseling:: No Referral to Behavioral Health PS - Interventions: Yes: Attend Stress Management Classes and No: Referral to Behavioral Health if PHQ-9 score >9:, No: Referral to [facility] and No: Referral to Physician if PHQ-9 if score is 5-9: Plan Interventions/Plan:: Assess stressors,coping strategies & signs of derpression on admission, Instruct/assist pt to develop coping & personal stress Mgt strategies, Instruct patient to recognize signs & symptoms of depression and Instruct patient to recog Psychosocial - 60-Day Visit Session Number:: 6 Problems/Goals History of Emotional Disorders: Anxious and Depression Psychosocial Goals: 2. Identifies personal stressors & states the strategies for managing, 3. Identifies activities to decrease isolation and/or symptoms of and 7. Improved Q.O.L. Psychosocial Test Tool Used:: PHQ-9 Questionnaire Referred to MD for counseling:: No Referral to Behavioral Health PS - Interventions: Yes: Attend Stress Management Classes and No: Referral to Behavioral Health if PHQ-9 score >9:, No: Referral to [facility] and No: Referral to Physician if PHQ-9 if score is 5-9: Plan Interventions/Plan:: Assess stressors,coping strategies & signs of derpression on admission, Instruct/assist pt to develop coping & personal stress Mgt stra tegies, Instruct patient to recognize signs & symptoms of depression and Instruct patient to recog Psychosocial - 90-Day Visit Session Number:: 6 Problems/Goals History of Emotional Disorders: Anxious and Depression Psychosocial Goals: 2. Identifies personal stressors & states the strategies for managing, 3. Identifies activities to decrease isolation and/or symptoms of and 7. Improved Q.O.L. Psychosocial Test Tool Used:: PHQ-9 Questionnaire Referred to MD for counseling:: No Referral to Behavioral Health PS - Interventions: Yes: Attend Stress Management Classes and No: Referral to Behavioral Health if PHQ-9 score >9:, No: Referral to [facility] and No: Referral to Physician if PHQ-9 if score is 5-9: Plan Interventions/Plan:: Assess stressors,coping strategies & signs of derpression on admission, Instruct/assist pt to develop coping & personal stress Mgt strategies, Instruct patient to recognize signs & symptoms of depression and Instruct patient to recog Psychosocial - Final Assess Visit Session Number:: 6 Problems/Goals History of Emotional Disorders: Anxious and Depression Psychosocial Goals: 2. Identifies personal stressors & states the strategies for managing, 3. Identifies activities to decrease isolation and/or symptoms of and 7. Improved Q.O.L. Psychosocial Test Tool Used:: PHQ-9 Questionnaire Referred to MD for counseling:: No Referral to Behavioral Health PS - Interventions: Yes: Attend Stress Management Classes and No: Referral to Behavioral Health if PHQ-9 score >9:, No: Referral to [facility] and No: Referral to Physician if PHQ-9 if score is 5-9: Plan Interventions/Plan:: Assess stressors,coping strategies & signs of derpression on admission, Instruct/assist pt to develop coping & personal stress Mgt strategies, Instruct patient to recognize signs & symptoms of depression and Instruct patient to recog Oxygen & Oxygen Titration Init Visit Session Number:: 6 Initial Assessment SpO2:: 92 Oxygen & Oxygen Titration 30D Visit Date of Eval: 11/25/22 Session Number:: 6 Reassessment Breath Sounds:: Clear and Insp. & Exp. Wheezing SpO2:: 92 Oxygen & Oxygen Titration 60D Visit Date of Eval: 11/25/22 Session Number:: 6 Reassessment Reassessment- 60 Days: Demonstrate knowledge of O2 Rx at rest & w/exercise Breath Sounds:: Clear and Insp. & Exp. Wheezing SpO2:: 92 Oxygen & Oxygen Titration 90D Visit Date of Eval: 11/25/22 Session Number:: 6 Reassessment Breath Sounds:: Clear and Insp. & Exp. Wheezing SpO2:: 92 Oxygen & Oxygen Titration LAURA Visit Date of Eval: 11/25/22 Session Number:: 6 Reassessment Breath Sounds:: Clear and Insp. & Exp. Wheezing SpO2:: 92 Core Components - Initial Visit Session Number:: 6 Hypertension Hypertension Diagnosis:: Hypertension ICD-10 I10 BP: 124/68 [place] [employer] Hypertension Guidelines Blood Pressure: 142/80 Outcomes/Goals: Able to verbalize/achieve optimal blood pressure <130/80 and Incorporates diet changes & exercise for blood pressure control by DC Tobacco - Initial Assessment Tobacco Program Goals Education Schedule Given:: Yes Gave Education Materials For:: Pulmonary Disease, Risk Factors, Breathing Techniques, Medical Compliance, Pulmonary A&P, Exacerbation Signs & Symptoms and Stress & Relaxation Diabetes Diabetes:: No Heart Failure Documenting weight daily for CHF: No Core Components - 30 DAYS Visit Date of Eval: 11/25/22 Session Number:: 6 Hypertension Hypertension Diagnosis:: Hypertension ICD-10 I10 Resting Blood Pressure:: 124/68 [place] [employer] Hypertension Guidelines Peak Exercise Blood Pressure:: 142/80 Change in medication: No Outcomes/Goals: Able to verbalize/achieve optimal blood pressure <130/80 and Incorporates diet changes & exercise for blood pressure control by DC Interventions/plan: Instruct on optimal blood pressure, hypertension & medi cations and Instruct on effects of sodium, alcohol, stress, exercise &hypertension 30 day Reassessments:: Not Met Tobacco - 30-Day Tobacco Program Goals Education Schedule Given:: Yes Gave Education Materials For:: Pulmonary Disease, Risk Factors, Breathing Techniques, Medical Compliance, Pulmonary A&P, Exacerbation Signs & Symptoms and Stress & Relaxation 30-day Reassessments:: Progressing Exacerbation Mgmt & Airway Clearance Reassessment: Demonstrates knowledge of O2 Rx with exercise Bronchial Hygiene Plan: Yes: Pt demo correct for device (SMI & PEP therapy device), Yes: Pt demo correct for improved hydration and Yes: Pt demo correct for hand hygiene Medication Medication list reviewed:: Yes Taking medications 100% of the time:: Met Medication reassessment: Yes: Pt demonstrates correct technique timing for MDI, Yes: Pt demonstrates correct technique timing for DPI, Yes: Pt demonstrates correct technique timing for NEB and Yes: Pt demonstrates correct technique timing for spacer (Patient demonstrates good technique) Diabetes Diabetes:: No Heart Failure Documenting weight yessenia: No Core Components - 60 DAYS Visit Session Number:: 6 Hypertension Hypertension Diagnosis:: Hypertension ICD-10 I10 Resting Blood Pressure:: 124/68 [place] [employer] Hypertension Guidelines Peak Exercise Blood Pressure:: 142/80 Change in medication: No Outcomes/Goals: Able to verbalize/achieve optimal blood pressure <130/80 and Incorporates diet changes & exercise for blood pressure control by DC Interventions/plan: Instruct on optimal blood pressure, hypertension & medications and Instruct on effects of sodium, alcohol, stress, exercise &hypertension 60 day Reassessments:: Not Met Tobacco - 60-Day Tobacco Program Goals Education Schedule Given:: Yes Gave Education Materials For:: Pulmonary Disease, Risk Factors, Breathing Techniques, Medical Compliance, Pulmonary A&P, Exacerbation Signs & Symptoms and Stress & Relaxation 60-day Reassessments:: Progressing Exacerbation Mgmt & Airway Clearance Reassessment: Demonstrates knowledge of O2 Rx with exercise Bronchial Hygiene Plan: Yes: Pt demo correct for device (SMI & PEP therapy device), Yes: Pt demo correct for improved hydration and Yes: Pt demo correct for hand hygiene Medication Taking medications 100% of the time:: Met Medication reassessment: Yes: Pt demonstrates correct technique timing for MDI, Yes: Pt demonstrates correct technique timing for DPI, Yes: Pt demonstrates correct technique timing for NEB and Yes: Pt demonstrates correct technique timing for spacer (Patient demonstrates good technique) Diabetes Diabetes:: No Heart Failure Documenting weight yessenia: No Core Components - 90 DAYS Visit Session Number:: 6 Hypertension Hypertension Diagnosis:: Hypertension ICD-10 I10 Resting Blood Pressure:: 124/68 [place] [employer] Hypertension Guidelines Peak Exercise Blood Pressure:: 142/80 Outcomes/Goals: Able to verbalize/achieve optimal blood pressure <130/80 and Incorporates diet changes & exercise for blood pressure control by DC Interventions/plan: Instruct on optimal blood pressure, hypertension & medications and Instruct on effects of sodium, alcohol, stress, exercise &hypertension 90 day Reassessments:: Not Met Tobacco - 90-Day Tobacco Program Goals Education Schedule Given:: Yes Gave Education Materials For:: Pulmonary Disease, Risk Factors, Breathing Techniques, Medical Compliance, Pulmonary A&P, Exacerbation Signs & Symptoms and Stress & Relaxation 90-day Reassessments:: Progressing Exacerbation Mgmt & Airway Clearance Bronchial Hygiene Plan: Yes: Pt demo correct for device (SMI & PEP therapy device), Yes: Pt demo correct for improved hydration and Yes: Pt demo correct f or hand hygiene Medication Medication reassessment: Yes: Pt demonstrates correct technique timing for MDI, Yes: Pt demonstrates correct technique timing for DPI, Yes: Pt demonstrates correct technique timing for NEB and Yes: Pt demonstrates correct technique timing for spacer (Patient demonstrates good technique) Diabetes Diabetes:: No Core Components - Final Visit Session Number:: 6 Hypertension Hypertension Diagnosis:: Hypertension ICD-10 I10 Resting Blood Pressure:: 124/68 [place] [employer] Hypertension Guidelines Peak Exercise Blood Pressure:: 142/80 Outcomes/Goals: Able to verbalize/achieve optimal blood pressure <130/80 and Incorporates diet changes & exercise for blood pressure control by DC Tobacco - Final Tobacco Program Goals Education Schedule Given:: Yes Exacerbation Mgmt & Airway Clearance Bronchial Hygiene Plan: Yes: Pt demo correct for device (SMI & PEP therapy device), Yes: Pt demo correct for improved hydration and Yes: Pt demo correct for hand hygiene Medication Medication reassessment: Yes: Pt demonstrates correct technique timing for MDI, Yes: Pt demonstrates correct technique timing for DPI, Yes: Pt demonstrates correct technique timing for NEB and Yes: Pt demonstrates correct technique timing for spacer (Patient demonstrates good technique) Diabetes Diabetes:: No Patient Health Questionnaire PHQ-9 Screening 30-Day Re-eval Assessment: 1. Little interest or pleasure in doing things: More than half the days 2. Feeling down, depressed, or hopeless: Several days 3. Trouble falling or staying asleep, or sleeping too much: Several days 4. Feeling tired or having little energy: Nearly every day 5. Poor appetite or overeating: Several days 6. Feeling bad about yourself -- or that you are a failure or have let yourself or your family down: Not at all 7. Trouble concentrating on things, such as reading the newspaper or watching television: Several days 8. Moving or speaking so slowly that other people could have noticed. Or the opposite - being so fidgety or restless that you have been moving around a lot more than usual: Not at all 9. Thoughts that you would be better off , or of hurting yourself in some way: Not at all How difficult have these problems made it for you to do your work, take care of things at home, or get along with other people?: Somewhat difficult Total Score: 9 Knowledge Questionaire (BCKQ) Information Information: [place] COPD Knowledge Questionnaire (BCKQ) This questionnaire is designed to find out what you know about your lung problem. It should be completed without help form anyone else. This usually takes between 10 and 20 minutes. Your answers will help us to find out what information you need to help you to understand and manage your lung condition. Donald the [place] which you think is the correct answer. Self-Efficacy 6-Item Scale 30-Day Re-eval Assessment: We would like to know how confident you are in doing certain activities. Please select your confidence level for: Fatigue Select Number: 5 Physical Discomfort or Pain Select Number: 6 Emotional Distress Select Number: 4 Other Symptoms or Health Problems Select Number: 7 Different Tasks and Activities Select Number: 5 Medication Select Number: 6 Total Score:: 5 Nutrition Survey Nutrition Survey Instructions Scoring Instructions
[2022-11-25 11:58] VITALS: BP 124/68; BP 142/80; O2SAT 92; BMI 44.4
== END 2022-12-08 23:59 ==
LOC: PR 13:00
PROVIDERS: PCP Student in an Organized Health Care Education/Training Program; Referring Provider Internal Medicine Critical Care Medicine; Visit Provider Internal Medicine Critical Care Medicine
DX: J44.9 Chronic obstructive pulmonary disease, unspecified (principal)
CPT/HCPCS: 97150; 94626

== ENCOUNTER 2022-12-23 13:00 | Outpatient (RCR) | payer BC, SELFPAY ==
[2022-11-25 11:58] VITALS: BMI 44.4
[2022-12-09 00:31] VITALS: BP 124/68; BP 142/80; BMI 44.4
--- NOTE | 2022-12-27 06:38 | PCM.PR.TP ---
Exercise - Initial Assessment Visit Session Number:: 33 Physician Prescribed Exercise Current METSs:: 3.7 Target HR:: 118 (THRR 102-118) Current RPD:: 12-13 Maximum Exercise HR:: 118 Resting Blood Pressure: 126/64 Maximum Exercise Blood Pressure: 138/80 Minimum SpO2 with exercise: 91 (on 3 liters oxygen) EKG Type: NSR to sinus tach with rare PVC Nutrition/Wt Mgmt - Initial Visit Session Number:: 33 Weight Management Admit Height:: 4 ft 10.75 in Admit Weight:: 170 lb (down from 174.5) Admit BMI:: 34.6 Nutrition/Wt Mgmt - 30-Day Visit Date of Eval: 12/27/22 Session Number:: 33 Weight Management Height: 4 ft 10.75 in Weight:: 170 lb (down from 174.5) BMI: 34.6 Nutrition/Wt Mgmt - 60-Day Visit Session Number:: 33 Weight Management Height: 4 ft 10.75 in Weight:: 170 lb (down from 174.5) BMI: 34.6 Weight Goals Progress:: Progressing Nutrition/Wt Mgmt - 90-Day Visit Date of Eval: 12/27/22 Session Number:: 33 Weight Management Height: 4 ft 10.75 in Weight:: 170 lb (down from 174.5) BMI: 34.6 Weight Goals Progress:: Progressing Nutrition/Wt Mgmt - Final Visit Session Number:: 33 Weight Management Height: 4 ft 10.75 in Weight:: 170 lb (down from 174.5) BMI: 34.6 Psychosocial - Initial Assess Visit Session Number:: 33 Problems/Goals History of Emotional Disorders: Anxious and Depression Psychosocial Goals: 1. Patient is free from overwhelming symtoms of depression (or anxiety, 2. Identifies personal stressors & states the strategies for managing, 3. Identifies activities to decrease isolation and/or symptoms of, 4. Improved psychosocial coping skills., 5. Verbalizes coping strategies. and 7. Improved Q.O.L. Psychosocial Test Tool Used:: PHQ-9 Questionnaire Referred to MD for counseling:: No Referral to Behavioral Health PS - Interventions: Yes: Attend Stress Management Classes and No: Referral to Behavioral Health if PHQ-9 score >9:, No: [facility] and No: Referral to Physician if PHQ-9 if score is 5-9: Intervention/Plan: See List Interventions/Plan:: Assess stressors,coping strategies & signs of derpression on admission, Instruct/assist pt to develop coping & personal stress Mgt strategies, Instruct patient to recognize signs & symptoms of depression and Instruct patient to recog Psychosocial - 30-Day Visit Date of Eval: 12/27/22 Session Number:: 33 Problems/Goals History of Emotional Disorders: Anxious and Depression Psychosocial Goals: 1. Patient is free from overwhelming symtoms of depression (or anxiety, 2. Identifies personal stressors & states the strategies for managing, 3. Identifies activities to decrease isolation and/or symptoms of, 4. Improved psychosocial coping skills., 5. Verbalizes coping strategies. and 7. Improved Q.O.L. Psychosocial Test Tool Used:: PHQ-9 Questionnaire Referred to MD for counseling:: No Referral to Behavioral Health PS - Interventions: Yes: Attend Stress Management Classes and No: Referral to Behavioral Health if PHQ-9 score >9:, No: [facility]erral [facility] and No: Referral to Physician if PHQ-9 if score is 5-9: Plan Interventions/Plan:: Assess stressors,coping strategies & signs of derpression on admission, Instruct/assist pt to develop coping & personal stress Mgt strategies, Instruct patient to recognize signs & symptoms of depression and Instruct patient to recog Psychosocial - 60-Day Visit Session Number:: 33 Problems/Goals History of Emotional Disorders: Anxious and Depression Psychosocial Goals: 1. Patient is free from overwhelming symtoms of depression (or anxiety, 2. Identifies personal stressors & states the strategies for managing, 3. Identifies activities to decrease isolation and/or symptoms of, 4. Improved psychosocial coping skills., 5. Verbalizes coping strategies. and 7. Improved Q.O.L. Depression:: Self report and Impaired QOL Psychosocial Test Tool Used:: PHQ-9 Questionnaire Referred to MD for counseling:: No Referral to Behavioral Health PS - Interventions: Yes: Attend Stress Management Classes and No: Referral to Behavioral Health if PHQ-9 score >9:, No: [facility]erral [facility] and No: Referral to Physician if PHQ-9 if score is 5-9: Plan Interventions/Plan:: Assess stressors,coping strategies & signs of derpression on admission, Instruct/assist pt to develop coping & personal stress Mgt strategies, Instruct patient to recognize signs & symptoms of depression and Instruct patient to recog Psychosocial - 90-Day Visit Date of Eval: 12/27/22 Session Number:: 33 Problems/Goals History of Emotional Disorders: Anxious and Depression Psychosocial Goals: 1. Patient is free from overwhelming symtoms of depression (or anxiety, 2. Identifies personal stressors & states the strategies for managing, 3. Identifies activities to decrease isolation and/or symptoms of, 4. Improved psychosocial coping skills., 5. Verbalizes coping strategies. and 7. Improved Q.O.L. Depression:: Self report and Impaired QOL Psychosocial Test Tool Used:: PHQ-9 Questionnaire Referred to MD for counseling:: No Referral to Behavioral Health PS - Interventions: Yes: Attend Stress Management Classes and No: Referral to Behavioral Health if PHQ-9 score >9:, No: [facility]erral [facility] and No: Referral to Physician if PHQ-9 if score is 5-9: Plan Interventions/Plan:: Assess stressors,coping strategies & signs of derpression on admission, Instruct/assist pt to develop coping & personal stress Mgt strategies, Instruct patient to recognize signs & symptoms of depression and Instruct patient to recog Psychosocial - Final Assess Visit Session Number:: 33 Problems/Goals History of Emotional Disorders: Anxious and Depression Psychosocial Goals: 1. Patient is free from overwhelming symtoms of depression (or anxiety, 2. Identifies personal stressors & states the strategies for managing, 3. Identifies activities to decrease isolation and/or symptoms of, 4. Improved psychosocial coping skills., 5. Verbalizes coping strategies. and 7. Improved Q.O.L. Depression:: Self report and Impaired QOL Psychosocial Test Tool Used:: PHQ-9 Questionnaire Referred to MD for counseling:: No Referral to Behavioral Health PS - Interventions: Yes: Attend Stress Management Classes and No: Referral to Behavioral Health if PHQ-9 score >9:, No: [facility]erral [facility] and No: Referral to Physician if PHQ-9 if score is 5-9: Plan Interventions/Plan:: Assess stressors,coping strategies & signs of derpression on admission, Instruct/assist pt to develop coping & personal stress Mgt strategies, Instruct patient to recognize signs & symptoms of depression and Instruct patient to recog Oxygen & Oxygen Titration Init Visit Session Number:: 33 Initial Assessment SpO2:: 91 (on 3 liters oxygen) Exacerbation Date: 12/25/22 Oxygen & Oxygen Titration 30D Visit Date of Eval: 12/27/22 Session Number:: 33 Reassessment Breath Sounds:: Diminished and Insp. & Exp. Wheezing SpO2:: 91 (on 3 liters oxygen) Exacerbation Date: 12/25/22 Airway Clearance: 12/25/2022 Patient was seen in the Emergency room for increased dyspnea, and elevated fever and was discharged home. Oxygen & Oxygen Titration 60D Visit Date of Eval: 12/27/22 Session Number:: 33 Reassessment Breath Sounds:: Diminished and Insp. & Exp. Wheezing SpO2:: 91 (on 3 liters oxygen) Exacerbation Date: 12/25/22 Airway Clearance: 12/25/2022 Patient was seen in the Emergency room for increased dyspnea, and elevated fever and was discharged home. Oxygen & Oxygen Titration 90D Visit Date of Eval: 12/27/22 Session Number:: 33 Reassessment Oxygen & Oxygen Titration 90 days: Oxygen on Discharge, Continuous Home Use, Oxygen w/activity and Oxygen at HS Breath Sounds:: Diminished and Insp. & Exp. Wheezing SpO2:: 91 (on 3 liters oxygen) Exacerbation Date: 12/25/22 Airway Clearance: 12/25/2022 Patient was seen in the Emergency room for increased dyspnea, and elevated fever and was discharged home. Oxygen & Oxygen Titration LAURA Visit Date of Eval: 12/27/22 Session Number:: 33 Reassessment Breath Sounds:: Diminished and Insp. & Exp. Wheezing SpO2:: 91 (on 3 liters oxygen) Exacerbation Date: 12/25/22 Airway Clearance: 12/25/2022 Patient was seen in the Emergency room for increased dyspnea, and elevated fever and was discharged home. Core Components - Initial Visit Session Number:: 33 Hypertension Hypertension Diagnosis:: Hypertension ICD-10 I10 BP: 126/64 [employer] Hypertension Guidelines Blood Pressure: 138/80 Outcomes/Goals: Incorporates diet changes & exercise for blood pressure control by DC Tobacco - Initial Assessment Tobacco Program Goals Do you have family support?: Yes Tobacco Use: Non-smoker Education Schedule Given:: Yes Gave Education Materials For:: Pulmonary Disease, Risk Factors, Breathing Techniques, Medical Compliance, Pulmonary A&P, Exacerbation Signs & Symptoms and Stress & Relaxation Diabetes Diabetes:: No Core Components - 30 DAYS Visit Date of Eval: 12/27/22 Session Number:: 33 Hypertension Hypertension Diagnosis:: Hypertension ICD-10 I10 Resting Blood Pressure:: 126/64 [employer] Hypertension Guidelines Peak Exercise Blood Pressure:: 138/80 Outcomes/Goals: Incorporates diet changes & exercise for blood pressure control by DC Interventions/plan: Instruct on optimal blood pressure, hypertension & medications and Instruct on effects of sodium, alcohol, stress, exercise &hypertension 30 day Reassessments:: Met Tobacco - 30-Day Tobacco Program Goals Learning Barriers: Participates in education Do you have family support?: Yes Tobacco Use: Non-smoker Education Schedule Given:: Yes Gave Education Materials For:: Pulmonary Disease, Risk Factors, Breathing Techniques, Medical Compliance, Pulmonary A&P, Exacerbation Signs & Symptoms and Stress & Relaxation 30-day Reassessments:: Met Exacerbation Mgmt & Airway Clearance Bronchial Hygiene Plan: Yes: Pt demo correct for device (Instructed in use of PEP therapy and SMI devices), Yes: Pt demo correct for sputum management (Instructed in use of acapella device), Yes: Pt demo correct for hand hygiene and Yes: Pt demo correct for verbalize when to call MD Medication Medication reassessment: Yes: Pt demonstrates correct technique timing for MDI, Yes: Pt demonstrates correct technique timing for DPI, Yes: Pt demonstrates correct technique timing for NEB and Yes: Pt demonstrates correct technique timing for spacer (Uses spacer with MDIs) Diabetes Diabetes:: No [employer] Comp[employer] - 60 DAYS Visit Session Number:: 33 Hypertension Hypertension Diagnosis:: Hypertension ICD-10 I10 Resting Blood Pressure:: 126/64 [employer] Hypertension Guidelines Peak Exercise Blood Pressure:: 138/80 Outcomes/Goals: Incorporates diet changes & exercise for blood pressure control by DC Interventions/plan: Instruct on optimal blood pressure, hypertension & medications and Instruct on effects of sodium, alcohol, stress, exercise &hypertension 60 day Reassessments:: Met Tobacco - 60-Day Tobacco Program Goals Learning Barriers: Participates in education Do you have family support?: Yes Tobacco Use: Non-smoker Education Schedule Given:: Yes Gave Education Materials For:: Pulmonary Disease, Risk Factors, Breathing Techniques, Medical Compliance, Pulmonary A&P, Exacerbation Signs & Symptoms and Stress & Relaxation 60-day Reassessments:: Met Exacerbation Mgmt & Airway Clearance Bronchial Hygiene Plan: Yes: Pt demo correct for device (Instructed in use of PEP therapy and SMI devices), Yes: Pt demo correct for sputum management (Instructed in use of acapella device), Yes: Pt demo correct for hand hygiene and Yes: Pt demo correct for verbalize when to call MD Medication Medication reassessment: Yes: Pt demonstrates correct technique timing for MDI, Yes: Pt demonstrates correct technique timing for DPI, Yes: Pt demonstrates correct technique timing for NEB and Yes: Pt demonstrates correct technique timing for spacer (Uses spacer with MDIs) Diabetes Diabetes:: No [employer] Components - 90 DAYS Visit Date of Eval: 12/27/22 Session Number:: 33 Hypertension Hypertension Diagnosis:: Hypertension ICD-10 I10 Resting Blood Pressure:: 126/64 [employer] Hypertension Guidelines Peak Exercise Blood Pressure:: 138/80 Outcomes/Goals: Incorporates diet changes & exercise for blood pressure control by DC Interventions/plan: Instruct on optimal blood pressure, hypertension & medications and Instruct on effects of sodium, alcohol, stress, exercise &hypertension 90 day Reassessments:: Met Tobacco - 90-Day Tobacco Program Goals Learning Barriers: Participates in education Do you have family support?: Yes Tobacco Use: Non-smoker Education Schedule Given:: Yes Gave Education Materials For:: Pulmonary Disease, Risk Factors, Breathing Techniques, Medical Compliance, Pulmonary A&P, Exacerbation Signs & Symptoms and Stress & Relaxation 90-day Reassessments:: Met Exacerbation Mgmt & Airway Clearance Reassessment: Demonstrates knowledge of O2 Rx at rest, Demonstrates knowledge of O2 Rx with exercise, Using O2 as prescribed, Has home O2 as prescribed and Uses port O2 as prescribed Bronchial Hygiene Plan: Yes: Pt demo correct for device (Instructed in use of PEP therapy and SMI devices), Yes: Pt demo correct for sputum management (Instructed in use of acapella device), Yes: Pt demo correct for hand hygiene and Yes: Pt demo correct for verbalize when to call MD Medication Medication list reviewed:: Yes Taking medications 100% of the time:: Met Medication reassessment: Yes: Pt demonstrates correct technique timing for MDI, Yes: Pt demonstrates correct technique timing for DPI, Yes: Pt demonstrates correct technique timing for NEB and Yes: Pt demonstrates correct technique timing for spacer (Uses spacer with MDIs) Diabetes Diabetes:: No Heart Failure Documenting weight daily: No Core Components - Final Visit Session Number:: 33 Hypertension Hypertension Diagnosis:: Hypertension ICD-10 I10 Resting Blood Pressure:: 126/64 [employer] Hypertension Guidelines Peak Exercise Blood Pressure:: 138/80 Outcomes/Goals: Incorporates diet changes & exercise for blood pressure control by DC Tobacco - Final Tobacco Program Goals Learning Barriers: Participates in education Do you have family support?: Yes Tobacco Use: Non-smoker Education Schedule Given:: Yes Exacerbation Mgmt & Airway Clearance Bronchial Hygiene Plan: Yes: Pt demo correct for device (Instructed in use of PEP therapy and SMI devices), Yes: Pt demo correct for sputum management (Instructed in use of acapella device), Yes: Pt demo correct for hand hygiene and Yes: Pt demo correct for verbalize when to call MD Medication Medication reassessment: Yes: Pt demonstrates correct technique timing for MDI, Yes: Pt demonstrates correct technique timing for DPI, Yes: Pt demonstrates correct technique timing for NEB and Yes: Pt demonstrates correct technique timing for spacer (Uses spacer with MDIs) Diabetes Diabetes:: No Patient Health Questionnaire PHQ-9 Screening 90-Day Re-eval Assessment: 1. Little interest or pleasure in doing things: Not at all 2. Feeling down, depressed, or hopeless: Not at all 3. Trouble falling or staying asleep, or sleeping too much: Several days 4. Feeling tired or having little energy: More than half the days 5. Poor appetite or overeating: Not at all 6. Feeling bad about yourself -- or that you are a failure or have let yourself or your family down: Not at all 7. Trouble concentrating on things, such as reading the newspaper or watching television: Not at all 8. Moving or speaking so slowly that other people could have noticed. Or the opposite - being so fidgety or restless that you have been moving around a lot more than usual: Not at all 9. Thoughts that you would be better off , or of hurting yourself in some way: Not at all How difficult have these problems made it for you to do your work, take care of things at home, or get along with other people?: Not difficult at all Total Score: 3 Knowledge Questionaire (BCKQ) Information Information: [place] COPD Knowledge Questionnaire (BCKQ) This questionnaire is designed to find out what you know about your lung problem. It should be completed without help form anyone else. This usually takes between 10 and 20 minutes. Your answers will help us to find out what information you need to help you to understand and manage your lung condition. [place] which you think is the correct answer. Self-Efficacy 6-Item Scale 90-Day Re-eval Assessment: We would like to know how confident you are in doing certain activities. Please select your confidence level for: Fatigue Select Number: 6 Physical Discomfort or Pain Select Number: 8 Emotional Distress Select Number: 7 Other Symptoms or Health Problems Select Number: 7 Different Tasks and Activities Select Number: 7 Medication Select Number: 9 Total Score:: 7 Nutrition Survey Nutrition Survey Instructions Scoring Instructions
[2022-12-27 06:48] VITALS: BP 126/64; BP 138/80; O2SAT 91; BMI 34.6
== END 2023-01-07 23:59 ==
LOC: PR 13:00
PROVIDERS: PCP Student in an Organized Health Care Education/Training Program; Referring Provider Internal Medicine Critical Care Medicine; Visit Provider Internal Medicine Critical Care Medicine
DX: J44.9 Chronic obstructive pulmonary disease, unspecified (principal)
CPT/HCPCS: 97150; 94626

== ENCOUNTER 2022-12-25 10:51 | Emergency (ER) | payer BC, SELFPAY ==
[2022-11-25 11:58] VITALS: BMI 44.4
[2022-12-25] VITALS (17 sets, daily range): BP systolic 97–115; BP diastolic 52–73; PULSE 65–84; RESP 9–20; TEMP 37.2–37.7; O2SAT 92–96; BMI 35.6
--- NOTE | 2022-12-25 11:42 | RAD_ITS ---
STUDY: X-RAY CHEST REASON FOR EXAM: Female, 62 years old. Shortness of Breath, Cough TECHNIQUE: Single AP portable view of the chest. COMPARISON: March 15, 2022 FINDINGS: Redemonstration of mild bilateral lower lobe interstitial fibrotic changes of the lungs. No definite new opacities are seen. The upper lung kim are clear. Slight hyperinflation with cystic emphysematous changes. There is no demonstrated pleural abnormality. Normal size heart. Normal mediastinum and john. Normal visualized pulmonary arteries. There is atherosclerotic calcification of the aortic arch with tortuosity. There are diffuse degenerative changes of the visualized thoracic spine. Normal visualized ribs, clavicles, and shoulders. There is no demonstrated abnormality of the visualized soft tissue structures of the upper abdomen. RAD/Chest 1 View (Portable) IMPRESSION: 1. Redemonstration of mild bilateral lower lobe interstitial fibrotic changes of the lungs. No definite new opacities are seen. The upper lung kim are clear. Slight hyperinflation with cystic emphysematous changes. Electronically Signed: Sj Zimmerman MD at 12:40 EDT ,
--- NOTE | 2022-12-25 11:42 | EKG12_ITS ---
Test Reason : SOB Blood Pressure : / mmHG Vent. Rate : 080 BPM Atrial Rate : 080 BPM P-R Int : 136 ms QRS Dur : 082 ms QT Int : 356 ms P-R-T Axes : 074 062 048 degrees QTc Int : 410 ms Normal sinus rhythm Nonspecific ST abnormality Abnormal ECG Confirmed by FIDEL AYALA, JUDAH ([id number]), video effects editor FANNY RIVERA ([id number]) on 12/27/2022 1:50:30 PM Referred By: Confirmed By:ZOE PARRA MD
--- NOTE | 2022-12-25 11:44 | EDS_ITS ---
HPI HPI - URI History of Present Illness Chief Complaint: Shortness of Breath Narrative Narrative: 62-year-old female past medical history of COPD, asthma, wears 3 L of oxygen at rest and 5 L with activity, presents with her because of increasing shortness of breath more than normal. Additionally, she has had upper respiratory infection type symptoms for the last few days, since , 4 days ago. They note that she has gotten her vaccinations/immunizations recently in the last few weeks, except for COVID. Additionally, she has had sick contacts at work. She complains of a headache as well but has not taken any Tylenol or ibuprofen since yesterday. She presents because of the increasing shortness of breath, headache, and body aches. ROS ROS ED ROS Narrative Constitutional: Fever and chills. HEENT: No sore throat. No neck pain. No loss of vision. Mild rhinorrhea and nasal congestion Cardiovascular: No chest pain. No palpitations. No pedal edema. Respiratory: Positive cough and shortness of breath. Abdominal: No abdominal pain. Of nausea and dry heaving Genitourinary: No dysuria. No hematuria. Musculoskeletal: Arthralgias and myalgias. Neurologic: Positive headaches. No dizziness. No lightheadedness. Skin: No rash. No change in color. Psychiatric: No depression. No anxiety. [facility] Medical History Acute respiratory failure Acute respiratory failure with hypoxia Asthma Asthma exacerbation Chest pain Chronic hypoxemic respiratory failure COPD (chronic obstructive pulmonary disease) CPAP (continuous positive airway pressure) dependence Diabetes type 2, controlled Former smoker Hypertension Hypokalemia On home oxygen therapy Osteoporosis Sleep apnea SOB (shortness of breath) Home Medications albuterol sulfate 90 mcg/actuation aerosol inhaler 1 - 2 puff inhalation Q4H PRN PRN Sob &/Or Wheezing 05/29/19 [History Last Taken 03/15/22] aspirin 81 mg chewable tablet 81 mg PO DAILY@0800 05/29/19 [History Last Taken 03/14/22] cholecalciferol (vitamin D3) 50 mcg (2,000 unit) chewable tablet 2,000 unit PO DAILY 05/29/19 [History Last Taken 03/14/22] dicyclomine 20 mg tablet 20 mg PO TID 05/29/19 [History Last Taken 03/14/22] fluoxetine 20 mg capsule 20 mg PO BID 05/29/19 [History Last Taken 03/14/22] hydrochlorothiazide 25 mg tablet 25 mg PO DAILY 05/29/19 [History Last Taken 03/14/22] lisinopril 30 mg tablet 30 mg PO DAILY 05/29/19 [History Last Taken Unknown] loratadine 10 mg tablet 10 mg PO DAILY 05/29/19 [History Last Taken Unknown] montelukast 10 mg tablet 10 mg PO DAILY 05/29/19 [History Last Taken 03/14/22] omeprazole 20 mg capsule,delayed release 20 mg PO DAILY 05/29/19 [History Last Taken 03/14/22] furosemide 20 mg tablet 20 mg PO DAILY 05/12/20 [History Last Taken 03/14/22] tiotropium bromide 2.5 mcg/actuation mist for inhalation 2 puff IH DAILY 05/12/20 [History Last Taken 03/15/22] Disability Placard #1 ea 07/21/20 [Rx Last Taken Unknown] lorazepam 0.5 mg tablet 0.5 mg PO DAILY PRN Anxiety 10/30/20 [History Last Taken 03/14/22] rosuvastatin 10 mg tablet 10 mg PO QHS 10/30/20 [History Last Taken 03/14/22] budesonide-formoterol HFA 160 mcg-4.5 mcg/actuation aerosol inhaler 2 puff inhalation BID #10.2 grams 10/25/21 [Rx Last Taken 03/15/22] fluoxetine 10 mg capsule 10 mg PO DAILY DEPRESSION 03/15/22 [History Last Taken 03/14/22] benralizumab 30 mg/mL subcutaneous syringe (Fasenra) 30 mg subcut Q8W #1 mL 04/14/22 [Rx Last Taken Unknown] potassium chloride 10 mEq tablet,extended release 10 meq PO BID 09/28/22 [History Last Taken Unknown] prednisone 20 mg tablet 40 mg (2 x 20 mg) PO DAILY 7 days #14 tabs 12/25/22 [Rx Last Taken Unknown] Allergy/AdvReac Type Severity Reaction Status Date / Time adhesive AdvReac Rash Verified 12/25/22 11:06 Barbiturates AdvReac Other - Verified 12/25/22 11:06 spine contracts Family History Father Diabetes Heart disease Sister Breast cancer Other Hypertension Surgical History History of section History of cholecystectomy L wrist surgery Social History Smoking Status: Former smoker quit date: 04/10/16 pack-years: 30 how long ago did patient quit smokin, 1pk/day second hand exposure: Yes alcohol intake: never substance use type: does not use EXAM Physical Exam Narrative Exam Narrative: Afebrile. Vital signs noted. HEENT: Normocephalic. Atraumatic. PERRL, EOMI. Neck soft and supple. No point tenderness or step off. Cardiovascular: Regular rate and rhythm. No murmurs, rubs, or gallops appreciated. Respiratory: No tachypnea. Positive expiratory wheeze left base greater than right. Gastrointestinal: Abdomen soft, nontender, with normoactive bowel sounds. No rebound or guarding. Neurological: Awake. Alert. Nonfocal, nonlateralizing. Skin: No rash. Normal color. No pallor. Musculoskeletal: No pedal edema. Full range of motion extremities. Const Vital Signs: 12/25/22 10:52 12/25/22 11:07 12/25/22 12:00 Temperature 99 F Temperature Source Temporal Pulse Rate 84 80 Respiratory Rate 20 H 9 L Respiratory Effort Normal Non-Labored Respiratory Depth Normal Respiratory Pattern Normal Normal Blood Pressure 115/73 Blood Pressure Mean 87 Pulse Ox 96 Oxygen Delivery Method Nasal Cannula Nasal Cannula Oxygen Flow Rate (L/min) 3 3 12/25/22 12:00 12/25/22 12:02 12/25/22 13:11 Temperature 99.8 F H Temperature Source Oral Pulse Rate 74 Respiratory Rate 15 Respiratory Effort Respiratory Depth Respiratory Pattern Blood Pressure 103/58 L Blood Pressure Mean 73 Pulse Ox 92 93 94 Oxygen Delivery Method Nasal Cannula Nasal Cannula Nasal Cannula Oxygen Flow Rate (L/min) 3 3 3 12/25/22 13:11 12/25/22 13:37 12/25/22 13:53 Temperature 99.4 F H Temperature Source Oral Pulse Rate 74 75 75 Respiratory Rate 15 15 15 Respiratory Effort Respiratory Depth Respiratory Pattern Blood Pressure 103/58 L 98/53 L 100/59 L Blood Pressure Mean 73 68 72 Pulse Ox 94 95 95 Oxygen Delivery Method Nasal Cannula Nasal Cannula Nasal Cannula Oxygen Flow Rate (L/min) 3 3 3 12/25/22 14:19 12/25/22 14:33 12/25/22 14:42 Temperature 99.2 F H Temperature Source Oral Pulse Rate 69 70 70 Respiratory Rate 20 H 18 19 H Respiratory Effort Respiratory Depth Respiratory Pattern Blood Pressure 97/55 L 98/53 L 100/52 L Blood Pressure Mean 69 68 68 Pulse Ox 94 94 95 Oxygen Delivery Method Nasal Cannula Nasal Cannula Nasal Cannula Oxygen Flow Rate (L/min) 3 3 3 12/25/22 14:51 12/25/22 15:09 12/25/22 15:19 Temperature 99.0 F Temperature Source Oral Pulse Rate 69 65 69 Respiratory Rate 16 13 18 Respiratory Effort Respiratory Depth Respiratory Pattern Blood Pressure 101/62 103/55 L 100/60 Blood Pressure Mean 75 71 73 Pulse Ox 93 94 93 Oxygen Delivery Method Nasal Cannula Nasal Cannula Nasal Cannula Oxygen Flow Rate (L/min) 3 3 3 12/25/22 15:24 12/25/22 15:33 12/25/22 15:45 Temperature Temperature Source Pulse Rate 67 67 66 Respiratory Rate 17 14 18 Respiratory Effort Respiratory Depth Respiratory Pattern Blood Pressure 108/62 110/70 112/61 Blood Pressure Mean 77 83 78 Pulse Ox 93 94 94 Oxygen Delivery Method Nasal Cannula Nasal Cannula Nasal Cannula Oxygen Flow Rate (L/min) 3 3 3 12/25/22 15:57 Temperature Temperature Source Pulse Rate 68 Respiratory Rate 17 Respiratory Effort Respiratory Depth Respiratory Pattern Blood Pressure 112/62 Blood Pressure Mean Pulse Ox 94 Oxygen Delivery Method Oxygen Flow Rate (L/min) MDM MDM MDM Narrative Medical decision making narrative: Comprehensive work-up was pursued. She states she is broken ribs in the past from coughing and has right rib pain. While I do not feel that rib x- rays/dedicated rib x-rays are indicated I will obtain a chest x-ray to rule out pneumothorax, look for any obvious rib fracture, and rule out pneumonia. She is not meeting any sirs criteria here currently. I have low suspicion for pulmonary embolism as she is PERC negative. I do feel that she may have COVID, influenza, and she will be swabbed for RSV as well. She will be administered IV fluids, and Toradol for headache and body aches. I will also administer ondansetron for her nausea and dry heaving. EKG was obtained and interpreted by myself independently as normal sinus rhythm at 80 bpm without ectopy or acute ST changes. No STEMI. I reviewed her laboratory work from today and she has a normal white count of 5.1, hemoglobin normal at 12.2, hematocrit normal at 37.9, platelet count normal at 265. Her electrolyte panel does not show evidence of dehydration with a normal sodium of 138, potassium normal at 3.5, chloride 102, BUN normal at 18 with creatinine 0.98. Glucose is appropriately elevated at 115 with an anion gap of 5. High- sensitivity troponin is normal at 31. My interpretation of her 1 view chest x- ray, there are chronic changes consistent with COPD and hyperinflation, but no evidence of an acute pneumonia or consolidation. I do not feel that antibiotics are indicated. I reviewed the radiology report which confirms my independent interpretation shows mild bilateral lobe chronic fibrotic changes. Upon repeat examination after her aerosol treatment, she was informed that her COVID, influenza, and RSV swabs are negative. While she had a transient dip in her systolic blood pressure to 98 she is still mentating. This will be rechecked. She is not meeting any sirs criteria, and I do not feel that she requires admission. I discussed this with the patient and she would like to be discharged. She has oxygen at home that she is wearing, and her pulse ox remains normal on 3 L. She states that usually she requires steroids. She was given a loading dose of prednisone 60 mg here in the emergency department and a prescription for steroid burst for the next 7 days of 40 mg daily. I feel she be discharged safely home with follow-up and not requiring observation at this time. Return instructions to the emergency department were reviewed. Disposition is discharged home in stable condition. Of note, RN rechecked the patient's blood pressure and it was still below 100 systolic. However, she is mentating well. She was bolused an additional 1 L of fluids and lactic acid checked. I reviewed her lactic acid and is normal at 0.6. I also added a urinalysis which shows no evidence of infection. I still do not feel that antibiotics are indicated. After fluid bolus, she is maintaining her systolic blood pressure at 112. I feel that she had a transient drop in her blood pressure perhaps from intravascular volume depletion from her reported fever and her upper respiratory infection. I discussed with them observation for her transient hypotension, but she feels comfortable going home. Disposition is discharged home in stable condition. History & Record Review Discussion w/independent historian: Patient and Family Additional record(s) reviewed:: Prior ED visit and Prior labs Lab Data Attestation: I reviewed the patient's lab results. Labs: Laboratory Results - last 24 hr 12/25/22 12/25/22 12/25/22 11:59 14:15 14:27 WBC 5.1 RBC 4.45 Hgb 12.2 Hct 37.9 MCV 85.2 MCH 27.4 MCHC 32.2 RDW Std Deviation 47.0 H RDW Coeff of Niranjan 15.1 H Plt Count 265 MPV 10.8 Immature Gran % (Auto) 1.200 H Neut % (Auto) 65.1 Lymph % (Auto) 13.2 L [place] % (Auto) 20.3 H Eos % (Auto) 0.0 Baso % (Auto) 0.2 Absolute Neuts (auto) 3.3 Absolute Lymphs (auto) 0.67 L Nucleated RBC % 0 Sodium 138 Potassium 3.5 Chloride 102 Carbon Dioxide 31.0 Anion Gap 5 BUN 18 Creatinine 0.98 Estim Creat Clear Calc 74.30 Est GFR (MDRD) Af Amer 73 Est GFR (MDRD) Non-Af 61 BUN/Creatinine Ratio 18.3 Glucose 115 H Lactic Acid 0.6 Calcium 8.9 Troponin I High Sens 31 Urine Color Yellow Urine Clarity Clear Urine pH 6.0 Ur Specific [place] 1.015 Urine Protein 30 H Urine Glucose (UA) Normal Urine Ketones 5 H Urine Occult Blood Negative Urine Nitrite Negative Urine Bilirubin Negative Urine Urobilinogen 1 H Ur Leukocyte Esterase Negative Urine RBC 0 SEEN Urine WBC 0 SEEN Ur Squamous Epith Cells 0 SEEN Urine Bacteria 0 SEEN Urine Mucus 0 SEEN Radiography Diagnostic Testing: Clinical Impression(s) from Imaging Studies Chest X-Ray 12/25/22 11:42 IMPRESSION: 1. Redemonstration of mild bilateral lower lobe interstitial fibrotic changes of the lungs. No definite new opacities are seen. The upper lung kim are clear. Slight hyperinflation with cystic emphysematous changes. Electronically Signed: Sj Zimmerman MD at 12:40 EDT Reading Location ID and State: [facility] / [place] , Service support , Discharge Plan Triage Chief Complaint: Shortness of Breath ED Provider: Daren Sales Dx/Rx/DC Orders Clinical Impression: SOB (shortness of breath), URI (upper respiratory infection), COPD exacerbation Instructions: ED Bronchitis, No Antibiotic (Adult), ED COPD Flare, ED Dyspnea, ED URI, Viral W/ Wheezing (Adult) Prescriptions: New prednisone 20 mg tablet 40 mg PO DAILY 7 Days Qty: 14 0RF No Action potassium chloride 10 mEq tablet extended release 10 meq PO BID Patient Comments: TAKE 1 TABLET BY MOUTH ONCE DAILY WITH BREAKFAST dicyclomine 20 MG tablet 20 mg PO TID lisinopril 30 MG tablet 30 mg PO DAILY omeprazole 20 MG capsule,delayed release(DR/EC) 20 mg PO DAILY aspirin 81 MG tablet,chewable 81 mg PO DAILY@0800 montelukast 10 MG tablet 10 mg PO DAILY hydrochlorothiazide 25 MG tablet 25 mg PO DAILY albuterol sulfate 1 INHALER inhaler 1 - 2 puff INHALATION Q4H PRN PRN (Reason: Sob &/Or Wheezing) fluoxetine 20 MG capsule 20 mg PO BID loratadine 10 MG tablet 10 mg PO DAILY cholecalciferol (vitamin D3) 2,000 UNIT tablet,chewable 2,000 unit PO DAILY furosemide 20 MG tablet 20 mg PO DAILY tiotropium bromide 4 GM mist 2 puff IH DAILY Patient Comments: INHALE 2 SPRAYS DIRECTED BY MOUTH ONCE DAILY lorazepam 0.5 mg Tablet 0.5 mg PO DAILY PRN (Reason: Anxiety) rosuvastatin 10 mg Tablet 10 mg PO QHS fluoxetine 10 mg capsule 10 mg PO DAILY Patient Comments: TAKE 1 CAPSULE BY MOUTH ONCE DAILY WITH BREAKFAST. 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 Disposition Disposition: Home, Self Care
[2022-12-25] MEDS: Ketorolac 30 MG/ML Syringe IV (11:53)
[2022-12-25] MEDS: 0.9% Normal Saline (1000mL) 1,000 ML 999 ML IV ×2 (11:53→14:17)
[2022-12-25] MEDS: Ipratropium/Albuterol Sulfate 3 ML AMPUL.NEB INHALATION (11:59)
[2022-12-25] MEDS: Ondansetron 4 MG/2 ML Vial IV (12:05)
[2022-12-25 12:06] LABS: Absolute Lymphocyte Count 0.67 X10^3/uL (0.83-4.51); Absolute Neutrophil Count 3.3 X10^3/uL (2.0-7.7); Basophil# 0.01 X10^3/uL; Basophil% 0.2 % (0-1); Hematocrit 37.9 % (37-47); Hemoglobin 12.2 g/dL (12.0-15.0); Lymphocyte # 0.67 X10^3/ul (0.83-4.51); Lymphocyte % 13.2 % (19-41); Mean Corp Hgb Conc 32.2 g/dL (32-36); Mean Corpuscular Hgb 27.4 pg (27.0-32.0); Mean Corpuscular Volume 85.2 fL (81-99); Mean Platelet Vol. 10.8 fl (6.2-12.0); Monocyte# 1.03 X10^3/uL; Monocyte% 20.3 % (0-10); NRBC Flagged by Analyzer 0 % (0-5); Neutrophil # 3.31 X10^3/uL (2.7-7.7); Neutrophil % 65.1 % (47-70); Platelet Count 265 K/mm3 (150-450); RBC Distribution Width CV 15.1 % (11.6-14.6); Red Blood Count 4.45 M/mm3 (4.2-5.4); White Blood Count 5.1 K/mm3 (4.4-11.0)
[2022-12-25 12:22] LABS: Anion Gap 5 (5-15); BUN 18 mg/dL (7-18); BUN/Creat Ratio 18.3 RATIO (10-20); Calcium,Total 8.9 mg/dL (8.5-10.1); Chloride 102 mmol/L (98-107); Creatinine, Serum 0.98 mg/dL (0.55-1.02); EST Glomerular Filtration Rate 61 mL/min (>60); Est Glom Filt Rate - Afr Amer 73 mL/min (>60); Glucose 115 mg/dL (74-106); Potassium 3.5 mmol/L (3.5-5.1); Sodium Level 138 mmol/L (136-145); Troponin-I HS 31 pg/mL (3.0-54.0)
[2022-12-25] MEDS: predniSONE 20 MG Tablet 60 MG PO (13:55)
[2022-12-25 14:38] LABS: Bacteria 0 SEEN /hpf (None Seen); Mucous, Urine 0 SEEN /hpf (<or=2+); Red Blood Cells-Urine 0 SEEN /hpf (0-5); Squamous Epithelial Cells - UA 0 SEEN /hpf (5-10); White Blood Cells 0 SEEN /hpf (0-5)
[2022-12-25 14:48] LABS: Glucose, Dipstick Normal (Normal); Ketone-Dipstick 5 mg/dl (Negative); Leukocyte Esterase-Dipstick Negative /ul (Negative); Nitrite-Dipstick Negative (Negative); Occult Blood-Urine Negative /ul (Negative); Protein-Dipstick 30 mg/dl (Negative); Specific Gravity, Urine 1.015 (1.002-1.030); Urine Bilirubin Dipstick Negative (Negative); Urine Clarity Clear (Clear); Urine Urobilinogen 1 mg/dl (Normal)
[2022-12-25 14:54] LABS: Color, Urine Yellow (Yellow)
[2022-12-25 15:28] LABS: Lactic Acid 0.6 mmol/L (0.4-1.9)
== END 2022-12-25 16:12 | disposition home or self-care (01) ==
PROVIDERS: Emergency Provider Emergency Medicine; PCP Student in an Organized Health Care Education/Training Program; Visit Provider Emergency Medicine
DX: R06.02 Shortness of breath (principal); J44.1 Chronic obstructive pulmonary disease with (acute) exacerbation; E11.9 Type 2 diabetes mellitus without complications; I10 Essential (primary) hypertension; R11.0 Nausea; Z87.891 Personal history of nicotine dependence; J06.9 Acute upper respiratory infection, unspecified; Z99.81 Dependence on supplemental oxygen; Z99.89 Dependence on other enabling machines and devices; Z79.899 Other long term (current) drug therapy; Z79.82 Long term (current) use of aspirin; Z79.51 Long term (current) use of inhaled steroids; Z90.49 Acquired absence of other specified parts of digestive tract
CPT/HCPCS: 71045; 80048; 81001; 83605; 84484; 85025; 87428; 87807; 93005; 94640; 96361; 96374; 96375; 99285; J7030; A4216; J2405

== ENCOUNTER 2022-12-29 06:54 | Emergency (ER) | payer BC, SELFPAY ==
[2022-12-27 06:48] VITALS: BMI 34.6
[2022-12-29] VITALS (9 sets, daily range): BP systolic 114–138; BP diastolic 58–74; PULSE 70–90; RESP 16–24; TEMP 37.7–38.8; O2SAT 92–97; BMI 34.2
--- NOTE | 2022-12-29 07:03 | RAD_ITS ---
STUDY: X-RAY CHEST REASON FOR EXAM: Female, 62 years old. Productive cough, fever and chills TECHNIQUE: PA and lateral views of the chest. COMPARISON: Comparison is made with prior study dated December 25, 2022. FINDINGS: EKG electrodes are seen. Increased markings at both lung bases worse on the right side suggests some bibasilar infiltrates. There is no demonstrated pleural abnormality. Normal size heart. Normal mediastinum and john. Normal visualized pulmonary arteries. There is atherosclerotic calcification of the aortic arch with tortuosity. Normal visualized thoracic spine. Healing left lower rib fracture. There is no demonstrated abnormality of the visualized soft tissue structures of the upper abdomen. RAD/Chest PA and Lateral IMPRESSION: Patchy bibasilar infiltrates worse on the right side. Electronically Signed: Yobany Wood MD at 9:06 EDT ,
--- NOTE | 2022-12-29 07:06 | EDS_ITS ---
HPI History of Present Illness Chief Complaint: General Illness Detail of Chief Complaint: [place] symptoms with fever, chills and vomiting Informant: patient Onset/Context/Timing Onset: Days Context: Sudden Onset Timing: Continuous and Waxes and wanes Quality: Upper respiratory symptoms with productive cough and fever with chills Location: Upper respiratory and Current Severity: Mild Maximum Severity: Moderate Worsened by: Exertion Relieved by: Nothing Associated Symptoms Associated Symptoms: Fever, chills, productive cough, nausea and vomiting x2 today Narrative Narrative: Jaclyn is a 62-year-old woman who has chronic COPD on oxygen. She states she is normally on 3 L by nasal cannula at rest and 5 L with activity. She no longer smokes. She was seen this past weekend and diagnosed with COPD. She did not have a productive cough this past weekend. Her cough is now productive and sputum is yellow in color which is not normal for her. She denies history of VTE. She denies leg pain, swelling discoloration. She does report aches. She is not on an anticoagulant. She denies headache, visual, ocular auditory symptoms. She does endorse rhinorrhea, congestion postnasal drainage. She denies sore throat. Denies change in voice. She believes she has a broken rib on the right because it hurts when she coughs and she has had a prior broken rib on the right side. She denies intolerance to greasy food or fried foods. She is status post cholecystectomy. She denies history of renal ureterolithiasis. Prior similar symptoms: Yes Recent Illness/Hospitalization: Yes [facility] Medical History Acute respiratory failure Acute respiratory failure with hypoxia Asthma Asthma exacerbation Chest pain Chronic hypoxemic respiratory failure COPD (chronic obstructive pulmonary disease) CPAP (continuous positive airway pressure) dependence Diabetes type 2, controlled Former smoker Hypertension Hypokalemia On home oxygen therapy Osteoporosis Sleep apnea SOB (shortness of breath) Home Medications albuterol sulfate 90 mcg/actuation aerosol inhaler 1 - 2 puff inhalation Q4H PRN PRN Sob &/Or Wheezing 05/29/19 [History Last Taken 03/15/22] aspirin 81 mg chewable tablet 81 mg PO DAILY@0800 05/29/19 [History Last Taken 03/14/22] cholecalciferol (vitamin D3) 50 mcg (2,000 unit) chewable tablet 2,000 unit PO DAILY 05/29/19 [History Last Taken 03/14/22] dicyclomine 20 mg tablet 20 mg PO TID 05/29/19 [History Last Taken 03/14/22] fluoxetine 20 mg capsule 20 mg PO BID 05/29/19 [History Last Taken 03/14/22] hydrochlorothiazide 25 mg tablet 25 mg PO DAILY 05/29/19 [History Last Taken 03/14/22] lisinopril 30 mg tablet 30 mg PO DAILY 05/29/19 [History Last Taken Unknown] loratadine 10 mg tablet 10 mg PO DAILY 05/29/19 [History Last Taken Unknown] montelukast 10 mg tablet 10 mg PO DAILY 05/29/19 [History Last Taken 03/14/22] omeprazole 20 mg capsule,delayed release 20 mg PO DAILY 05/29/19 [History Last Taken 03/14/22] furosemide 20 mg tablet 20 mg PO DAILY 05/12/20 [History Last Taken 03/14/22] tiotropium bromide 2.5 mcg/actuation mist for inhalation 2 puff IH DAILY 05/12/20 [History Last Taken 03/15/22] Disability Placard #1 ea 07/21/20 [Rx Last Taken Unknown] lorazepam 0.5 mg tablet 0.5 mg PO DAILY PRN Anxiety 10/30/20 [History Last Taken 03/14/22] rosuvastatin 10 mg tablet 10 mg PO QHS 10/30/20 [History Last Taken 03/14/22] budesonide-formoterol HFA 160 mcg-4.5 mcg/actuation aerosol inhaler 2 puff inhalation BID #10.2 grams 10/25/21 [Rx Last Taken 03/15/22] fluoxetine 10 mg capsule 10 mg PO DAILY DEPRESSION 03/15/22 [History Last Taken 03/14/22] benralizumab 30 mg/mL subcutaneous syringe (Fasenra) 30 mg subcut Q8W #1 mL 04/14/22 [Rx Last Taken Unknown] potassium chloride 10 mEq tablet,extended release 10 meq PO BID 09/28/22 [History Last Taken Unknown] prednisone 20 mg tablet 40 mg (2 x 20 mg) PO DAILY 7 days #14 tabs 12/25/22 [Rx Last Taken Unknown] levofloxacin 500 mg tablet 500 mg PO DAILY #5 tabs 12/29/22 [Rx Last Taken Unknown] potassium chloride 40 mEq/15 mL oral liquid 40 meq (15 mL) PO DAILY #473 mL 12/29/22 [Rx Last Taken Unknown] Allergy/AdvReac Type Severity Reaction Status Date / Time adhesive AdvReac Rash Verified 12/25/22 11:06 Barbiturates AdvReac Other - Verified 12/25/22 11:06 spine contracts Family History Father Diabetes Heart disease Sister Breast cancer Other Hypertension Surgical History History of section History of cholecystectomy L wrist surgery Social History Smoking Status: Former smoker quit date: 04/10/16 pack-years: 30 how long ago did patient quit smokin, 1pk/day second hand exposure: Yes alcohol intake: never substance use type: does not use ROS ROS ED Constitutional Constitutional ED: Reports chills, fever(s) and sweats; Denies subjective or weight loss Eyes Eyes: Denies blurry vision, change in vision or diplopia ENT ENT ED: Reports rhinorrhea; Denies ear pain or sore throat Cardiovascular Cardiovascular: Reports chest pain; Denies orthopnea, palpitations, paroxysmal nocturnal dyspnea or racing heartbeat Respiratory/Chest Respiratory/Chest: Reports cough, dyspnea, dyspnea on exertion and sputum; Denies orthopnea or paroxysmal nocturnal dyspnea Gastrointestinal Gastrointestinal: Reports nausea and vomiting; Denies abdominal pain, constipation or diarrhea Genitourinary Genitourinary ED: Denies dysuria, hematuria or urinary frequency Musculoskeletal Musculoskeletal: Reports myalgias; Denies arthralgias or back pain Integumentary Denies abscess or rash Neurologic Neurologic: Reports weakness; Denies headache(s) or paresthesias Psychiatric Psychiatric: Denies anxiety or depression Endocrine Endocrinology: Denies cold intolerance or heat intolerance Hematologic/Lymphatic Hematologic/Lymphatic: Reports systems reviewed and no addt'l complaints, except as documented and as per HPI Allergic/Immunologic Allergic/Immunologic ED: Denies mouth swelling or tongue swelling EXAM Physical Exam Const Vital Signs: 12/29/22 06:55 12/29/22 07:24 12/29/22 07:24 Temperature 100.9 F H Temperature Source Oral Pulse Rate 83 79 Respiratory Rate 18 16 Respiratory Effort Blood Pressure 138/72 H Blood Pressure Mean 94 Pulse Ox 96 97 Oxygen Delivery Method Nasal Cannula Nasal Cannula Oxygen Flow Rate (L/min) 5 3 12/29/22 08:15 12/29/22 08:15 12/29/22 08:37 Temperature 102 F H Temperature Source Oral Pulse Rate 90 Respiratory Rate 20 H Respiratory Effort Short of Breath Labored Blood Pressure 119/58 L Blood Pressure Mean 78 Pulse Ox 95 95 Oxygen Delivery Method Nasal Cannula Nasal Cannula Nasal Cannula Oxygen Flow Rate (L/min) 3 3 3 12/29/22 09:00 12/29/22 10:00 12/29/22 11:30 Temperature 102 F H 99.8 F H Temperature Source Oral Temporal Pulse Rate 85 77 86 Respiratory Rate 24 H 19 H 20 H Respiratory Effort Blood Pressure 118/58 L 128/72 H 121/74 H Blood Pressure Mean 78 90 89 Pulse Ox 94 96 97 Oxygen Delivery Method Nasal Cannula Nasal Cannula Room Air Oxygen Flow Rate (L/min) 3 3 Positive well nourished, well developed and obese General Appearance ED: well developed and NAD; Negative for cyanotic, diaphoretic or pallor Nutritional Appearance: obese HEENT Reports moist mucous membranes HEENT Narrative: Haed is normocephalic and atraumatic. Ears are normal. Nares patent. Posterior pharynx out erythema or exudate. Uvula is midline. Eyes PERRL and EOMs intact bilaterally General Eye ED: Negative for pale conjunctiva or scleral icterus Neck no lymphadenopathy, supple and no JVD Neck Narrative: Trachea is midline. There is no inspiratory stridor. There is no local lymphadenopathy. Chest Wall inspection of chest normal and palpation of chest normal Resp normal respiratory effort and No clear to auscultation bilaterally Effort and Inspection: Negative for retractions Auscultation: rales bilateral lower and wheezes expiratory wheezes and scattered wheezes Cardio regular rate, regular rhythm, S1 normal heart sound, S2 normal heart sound and no murmurs GI normal to inspection, nondistended, normoactive bowel sounds, non-tender, non-distended and no masses; Negative for hepatosplenomegaly Auscultation: normoactive bowel sounds Back/Spine no CVA tenderness Back/Spine Narrative: Inspection is normal. Extremity normal to inspection Extremity Narrative: There is no asymmetry, swelling, discoloration, leg vein distention, palpable cords or tenderness along the distribution of the deep venous system. Neuro oriented x3, CN's II-XII intact bilaterally and no sensory deficits noted Sensorium / Orientation: alert Motor Exam: strength 5/5 throughout Psych mental status grossly normal Skin no rashes or lesions noted, no wounds and skin turgor normal General Skin Exam: Negative for jaundice or pallor MDM MDM MDM Narrative Medical decision making narrative: Documentation authored by Dr. Daren Gomes, was read. Since patient has a fever with change in cough and right-sided pain will obtain chest x-ray to assess for pneumonia. Breath sounds are symmetric pneumothorax is less likely as a cause and x-ray from this past week and was reviewed and there is no evidence of fractured rib. Agree with prior physician that rib detail imaging is not indicated. Because patient has fever productive cough and there is concern for pneumonia baseline blood work was obtained to assess for endorgan dysfunction, sepsis. Patient was treated with prednisone p.o., DuoNeb and albuterol since she has wheezing. Patient was not prescribed antibiotic prior visit. History & Record Review Additional record(s) reviewed:: Prior inpatient record (Patient was admitted March 2022 for exacerbation of COPD.), Prior outpatient record (This note was authored by Dr. Norwood and Elenita Lozano were read.), Prior ED visit and Prior labs Lab Data Attestation: I reviewed the patient's lab results. Lab results narrative: White count is normal with slight shift. There is no bandemia. H&H and indices are normal. Comprehensive metabolic panel is marked with potassium of 2.7. Glucose is 124 with an elevated CO2 and normal anion gap. Labs: Laboratory Results - last 24 hr 12/29/22 08:20 WBC 7.1 RBC 4.63 Hgb 12.7 Hct 39.0 MCV 84.2 MCH 27.4 MCHC 32.6 RDW Std Deviation 44.9 H RDW Coeff of Niranjan 14.6 Plt Count 201 MPV 10.2 Immature Gran % (Auto) 0.600 Neut % (Auto) 73.0 H Lymph % (Auto) 14.6 L Smith % (Auto) 11.8 H Eos % (Auto) 0.0 Baso % (Auto) 0.0 Absolute Neuts (auto) 5.2 Absolute Lymphs (auto) 1.04 Nucleated RBC % 0 Sodium 137 Potassium 2.7 L* Chloride 100 Carbon Dioxide 33.0 H Anion Gap 4 L BUN 18 Creatinine 0.98 Estim Creat Clear Calc 42.20 Est GFR (MDRD) Af Amer 74 Est GFR (MDRD) Non-Af 61 BUN/Creatinine Ratio 18.4 Glucose 124 H Lactic Acid 1.0 Calcium 8.9 Radiography Chest X-Ray - ED: 2 View and Read by ED Physician (Chest x-ray is intimately reviewed interpreted by me at 0903 as negative for any acute process. There is a nodule noted peripheral left lower lung field that was noted on prior. There is increased interstitial markings right lower lobe compared to prior. Silhouette and size unremarkable. Perihil) Diagnostic Testing: Clinical Impression(s) from Imaging Studies Chest X-Ray 12/29/22 07:03 IMPRESSION: Patchy bibasilar infiltrates worse on the right side. Electronically Signed: Yobany Wood MD at 9:06 EDT , Treatment and Re-Evaluation :: Was informed at 0825 the patient has a temperature 102. 650 mg of Tylenol was ordered. Patient did not desaturate with oxygenation. She was treated with p.o. potassium for her hypokalemia. She received her first dose of antibiotics in the emergency department. Furthermore, patient had no wheezing on reexamination at 1221. Discharge Plan Triage Chief Complaint: General Illness ED Provider: Facundo Boogie Dx/Rx/DC Orders Clinical Impression: Acute exacerbation of chronic bronchitis, Hypertension, Lung nodule < 6cm on CT, Stage 3 severe COPD by GOLD classification, Acute bronchospasm, Fever in adult, Chronic respiratory failure with hypoxia, Acute hypokalemia Instructions: ED COPD Flare, ED Hypokalemia Prescriptions: New levofloxacin [levofloxacin] 500 mg tablet 500 mg PO DAILY Qty: 5 0RF potassium chloride 40 mEq/15 mL liquid 40 meq PO DAILY Qty: 473 0RF No Action potassium chloride 10 mEq tablet extended release 10 meq PO BID Patient Comments: TAKE 1 TABLET BY MOUTH ONCE DAILY WITH BREAKFAST dicyclomine 20 MG tablet 20 mg PO TID lisinopril 30 MG tablet 30 mg PO DAILY omeprazole 20 MG capsule,delayed release(DR/EC) 20 mg PO DAILY aspirin 81 MG tablet,chewable 81 mg PO DAILY@0800 montelukast 10 MG tablet 10 mg PO DAILY hydrochlorothiazide 25 MG tablet 25 mg PO DAILY albuterol sulfate 1 INHALER inhaler 1 - 2 puff INHALATION Q4H PRN PRN (Reason: Sob &/Or Wheezing) fluoxetine 20 MG capsule 20 mg PO BID loratadine 10 MG tablet 10 mg PO DAILY cholecalciferol (vitamin D3) 2,000 UNIT tablet,chewable 2,000 unit PO DAILY furosemide 20 MG tablet 20 mg PO DAILY tiotropium bromide 4 GM mist 2 puff IH DAILY Patient Comments: INHALE 2 SPRAYS DIRECTED BY MOUTH ONCE DAILY lorazepam 0.5 mg Tablet 0.5 mg PO DAILY PRN (Reason: Anxiety) rosuvastatin 10 mg Tablet 10 mg PO QHS fluoxetine 10 mg capsule 10 mg PO DAILY Patient Comments: TAKE 1 CAPSULE BY MOUTH ONCE DAILY WITH BREAKFAST. ADD TO 20 MG CAPSULE IN THE AM FOR TOTAL OF 30 MG IN THE AM, 20 MG IN THE PM prednisone 20 mg tablet 40 mg PO DAILY 7 Days Qty: 14 0RF (DME) Disability Placard See Rx Instructions .Route .MEDSUPPLY Qty: 1 0RF Rx Instructions: As directed budesonide-formoterol 160-4.5 mcg/actuation HFA aerosol inhaler 2 puff INHALATION BID Qty: 10.2 6RF Fasenra 30 mg/mL syringe 30 mg SC Q8W Qty: 1 8RF Primary Care Provider: Jacques Staton Referrals: Jacques Staton, [Primary Care Provider] - 5-7 Days (Follow-up visit for exacerbation of chronic bronchitis/COPD and hypokalemia) Activity Restrictions/Additional Instructions: 1. Take prednisone that you were prescribed until gone 2. Take antibiotics until gone 3. Call Dr. Staton's office to have your blood drawn to reassess your potassium level in 5 to 7 days reevaluation of your COPD/bronchitis Disposition Disposition: Home, Self Care
[2022-12-29] MEDS: Ipratropium/Albuterol Sulfate 3 ML AMPUL.NEB INHALATION (07:22)
[2022-12-29] MEDS: Albuterol 2.5 MG/3 ML VIAL.NEB. INHALATION ×2 (07:22)
[2022-12-29] MEDS: Acetaminophen 325 MG Tablet 650 MG PO (08:33)
[2022-12-29] MEDS: predniSONE 20 MG Tablet 60 MG PO (08:33)
[2022-12-29 08:36] LABS: Absolute Lymphocyte Count 1.04 X10^3/uL (0.83-4.51); Absolute Neutrophil Count 5.2 X10^3/uL (2.0-7.7); Hemoglobin 12.7 g/dL (12.0-15.0); Lymphocyte # 1.04 X10^3/ul (0.83-4.51); Lymphocyte % 14.6 % (19-41); Mean Corp Hgb Conc 32.6 g/dL (32-36); Mean Corpuscular Hgb 27.4 pg (27.0-32.0); Mean Corpuscular Volume 84.2 fL (81-99); Mean Platelet Vol. 10.2 fl (6.2-12.0); Monocyte# 0.84 X10^3/uL; Monocyte% 11.8 % (0-10); NRBC Flagged by Analyzer 0 % (0-5); Neutrophil # 5.21 X10^3/uL (2.7-7.7); Platelet Count 201 K/mm3 (150-450); RBC Distribution Width CV 14.6 % (11.6-14.6); RBC Distribution Width SD 44.9 fl (35.1-43.9); Red Blood Count 4.63 M/mm3 (4.2-5.4); White Blood Count 7.1 K/mm3 (4.4-11.0)
[2022-12-29 08:53] LABS: Anion Gap 4 (5-15); BUN 18 mg/dL (7-18); BUN/Creat Ratio 18.4 RATIO (10-20); Calcium,Total 8.9 mg/dL (8.5-10.1); Chloride 100 mmol/L (98-107); Creatinine, Serum 0.98 mg/dL (0.55-1.02); EST Glomerular Filtration Rate 61 mL/min (>60); Est Glom Filt Rate - Afr Amer 74 mL/min (>60); Glucose 124 mg/dL (74-106); Potassium 2.7 mmol/L (3.5-5.1); Sodium Level 137 mmol/L (136-145)
[2022-12-29] MEDS: Potassium Chloride Oral Soln 20 MEQ/15 ML UDC 40 MEQ PO (10:21)
[2022-12-29] MEDS: levoFLOXacin 750 MG Tablet PO (13:10)
== END 2022-12-29 13:23 | disposition home or self-care (01) ==
PROVIDERS: Emergency Provider Emergency Medicine; PCP Student in an Organized Health Care Education/Training Program; Visit Provider Emergency Medicine
DX: J96.11 Chronic respiratory failure with hypoxia (principal); J44.0 Chronic obstructive pulmonary disease with (acute) lower respiratory infection; E11.9 Type 2 diabetes mellitus without complications; J20.9 Acute bronchitis, unspecified; E87.6 Hypokalemia; I10 Essential (primary) hypertension; Z87.891 Personal history of nicotine dependence; R50.9 Fever, unspecified; Z90.49 Acquired absence of other specified parts of digestive tract; R91.1 Solitary pulmonary nodule; Z99.81 Dependence on supplemental oxygen; Z99.89 Dependence on other enabling machines and devices; Z79.899 Other long term (current) drug therapy; Z79.82 Long term (current) use of aspirin; Z79.51 Long term (current) use of inhaled steroids
CPT/HCPCS: 71046; 80048; 83605; 85025; 94640; 99285; A4216

== ENCOUNTER 2025-03-12 15:30 | Outpatient (RCR) | payer OTHER, SELFPAY ==
[2022-12-27 06:48] VITALS: BMI 34.6
--- NOTE | 2025-02-05 19:01 | HP.PTEVAL ---
Patient's Visit Information Visit Information Visit Information: MATTHEW BUTLER is a 64 year old F referred to Physical Therapy by CONRAD MON with a diagnosis of chronic LBP, spondylosis, DDD, spondylolithesis. Date of Evaluation: 02/05/25 Physical Therapist: MAYITO Rodriguez Visit Plan Frequency: 2x /Week Duration: 2 Months Plan: 2X/ week for 6-8 weeks for AT for core stability, LE strength, piriformis stretches, hip strength with HEP Subjective Subjective: Pt is not sure when her back pain started. She had lung reduction surgery due to COPD and was on oxygen for years. She put off doing anything for her back for awhile. In May she went to a chiropractor for 4 months and then changed to a Dr in [place] and he told her in October that he could not do anything for her. She went to see a Dr in [place] spine Dr. He said that she has to the PT to do the MRI. Her pain is across her L-spine and pain down to her knees and pain in her hips (can not lay on either hip). She tosses and turns at night because of the pain. The Dr did x-rays of her LB and it showed Arthritis and shifted discs. She reports that she feels that her L leg drags and she has tripped on it and has been falling. She fell twice in the last few weeks. She has tingling down the L leg more so than the R leg. She feels that her L leg is weaker. She has pain when she sleeps at night. She reports that stairs are comical and she has to have a railing and at home she crawls up the steps on her hands and knees. Pain Low Back Pain: Pain Intensity (Out of 10): 6 B leg pain: Pain Intensity (Out of 10): 0 Objective Objective: Gait: Walks with decrease stride length and decrease stance time on the L LE LE MMT: R hip flex 14.6 and L 12.5 R knee ext 10.2 and L 11.1 R knee flex 9.4 and L 8.1 R hip abd 12 and L hip abd 11 R hip ext 10.4 and L 9 Tight B piformis that causes pain in her buttock, No pain with SLR Trunk AROM: FLEXION 75%, Ext 10%, SB B 50%, ROT B 25% Walk on heels and toes without difficulty Balance/Special Test Scores Oswestry Low Back Score: 12 Goals Goal 1:: I HEP Goal Time Frame: 6-8 Weeks Goal 2:: Increase trunk AROM (At the time of the eval: FLEXION 75%, Ext 10%, SB B 50%, ROT B 25%) Goal Time Frame: 6-8 Weeks Goal 3:: Decrease overall daily back pain by 50% Goal Time Frame: 6-8 Weeks Goal 4:: Increase B piriformis muscle length to be able to stretch without having pain Goal Time Frame: 6-8 Weeks Rehabilitation Potential Rehabilitation Potential: Good Anticipated Interventions Patient/Client Instruction: Educate patient on: Condition and Plan of Care For the Purpose of:: To decrease pain, To increase ROM, To improve nutrient delivery to tissue, To improve muscle performance and motor function, To improve ability to perform ADL's, To increase tolerance to activity/condition/position, To improve performance and independence with ADL's, To decrease level of supervision to perform tasks, To improve ability of physical actions for home/community/work/leisure, To improve gait and locomotor functions, To improve health of tissue, To decrease soft tissue restriction, To increase flexibility/ROM, To improve endurance, To improve balance and To improve safety with gait Therapeutic Exercise to Include: Strength training, Endurance training, Body mechanics, Postural training, Flexibilty training, Gait and locomotor training, Neuromotor development, In an aquatic setting, Passive ROM, Active ROM and Dynamic Lumbar Stabilization For the Purpose of:: To decrease pain, To increase ROM, To improve nutrient delivery to tissue, To improve muscle performance and motor function, To improve ability to perform ADL's, To increase tolerance to activity/condition/position, To improve performance and independence with ADL's, To decrease level of supervision to perform tasks, To improve ability of physical actions for home/community/work/leisure, To improve gait and locomotor functions, To improve health of tissue, To decrease soft tissue restriction and To increase flexibility/ROM Text: Thank you for the opportunity to evaluate your patient. For Medicare and Medicare HMO plans, please review the plan of care and approve it. It will need to be FAXED BACK to us at [phone] for Medicare purposes. For Medicare only, by signing this I certify the plan of care. Please let me know if there are questions or concerns regarding this plan of care. Physician Signature: Date:
--- NOTE | 2025-03-12 15:50 | HP.PTDCSUM_ITS ---
Discharge Summary D/C summary: It has been my pleasure to treat MATTHEW BUTLER referred by CONRAD MON, with the diagnosis of chronic LBP, spondylosis, DDD, spondylolithesis for a total of 15 visit(s). Discharge Date: 03/12/25 Please see the following information for a summary of their discharge status. Subjective Subjective: Pt felt better for about a week and half and then her pain is back to baseline again. She goes to [facility] on 03-27. She needs an MRI to see what is going on. She has pain in her hips at night and has to constantly turn all night or lay on her back. Pain Low Back Pain: Pain Intensity (Out of 10): 7 B leg pain: Pain Intensity (Out of 10): 0 Overall Improvement % Improvement: 0 Objective Objective/Function: FLEXION 90%, Ext 25%, SB L 75% and R 75% with increase pain, ROT B 25%) Piriformis length.. Still painful on the R with slight tightness Goals Goal 1:: I HEP Goal 2:: Increase trunk AROM (At the time of the eval: FLEXION 75%, Ext 10%, SB B 50%, ROT B 25%) Goal 3:: Decrease overall daily back pain by 50% Goal 4:: Increase B piriformis muscle length to be able to stretch without having pain Plan Plan: DC PT to [facility] D/C Information Discharge Comments: DC PT back to the d/juan sentence: If there are questions or concerns regarding this patient's physical therapy, please feel free to call me at [phone]. Thank you for the referral of this patient. Sincerely, Haylee Goodson, MPT Balance/Gait/Functional tests Balance/Special Test Scores Oswestry Low Back Score: 7 Improvement % Improvement: 0
== END 2025-03-12 19:00 | disposition home or self-care (01) ==
LOC: PT 15:30
PROVIDERS: PCP Student in an Organized Health Care Education/Training Program
DX: M47.816 Spondylosis without myelopathy or radiculopathy, lumbar region (principal); M54.50 Low back pain, unspecified; M51.362 Other intervertebral disc degeneration, lumbar region with discogenic back pain and lower extremity pain; M54.16 Radiculopathy, lumbar region; M43.16 Spondylolisthesis, lumbar region
CPT/HCPCS: 97110; 97113; 97161; 97530